=== PATIENT | female | born 1960 | race African-American/Black ===

== ENCOUNTER 2023-02-19 13:25 | Emergency (ER) | payer MEDICAID, SELFPAY ==
[2023-02-19 13:26] VITALS: BP 180/97; PULSE 94; RESP 16; TEMP 36.3; O2SAT 98; BMI 25.6
--- NOTE | 2023-02-19 14:08 | EDS_ITS ---
HPI History of Present Illness Chief Complaint: Cellulitis Informant: patient Onset/Context/Timing Onset: Days (5 days) Context: Gradual Onset Narrative Narrative: Patient presents with facial swelling and redness. She changed out her nasal piercing last Thursday. That evening she started noticing redness and swelling to her face. Last evening it spread down onto her neck and shoulders. She states they also gave her a spray to use which she has used before and I had problems with. She denies that the metal in the nasal piercing is anything different than what she had used previously. [facility] Medical History (Updated 02/19/23 @ 14:[address] Sakina Tilley MD) Alcohol abuse Anxiety Depression Depression Home Medications cephalexin 500 mg capsule 500 mg PO Q6 #40 CAPSULES 02/19/23 [Rx Last Taken Unknown] naproxen 500 mg tablet (Naprosyn) 500 mg PO BID PRN pain #20 tabs 02/19/23 [Rx Last Taken Unknown] sulfamethoxazole 800 mg-trimethoprim 160 mg tablet (Bactrim DS) 1 tab PO BID #20 tabs 02/19/23 [Rx Last Taken Unknown] Allergy/AdvReac Type Severity Reaction Status Date / Time No Known Allergies Allergy Verified 02/19/23 13:28 Family History no significant family his Surgical History no surgical history Social History Smoking Status: Current every day smoker ROS ROS ED Constitutional Constitutional ED: Denies chills or fever(s) Eyes Eyes: Denies change in vision or discharge from eye(s) ENT ENT ED: Denies discharge from eye(s), rhinorrhea or sore throat Cardiovascular Cardiovascular: Denies chest pain or palpitations Respiratory/Chest Respiratory/Chest: Denies cough or dyspnea Gastrointestinal Gastrointestinal: Denies abdominal pain, nausea or vomiting Musculoskeletal Musculoskeletal: Denies back pain or extremity pain Integumentary Reports other Details: Facial pain and edema. ; Denies Abrasions or rash Neurologic Neurologic: Denies headache(s) or weakness Psychiatric Psychiatric: Denies anxiety or depression Endocrine Endocrinology: Denies polydipsia or polyuria Allergic/Immunologic Allergic/Immunologic ED: Denies lip swelling, tongue swelling or urticaria EXAM Physical Exam Const Vital Signs: 02/19/23 13:26 Temperature 97.4 F L Temperature Source Temporal Pulse Rate 94 Respiratory Rate 16 Blood Pressure 180/97 H Blood Pressure Mean 124 Pulse Ox 98 Oxygen Delivery Method Room Air Positive well nourished and well developed General Appearance ED: well developed HEENT Reports normocephalic and head/scalp atraumatic HEENT Narrative: Mild facial edema noted diffusely. Area slightly tender to palpation. No open wounds or lesions. She does have some slight skin sloughing noted over the left shoulder and posterior neck. Intraoral examination reveals no lesions. Eyes PERRL and EOMs intact bilaterally Neck supple Chest Wall inspection of chest normal and palpation of chest normal Resp normal respiratory effort and clear to auscultation bilaterally Cardio regular rate and regular rhythm GI normal to inspection, nondistended, normoactive bowel sounds Palpation: soft Extremity normal to inspection Neuro oriented x3 and no sensory deficits noted Sensorium / Orientation: alert Motor Exam: strength 5/5 throughout Psych mental status grossly normal Skin Skin Narrative: As noted above. MDM MDM MDM Narrative Medical decision making narrative: Patient be treated with a course of antibiotics, Bactrim and Keflex. I will also give her Naprosyn for pain. She will be referred to dermatology for follow-up if not improving. I suggest basic, nonperfumed soap and water for cleansing. If possible, remove your nasal piercing as your symptoms started after this was placed. Discharge Plan Triage Chief Complaint: Cellulitis ED Provider: Sakina Tilley Dx/Rx/DC Orders Clinical Impression: Cellulitis Instructions: ED Cellulitis Prescriptions: New naproxen [Naprosyn] 500 mg tablet 500 mg PO BID PRN (Reason: pain) Qty: 20 0RF sulfamethoxazole-trimethoprim [Bactrim DS] 800-160 mg tablet 1 tab PO BID Qty: 20 0RF cephalexin 500 mg capsule 500 mg PO Q6 Qty: 40 0RF Primary Care Provider: Care Physician,No Primary Referrals: Romana José MD [Non-Staff] - 3-5 Days if not improving Care Physician,No Primary [Primary Care Provider] - Disposition Disposition: Home, Self Care
[2023-02-19] MEDS: Naproxen 500 MG Tablet PO (14:48)
[2023-02-19] MEDS: Cephalexin 250 MG Capsule 500 MG PO (14:48)
[2023-02-19] MEDS: Smz/Tmp Ds Tablet 1 TABLET PO (14:48)
== END 2023-02-19 14:51 | disposition home or self-care (01) ==
PROVIDERS: Emergency Provider Emergency Medicine; Referring Provider Emergency Medicine; Visit Provider Emergency Medicine
DX: L03.90 Cellulitis, unspecified (principal); F17.200 Nicotine dependence, unspecified, uncomplicated; Z79.899 Other long term (current) drug therapy
CPT/HCPCS: 99283

== ENCOUNTER 2023-02-25 14:51 | Emergency (ER) | payer MEDICAID, SELFPAY ==
[2023-02-25 14:52] VITALS: BP 141/97; PULSE 92; RESP 18; TEMP 36.5; O2SAT 98
--- NOTE | 2023-02-25 15:16 | EX.ED.DYSGE1 ---
HPI History of Present Illness Chief Complaint: Allergic Reaction Informant: patient Narrative Narrative: Patient presents with still having a rash all over her face. She states this started about a week ago. She was seen here she was given sulfa and cephalexin. She states its not better and it might even be a little bit worse. It really has not spread to other areas though. She has never had this before. She does recall using a generic perfume that she sprayed on herself about a week or so ago shortly before this started. She has not used that since. Other than that she cannot recall any chemicals foods exposures that are different. She is on the med for depression that sounds like an SSRI. But she states she has been on the same meds for many years. It has not changed color dose or brand. Patient is not nauseated vomiting. She has never had fevers or chills. She is eating and drinking normally. Her only symptoms really are from the neck up and just a little bit in the upper chest. The area seems to be cracking more and peeling but it is not spreading. PFSH [facility] Medical History Alcohol abuse Anxiety Depression Depression Home Medications cephalexin 500 mg capsule 500 mg PO Q6 #40 CAPSULES 02/19/23 [Rx Last Taken Unknown] naproxen 500 mg tablet (Naprosyn) 500 mg PO BID PRN pain #20 tabs 02/19/23 [Rx Last Taken Unknown] sulfamethoxazole 800 mg-trimethoprim 160 mg tablet (Bactrim DS) 1 tab PO BID #20 tabs 02/19/23 [Rx Last Taken Unknown] Allergy/AdvReac Type Severity Reaction Status Date / Time No Known Allergies Allergy Verified 02/25/23 14:54 Social History Smoking Status: Current every day smoker tobacco type: cigarettes ROS ROS ED Constitutional Constitutional ED: Denies chills, fever(s), subjective or sweats Eyes Eyes: Denies change in vision or diplopia ENT ENT ED: Reports other Details: Patient with rash as in HPI ; Denies ear pain, rhinorrhea or sore throat Cardiovascular Cardiovascular: Denies palpitations Respiratory/Chest Respiratory/Chest: Denies cough or dyspnea Gastrointestinal Gastrointestinal: Denies nausea or vomiting Musculoskeletal Musculoskeletal: Denies arthralgias or myalgias Integumentary Reports rash; Denies abscess Neurologic Neurologic: Denies headache(s), paresthesias or weakness Hematologic/Lymphatic Hematologic/Lymphatic: Denies lymphadenopathy Allergic/Immunologic Allergic/Immunologic ED: Reports other Details: Denies any intraoral symptoms. ; Denies mouth swelling or tongue swelling EXAM Physical Exam Narrative Exam Narrative: Patient awake alert sitting in bed no acute distress. HEENT shows diffuse dry cracked skin throughout her face ears eyelids and neck. It really stops within an inch or so of the collar of her T-shirt. It does not extend further down the back or chest. Its not on her arms legs or abdomen. It is not weeping. It is not warm. There are no vesicles. It does not extend intraorally. Eyes show no conjunctival injection. No involvement of the eyes. No tearing. The eyelids do have some dryness on them but this does not extend into the conjunctival area. Neck shows no swelling or lymphadenopathy. It does have involvement of the rash though. Lungs are clear bilaterally. Heart is regular without murmur gallop or rub Abdomen soft nontender Extremities show no swelling. She does have a little bit of eczematous type involvement of both antecubital fossa's but evidently this is not new. This is very mild. She does not carry a diagnosis of eczema though. Const Vital Signs: 02/25/23 14:52 Temperature 97.7 F L Temperature Source Temporal Pulse Rate 92 Respiratory Rate 18 Blood Pressure 141/97 H Blood Pressure Mean 111 Pulse Ox 98 Oxygen Delivery Method Room Air MDM MDM MDM Narrative Medical decision making narrative: At this point, she is not having fevers chills or spreading from the area. She is eating and drinking. I do not think at this point this is likely infectious. Certainly with the cracked skin is that it is at risk though. But I think this is likely allergic. We talked about starting meds for allergies and starting steroids. She would prefer a shot. I explained that it will take a day or so for this to take effect. She still needs to follow-up with dermatology or a primary physician. Her has called dermatology but cannot get in until June at 1 office and not until October of this year at the other. I will refer to a primary physician. We discussed returning if she has trouble swallowing fevers chills or any other concerning symptoms or spread. There is no indication for imaging as I see no indication of infection or abscess. I do not think there is indication for blood work. She has a localized rash without systemic symptoms. Discharge Plan Triage Chief Complaint: Allergic Reaction ED Provider: Jesse Huerta Dx/Rx/DC Orders Clinical Impression: Contact dermatitis and eczema Prescriptions: No Action naproxen [Naprosyn] 500 mg tablet 500 mg PO BID PRN (Reason: pain) Qty: 20 0RF sulfamethoxazole-trimethoprim [Bactrim DS] 800-160 mg tablet 1 tab PO BID Qty: 20 0RF cephalexin 500 mg capsule 500 mg PO Q6 Qty: 40 0RF Primary Care Provider: Care Physician,No Primary Referrals: Aditya Abarca MD [Med Staff - Dental Assisting Instructor] - 3-5 Days Care Physician,No Primary [Primary Care Provider] - Disposition Disposition: Home, Self Care
[2023-02-25 15:17] VITALS: BMI 26.5
[2023-02-25] MEDS: Triamcinolone Acetonide 40 MG/ML Vial IM (15:29)
== END 2023-02-25 15:51 | disposition home or self-care (01) ==
PROVIDERS: Emergency Provider Emergency Medicine; Visit Provider Emergency Medicine
DX: L25.9 Unspecified contact dermatitis, unspecified cause (principal); F17.210 Nicotine dependence, cigarettes, uncomplicated; F32.A Depression, unspecified; Z79.899 Other long term (current) drug therapy
CPT/HCPCS: 96372; 99282

== ENCOUNTER 2025-08-14 15:20 | Inpatient (IN) | payer MEDICAID, SELFPAY ==
[2025-08-14] VITALS (9 sets, daily range): BP systolic 145–167; BP diastolic 101–128; PULSE 70–100; RESP 14–22; TEMP 36.4–37.2; O2SAT 98–100; BMI 22.1
[2025-08-14] MEDS: 0.9% Normal Saline (1000mL) 1,000 ML 999 ML IV (16:00)
[2025-08-14 16:03] LABS: Hematocrit 43.0 % (37-47); Hemoglobin 13.9 g/dL (12.0-15.0); Immature Granulocytes Count 0.010 X10^3/uL (0.0-0.0); Mean Corp Hgb Conc 32.3 g/dL (32-36); Mean Corpuscular Volume 86.7 fL (81-99); Mean Platelet Vol. 13.4 fl (6.2-12.0); NRBC Flagged by Analyzer 0 % (0-5); Platelet Count 100 K/mm3 (150-450); RBC Distribution Width CV 13.4 % (11.6-14.6); RBC Distribution Width SD 42.5 fl (35.1-43.9); Red Blood Count 4.96 M/mm3 (4.2-5.4); White Blood Count 5.3 K/mm3 (4.4-11.0)
[2025-08-14 16:38] LABS: AST(SGOT) 18 U/L (<=31); Alanine Aminotransfer ALT/SGPT 7 U/L (<=34); Albumin, Serum 4.1 g/dL (3.4-4.8); Alkaline Phosphatase 51 U/L (35-104); Anion Gap 15 (5-15); BUN 17 mg/dL (4-19); BUN/Creat Ratio 16.8 RATIO (10-20); Calcium,Total 10.2 mg/dL (7.6-11.0); Carbon Dioxide 23.3 mmol/L (21.0-32.0); Chloride 104 mmol/L (98-108); Estimated Creatinine Clearance 51.66 ml/min (50-250); Globulin 4.2 g/dL (2.2-4.2); Glucose 142 mg/dL (70-99); Lipase 29 U/L (13-75); Potassium 3.2 mmol/L (3.3-5.1)
--- NOTE | 2025-08-14 16:55 | CT_ITS ---
PROCEDURE: CTA CHEST W/WO CONTRAST; ABDOMEN/PELVIS W IV CONT ONLY 08/14/2025 REASON FOR EXAM: SOB; ABD PAIN, WEIGHT LOSS, NO APPETITE TECHNIQUE: Procedure Code: [id number]; [id number] Modality: CT Procedure: CTA CHEST W/WO CONTRAST; ABDOMEN/PELVIS W IV CONT ONLY Multiplanar Sagittal and Coronal images were obtained. 3D post processing was performed. CONTRAST: Isovue-300 VOLUME: 96 mL One or more dose reduction techniques were used (e.g., Automated exposure control, adjustment of the mA and/or kV according to patient size, use of iterative reconstruction technique). RADIATION DOSE SUMMARY: DLP: 973.87 mGycm COMPARISON: None available. FINDINGS: PULMONARY VESSELS: No filling defects suspicious for pulmonary arterial emboli identified. Pulmonary trunk is of normal caliber. No evidence of acute right heart strain. LUNGS/PLEURA: Bilateral scattered linear/discoid atelectasis versus scarring. No airspace consolidation or findings of pulmonary edema. No pneumothorax or pleural effusions. Central airways are patent. MEDIASTINUM: No suspicious lymph node enlargement or mass lesion. HEART: Four-chamber cardiomegaly. No pericardial effusion. Scant coronary artery calcifications. AORTA: Normal course and caliber. Mild atherosclerotic disease. HEPATOBILIARY: Unremarkable liver, spleen, and pancreas. No biliary ductal dilatation. Cholelithiasis, without evidence of acute cholecystitis. GENITOURINARY: Unremarkable kidneys. No hydronephrosis. Normal adrenal glands. Circumferential bladder wall thickening may reflect cystitis. Small amount of air within the bladder lumen is nonspecific, and may be related to recent catheterization. Prominent partially calcified uterine fibroid at the dorsal aspect of the uterine body. Unremarkable adnexae. GI TRACT: No evidence of obstruction or active inflammatory process. Normal appendix. Mild distal colonic diverticulosis without evidence for active diverticulitis/colitis. PERITONEUM/RETROPERITONEUM: No ascites or free air. No lymphadenopathy. BONES: No acute or aggressive osseous abnormality. Mild multilevel degenerative changes of the spine. Prominent degenerative Schmorl's nodes involving the superior endplates of T12 and L1 noted. CT/Abdomen/Pelvis W IV Cont ONLY IMPRESSION: 1. No pulmonary arterial emboli identified. 2. Cardiomegaly. No pulmonary edema or pleural effusions. Scattered bilateral linear/discoid atelectasis versus scarring in the lungs. 3. Cholelithiasis, without evidence for acute cholecystitis. 4. Circumferential bladder wall thickening, correlate clinically for cystitis. Small amount of nonspecific air within the bladder lumen may be related to recent catheterization. 5. Prominent partially calcified fibroid at the dorsal uterine body. Reading Location: [id number]
--- NOTE | 2025-08-14 17:23 | EDS_ITS ---
HPI History of Present Illness Chief Complaint: General Illness Narrative Narrative: Patient is a 65-year-old female with past medical history anxiety, depression, alcohol abuse does not follow with a doctor in a regular basis who presents to the emergency department with a chief complaint of generalized weakness, decreased appetite, weight loss and not feeling well overall. According to the son at bedside who provided majority of history of present illness he states that he thought things would get better however they have not over the last month therefore he brought her here for further evaluation management. Patient also complains of some shortness of breath denies any history of blood clots denies any recent travel history. She states that she does smoke. [facility] Medical History Alcohol abuse Anxiety Depression Depression Home Medications ?Medication ?Instructions ?Recorded ?Last Taken ?Type citalopram 40 mg tablet 40 mg PO DAILY MOOD 08/14/25 08/07/25 History trazodone 50 mg tablet 50 - 100 mg PO QHS PRN insom joseph 08/14/25 08/07/25 History Allergy/AdvReac Type Severity Reaction Status Date / Time No Known Allergies Allergy Verified 08/14/25 15:26 Social History Smoking Status: Current every day smoker tobacco type: cigarettes ROS ROS ED ROS Narrative Constitutional: Denies any fevers or chills denies headache Eyes: Denies double vision Cardiovascular: Denies chest pain Respiratory: Complains of shortness of breath as noted above Abdomen: Complains of decreased appetite and weight loss as noted above : Denies urinary symptoms Neurological: Denies numbness, wheeze, tingling Musculoskeletal: Denies back pain Skin: Denies any rashes or lesions EXAM Physical Exam Narrative Exam Narrative: General: Patient was lying in bed rest comfortably did not appear to be in acute distress Head: Atraumatic, normocephalic Eyes: PERRL bilaterally, EOMI bilaterally, no conjunctival injection noted mucous membranes dry Neck: Soft, supple, trachea midline Cardiovascular: Regular rate and rhythm Respiratory: Clear to auscultation bilaterally Abdomen: Soft, nondistended, diffuse tenderness to palpation no rebound guarding exam Extremities: +3/5 strength noted in the bilateral upper and lower extremities Neurological: Patient following commands she was at [facility] Skin: Warm, dry, intact no rashes or lesions noted dry skin noted Const Vital Signs: 08/14/25 15:22 08/14/25 15:28 08/14/25 17:36 Temperature 97.6 F L Temperature Source Oral Pulse Rate 94 Respiratory Rate 18 Respiratory Effort Normal Non-Labored Respiratory Pattern Normal Blood Pressure 145/101 H 150/121 H Blood Pressure Mean 115 130 Blood Pressure Source Blood Pressure Position Blood Pressure Location Pulse Ox 100 100 Oxygen Delivery Method Room Air Room Air 08/14/25 20:41 08/14/25 21:45 08/14/25 22:00 Temperature Temperature Source Pulse Rate 77 70 Respiratory Rate 14 14 Respiratory Effort Respiratory Pattern Blood Pressure 157/102 H 159/113 H 159/128 H Blood Pressure Mean 120 128 138 Blood Pressure Source Blood Pressure Position Blood Pressure Location Pulse Ox 98 98 Oxygen Delivery Method Room Air Room Air 08/14/25 23:04 08/14/25 23:04 Temperature Temperature Source Pulse Rate 74 78 Respiratory Rate 20 H 20 H Respiratory Effort Respiratory Pattern Blood Pressure 164/108 H 164/108 H Blood Pressure Mean 126 126 Blood Pressure Source Monitor Blood Pressure Position Semi-Fowlers Blood Pressure Location Left Arm Pulse Ox 100 100 Oxygen Delivery Method Room Air Room Air MDM MDM MDM Narrative Medical decision making narrative: Patient is a 65-year-old female who presents to the Emergency Department chief complaint of generalized weakness, weight loss, decreased appetite and abdominal pain as well as shortness of breath. On the differential diagnose includes but not limited to lung cancer, intra-abdominal mass, failure to thrive, hypothyroidism, dehydration. Once workup is obtained reviewed she will be reevaluated. Patient is a 65-year-old female patient CBC reviewed showed no evidence leukocytosis white blood count normal 5.3, he was 13.9, platelet count of 100. Patient sodium is 142, potassium 3.2 will give 40 mill equivalents of oral supplementation, creatinine is 1.03. Patient's AST and ALT normal at 18 and 7 respectively. Patient lipase normal at 29, thyroid TSH normal at 1.29. Patient's free T4 and T3 normal at 1.20 and 2.3 respectively. Patient urinalysis showed 500 leukocyte esterase 25-50 white cells with rare bacteria however she appears clinically to have a urinary tract infection therefore she was given Rocephin this was sent for culture. Patient's CTA chest was reviewed showed no PE. Cardiomegaly no pulmonary edema or effusions noted. Cholelithiasis without evidence of acute cholecystitis. Circumferential bladder wall thickening concern for cystitis correlate clinically. After discussion with the son at bedside he states that she is very weak and cannot get around is also having some changes in mental status is more confused and that he states that he thinks that she may have dementia but does not feel that she is safe at home by herself therefore we will discuss case with hospitalist for admission. Son also notified me that he was concern for increased work of breathing and went back in and with similar patient's lungs we will give a DuoNeb to see if this improves her feeling her shortness of breath. Discussed case with hospitalist Dr. Quiros who accept patient for admission. Patient notified as well as family at bedside they are agreeable this plan all question concerns answered. Lab Data Labs: Laboratory Results - last 24 hr 08/14/25 08/14/25 08/14/25 15:30 17:36 21:30 WBC 5.3 RBC 4.96 Hgb 13.9 Hct 43.0 MCV 86.7 MCH 28.0 MCHC 32.3 RDW Std Deviation 42.5 RDW Coeff of Adán 13.4 Plt Count 100 L MPV 13.4 H Immature Gran % (Auto) 0.200 Neut % (Auto) 56.3 Lymph % (Auto) 33.0 [place] % (Auto) 7.0 Eos % (Auto) 2.7 Baso % (Auto) 0.8 Absolute Neuts (auto) 3.0 Absolute Lymphs (auto) 1.74 Nucleated RBC % 0 Sodium 142 Potassium 3.2 L Chloride 104 Carbon Dioxide 23.3 Anion Gap 15 BUN 17 Creatinine 1.03 Estim Creat Clear Calc 51.66 Est GFR (MDRD) Non-Af 61 BUN/Creatinine Ratio 16.8 Glucose 142 H Calcium 10.2 Total Bilirubin 1.43 H AST 18 ALT 7 Alkaline Phosphatase 51 Total Protein 8.2 Albumin 4.1 Globulin 4.2 Albumin/Globulin Ratio 1.0 Lipase 29 TSH 1.290 Free T4 1.20 Free T3 pg/dL 2.3 Urine Color Yellow Urine Clarity Turbid Urine pH 5.0 Ur Specific [place] 1.010 Urine Protein 30 H Urine Glucose (UA) Normal Urine Ketones Negative Urine Occult Blood 150 H Urine Nitrite Positive H Urine Bilirubin Negative Urine Urobilinogen 8 H Ur Leukocyte Esterase 500 H Urine RBC 0-5 SEEN Urine WBC 25-50 SEEN Ur Squamous Epith Cells 0-5 SEEN Ur Renal Epithelial Cell 0-5 SEEN Urine Bacteria RARE Urine Mucus 0 SEEN Radiography Diagnostic Testing: Clinical Impression(s) from Imaging Studies Abdomen/Pelvis CT 08/14/25 16:55 IMPRESSION: 1. No pulmonary arterial emboli identified. 2. Cardiomegaly. No pulmonary edema or pleural effusions. Scattered bilateral linear/discoid atelectasis versus scarring in the lungs. 3. Cholelithiasis, without evidence for acute cholecystitis. 4. Circumferential bladder wall thickening, correlate clinically for cystitis. Small amount of nonspecific air within the bladder lumen may be related to recent catheterization. 5. Prominent partially calcified fibroid at the dorsal uterine body. Reading Location: [facility] Chest CTA 08/14/25 16:55 IMPRESSION: 1. No pulmonary arterial emboli identified. 2. Cardiomegaly. No pulmonary edema or pleural effusions. Scattered bilateral linear/discoid atelectasis versus scarring in the lungs. 3. Cholelithiasis, without evidence for acute cholecystitis. 4. Circumferential bladder wall thickening, correlate clinically for cystitis. Small amount of nonspecific air within the bladder lumen may be related to recent catheterization. 5. Prominent partially calcified fibroid at the dorsal uterine body. Reading Location: [facility] Discharge Plan Dx/Rx/DC Orders Clinical Impression: Generalized weakness, Adult failure to thrive, Alcohol use, UTI (urinary tract infection) Disposition Disposition: Acute Care Hospital [facility]
[2025-08-14 18:49] LABS: Free T3 2.3 pg/mL (2.18-3.98)
--- NOTE | 2025-08-14 19:43 | CM.ED ---
Social work Reason for referral: no PCP Referral source: case find SW identified patient's lack of PCP and need for resources. SW entered patient's room, introducing self and role at [facility]. Patient welcomed SW visit and asked if patient's son had called in. SW stated ability to ask patient's nurse and expressed reason for SW visit. Patient confirmed not having a PCP and accepted resources of [facility] Provider Directory and Charissa Baptiste information. Shanel Sims, SPECIAL AGENT [employer], MICRO PALEONTOLOGIST
[2025-08-14 21:41] LABS: Mucous, Urine 0 SEEN /hpf (<or=2+)
[2025-08-14 21:58] LABS: Color, Urine Yellow (Yellow); Glucose, Dipstick Normal (Normal); Ketone-Dipstick Negative (Negative); Leukocyte Esterase-Dipstick 500 /ul (Negative); Nitrite-Dipstick Positive (Negative); Occult Blood-Urine 150 /ul (Negative); Protein-Dipstick 30 mg/dl (Negative); Specific Gravity, Urine 1.010 (1.002-1.030); Urine Bilirubin Dipstick Negative (Negative)
[2025-08-14 22:19] LABS: Red Blood Cells-Urine 0-5 SEEN /hpf (0-5); Squamous Epithelial Cells - UA 0-5 SEEN /hpf (5-10)
--- NOTE | 2025-08-14 23:06 | ED.RN ---
pt. found to have removed saline lock. bandage in place w/ angio cath at bedside. post site and angiocath intact.
[2025-08-15] VITALS (10 sets, daily range): BP systolic 138–168; BP diastolic 86–127; PULSE 92–111; RESP 16–20; TEMP 36.2–36.9; O2SAT 99–100; BMI 22.2
--- NOTE | 2025-08-15 00:18 | HP.PCM_ITS ---
[facility] General Date of Admission: 08/15/25 Date of Service: 08/15/25 Chief Complaint: Generalized weakness, failure to thrive HPI Elbert SOUTH, is a 65 F who presents to the emergency room with chief complaint of generalized weakness with failure to thrive at home. According to the her son the patient has slept approximately 60 hours of the last 72 hours at home. She is too weak to transfer without assistance by her son who does work 40 to 50 hours a week at another job and is not at home all the time. Patient does have a significant past medical history of anxiety, depression, alcohol abuse and she does not have routine medical care. Recently her son's noticed her having more trouble with memory and her fatigue and weakness has progressed markedly. Patient is also a smoker and does have some shortness of breath. Laboratory studies are unrevealing however she does have a urinary tract infection through her urinalysis. Patient will be admitted for observation to general medical floor case management referral obtained for help with discharge planning and possible placement. Patient will be given antibiotics for her urinary tract infection and physical therapy evaluation to help with her generalized strengthening and further planning for rehabilitation. Patient is full code at this time. [facility] Medical History Alcohol abuse Anxiety Depression Depression Home Medications ?Medication ?Instructions ?Recorded ?Last Taken ?Type citalopram 40 mg tablet 40 mg PO DAILY MOOD 08/14/25 08/07/25 History trazodone 50 mg tablet 50 - 100 mg PO QHS PRN insom joseph 08/14/25 08/07/25 History Allergy/AdvReac Type Severity Reaction Status Date / Time No Known Allergies Allergy Verified 08/14/25 15:26 Social History Smoking Status: Current every day smoker tobacco type: cigarettes ROS Constitutional Constitutional: Reports anorexia, malaise and weakness; Denies chills or fever(s) Eyes Eyes: Denies blurry vision ENT HEENT: Denies abnormal hearing Cardiovascular Cardiovascular: Denies chest pain Respiratory/Chest Respiratory/Chest: Reports cough and shortness of breath with exertion Gastrointestinal Gastrointestinal: Denies abdominal pain Genitourinary Genitourinary: Reports dysuria and urinary frequency Musculoskeletal Musculoskeletal: Denies back pain Integumentary Integumentary: Denies dry skin Neurologic Neurologic: Denies abnormal gait Psychiatric Psychiatric: Denies anxiety Vital Signs Vital Signs Vital Signs: 08/14/25 15:22 08/14/25 15:28 08/14/25 17:36 Temperature 97.6 F L Temperature Source Oral Pulse Rate 94 Respiratory Rate 18 Respiratory Effort Normal Non-Labored Respiratory Pattern Normal Blood Pressure 145/101 H 150/121 H Blood Pressure Mean 115 130 Blood Pressure Source Blood Pressure Position Blood Pressure Location Pulse Ox 100 100 Oxygen Delivery Method Room Air Room Air 08/14/25 20:41 08/14/25 21:45 08/14/25 22:00 Temperature Temperature Source Pulse Rate 77 70 Respiratory Rate 14 14 Respiratory Effort Respiratory Pattern Blood Pressure 157/102 H 159/113 H 159/128 H Blood Pressure Mean 120 128 138 Blood Pressure Source Blood Pressure Position Blood Pressure Location Pulse Ox 98 98 Oxygen Delivery Method Room Air Room Air 08/14/25 23:04 08/14/25 23:04 08/14/25 23:15 Temperature 99 F Temperature Source Pulse Rate 74 78 78 Respiratory Rate 20 H 20 H 18 Respiratory Effort Respiratory Pattern Blood Pressure 164/108 H 164/108 H 167/107 H Blood Pressure Mean 126 126 127 Blood Pressure Source Monitor Blood Pressure Position Semi-Fowlers Blood Pressure Location Left Arm Pulse Ox 100 100 100 Oxygen Delivery Method Room Air Room Air 08/14/25 23:22 08/14/25 23:36 Temperature 99 F Temperature Source Oral Pulse Rate 90 100 Respiratory Rate 22 H 16 Respiratory Effort Respiratory Pattern Normal Blood Pressure 167/107 H Blood Pressure Mean 127 Blood Pressure Source Blood Pressure Position Blood Pressure Location Pulse Ox 100 Oxygen Delivery Method Room Air Weight Weight: 137 lb 5.568 oz Body Mass Index (BMI) 22.1 Physical Exam Narrative Appears very fatigued Const alert and no apparent distress General Appearance: cooperative and well developed Orientation / Consciousness: confused HEENT normocephalic and head/scalp atraumatic Eyes PERRL and EOMs intact bilaterally Neck no lymphadenopathy Lymph Lymphatic: no lymphadenopathy noted Resp normal respiratory effort, normal air movement and clear to auscultation bilaterally Cardio regular rate, regular rhythm, S1 normal heart sound and S2 normal heart sound GI normal to inspection, nondistended, normoactive bowel sounds, soft to palpation, non-tender and non-distended Extremity normal capillary refill General Extremity: Negative for edema Skin General Skin Exam: no breakdown Neuro no focal motor deficits and no sensory deficits noted Psych cooperative Mood & Affect: flat affect Thought Content: No suicidality, No delusion(s) and No hallucination(s) Results Lab / Micro Data 08/14/25 15:30 08/14/25 15:30 Labs: Laboratory Results - last 24 hr 08/14/25 15:30: WBC 5.3, RBC 4.96, Hgb 13.9, Hct 43.0, MCV 86.7, MCH 28.0, MCHC 32.3, RDW Std Deviation 42.5, RDW Coeff of Adán 13.4, Plt Count 100 L, MPV 13.4 H , Immature Gran % (Auto) 0.200, Neut % (Auto) 56.3, Lymph % (Auto) 33.0, [place] % (Auto) 7.0, Eos % (Auto) 2.7, Baso % (Auto) 0.8, Absolute Neuts (auto) 3.0, Absolute Lymphs (auto) 1.74, Nucleated RBC % 0, Sodium 142, Potassium 3.2 L, Chloride 104, Carbon Dioxide 23.3, Anion Gap 15, BUN 17, Creatinine 1.03, Estim Creat Clear Calc 51.66, Est GFR (MDRD) Non-Af 61, BUN/Creatinine Ratio 16.8, G lucose 142 H, Calcium 10.2, Total Bilirubin 1.43 H, AST 18, ALT 7, Alkaline Phosphatase 51, Total Protein 8.2, Albumin 4.1, Globulin 4.2, Albumin/Globulin Ratio 1.0, Lipase 29 08/14/25 17:36: TSH 1.290, Free T4 1.20, Free T3 pg/dL 2.3 08/14/25 21:30: Urine Color Yellow, Urine Clarity Turbid, Urine pH 5.0, Ur Specific [place] 1.010, Urine Protein 30 H, Urine Glucose (UA) Normal, Urine Ketones Negative, Urine Occult Blood 150 H, Urine Nitrite Positive H, Urine Bilirubin Negative, Urine Urobilinogen 8 H, Ur Leukocyte Esterase 500 H, Urine RBC 0-5 SEEN, Urine WBC 25-50 SEEN, Ur Squamous Epith Cells 0-5 SEEN, Ur Renal Epithelial Cell 0-5 SEEN, Urine Bacteria RARE, Urine Mucus 0 SEEN Imaging Radiology Impression Abdomen/Pelvis CT 08/14/25 16:55 IMPRESSION: 1. No pulmonary arterial emboli identified. 2. Cardiomegaly. No pulmonary edema or pleural effusions. Scattered bilateral linear/discoid atelectasis versus scarring in the lungs. 3. Cholelithiasis, without evidence for acute cholecystitis. 4. Circumferential bladder wall thickening, correlate clinically for cystitis. Small amount of nonspecific air within the bladder lumen may be related to recent catheterization. 5. Prominent partially calcified fibroid at the dorsal uterine body. Reading Location: [facility] Chest CTA 08/14/25 16:55 IMPRESSION: 1. No pulmonary arterial emboli identified. 2. Cardiomegaly. No pulmonary edema or pleural effusions. Scattered bilateral linear/discoid atelectasis versus scarring in the lungs. 3. Cholelithiasis, without evidence for acute cholecystitis. 4. Circumferential bladder wall thickening, correlate clinically for cystitis. Small amount of nonspecific air within the bladder lumen may be related to recent catheterization. 5. Prominent partially calcified fibroid at the dorsal uterine body. Reading Location: [facility] Assessment & Plan Assessment/Plan (1) UTI (urinary tract infection): (2) Alcohol use: (3) Adult failure to thrive: (4) Generalized weakness: PLAN: Plan 1 generalized weakness with failure to thrive?admit patient to general medical floor for observation, consult case management team to assist with possible plan for rehab. 2. Urinary tract infection?Rocephin 1 g IV every 24 hours, repeat CBC BMP in the a.m. will add IV hydration with normal saline at 125 cc/h as well 3. History of alcohol use will add thiamine and folate patient is not presently showing signs of withdrawal and it is unclear based on history with her son that she has been drinking recently 4. DVT prophylaxis?low molecular weight heparin 5. CODE STATUS full verified Charges/Coding Visit Charges OBSV E&M: 68473 Observ/hosp same date L2
[2025-08-15] MEDS: 0.9% Normal Saline (1000mL) 1,000 ML 125 ML IV ×3 (01:38→19:26)
[2025-08-15 07:37] LABS: Hematocrit 41.2 % (37-47); Hemoglobin 13.6 g/dL (12.0-15.0); Immature Granulocytes Count 0.010 X10^3/uL (0.0-0.0); Mean Corp Hgb Conc 33.0 g/dL (32-36); Mean Corpuscular Volume 84.9 fL (81-99); Mean Platelet Vol. 13.2 fl (6.2-12.0); NRBC Flagged by Analyzer 0 % (0-5); POSITIVE COUNT YES; Platelet Count 91 K/mm3 (150-450); RBC Distribution Width CV 13.3 % (11.6-14.6); RBC Distribution Width SD 41.1 fl (35.1-43.9); Red Blood Count 4.85 M/mm3 (4.2-5.4); White Blood Count 4.8 K/mm3 (4.4-11.0)
[2025-08-15 07:38] LABS: Differential Indicated SCAN CRITERIA MET
[2025-08-15 08:14] LABS: Anion Gap 17 (5-15); BUN 13 mg/dL (4-19); BUN/Creat Ratio 17.0 RATIO (10-20); Calcium,Total 9.6 mg/dL (7.6-11.0); Carbon Dioxide 19.2 mmol/L (21.0-32.0); Chloride 105 mmol/L (98-108); Estimated Creatinine Clearance 68.21 ml/min (50-250); Glucose 107 mg/dL (70-99); Potassium 3.1 mmol/L (3.3-5.1)
[2025-08-15] MEDS: 0.9% Saline Lock 10 ML Syringe IV (08:59)
[2025-08-15] MEDS: Thiamine Hydrochloride 200 MG/2 ML Vial 100 MG IM (09:02)
--- NOTE | 2025-08-15 11:53 | CASEMGMT ---
Addendum entered by Katrina Parson 08/15/25 13:17: Social Work Pt's home is two stories, pt stays on the first floor. MOODY Rich Addendum entered by Katrina Parson 08/15/25 13:13: Social Work Pt is up in the chair now, a bit more awake. Pt able to answer SW questions at this time. Pt still exhibiting some confusion however, does not seem to be fully alert and oriented. SW let pt know spoke w/her son and he is going to come in to see her later. SW inquired about where she receives psychiatric services. Pt states, [place]. SW inquired if she goes to [facility], pt states yes. She also does state sees a counselor there. She declined any additional mental health resources. SW completed SDOH w/SW. SW offered resources. SW offered [facility], pt states is already signed up for it. SW offered transportation resources, pt states is using the [employer] transportation. SW inquired if she means [employer], pt states yes. She states she does not always have food but then does not want food resources. SW spoke w/pt about going somewhere for rehab. Pt states she has been to a facility in [place] in the past. Pt however states she wants to go home. SW explained we will continue to see how things go w/therapy. SW did call pt's son back, let him know that pt is awake now. Son states he will be here by 3pm to see pt. SW let son know pt at this time is stating she wants to go home. Son states is aware she will want to go home but states pt cannot manage at home. Son states he works a lot and cannot be there to help pt. SW explained will leave a list of fdc facilities in the room for him to review, and will have SW follow up w/him tomorrow. SW also let him know the physician list is in the room for him. Son states understanding. SW placed SNF list in the room with the physician list. SW will continue to follow. MOODY Rich Original Note: Social Work SW attempted to speak w/pt, however she is asleep and not easily waking. SW spoke w/RN, pt has been exhibiting some confusion today. SW called pt's son Joss to inquire how pt has been managing at home and start reviewing the anticipated discharge plan. PCP: None, SW in ED gave pt a PCP list Specialists: Pt does see someone for medication for psychiatric meds, but son is not certain where he sees psychiatry Preferred Pharmacy: [facility] in [place] Insurance/Prescription Benefit: [facility] Living Will/HPOA: Pt has not completed, if pt becomes alert and oriented, son would like pt to complete the documents LNOK: Pt has two sons, lives w/Joss. Other son is out of town. Pt also has a brother Chano who lives local. Living Arrangements/Prior level of function: As of three weeks ago, as per son, pt was independent. He states she has had a significant decline in the last three weeks, and he has been helping her as much as he can. He also states she has also been exhibiting forgetfulness recently. MH: It is documented pt has anxiety and depression. Pt's son does think she is on medication for this but is not certain of the provider. Substance Use: Pt has history of alcohol use, pt's states she has not been drinking much in the last few weeks. He states she has had 3-4 tallboys in the last few weeks. Tox screen was not completed on this hospitalization. Transportation: Pt does not drive, son takes her to [employer]. SW also did let son know her insurance provides transportation to [employer], son was aware. DME: Pt has a cane as per son that she is trying to figure out how to use HHC/SNF: Pt has no history of either PLAN: TBD. PT/OT pending. SW let son know will try to speak w/pt again later. He also is interested in getting pt assessed for dementia. SW explained will leave a list of physicians in the room for him. He does plan to visit today and would appreciate a call from the SW when pt is awake. SW will let son know when pt is awake. MOODY Rich
--- NOTE | 2025-08-15 12:55 | CASEMGMT ---
Discharge Planning A list of?SNF providers including quality and resource use data and consistent with the patient's preferred geographic region, medical needs, and insurance network was created in CarePort Guide.? This list was provided to the SW. Julianne Davalos Discharge Planning Asst.
--- NOTE | 2025-08-15 14:25 | PN.HOSP_ITS ---
Hospitalist Note Patient was seen and examined today, she is alert but somewhat confused. I told her that PT and OT were going to be seeing her for evaluation and she may have to go to a residential facility for short-term inpatient physical therapy. Patient then asked me whether she had to stay in the hospital and I told her yes. Patient's potassium was slightly low this morning, I have ordered potassium replacement orally. Her BMP will be repeated tomorrow
[2025-08-15] MEDS: Potassium Chloride Oral Tablet 20 MEQ 40 MEQ PO (14:58)
[2025-08-16] MEDS: 0.9% Normal Saline (1000mL) 1,000 ML 125 ML IV ×3 (03:58→20:42)
[2025-08-16 04:01] VITALS: BP 162/118; PULSE 113; RESP 20; TEMP 36.6; O2SAT 99
[2025-08-16 04:35] VITALS: BP 152/105
[2025-08-16] MEDS: Thiamine Hydrochloride 200 MG/2 ML Vial 100 MG IM (08:13)
[2025-08-16 08:27] VITALS: BP 158/111; PULSE 105; RESP 18; TEMP 36.5; O2SAT 97
--- NOTE | 2025-08-16 13:36 | CASEMGMT ---
Addendum entered by Shahnaz Villarreal 08/16/25 16:08: Pt son, Joss, visiting pt. SW met with pt and pt son to discuss discharge planning. SW reviewed SNF list previously provided and encouraged 3 selections. Pt son would like to research and potentially visit SNFs prior to selections. SW offered to follow up with pt son tomorrow for choices. Pt son reports that he is available by phone at 9 and noon. JESSICA Storey Addendum entered by Shahnaz Villarreal 08/16/25 15:02: Social Work- Pt brother and [id number] visited pt; asking for SW. BRANDON met with Chano and his , who expressed concerns regarding pt confusion and return home. Pt brother reports that pt son is not able to properly care for and they feel pt needs SNF. Pt brother reports that he will call pt sisters to update. SW remains available to follow. JESSICA Storey Original Note: Social Work- SW met with pt in her room. Pt trying to open pop can the wrong direction. Pt lunch sitting uneaten on her tray. Pt declined needing help opening food packages, did allow SW to open Coke can. Pt reports that she did not review SNF list. Pt reports that son will be in today at 4-5pm. Pt gave permission for SW to call sonJoss. Pt son did not answer phone and voicemail not set up. SW remains available to follow. JESSICA Storey
[2025-08-16 15:00] VITALS: BP 143/95; PULSE 104; RESP 18; TEMP 36.6; O2SAT 100
--- NOTE | 2025-08-16 18:57 | PN.HOSP_ITS ---
Reason for Visit Chief Complaint: Generalized weakness, failure to thrive Subjective Subjective Patient was seen and examined today, she does not appear to be in any distress. Family has not decided as of this morning which long term they want the patient to be discharged to. Patient's blood pressure has been trending a little high today, it appears she does not have a primary care physician. She may have undiagnosed hypertension. I have elected to add losartan to her medications. Objective Data Objective Data Vital Signs: Vital Signs Temp Pulse Resp BP Pulse Ox O2 Del Method O2 Flow Rate 97.9 F 104 H 18 143/95 H 100 Room Air 2 08/16/25 15:00 08/16/25 15:00 08/16/25 15:00 08/16/25 15:00 08/16/25 15:00 08/16/25 15:00 08/15/25 01:10 Oxygen Flow Rate (L/min) 2 Oxygen Delivery Method Room Air Weight: 62.5 kg Body Mass Index (BMI) 22.2 Intake & Output: Intake and Output for Last 24 Hours 08/14/25 08/15/25 08/16/25 23:59 23:59 23:59 Intake Total 1100 / 1100 2350 / 2400 2100 / 2100 Balance 1100 / 1100 2350 / 2400 2100 / 2100 Lab / Micro Data 08/15/25 07:27 08/15/25 07:27 Micro: Microbiology 08/14/25 21:30 Urine, Catheterized Urine Culture - Preliminary Gram negative elise Physical Exam Const alert, no apparent distress and average body habitus General Appearance: cooperative, well kempt and well developed Orientation / Consciousness: awake, oriented to person and oriented to place HEENT normocephalic, head/scalp atraumatic and moist oral mucous membranes Eyes PERRL, EOMs intact bilaterally and conjunctivae normal Neck supple, no JVD, thyroid normal and no carotid bruits General: trachea midline Resp normal respiratory effort, no retractions, no use of accessory muscles and clear to auscultation bilaterally Auscultation: Negative for rales, rhonchi or wheezes Cardio regular rate, regular rhythm, S1 normal heart sound, S2 normal heart sound, no murmurs, no rub and no gallops GI normal to inspection, nondistended, normoactive bowel sounds, soft to palpation, non-tender and non-distended Extremity no clubbing, cyanosis or edema Skin no rashes or lesions noted General Skin Exam: no breakdown Neuro CN's II-XII intact bilaterally, no focal motor deficits and no sensory deficits noted Sensorium / Orientation: awake, alert, oriented to person and oriented to place Speech: speech normal Psych Psych Narrative: Patient has flat affect, she does respond appropriately to simple questions Assessment & Plan Assessment/Plan (1) Adult failure to thrive: PLAN: Plan 1. Adult failure to thrive-etiology unclear at this point, she may have undiagnosed dementia, PT and OT will continue to see the patient and she will need at least temporary placement in a assisted facility. #2 bacteriuria-there are low numbers of gram-negative bacteria in the urine, I have elected to stop her Rocephin and place her on Macrobid #3 hypertension-I suspect this is undiagnosed essential hypertension, I will place patient on losartan #4 probable dementia-again it does not appear that the patient has a primary care physician and this may be contributing to her lack of ability to care for self. Total clinical time spent by myself addressing the patient's medical issues, reviewing all of her data, and collaborating with patient's care team: 35 minutes Charges/Coding Visit Charges Inpatient E&M: 77151 Subs Hosp L2
[2025-08-16 20:46] VITALS: BP 142/89; PULSE 98; RESP 18; TEMP 36.5; O2SAT 96
[2025-08-17 04:48] VITALS: BP 139/85; PULSE 94; RESP 20; TEMP 36.6; O2SAT 94
[2025-08-17] MEDS: 0.9% Normal Saline (1000mL) 1,000 ML 125 ML IV ×3 (04:50→22:49)
[2025-08-17 09:30] VITALS: BP 140/109; PULSE 98; RESP 18; TEMP 36.5; O2SAT 98
--- NOTE | 2025-08-17 12:37 | CASEMGMT ---
Social Work- SW called and spoke with pt son to follow up on discussion for SNF. Pt son reports that he left the list at home. Pt son reports that he will be in after work. SW will follow up at that time. JESSICA Storey
[2025-08-17 14:30] VITALS: BP 129/97; PULSE 94; RESP 18; TEMP 36.1; O2SAT 95
--- NOTE | 2025-08-17 16:06 | CASEMGMT ---
Social Work- SW met with pt and pt son. Pt son and pt discussed options from SNF list. [facility]. [facility] notified of referral request. BRANDON remains available to follow. JESSICA Storey
--- NOTE | 2025-08-17 16:28 | CASEMGMT ---
Addendum entered by Julianne Davalos 08/18/25 10:11: [facility] has declined and [facility] accepted. SW updated. [facility] asked to submit for skilled auth. Julianne Davalos DC Planning Asst. Original Note: Discharge Planning Referral sent via [facility]Port to [facility]. Julianne Davalos DC Planning Asst.
--- NOTE | 2025-08-17 16:48 | MRI_ITS ---
PROCEDURE: BRAIN WITHOUT CONTRAST 08/17/2025 REASON FOR EXAM: ENCEPHALOPATHY TECHNIQUE: Procedure Code: MRIBR Modality: MR Procedure: BRAIN WITHOUT CONTRAST Multiplanar and multisequence images were obtained. FINDINGS: Punctate foci of restricted diffusion within the bilateral but ejkcm-srhljgx-eizg-left centrum semiovale moderate global parenchymal atrophy. Severe periventricular white matter T2/FLAIR hyperintensity which is nonspecific. No extra-axial blood or fluid collections. The paranasal sinuses and mastoid air cells are clear. MRI/Brain without Contrast IMPRESSION: Punctate acute or subacute ischemic foci within the bilateral, naurl-umzknhl-gi an-left centrum semiovale. Moderate global cerebral atrophy, compatible with age-related volume loss. Severe chronic microvascular ischemic white matter changes, likely reflecting l ongstanding small vessel disease. No evidence of acute intracranial hemorrhage, mass effect, or hydrocephalus. Critical results were communicated to Marlene Smith RN at 7 p.m.. Reading Location: [id number]
--- NOTE | 2025-08-17 18:18 | PN.HOSP_ITS ---
Reason for Visit Chief Complaint: Generalized weakness, failure to thrive Subjective Subjective Patient was seen and examined today, she does not appear in any distress. She does not readily carry on a conversation with this examiner. Her son was in the room visiting her today and I got some additional medical information, it appears that the patient is disabled-probably secondary to a psychiatric illness (chronic depression), she is on antidepressants and is being seen at the counseling center. I have elected to get imaging studies of the brain-an MRI of the brain without contrast-to rule out any possibility of multiple strokes causing a dementia. Patient's son verified that the patient drinks approximately sixpack of beer daily but there are some days that she does not drink at all. Objective Data Objective Data Vital Signs: Vital Signs Temp Pulse Resp BP Pulse Ox O2 Del Method O2 Flow Rate 97 F L 94 18 129/97 H 95 Room Air 2 08/17/25 14:30 08/17/25 14:30 08/17/25 14:30 08/17/25 14:30 08/17/25 14:30 08/17/25 14:30 08/15/25 01:10 Oxygen Flow Rate (L/min) 2 Oxygen Delivery Method Room Air Weight: 62.5 kg Body Mass Index (BMI) 22.2 Intake & Output: Intake and Output for Last 24 Hours 08/15/25 08/16/25 08/17/25 23:59 23:59 23:59 Intake Total 2350 / 2400 3100 / 3100 2639.59 / 2639.59 Balance 2350 / 2400 3100 / 3100 2639.59 / 2639.59 Lab / Micro Data 08/15/25 07:27 08/15/25 07:27 Micro: Microbiology 08/14/25 21:30 Urine, Catheterized Urine Culture - Preliminary Klebsiella pneumoniae sp pneum Gram negative elise Physical Exam Narrative alert, no apparent distress and average body habitus General Appearance: cooperative, well kempt and well developed Orientation / Consciousness: awake, oriented to person and oriented to place HEENT normocephalic, head/scalp atraumatic and moist oral mucous membranes Eyes PERRL, EOMs intact bilaterally and conjunctivae normal Neck supple, no JVD, thyroid normal and no carotid bruits General: trachea midline Resp normal respiratory effort, no retractions, no use of accessory muscles and clear to auscultation bilaterally Auscultation: Negative for rales, rhonchi or wheezes Cardio regular rate, regular rhythm, S1 normal heart sound, S2 normal heart sound, no murmurs, no rub and no gallops GI normal to inspection, nondistended, normoactive bowel sounds, soft to palpation, non-tender and non-distended Extremity no clubbing, cyanosis or edema Skin no rashes or lesions noted General Skin Exam: no breakdown Neuro CN's II-XII intact bilaterally, no focal motor deficits and no sensory deficits noted Sensorium / Orientation: awake, alert, oriented to person and oriented to place Speech: speech normal Psych Psych Narrative: Patient has flat affect, she does respond appropriately to simple questions Assessment & Plan Assessment/Plan (1) Adult failure to thrive: PLAN: Plan 1. Adult failure to thrive-etiology unclear at this point, she may have undiagnosed dementia, PT and OT will continue to see the patient and she will need at least temporary placement in a halfway facility. #2 bacteriuria-there are low numbers of gram-negative bacteria in the urine, I have elected to stop her Rocephin and place her on Macrobid #3 hypertension-I suspect this is undiagnosed essential hypertension, I will place patient on losartan #4 probable dementia-again it does not appear that the patient has a primary care physician and this may be contributing to her lack of ability to care for self. I have elected to get an MRI of the brain to rule out any multiple stroke diagnosis. Total clinical time spent by myself addressing the patient's medical issues, reviewing all of her data, and collaborating with patient's care team: 35 minutes Charges/Coding Visit Charges Inpatient E&M: 54612 Subs Hosp L2
--- NOTE | 2025-08-17 19:14 | ECHOD_ITS ---
Reason For Study Reason For Study: TIA/CVA Procedure This was a 2D Doppler, Color Flow transthoracic echocardiogram. Exam performed portable in patient room. Left Ventricle Normal LV size. The left ventricular ejection fraction is 10 %. Stage 2 diastolic dysfunction. There is severe global hypokinesis of the left ventricle. Right Ventricle Normal RV size. Normal systolic function. Atria The left atrium is moderately enlarged. The right atrium is mildly enlarged. Bubble contrast study is negative for PFO/ASD. Mitral Valve Normal mitral valve. Mild-Moderate (1-2+) eccentric mitral valve insufficiency. Tricuspid Valve Normal tricuspid valve. Mild-Moderate (1-2+) tricuspid valve insufficiency. Aortic Valve Trisinus/trileaflet aortic valve. Mild focal aortic valve calcification. Mild (1+) eccentric aortic valve insufficiency. Pulmonic Valve Normal pulmonic valve. Mild (1+) pulmonic valve insufficiency. Great Vessels Normal aortic root. The pulmonary artery is normal size. The inferior vena cava is dilated. Pericardium/Pleural No pericardial effusion. Medication Performed a rapid injection of agitated mix of 9 cc saline and 1cc air to assess for atrial septal defect. MMode/2D Measurements & Calculations LVIDd: 5.5 cm IVSd: 0.91 cm LVOT diam: 2.0 cm LVIDs: 5.0 cm LVPWd: 1.0 cm RVDd: 4.0 cm FS: 9.0 % LVOT area: 3.1 cm2 Ao root diam: 3.3 cm LAV(MOD-bp): 77.1 ml LVAd ap4: 35.5 cm2 LAV(MOD-bp) Indexed: 45.1 ml/m2 LVLd ap4: 8.6 cm LAV(MOD-sp2): 66.3 ml EDV(MOD-sp4): 124.5 ml LAV(MOD-sp4): 88.1 ml EDV(sp4-el): 124.3 ml LVAs ap4: 34.0 cm2 LVLs ap4: 8.3 cm ESV(MOD-sp4): 116.8 ml ESV(sp4-el): 118.4 ml EF(MOD-sp4): 6.2 % EF(sp4-el): 4.7 % LVAd ap2: 37.6 cm2 SV(MOD-sp4): 7.7 ml SV(MOD-sp2): 17.7 ml LVLd ap2: 9.0 cm SI(MOD-sp4): 4.5 ml/m2 SI(MOD-sp2): 10.4 ml/m2 EDV(MOD-sp2): 133.8 ml EDV(sp2-el): 133.7 ml LVAs ap2: 34.8 cm2 LVLs ap2: 8.9 cm ESV(MOD-sp2): 116.1 ml ESV(sp2-el): 115.6 ml EF(MOD-sp2): 13.2 % SV(sp4-el): 5.9 ml LA dimension(2D): 3.7 cm LA A4 area: 26.0 cm2 RA A4 area: 22.3 cm2 TAPSE: 1.0 cm Time Measurements MV dec time: 0.11 sec Doppler Measurements & Calculations MV E max king: 81.8 cm/sec Lat Peak E' King: 6.6 cm/sec Med Peak E' King: 6.0 cm/sec MV A max king: 45.9 cm/sec E/E' lat: 12.5 E/E' med: 13.7 MV E/A: 1.8 Ao V2 max: 93.2 cm/sec AI max king: 388.2 cm/sec MV dec slope: 720.3 cm/sec2 Ao max P.5 mmHg AI max P.3 mmHg Ao V2 mean: 63.2 cm/sec Ao mean P.9 mmHg AI dec slope: 172.0 cm/sec2 Ao V2 VTI: 14.4 cm AI P1/2t: 661.2 msec AV (velocity ratio): 0.74 NIKOLAI(I,D): 2.3 cm2 NIKOLAI(V,D): 2.9 cm2 LV V1 max: 86.9 cm/sec SV(LVOT): 33.0 ml PA V2 max: 59.9 cm/sec LV V1 max P.0 mmHg LV V1 mean P.5 mmHg LV V1 mean: 57.0 cm/sec LV V1 VTI: 10.6 cm PI end-d king: 187.5 cm/sec TR max king: 297.8 cm/sec TR max P.8 mmHg ECHO/Echo Complete Interpretation Summary The left ventricular ejection fraction is 10 %. Normal LV size. There is severe global hypokinesis of the left ventricle. The left atrium is moderately enlarged. The right atrium is mildly enlarged. Mild-Moderate (1-2+) eccentric mitral valve insufficiency. Mild-Moderate (1-2+) tricuspid valve insufficiency. Bubble contrast study is negative for PFO/ASD. Stage 2 diastolic dysfunction. Ordering Physician: Corey Guillen Performed By: Juan Miguel Holland RDCS
[2025-08-17 20:07] VITALS: BP 125/96; PULSE 87; RESP 18; TEMP 36.4; O2SAT 100
[2025-08-17 23:10] LABS: Cholesterol 96 mg/dL (<=200); Low Density Lipoprotein Calc. 52 mg/dL; Triglycerides 76 mg/dL; Very Low Density Lipoprotein 15 mg/dL (5-40); cholesterol:hdl ratio screen 3.38
[2025-08-18 04:22] VITALS: BP 144/95; PULSE 98; RESP 18; TEMP 35.9; O2SAT 100
[2025-08-18 08:08] VITALS: BP 136/97; PULSE 95; RESP 18; TEMP 36.8; O2SAT 98
[2025-08-18] MEDS: 0.9% Normal Saline (1000mL) 1,000 ML 125 ML IV (08:34)
--- NOTE | 2025-08-18 11:08 | CON.PCM.NE_ITS ---
Assessment and Plan: Stroke Assessment/Plan BANDAR SOUTH, is a 65 F with etoh use disorder, smoker, ARMAND and MDD who presents with generalized weakness and failure to thrive on 08/15/25. She as not taking care of herself and slept for the majority of 3 days so was brought to the ED. She was found to have a UTI and was treated, her cognition and ability to care for herself that they noted in the hospital led to them getting an MRI brain. Patient cannot provide much history. No family in the room to get collateral hx. MRI brain showed punctate ischemic strokes in BL hemispheres. They are small and should not cause any major symptoms. Stroke team was consulted on 08/18/25 for MRI brain findings. On my exam NIH for 8 for drift in all limbs. She can name, follow commands and has fluent speech, just not a good historian, more encephalopathic. Stroke cryptogenic at this time. 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 HPI Consult Data Date of Consult: 08/18/25 HPI Narrative HPI Narrative: BANDAR SOUTH, is a 65 F with etoh use disorder, smoker, ARMAND and MDD who presents with generalized weakness and failure to thrive on 08/15/25. She was found to have a UTI and was treated, her cognition and ability to care for herself that they noted in the hospital led to them getting an MRI brain. Patient cannot provide much history. No family in the room to get collateral hx. Per note over the past 3 days prior to admission was not walking, talking or taking care of herself so was brought to the ED. MRI brain showed punctate ischemic strokes in BL hemispheres. They are small and should not cause any major symptoms. Stroke team was consulted on 08/18/25 for MRI brain findings. On my exam NIH for 8 for drift in all limbs. She can name, follow commands and has fluent speech, just not a good historian, more encephalopathic. [facility] Medical History (Updated 08/15/25 @ 01:07 by Jolynn Keen) Smoker Migraines Alcohol abuse Anxiety Depression Home Medications ?Medication ?Instructions ?Recorded ?Last Taken ?Type citalopram 40 mg tablet 40 mg PO DAILY MOOD 08/14/25 08/07/25 History trazodone 50 mg tablet 50 - 100 mg PO QHS PRN insom joseph 08/14/25 08/07/25 History Allergy/AdvReac Type Severity Reaction Status Date / Time No Known Allergies Allergy Verified 08/14/25 15:26 Social History Smoking Status: Current every day smoker tobacco type: cigarettes Vital Signs Vital Signs Vital Signs: 08/17/25 14:30 08/17/25 15:21 08/17/25 20:00 Temperature 97 F L Temperature Source Oral Pulse Rate 94 Pulse Strength Normal (2+) Respiratory Rate 18 Respiratory Effort Short of Breath Respiratory Depth Normal Respiratory Pattern Normal Blood Pressure 129/97 H Blood Pressure Mean 107 Blood Pressure Source Monitor Blood Pressure Position Sitting Blood Pressure Location Right Arm Pulse Ox 95 Oxygen Delivery Method Room Air 08/17/25 20:00 08/17/25 20:07 08/18/25 04:20 Temperature 97.5 F L Temperature Source Axillary Pulse Rate 87 Pulse Strength Respiratory Rate 18 Respiratory Effort Normal Non-Labored Normal Non-Labored Respiratory Depth Normal Normal Respiratory Pattern Normal Normal Blood Pressure 125/96 H Blood Pressure Mean 105 Blood Pressure Source Monitor Blood Pressure Position Semi-Fowlers Blood Pressure Location Right Arm Pulse Ox 100 Oxygen Delivery Method Room Air Room Air Room Air 08/18/25 04:22 08/18/25 08:08 08/18/25 08:08 Temperature 96.6 F L Temperature Source Temporal Pulse Rate 98 Pulse Strength Normal (2+) Respiratory Rate 18 Respiratory Effort Normal Respiratory Depth Normal Respiratory Pattern Normal Blood Pressure 144/95 H Blood Pressure Mean 111 Blood Pressure Source Monitor Blood Pressure Position Semi-Fowlers Blood Pressure Location Right Arm Pulse Ox 100 Oxygen Delivery Method Room Air Room Air 08/18/25 08:08 08/18/25 08:08 Temperature 98.2 F 98.2 F Temperature Source Temporal Oral Pulse Rate 95 95 Pulse Strength Respiratory Rate 18 18 Respiratory Effort Respiratory Depth Respiratory Pattern Blood Pressure 136/97 H 136/97 H Blood Pressure Mean 110 110 Blood Pressure Source Monitor Monitor Blood Pressure Position Semi-Fowlers Semi-Fowlers Blood Pressure Location Right Arm Right Arm Pulse Ox 98 98 Oxygen Delivery Method Room Air Room Air Weight Weight: 62.5 kg Body Mass Index (BMI) 22.2 Physical Exam Narrative Physical Exam: - General: NAD, pleasant, cooperative, well nourished, well developed - Head/Eyes: Atraumatic, normocephalic, clear cornea, normal sclera/conjunctive - Neuro: ? Mental Status: AAOX3, not to situation & following simple commands. ? Speech: Clear and fluent with good repetition, comprehension, & naming. No aphasia or dysarthria ? CN II: Visual low are full to confrontation. ? CN III, IV, : EOMI, no gaze preference, no nystagmus, no ptosis ? CN V: Facial sensation is intact to light touch throughout. ? CN VII: Face is symmetric with normal eye closure and smile. ? Motor: Anti gravity in all limbs but drops them all to bed ? Sensation: Normal to light touch bilaterally. ? Coordination: Normal FTN, hts could not be tested. No abn movements seen. Lab / Micro Data 08/15/25 07:27 08/15/25 07:27 Labs: Laboratory Results - last 24 hr 08/17/25 22:05: Triglycerides 76, Cholesterol 96, LDL Cholesterol, Calc 52, VLDL Cholesterol 15, HDL Cholesterol 28 L, Cholesterol/HDL Ratio 3.38 Micro: Microbiology 08/14/25 21:30 Urine, Catheterized Urine Culture - Final Klebsiella pneumoniae sp pneum Imaging Radiology Impression Brain MRI 08/17/25 16:48 IMPRESSION: Punctate acute or subacute ischemic foci within the bilateral, [id number]-left centrum semiovale. Moderate global cerebral atrophy, compatible with age-related volume loss. Severe chronic microvascular ischemic white matter changes, likely reflecting longstanding small vessel disease. No evidence of acute intracranial hemorrhage, mass effect, or hydrocephalus. Critical results were communicated to Marlene Smith RN at 7 p.m.. Reading Location: [address] Active Medications Active Medications Active Medications: Current Medications Generic Name Dose Route Start Last Admin Trade Name Freq PRN Reason Stop Dose Admin Aspirin 81 mg 08/17/25 19:20 08/18/25 10:16 Aspirin 81 Mg Tab.Chew PO 81 mg BREAKFAST ROCIO Administration Atorvastatin Calcium 80 mg 08/17/25 22:00 08/17/25 22:37 Atorvastatin Calcium 80 Mg Tablet PO Not Given QHS ROCIO Calamine/Phenol 1 applic 08/15/25 10:00 08/18/25 08:34 Menthol/Lanolin/Calamine/Znox 113 Gm Tube TOPICAL 1 applic BID ROCIO Administration Protocol Citalopram Hydrobromide 40 mg 08/15/25 10:00 08/18/25 10:15 Citalopram 40 Mg Tablet PO 40 mg DAILY ROCIO Administration Enoxaparin Sodium 40 mg 08/15/25 10:00 08/18/25 08:35 Enoxaparin 40 Mg/0.4 Ml Syringe SC 40 mg DAILY ROCIO Administration Folic Acid 1 mg 08/15/25 08:00 08/18/25 10:18 Folic Acid 1 Mg Tablet PO 1 mg BREAKFAST ROCIO Administration Sodium Chloride 1,000 mls @ 125 mls/hr 08/15/25 00:44 08/18/25 08:34 IV 125 mls/hr .Q8H ROCIO Administration Sodium Chloride 250 mls @ 15 mls/hr 08/15/25 00:45 IV .[id number] PRN Additional IVPB Infusion Nitrofurantoin Macrocrystals 100 mg 08/16/25 22:00 08/18/25 10:14 Nitrofurantoin Macrocrystals 100 Mg Capsule PO 100 mg BID ROCIO Administration Ondansetron HCl 4 mg 08/15/25 00:44 08/16/25 03:59 Ondansetron 4 Mg/2 Ml Vial IV 4 mg Q8H PRN PRN Administration NAUSEA/VOMITING Sodium Chloride 10 - 40 ml 08/15/25 00:45 08/15/25 08:59 0.9% Saline Lock 10 Ml Syringe IV 10 ml UD PRN Administration SALINE FLUSH
--- NOTE | 2025-08-18 11:11 | CASEMGMT ---
Social Work- SW received notice that [facility] declined referral. Michelle ADAMSU accepted referral and started precert. SW called pt son to provide updates. Pt son appreciative. Plan: Michelle IRBY; pend precert JESSICA Storey
--- NOTE | 2025-08-18 11:20 | CASEMGMT ---
Discharge Planning Michelle Douglass has submitted for precert. Auth ref#[id number] Julianne Davalos DC Planning Asst.
[2025-08-18 11:40] VITALS: BP 150/102; PULSE 94; RESP 18; TEMP 36.3; O2SAT 99
--- NOTE | 2025-08-18 11:47 | CASEMGMT ---
Discharge Planning Michelle Douglass asked to call unit should precert be received over the weekend. Unit number given. Green sheet completed and given to BRANDON. Julianne Davalos DC Planning Asst.
--- NOTE | 2025-08-18 15:20 | CASEMGMT ---
Social Work- Pt unable to appropriately answer questions for PHQ9. SW spoke with pt son regarding recent medical updates. Pt son expresses that he does not have any questions at this time. Plan: Michelle ADAMSU; skilled level of care JESSICA Storey
[2025-08-18 15:57] VITALS: BP 127/90; PULSE 97; RESP 18; TEMP 37; O2SAT 98
--- NOTE | 2025-08-18 18:42 | CT_ITS ---
PROCEDURE: CTA HEAD AND NECK W/ CONTRAST 08/18/2025 REASON FOR EXAM: BILATERAL ISCHEMIC STROKES TECHNIQUE: Procedure Code: [id number].HDNCK Modality: CT Procedure: CTA HEAD AND NECK W/ CONTRAST Multiplanar Sagittal and Coronal images were obtained. 3D post processing was performed. CONTRAST: Isovue 370 VOLUME: 90 mL One or more dose reduction techniques were used (e.g., Automated exposure control, adjustment of the mA and/or kV according to patient size, use of iterative reconstruction technique). RADIATION DOSE SUMMARY: DLP: 1481.71 mGycm COMPARISON: Brain MRI 08/17/2025. No prior CTA available. FINDINGS: CTA HEAD: Patent intracranial arterial vasculature. No large vessel occlusion, high-grade stenosis, saccular aneurysm, or vascular malformation identified. Mild focal stenosis at the left REAL ESTATE AGENT P1-P2 segment junction. CTA NECK: Conventional aortic arch branching. Bilateral cervical carotid and vertebral arteries are patent. No aneurysm or dissection. Mild atherosclerotic plaque along the carotid siphons and at the carotid artery bifurcations, slightly greater on the left without significant stenosis. Dominant right vertebral artery, with diffusely hypoplastic left vertebral artery which primarily terminates distally at PICA branches. NONCONTRAST CT HEAD: No acute intracranial hemorrhage, extra-axial collection, mass effect or evidence of acute territorial infarct. Moderate generalized brain parenchymal volume loss and chronic small-vessel ischemic-gliotic changes in the supratentorial white matter. Scattered punctate foci of acute likely embolic infarcts in the bilateral cerebral white matter on MRI, not well appreciated on CT. Chronic lacunar infarct in the left basal ganglia. Intact skull base and calvarium. Well-aerated paranasal sinuses and mastoid air cells. CT/CTA Head AND Neck W/ Contrast IMPRESSION: 1. No large vessel arterial occlusion or hemodynamically significant stenosis. 2. Mild focal stenosis left REAL ESTATE AGENT P1-P2 segment junction. 3. Mild atherosclerotic plaque at the carotid bifurcations. 4. No acute intracranial hemorrhage, mass-effect or territorial infarct. Moder ate volume loss and chronic small-vessel ischemic changes. The scattered punctate foci of acute likely embolic infarcts in the ce rebral white matter on MRI are not well appreciated on CT. Reading Location: [id number]
--- NOTE | 2025-08-18 19:10 | PCM.PN.HOSP ---
Reason for Visit Chief Complaint: Generalized weakness, failure to thrive Subjective Subjective Patient was seen and examined today, MRI yesterday showed bilateral ischemic strokes which were small. She was seen by teleneurology today and recommendations were relayed to me through her medical record. An echocardiogram was performed which showed no evidence of thrombus, however, the patient has a severe cardiomyopathy with an ejection fraction of 10%-this is global in nature and cardiology does not feel this is due to coronary artery disease, they felt it was possibly due to alcohol or untreated hypertension. Had a long discussion with the patient's son today about her medical condition, he reiterated that she is a full code. I explained to him that she is at risk for sudden due to her severe cardiomyopathy. Objective Data Objective Data Vital Signs: Vital Signs Temp Pulse Resp BP Pulse Ox O2 Del Method O2 Flow Rate 98.6 F 97 18 127/90 H 98 Room Air 2 08/18/25 15:57 08/18/25 15:57 08/18/25 15:57 08/18/25 15:57 08/18/25 15:57 08/18/25 15:57 08/15/25 01:10 Oxygen Flow Rate (L/min) 2 Oxygen Delivery Method Room Air Weight: 62.5 kg Body Mass Index (BMI) 22.2 Intake & Output: Intake and Output for Last 24 Hours 08/16/25 08/17/25 08/18/25 23:59 23:59 23:59 Intake Total 3100 / 3100 2954.17 / 2954.17 2137.5 / 2137.5 Output Total 700 / 700 Balance 3100 / 3100 2954.17 / 2954.17 1437.5 / 1437.5 Medical Nutrition Assessment Dietitian: Malnutrition Criteria Met Start: 08/15/25 13:56 Freq: Status: Active Protocol: Document 08/18/25 13:13 SLA (Rec: 08/18/25 13:13 SLA [id number]) Nutrition Malnutrition Evidence of No Malnutrition Exists Malnutrition (severe Acute Illness/Injury ): Malnutrition ( Severe pro/heather unspecified) Intake Problem Increased Nutrient Needs (specify) Etiology protein related to skin status Signs/Symptoms as evidenced by PI to R buttock Status Active Problem Clinical Problem Acute Disease or Injury Related Malnutrition Etiology related to recent FTT Signs/Symptoms energy intake <50% and 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 Status Active Problem 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 Dietitian Continue Regular diet order 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s/ Continue 240 ml bottle Ensure PHP (chocolate) daily at Changes lunch Will order CIB w/ breakfast and magic cup w/ dinner for increased nutrition if consumed Consider appetite stimulant to help encourage increased po intake at meals Lab / Micro Data 08/15/25 07:27 08/15/25 07:27 Labs: Laboratory Results - last 24 hr 08/17/25 22:05: Triglycerides 76, Cholesterol 96, LDL Cholesterol, Calc 52, VLDL Cholesterol 15, HDL Cholesterol 28 L, Cholesterol/HDL Ratio 3.38 Micro: Microbiology 08/14/25 21:30 Urine, Catheterized Urine Culture - Final Klebsiella pneumoniae sp pneum Radiography Diagnostic Testing: Radiology Impression Echocardiogram 08/17/25 19:14 Interpretation Summary The left ventricular ejection fraction is 10 %. Normal LV size. There is severe global hypokinesis of the left ventricle. The left atrium is moderately enlarged. The right atrium is mildly enlarged. Mild-Moderate (1-2+) eccentric mitral valve insufficiency. Mild-Moderate (1-2+) tricuspid valve insufficiency. Bubble contrast study is negative for PFO/ASD. Stage 2 diastolic dysfunction. Ordering Physician: Corey Guillen Performed By: Juan Miguel Holland RDCS Physical Exam Narrative alert, no apparent distress and average body habitus General Appearance: cooperative, well kempt and well developed Orientation / Consciousness: awake, oriented to person and oriented to place HEENT normocephalic, head/scalp atraumatic and moist oral mucous membranes Eyes PERRL, EOMs intact bilaterally and conjunctivae normal Neck supple, no JVD, thyroid normal and no carotid bruits General: trachea midline Resp normal respiratory effort, no retractions, no use of accessory muscles and clear to auscultation bilaterally Auscultation: Negative for rales, rhonchi or wheezes Cardio regular rate, regular rhythm, S1 normal heart sound, S2 normal heart sound, no murmurs, no rub and no gallops GI normal to inspection, nondistended, normoactive bowel sounds, soft to palpation, non-tender and non-distended Extremity no clubbing, cyanosis or edema Skin no rashes or lesions noted General Skin Exam: no breakdown Neuro CN's II-XII intact bilaterally, no focal motor deficits and no sensory deficits noted Sensorium / Orientation: awake, alert, oriented to person and oriented to place Speech: speech normal Psych Psych Narrative: Patient has flat affect, she does respond appropriately to simple questions Assessment & Plan Assessment/Plan (1) Adult failure to thrive: PLAN: Plan 1. Adult failure to thrive-etiology unclear at this point, she may have undiagnosed dementia, PT and OT will continue to see the patient and she will need at least temporary placement in a custodial facility. #2 bacteriuria-there are low numbers of gram-negative bacteria in the urine, I have elected to stop her Rocephin and place her on Macrobid #3 hypertension-I suspect this is undiagnosed essential hypertension, patient is on losartan #4 probable dementia-again it does not appear that the patient has a primary care physician and this may be contributing to her lack of ability to care for self. I have elected to get an MRI of the brain to rule out any multiple stroke diagnosis. #5 acute stroke in the bilateral cerebral hemispheres-patient will remain on an aspirin and a statin, CTA of the head and neck will be ordered today #6 severe cardiomyopathy with reduced ejection fraction of 10%-etiology is not clear, patient will be placed on a beta-ben, and ARB, a dose of Lasix, and Jardiance Total clinical time spent by myself addressing the patient's medical issues, reviewing all of her data, and collaborating with patient's care team: 35 minutes Charges/Coding Visit Charges Inpatient E&M: 87384 Subs Hosp L2
[2025-08-18 20:00] VITALS: BP 126/99; PULSE 78; RESP 20; TEMP 36.8; O2SAT 94
[2025-08-18 22:00] VITALS: BP 126/99; PULSE 78; RESP 20; TEMP 36.8; O2SAT 94
[2025-08-19 04:45] VITALS: BP 121/86; PULSE 78; RESP 16; TEMP 36.2; O2SAT 99
--- NOTE | 2025-08-19 07:26 | CASEMGMT ---
Social Work SW did check [employer] this morning, no updates on authorization for Michelle Rafat. They have been instructed to call the nursing unit should authorization be attained this weekend. MOODY Rich
[2025-08-19 10:14] VITALS: BP 119/85; PULSE 78; RESP 15; TEMP 36.6; O2SAT 100
--- NOTE | 2025-08-19 19:42 | PCM.PN.HOSP ---
Reason for Visit Chief Complaint: Generalized weakness, failure to thrive Subjective Subjective Patient was seen and examined today, CTA of the head and neck does not show any occlusive vascular disease. Objective Data Objective Data Vital Signs: Vital Signs Temp Pulse Resp BP Pulse Ox O2 Del Method O2 Flow Rate 97.8 F 78 15 119/85 H 100 Nasal Cannula 2 08/19/25 10:14 08/19/25 10:14 08/19/25 10:14 08/19/25 10:14 08/19/25 10:14 08/19/25 16:00 08/19/25 16:00 Oxygen Flow Rate (L/min) 2 Oxygen Delivery Method Nasal Cannula Weight: 62.5 kg Body Mass Index (BMI) 22.2 Intake & Output: Intake and Output for Last 24 Hours 08/17/25 08/18/25 08/19/25 23:59 23:59 23:59 Intake Total 2954.17 / 2954.17 2137.5 / 2137.5 0 / 0 Output Total 700 / 900 400 / 400 Balance 2954.17 / 2954.17 1437.5 / 1237.5 -400 / -400 Medical Nutrition Assessment Dietitian: Malnutrition Criteria Met Start: 08/15/25 13:56 Freq: Status: Active Protocol: Document 08/18/25 13:13 SLA (Rec: 08/18/25 13:13 SLA [id number]) Nutrition Malnutrition Evidence of No Malnutrition Exists Malnutrition (severe Acute Illness/Injury ): Malnutrition ( Severe pro/heather unspecified) Intake Problem Increased Nutrient Needs (specify) Etiology protein related to skin status Signs/Symptoms as evidenced by PI to R buttock Status Active Problem Clinical Problem Acute Disease or Injury Related Malnutrition Etiology related to recent FTT Signs/Symptoms 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 No large vessel arterial occlusion or hemodynamically significant stenosis. 2. 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 3. Mild atherosclerotic plaque at the carotid bifurcations. 4. No acute intracranial hemorrhage, mass-effect or territorial infarct. Moderate volume loss and chronic small-vessel ischemic changes. The scattered punctate foci of acute likely embolic infarcts in the cerebral white matter on MRI are not well appreciated on CT. Reading Location: [facility] Physical Exam Narrative alert, no apparent distress and average body habitus General Appearance: cooperative, well kempt and well developed Orientation / Consciousness: awake, oriented to person and oriented to place HEENT normocephalic, head/scalp atraumatic and moist oral mucous membranes Eyes PERRL, EOMs intact bilaterally and conjunctivae normal Neck supple, no JVD, thyroid normal and no carotid bruits General: trachea midline Resp normal respiratory effort, no retractions, no use of accessory muscles and clear to auscultation bilaterally Auscultation: Negative for rales, rhonchi or wheezes Cardio regular rate, regular rhythm, S1 normal heart sound, S2 normal heart sound, no murmurs, no rub and no gallops GI normal to inspection, nondistended, normoactive bowel sounds, soft to palpation, non-tender and non-distended Extremity no clubbing, cyanosis or edema Skin no rashes or lesions noted General Skin Exam: no breakdown Neuro CN's II-XII intact bilaterally, no focal motor deficits and no sensory deficits noted Sensorium / Orientation: awake, alert, oriented to person and oriented to place Speech: speech normal Psych Psych Narrative: Patient has flat affect, she does respond appropriately to simple questions Assessment & Plan Assessment/Plan (1) Adult failure to thrive: PLAN: Plan 1. Adult failure to thrive-etiology unclear at this point, she may have undiagnosed dementia, PT and OT will continue to see the patient and she will need at least temporary placement in a half-way facility. #2 bacteriuria-there are low numbers of gram-negative bacteria in the urine, I have elected to stop her Rocephin and place her on Macrobid #3 hypertension-I suspect this is undiagnosed essential hypertension, patient is on losartan #4 probable dementia-again it does not appear that the patient has a primary care physician and this may be contributing to her lack of ability to care for self. #5 acute stroke in the bilateral cerebral hemispheres-patient will remain on an aspirin and a statin, CTA of the head and neck will be ordered today #6 severe cardiomyopathy with reduced ejection fraction of 10%-etiology is not clear, patient will be placed on a beta-ben, and ARB, a dose of Lasix, and Jardiance #7 major depressive [id number] will remain on her current psychiatric medication, I talked with her counseling center yesterday and they told me her major diagnosis is major depressive disorder as well as alcohol dependence #8 suspected alcohol use disorder-patient shows no evidence of DTs at this time Total clinical time spent by myself addressing the patient's medical issues, reviewing all of her data, and collaborating with patient's care team: 35 minutes Charges/Coding Visit Charges Inpatient E&M: 33851 Subs Hosp L2
[2025-08-19 20:00] VITALS: BP 118/81; PULSE 68; RESP 15; TEMP 36.7; O2SAT 100
[2025-08-19 20:52] VITALS: BP 118/81; PULSE 67; RESP 15; TEMP 36.7; O2SAT 100
[2025-08-20] VITALS (7 sets, daily range): BP systolic 123–133; BP diastolic 74–87; PULSE 67–78; RESP 15–18; TEMP 36.3–36.6; O2SAT 97–100
--- NOTE | 2025-08-20 09:00 | RAD_ITS ---
PROCEDURE: CHEST 1 VIEW (PORTABLE) 08/20/2025 REASON FOR EXAM: HYPOXIA TECHNIQUE: Frontal view of the chest. COMPARISON: None FINDINGS: Mild cardiomegaly. No significant pleural effusion. No consolidation in either lung. The bony thorax is within normal limits. RAD/Chest 1 View (Portable) IMPRESSION: Cardiomegaly. Otherwise, no acute process in the chest. Reading Location: [id number]
[2025-08-20 10:18] LABS: Anion Gap 13 (5-15); BUN 27 mg/dL (4-19); BUN/Creat Ratio 22.8 RATIO (10-20); Calcium,Total 9.5 mg/dL (7.6-11.0); Carbon Dioxide 17.6 mmol/L (21.0-32.0); Chloride 110 mmol/L (98-108); Estimated Creatinine Clearance 44.71 ml/min (50-250); Glucose 86 mg/dL (70-99); Potassium 4.1 mmol/L (3.3-5.1)
--- NOTE | 2025-08-20 11:09 | NURSING ---
This RN and Speech Therapy in room with pt this morning around 830am. Pt stayed Alert and Awake while this RN attempted to give Crushed meds with S.T at bedside. PT kept pocketing the crushed pills in applesauce to the side of her tongue despite cueing to swallow and giving tsp of water Therefore we did not finish giving her her meds.
--- NOTE | 2025-08-20 17:11 | PCM.PN.HOSP ---
Reason for Visit Chief Complaint: Generalized weakness, failure to thrive Subjective Subjective Patient was seen and examined today, her blood pressure has improved, she is now on room air, I talked to the son who was in the room at the time of my examination. I will review her medications and adjust them upward if possible for her cardiomyopathy. Objective Data Objective Data Vital Signs: Vital Signs Temp Pulse Resp BP Pulse Ox O2 Del Method O2 Flow Rate 97.3 F L 69 16 133/87 H 97 Room Air 2 08/20/25 09:20 08/20/25 09:20 08/20/25 09:20 08/20/25 09:20 08/20/25 09:20 08/20/25 09:20 08/20/25 07:35 Oxygen Flow Rate (L/min) 2 Oxygen Delivery Method Room Air Weight: 62.5 kg Body Mass Index (BMI) 22.2 Intake & Output: Intake and Output for Last 24 Hours 08/18/25 08/19/25 08/20/25 23:59 23:59 23:59 Intake Total 2137.5 / 2137.5 0 / 0 Output Total 700 / 900 400 / 500 100 / 100 Balance 1437.5 / 1237.5 -400 / -500 -100 / -100 Medical Nutrition Assessment Dietitian: Malnutrition Criteria Met Start: 08/15/25 13:56 Freq: Status: Active Protocol: Document 08/18/25 13:13 SLA (Rec: 08/18/25 13:13 SLA 08.11..7) Nutrition Malnutrition Evidence of No Malnutrition Exists Malnutrition (severe Acute Illness/Injury ): Malnutrition ( Severe pro/heather unspecified) Intake Problem Increased Nutrient Needs (specify) Etiology protein related to skin status Signs/Symptoms as evidenced by PI to R buttock Status Active Problem Clinical Problem Acute Disease or Injury Related Malnutrition Etiology related to recent FTT Signs/Symptoms energy intake <50% 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 Dietitian Continue Regular diet order 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s/ Continue 240 ml bottle Ensure PHP (chocolate) daily at Changes lunch Will order CIB w/ breakfast and magic cup w/ dinner for increased nutrition if consumed Consider appetite stimulant to help encourage increased po intake at meals Lab / Micro Data 08/15/25 07:27 08/20/25 09:21 Labs: Laboratory Results - last 24 hr 08/20/25 09:21: Sodium 140, Potassium 4.1, Chloride 110 H, Carbon Dioxide 17.6 L, Anion Gap 13, BUN 27 H, Creatinine 1.19, Estim Creat Clear Calc 44.71 L, Est GFR (MDRD) Non-Af 51 L, BUN/Creatinine Ratio 22.8 H, Glucose 86, Calcium 9.5 Micro: Microbiology 08/14/25 21:30 Urine, Catheterized Urine Culture - Final Klebsiella pneumoniae sp pneum Radiography Diagnostic Testing: Radiology Impression Chest X-Ray 08/20/25 09:00 IMPRESSION: Cardiomegaly. Otherwise, no acute process in the chest. Reading Location: [facility] Physical Exam Narrative alert, no apparent distress and average body habitus General Appearance: cooperative, well kempt and well developed Orientation / Consciousness: awake, oriented to person and oriented to place HEENT normocephalic, head/scalp atraumatic and moist oral mucous membranes Eyes PERRL, EOMs intact bilaterally and conjunctivae normal Neck supple, no JVD, thyroid normal and no carotid bruits General: trachea midline Resp normal respiratory effort, no retractions, no use of accessory muscles and clear to auscultation bilaterally Auscultation: Negative for rales, rhonchi or wheezes Cardio regular rate, regular rhythm, S1 normal heart sound, S2 normal heart sound, no murmurs, no rub and no gallops GI normal to inspection, nondistended, normoactive bowel sounds, soft to palpation, non-tender and non-distended Extremity no clubbing, cyanosis or edema Skin no rashes or lesions noted General Skin Exam: no breakdown Neuro CN's II-XII intact bilaterally, no focal motor deficits and no sensory deficits noted Sensorium / Orientation: awake, alert, oriented to person and oriented to place Speech: speech normal Psych Psych Narrative: Patient has flat affect, she does respond appropriately to simple questions Assessment & Plan Assessment/Plan (1) Generalized weakness: (2) Adult failure to thrive: PLAN: Plan 1. Adult failure to thrive-etiology unclear at this point, she may have undiagnosed dementia, PT and OT will continue to see the patient and she will need at least temporary placement in a [place] [facility] facility. #2 bacteriuria-there are low numbers of gram-negative bacteria in the urine, patient's urine culture grew out 25,000-50,000 colonies of Klebsiella pneumoniae which is intermediate to Macrobid. I will stop the patient's Macrobid and observe the patient #3 hypertension-I suspect this is undiagnosed essential hypertension, patient is on losartan #4 probable dementia/cognitive impairment-again it does not appear that the patient has a primary care physician and this may be contributing to her lack of ability to care for self. #5 acute stroke in the bilateral cerebral hemispheres-patient will remain on an aspirin and a statin, CTA of the head and neck did not show any significant arterial occlusions. #6 severe cardiomyopathy with reduced ejection fraction of 10%-etiology is not clear, I will increase the patient's carvedilol, she remains on Jardiance, losartan, and Lasix. #7 major depressive [id number] will remain on her current psychiatric medication, I talked with her counseling center yesterday and they told me her major diagnosis is major depressive disorder as well as alcohol dependence #8 suspected alcohol use disorder-patient shows no evidence of DTs at this time Total clinical time spent by myself addressing the patient's medical issues, reviewing all of her data, and collaborating with patient's care team: 35 minutes Charges/Coding Visit Charges Inpatient E&M: 44889 Subs Hosp L2
[2025-08-20] MEDS: 0.9% Saline Lock 10 ML Syringe IV (18:00)
[2025-08-21 05:00] VITALS: O2SAT 95
[2025-08-21 08:00] VITALS: BP 146/87; PULSE 81; RESP 16; TEMP 36.7; O2SAT 99
--- NOTE | 2025-08-21 08:58 | CASEMGMT ---
Discharge Planning Requested clinical updates sent to Michelle Douglass. Precert remains pending. Julianne Davalos DC Planning Asst.
--- NOTE | 2025-08-21 12:31 | PCM.PN.HOSP ---
Reason for Visit Chief Complaint: Generalized weakness, failure to thrive Objective Data Objective Data Vital Signs: Vital Signs Temp Pulse Resp BP Pulse Ox O2 Del Method O2 Flow Rate 98.0 F 81 16 146/87 H 99 Room Air 2 08/21/25 08:00 08/21/25 08:00 08/21/25 08:00 08/21/25 08:00 08/21/25 08:00 08/21/25 08:15 08/20/25 07:35 Oxygen Flow Rate (L/min) 2 Oxygen Delivery Method Room Air Weight: 62.5 kg Body Mass Index (BMI) 22.2 Intake & Output: Intake and Output for Last 24 Hours 08/19/25 08/20/25 08/21/25 23:59 23:59 23:59 Intake Total 0 / 0 290 / 290 50 / 50 Output Total 400 / 500 1100 / 1400 400 / 400 Balance -400 / -500 -810 / -1110 -350 / -350 Medical Nutrition Assessment Dietitian: Malnutrition Criteria Met Start: 08/15/25 13:56 Freq: Status: Active Protocol: Document 08/18/25 13:13 SLA (Rec: 08/18/25 13:13 SLA ..25.7) Nutrition Malnutrition Evidence of No Malnutrition Exists Malnutrition (severe Acute Illness/Injury ): Malnutrition ( Severe pro/heather unspecified) Intake Problem Increased Nutrient Needs (specify) Etiology protein related to skin status Signs/Symptoms as evidenced by PI to R buttock Status Active Problem Clinical Problem Acute Disease or Injury Related Malnutrition Etiology related to recent FTT Signs/Symptoms energy intake <50% 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
[2025-08-21 14:23] VITALS: BP 138/88; PULSE 76; RESP 18; TEMP 36.6; O2SAT 98
--- NOTE | 2025-08-21 15:09 | CASEMGMT ---
Social Work- BRANDON received notice that [facility] has authorization. BRANDON notified hospitalist. BRANDON notified DCA of intent to discharge. JESSICA Storey
--- NOTE | 2025-08-21 15:12 | CASEMGMT ---
[facility] has obtained auth to admit. SW updated. Julianne Davalos DC Planning Asst.
--- NOTE | 2025-08-21 15:32 | PCM.TXEXTCAR ---
Diet Diet Order/Speech Therapy: INPATIENT Hospital Diet / Speech Therapy Order(s) 08/15/25 00:44 Diet: Regular - General Food consistency:: Pureed Liquid Consistency:: Regular/Thin Type of Dietary Supplement:: Ensure Plus High Protein Diet Comments: 240 ml CIB w/ B, 240ml chocolate Ensure PHP w/ L, Magic cup w/ D Speech Therapy Comments: Direct sup and feeding assistance Routine Orders/Code Status Code Status: Full Code DC O2, CPAP, BIPAP needs Home O2 Discharge instructions: No Wound(s) Right Buttock: Wound Type: Pressure Injury Therapies Weight Bearing: Full weight bearing Physical Therapy: Eval and Treat Occupational Therapy: Eval and Treat Problem/Diagnosis (1) Generalized weakness: Status: Acute Code(s): R53.1 - Weakness (2) Adult failure to thrive: Status: Acute Code(s): R62.7 - Adult failure to thrive Plan Patient is a 65-year-old female who presented to [facility] ED on 08/15/2025 with worsening weakness. Hospital course as noted below. Patient discharged to SNF in stable condition on 08/21. 1. Adult failure to thrive ? PT/OT/case management followed. Patient with poor therapy scores during hospitalization. Suspected multifactorial with acute CVA and cognitive impairment versus dementia being large contributors to this. Stable for discharge to SNF on 08/21. 2. 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 MRI brain on 08/17 showed punctate acute or subacute ischemic foci within the bilateral, right greater than left centrum semiovale. Severe chronic microvascular ischemic changes and moderate global cerebral atrophy also noted. No lateralizing deficits noted. Primary issues at this time are problems with balance and walking, and apparent difficulty speaking and understanding speech. PT/OT following as above and patient had poor therapy scores during her hospitalization. Patient also had difficulty with providing any history and it is unclear if this is due to the acute CVA versus some degree of underlying cognitive impairment. Discharged to SNF as above. Started on aspirin and high intensity statin on discharge. 3. New onset severe acute HFrEF ? Echo on 08/17 showed EF 10%, stage II diastolic dysfunction, severe global hypokinesis of the left interval, moderate enlarged LA, mildly enlarged RA, no significant valvular disease. Consistent with nonischemic cardiomyopathy. Unclear etiology but alcohol use disorder is a likely contributor. Initiated on guideline directed medical therapy and patient tolerated this well. Will discharge on Coreg, losartan, Lasix and Jardiance. 4. Suspect alcohol use disorder ? Reported history of heavier alcohol use in the past but per family her alcohol use recently was not significant. CIWA protocol placed during hospitalization and patient with no evidence of withdrawal. 5. Bacteriuria ? UA with 500% esterase, positive nitrates, rare bacteria. Urine culture grew 25-50,000 Klebsiella. Treated initially with IV ceftriaxone then switched to Macrobid. Klebsiella showed intermediate resistance to Macrobid so this was discontinued and patient was observed. No need for further treatment at this time. 6. Major depressive disorder ? Continue home citalopram. Total clinical time spent by myself addressing the patient's medical issues, reviewing all the data, and collaborating with patient's care team: 46 minutes. Allergies/Procedures Done in Hospital Allergies No Known Allergies Allergy (Verified 08/14/25 15:26) Procedures: EKG, Transthoracic Echo and - (CT abdomen pelvis, CTA chest, MRI brain, CTA head/neck, chest x-ray) Type of Care/Length of Stay Estimated LOS: Convalescent Care Less Than 30 days Type of Care Needed: Skilled Rehab Potential: Fair Prognosis: Fair Additional Orders/Day of Discharge H&P will serve as current which was dated: 08/15/25 Day of Discharge: 08/21/25 Dietary and Speech 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s Dietitian 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s/Changes: Continue Regular diet order Continue 240 ml bottle Ensure PHP (chocolate) daily at lunch Continue CIB w/ breakfast and magic cup w/ dinner for increased nutrition if consumed Consider appetite stimulant to help encourage increased po intake at meals If poor po intake/wt loss continue, may need to consider more aggressive nutrition support (ie supplemental TF) to help prevent further decline in pt nutritional status if in accordance w/ pt/family wishes. Discharge Plan Admission Admit Date/Time: 08/16/25 14:41 Primary Reason for Your Visit: Weakness Attending Provider: Simone Webster Primary Care Provider: Care Physician,No Primary Consulting Providers: Bharath Quiros; Gavin Garcia; Doreen Cobb; Olga Holman; Janis Mai; Bethanie Jain; Thomas Carballo; Barbra Klein; Dmitry Wood; Wang Lucas; Mukul Soliman; Marleni Barger; Eboni Acuña; Nigel Dunaway; Mariya Cormier; Chon Goodrich; Eliezer Hernandez; Jesse Tiwari; Deandre Anders; Mark Nelson; Camille Yun; Sandra Moy; Corey Guillen Discharge Orders/Prescriptions Prescriptions: New furosemide 40 mg Tablet 40 mg PO DAILY 30 Days Qty: 0 0RF carvedilol 12.5 mg Tablet 12.5 mg PO BIDCM 30 Days Qty: 0 0RF aspirin 81 mg Tablet,Chewable 81 mg PO BREAKFAST 30 Days Qty: 0 0RF folic acid 1 mg Tablet 1 mg PO BREAKFAST 30 Days Qty: 0 0RF losartan 100 mg Tablet 100 mg PO DAILY 30 Days Qty: 0 0RF Jardiance 10 mg Tablet 10 mg PO DAILY 30 Days Qty: 0 0RF Continued citalopram 40 mg tablet 40 mg PO DAILY trazodone 50 mg tablet 50 - 100 mg PO QHS PRN (Reason: insomnia) Referrals / Follow Up: Care Physician,No Primary [Primary Care Provider, Medical] Disposition Disposition (needs filled in before D/C Order can be placed): Long-Term Facility
--- NOTE | 2025-08-21 15:32 | PCM.DC.SUM ---
Providers Date of Admission: 08/16/25 Date of Discharge: 08/21/25 Primary Care Physician: No Primary Care Phys Consultations 08/17/25 19:14 Teleneurology [Consult: Tele-Neurology] Routine Consulting Provider: [facility] Reason for Consult: abnormal MRI EMERGENT Consult: No MD Notified: Yes Date Notified: 08/17/25 Time Notified: 23:26 Method of Notification: Answering Service Comments:: to do 08/18/25 am. Nursing Unit Staff Notify [facility] of Tele-Neurology Consult: Yes Reason For Visit: GENERAL WEAKNESS FAILURE TO THRIVE UTI Diagnosis Discharge Diagnosis (1) Generalized weakness: Status: Acute Code(s): R53.1 - Weakness (2) Adult failure to thrive: Status: Acute Code(s): R62.7 - Adult failure to thrive Medications at Discharge Home Medications citalopram 40 mg tablet 40 mg PO DAILY MOOD 08/14/25 trazodone 50 mg tablet 50 - 100 mg PO QHS PRN insomnia 08/14/25 aspirin 81 mg chewable tablet 81 mg PO BREAKFAST 30 days #0 tabs 08/21/25 carvedilol 12.5 mg tablet 12.5 mg PO BIDCM 30 days #0 tabs 08/21/25 empagliflozin 10 mg tablet (Jardiance) 10 mg PO DAILY 30 days #0 tabs 08/21/25 folic acid 1 mg tablet 1 mg PO BREAKFAST 30 days #0 tabs 08/21/25 furosemide 40 mg tablet 40 mg PO DAILY 30 days #0 tabs 08/21/25 losartan 100 mg tablet 100 mg PO DAILY 30 days #0 tabs 08/21/25 Hospital Course Operations None Procedures EKG, Transthoracic echo and - (CT abdomen pelvis, CTA chest, MRI brain, CTA head/neck, chest x-ray) Summary of Care Provided Minutes Spent on Discharge: 46 Hospital Course: Patient is a 65-year-old female who presented to [facility] ED on 08/15/2025 with worsening weakness. Hospital course as noted below. Patient discharged to SNF in stable condition on 08/21. 1. Adult failure to thrive ? PT/OT/case management followed. Patient with poor therapy scores during hospitalization. Suspected multifactorial with acute CVA and cognitive impairment versus dementia being large contributors to this. Stable for discharge to SNF on 08/21. 2. 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 MRI brain on 08/17 showed punctate acute or subacute ischemic foci within the bilateral, right greater than left centrum semiovale. Severe chronic microvascular ischemic changes and moderate global cerebral atrophy also noted. No lateralizing deficits noted. Primary issues at this time are problems with balance and walking, and apparent difficulty speaking and understanding speech. PT/OT following as above and patient had poor therapy scores during her hospitalization. Patient also had difficulty with providing any history and it is unclear if this is due to the acute CVA versus some degree of underlying cognitive impairment. Discharged to SNF as above. Started on aspirin and high intensity statin on discharge. 3. New onset severe acute HFrEF ? Echo on 08/17 showed EF 10%, stage II diastolic dysfunction, severe global hypokinesis of the left interval, moderate enlarged LA, mildly enlarged RA, no significant valvular disease. Consistent with nonischemic cardiomyopathy. Unclear etiology but alcohol use disorder is a likely contributor. Initiated on guideline directed medical therapy and patient tolerated this well. Will discharge on Coreg, losartan, Lasix and Jardiance. 4. Suspect alcohol use disorder ? Reported history of heavier alcohol use in the past but per family her alcohol use recently was not significant. CIWA protocol placed during hospitalization and patient with no evidence of withdrawal. 5. Bacteriuria ? UA with 500% esterase, positive nitrates, rare bacteria. Urine culture grew 25-50,000 Klebsiella. Treated initially with IV ceftriaxone then switched to Macrobid. Klebsiella showed intermediate resistance to Macrobid so this was discontinued and patient was observed. No need for further treatment at this time. 6. Major depressive disorder ? Continue home citalopram. Total clinical time spent by myself addressing the patient's medical issues, reviewing all the data, and collaborating with patient's care team: 46 minutes. Physical Exam Narrative alert, no apparent distress and average body habitus General Appearance: cooperative, well kempt and well developed Orientation / Consciousness: awake, oriented to person and oriented to place HEENT normocephalic, head/scalp atraumatic and moist oral mucous membranes Eyes PERRL, EOMs intact bilaterally and conjunctivae normal Neck supple, no JVD, thyroid normal and no carotid bruits General: trachea midline Resp normal respiratory effort, no retractions, no use of accessory muscles and clear to auscultation bilaterally Auscultation: Negative for rales, rhonchi or wheezes Cardio regular rate, regular rhythm, S1 normal heart sound, S2 normal heart sound, no murmurs, no rub and no gallops GI normal to inspection, nondistended, normoactive bowel sounds, soft to palpation, non-tender and non-distended Extremity no clubbing, cyanosis or edema Skin no rashes or lesions noted General Skin Exam: no breakdown Neuro CN's II-XII intact bilaterally, no focal motor deficits and no sensory deficits noted Sensorium / Orientation: awake, alert, oriented to person and oriented to place Speech: speech normal Psych Psych Narrative: Patient has flat affect, she does respond appropriately to simple questions Medical Records Data Medical Nutrition Assessment Dietitian: Malnutrition Criteria Met Start: 08/15/25 13:56 Freq: Status: Active Protocol: Document 08/18/25 13:13 SLA (Rec: 08/18/25 13:13 SLA [id number]) Nutrition Malnutrition Evidence of No Malnutrition Exists Malnutrition (severe Acute Illness/Injury ): Malnutrition ( Severe pro/heather unspecified) Intake Problem Increased Nutrient Needs (specify) Etiology protein related to skin status Signs/Symptoms as evidenced by PI to R buttock Status Active Problem Clinical Problem Acute Disease or Injury Related Malnutrition Etiology related to recent FTT Signs/Symptoms energy intake <50% and 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 Dietitian Continue Regular diet order 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s/ Continue 240 ml bottle Ensure PHP (chocolate) daily at Changes lunch Will order CIB w/ breakfast and magic cup w/ dinner for increased nutrition if consumed Consider appetite stimulant to help encourage increased po intake at meals Weight / BMI Weight Weight: 62.5 kg Body Mass Index (BMI) 22.2 ABG / Lab / Microbiology Data 08/15/25 07:27 08/20/25 09:21 Microbiology: Microbiology 08/14/25 21:30 Urine, Catheterized Urine Culture - Final Klebsiella pneumoniae sp pneum D/C Instructions DC O2, CPAP, BIPAP Needs Home O2 Discharge instructions: No Meaningful Use Info Meaningful Use Meaningful Use Diagnoses (Choose all that apply): Ischemic CVA CVA Therapy Assessed for PT,OT and/or ST?: Yes Ischemic Stroke Antithrombotic order at d/c?: Yes Dx of Atrial fib/flutter?: No Statins at discharge?: Yes If patient is 75 or younger, pt will be discharged on HIGH intensity statin.: Yes Primary Dx Acute Ischemic CVA?: Yes Discharge Plan Admission Admit Date/Time: 08/16/25 14:41 Primary Reason for Your Visit: Weakness Attending Provider: Simone Webster Primary Care Provider: Migel Crow,No Primary Consulting Providers: Bharath Quiros; Gavin Garcia; Doreen Cobb; Olga Holman; Janis Mai; Bethanie Jain; Thomas Carballo; Barbra Klein; Dmitry Wood; Wang Lucas; Mukul Soliman; Marleni Barger; Eboni Acuña; Nigel Dunaway; Mariya Cormier; Chon Goodrich; Eliezer Hernandez; Jesse Tiwari; Deandre Anders; Mark Nelson; Camille Yun; Sandra Moy; Corey Guillen Discharge Orders/Prescriptions Prescriptions: New furosemide 40 mg Tablet 40 mg PO DAILY 30 Days Qty: 0 0RF carvedilol 12.5 mg Tablet 12.5 mg PO BIDCM 30 Days Qty: 0 0RF aspirin 81 mg Tablet,Chewable 81 mg PO BREAKFAST 30 Days Qty: 0 0RF folic acid 1 mg Tablet 1 mg PO BREAKFAST 30 Days Qty: 0 0RF losartan 100 mg Tablet 100 mg PO DAILY 30 Days Qty: 0 0RF Jardiance 10 mg Tablet 10 mg PO DAILY 30 Days Qty: 0 0RF Continued citalopram 40 mg tablet 40 mg PO DAILY trazodone 50 mg tablet 50 - 100 mg PO QHS PRN (Reason: insomnia) Referrals / Follow Up: Care Physician,No Primary [Primary Care Provider, Medical] Disposition Disposition (needs filled in before D/C Order can be placed): [facility] Facility Charges/Coding Visit Charges Inpatient E&M: 75749 Disch Hosp >30min
--- NOTE | 2025-08-21 15:58 | CASEMGMT ---
Social Work Precert has been obtained.? Physician updated and pt is ready for discharge today. SW met with pt, pt son, and pt sister and they are agreeable to discharge plan as stated above.? SW answered SNF questions,insurance questions, and provided OSHIP information. SW asked hospitalist to meet regarding medical questions. DCA and bedside nurse notified of discharge. DCA to complete all final arrangements and notifications. Disposition:[facility], skilled level of care JESSICA Storey
--- NOTE | 2025-08-21 16:12 | CASEMGMT ---
Discharge Planning Discharge orders, signed med list, and transport time sent via [facility] to [facility]. Physicians will transport patient by cot between 7-8p. Nursing and SW updated. SW to updated family. Julianne Davalos DC Planning Asst.
--- NOTE | 2025-08-21 16:43 | NURSING ---
report called and given to Salima at [facility]
== END 2025-08-21 17:53 | disposition skilled nursing facility (03) | DRG 45 ==
LOC: ED 23:20 → MS3 08-15 05:36
PROVIDERS: Internal Medicine; Admitting Provider Family Medicine; Emergency Provider Emergency Medicine; Visit Provider Hospitalist
DX: I63.9 Cerebral infarction, unspecified (principal); E43 Unspecified severe protein-calorie malnutrition; I50.21 Acute systolic (congestive) heart failure; I11.0 Hypertensive heart disease with heart failure; F03.90 Unspecified dementia, unspecified severity, without behavioral disturbance, psychotic disturbance, mood disturbance, and anxiety; F10.20 Alcohol dependence, uncomplicated; F32.9 Major depressive disorder, single episode, unspecified; I42.8 Other cardiomyopathies; F17.210 Nicotine dependence, cigarettes, uncomplicated; E87.6 Hypokalemia; R62.7 Adult failure to thrive; F41.1 Generalized anxiety disorder; R29.708 NIHSS score 8; Y90.9 Presence of alcohol in blood, level not specified; R53.1 Weakness; R82.71 Bacteriuria; Z68.22 Body mass index [BMI] 22.0-22.9, adult; Z79.899 Other long term (current) drug therapy
CPT/HCPCS: 36415; 70496; 70498; 70551; 71045; 71275; 74177; 80048; 80053; 80061; 81001; 83690; 84439; 84443; 84481; 85025; 87077; 87086; 87088; 87186; 92526; 92610; 93306; 94640; 97116; 97162; 97166; 97530; 97535; 97802; 99285; 99406; P9612; Q9967; A4216; J2405

== ENCOUNTER → 2025-10-27 | Outpatient (CLI) | payer MEDICAID, SELFPAY ==
--- OUTSIDE RECORDS SUMMARY | 2025-10-27 10:07 | XMS RPT_ITS | CCD ---
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 Sander Wakefield DO Emergency Department Physic linus Chula YING, Dr. Sinha Admitting Physician Chula YING, Dr. Sinha Attending Physician Chula YING, Dr. Sinha Nurse Practitioner Radha YING, Gavin Nurse Practitioner Unavailable Reza YING, Dr. Logan Nurse Practitioner River YING, Olga Nurse Practitioner Unavailab Dr. Janis Veloz DO Nurse Practitioner Cristobal YING, Dr. Kovacs Nurse Practitioner Kait YING, Dr. Guzman Nurse Practitioner [phone] Ernie YING, Dr. Belle Nurse Practitioner Dr. Dmitry Wood MD Nurse Practitioner Dr. Wang Lucas MD Nurse Practitioner Jourdan YING, Dr. Gilman Nurse Practitioner Dr. Marleni Barger DO Nurse Practitioner Eboni Acuña MD Nurse Practitioner Emelyn YING, Dr. Manning Nurse Practitioner Casa YING, Dr. Meraz Nurse Practitioner Joleen YING, Dr. Givens Nurse Practitioner Mary YING, Dr. Eliezer Peacock Nurse Practitioner Te YING, Dr. Molina Nurse Practitioner Martita YING, Dr. Carrera Nurse Practitioner Omar YING, Dr. Flores Nurse Practitioner Jama YING, Dr. Obrien Nurse Practitioner Unavailmagdalena Moy MD, Sandra Nurse Practitioner Nirmal Guillen DO, Dr. Nicole Nurse Practitioner Dr. Simone Webster DO Attending Physician Wilmer LISA, Dr. Nicole Attending Physician Negrita YING, Dr. Minor Attending Physician Darin LISA, Dr. Nichols Nurse Practitioner NICHOLAS YING, YVES Carrasquillo Primary Care Physician JUSTINE YING, OKBANNER Consulting Unavailable NICHOLAS YING, YVES Carrasquillo Primary Care Unavailable LI LISA, DR OVERTON Attending Unavailable GIOVANA YING FACP, JAMES Jones Admitting Unavail able Care Physician, No Primary Primary Care Physicia n Unavailable Dr. Sander Wakefield DO Emergency Department Physic linus Dr. Bharath Quiros MD Admitting Physician Dr. Bharath Quiros MD Attending Physician Dr. Bharath Quiros MD Nurse Practitioner Gavin Garcia MD Nurse Practitioner Unavailable Reza YING, Dr. Logan Nurse Practitioner Olga Holman MD Nurse Practitioner Unavailab lisbeth Mai DO, Dr. Bruce Nurse Practitioner Cristobal YING, Dr. Kovacs Nurse Practitioner Kait YING, Dr. Guzman Nurse Practitioner Ernie YING, Dr. Belle Nurse Practitioner Dr. Dmitry Wood MD Nurse Practitioner Lance YING, Dr. Piña Nurse Practitioner Jourdan YING, Dr. Gilman Nurse Practitioner Denita LISA, Dr. Yepez Nurse Practitioner Domenico YING, Eboni Nurse Practitioner Emelyn YING, Dr. Manning Nurse Practitioner Casa YING, Dr. Meraz Nurse Practitioner Joleen YING, Dr. Givens Nurse Practitioner Mary YING, Dr. Eliezer Peacock Nurse Practitioner Te YING, Dr. Molina Nurse Practitioner Martita YING, Dr. Carrera Nurse Practitioner Omar YING, Dr. Flores Nurse Practitioner Jama YING, Dr. Obrien Nurse Practitioner Unavailmagdalena Moy MD, [facility] Nurse Practitioner Unavailmagdalena Guillen DO, Dr. Nicole Nurse Practitioner Dr. Simone Webster DO Attending Physician Dr. Corey Guillen DO Attending Physician Negrita YING, Dr. Minor Attending Physician Darin LISA, Dr. Nichols Nurse Practitioner Care Physician, No Primary Primary Care Unava ilable Bharath Quiros Admitting Unavailable Bharath Quiros Consulting Unavailable Simone Webster Attending Unavailable Gavin Garcia Consulting Unavailable Adeli, Amir Consulting Unavailable Hinduja, Olga Consulting Unavailable Sergei, Janis Consulting Unavailable Zha, Bethanie Consulting Unavailable Kait, Thomas Consulting Unavailable Ernie, Barbra Consulting Unavailable Bittania, Dmitry Consulting Unavailable Wang Lucas Consulting Unavailable Mukul Soliman Consulting Unavailable Marleni Barger Consulting Unavailable Eboni Acuña Consulting Unavailable Nigel Dunaway Consulting Unavailable Mariya Cormier Consulting Unavailable Chon Goodrich Consulting Unavailable Eliezer Hernandez Consulting UnavailJesse Tatum Consulting Unavailable Deandre Anders Consulting Unavailable Mark Nelson Consulting Unavailable Camille Yun Consulting Unavailable Sandra Moy Consulting Unavailable Corey Guillen Consulting Unavailable Bharath Quiros Admitting Unavailable Care Physician, No Primary Primary Care Unava ilable Corey Guillen Attending Unavailable Bharath Quiros Consulting Unavailable Gavin Garcia Consulting Unavailable AdeDoreen pepe Consulting Unavailable HindOlga alvarez Consulting Unavailable Janis Mai Consulting Unavailable Cristobal, Bethanie Consulting Unavailable KaitThomas jaimes Consulting Unavailable ErnieBarbra brooke Consulting Unavailable BitDmitry barriga Consulting Unavailable Wang Lucas Consulting Unavailable Mukul Soliman Consulting Unavailable Marleni Barger Consulting Unavailable Eboni Acuña Consulting Unavailable Nigel Dunaway Consulting Unavailable Mariya Cormier Consulting Unavailable Chon Goodrich Consulting Unavailable Eliezer Hernandez Consulting UnavailJesse Tatum Consulting Unavailable Martita, Deandre Consulting Unavailable Mark Nelson Consulting Unavailable Camille Yun Consulting Unavailable Sandra Moy Consulting Unavailable Corey Guillen Consulting Unavailable Care Physician, No Primary Primary Care Unava ilable Iván Rees Attending Unavailable Simone Webster Attending Unavailable Simone Webster Consulting Unavailable Care Physician, No Primary Primary Care Unava ilable Bharath Quiros Attending Unavailable Bharath Quiros Admitting Unavailable Bharath Quiros Consulting Unavailable Medications Current Medications Medication Drug Class(es) Dates Sig (Normalized) Sig (Original) aspirin 81 mg delayed release oral tablet (3 sources) Platelet Aggregation Inhibitor, Nonsteroidal Anti-inflammatory Drug Start: 08-21-2025 aspirin 81 mg oral delayed release tablet Dose : 81 mg = 1 tab(s), Oral, qDay, # 30 tab(s), 0 Refill(s) Start Date: 08/21/25 Status: Ordered Medication Dispense Status: Completed Quantity: 30.0 Unit: tab(s) Total Allowed Fills: 1 Fills Dispensed: 0 Start: 08-21-2025 take 1 tablet by mouth at [facility]fast Start: 08-21-2025 take 1 tablet by mouth at [facility] atorvastatin 40 mg oral tablet (3 sources) HMG-CoA Reductase Inhibitor Start: 08-21-2025 atorvastatin 40 mg oral tablet Dose : 40 mg = 1 tab(s), Oral, Daily, # 100 tab(s), 0 Refill(s) Start Date: 08/22/25 Status: Ordered Medication Dispense Status: Completed Quantity: 100.0 Unit: tab(s) Total Allowed Fills: 1 Fills Dispensed: 0 Start: 08-21-2025 take 1 tablet by mouth once da [place] carvedilol 12.5 mg oral tablet (3 sources) alpha-Adrenergic Ben, beta-Adrenergic Ben Start: 08-21-2025 carvedilol 12.5 mg oral tablet Dose : 12.5 mg = 1 tab(s), Oral, BIDM, # 180 tab(s), 0 Refill(s) Start Date: 08/21/25 Status: Ordered Medication Dispense Status: Completed Quantity: 180.0 Unit: tab(s) Total Allowed Fills: 1 Fills Dispensed: 0 Start: 08-21-2025 take 1 tablet by mouth twice d aily at mealtime citalopram 40 mg oral tablet (4 sources) Serotonin Reuptake Inhibitor Start: 08-14-2025 citalopram 40 mg ora l tablet Dose : 40 mg = 1 tab(s), Oral, Daily, # 90 tab(s), 0 Refill(s) Start Date: 08/21/25 Status: Ordered Medication Dispense Status: Completed Quantity: 90.0 Unit: tab(s) Total Allowed Fills: 1 Fills Dispensed: 0 Start: 01-22-2023 take 1 tablet by isabel th once daily citalopram (CELEXA) 40 mg tablet Take 40 mg by mouth once daily. 0 01/22/2023 Active Comment on above: Take 40 mg by mouth once daily. empagliflozin 10 mg oral tablet (3 sources) Sodium-Glucose Cotransporter 2 Inhibitor Start: 08-21-2025 Jardiance 10 mg oral tablet Dose : 10 mg = 1 tab(s), Oral, qAM, 0 Refill(s) Start Date: 08/21/25 Status: Ordered Medication Dispense Status: Completed Total Allowed Fills: 1 Fills Dispensed: 0 Start: 08-21-2025 take 1 tablet by mouth once da poncho folic acid 1 mg oral tablet (3 sources) Start: 08-21-2025 folic acid 1 m g oral tablet Dose : 1 mg = 1 tab(s), Oral, qDay, # 30 tab(s), 0 Refill(s) Start Date: 08/21/25 Status: Ordered Medication Dispense Status: Completed Quantity: 30.0 Unit: tab(s) Total Allowed Fills: 1 Fills Dispensed: 0 Start: 08-21-2025 take 1 tablet by mouth at [facility] kfast furosemide 40 mg oral tablet (3 sources) Loop Diuretic Start: 08-21-2025 furosemide 40 mg oral tablet Dose : 40 mg = 1 tab(s), Oral, Daily, 0 Refill(s) Start Date: 08/21/25 Status: Ordered Medication Dispense Status: Completed Total Allowed Fills: 1 Fills Dispensed: 0 Start: 08-21-2025 take 1 tablet by mouth once da poncho losartan potassium 100 mg oral tablet (3 sources) Angiotensin 2 Receptor Ben Start: 08-21-2025 losartan 100 mg oral tablet Dose : 100 mg = 1 tab(s), Oral, Daily, # 100 tab(s), 0 Refill(s) Start Date: 08/21/25 Status: Ordered Medication Dispense Status: Completed Quantity: 100.0 Unit: tab(s) Total Allowed Fills: 1 Fills Dispensed: 0 Start: 08-21-2025 take 1 tablet by mouth once da poncho traZODone hydrochloride 100 mg oral tablet (4 sources) Serotonin Reuptake Inhibitor Start: 08-21-2025 traZODone 100 mg ora l tablet Dose : 100 mg = 1 tab(s), Oral, qHS, PRN, 0 Refill(s) Start Date: 08/21/25 Status: Ordered Medication Dispense Status: Completed Total Allowed Fills: 1 Fills Dispensed: 0 Start: 08-14-2025 take 50-100 mg by mo uth at bedtime as needed Start: 01-22-2023 traZODone (SHAYAN YREL) 50 mg tablet Take 1 or 2 tablet by mouth at bedtime as needed for sleep 0 01/22/2023 Active Comment on above: Take 1 or 2 tablet b y mouth at bedtime as needed for sleep Completed/Discontinued Medications Medication Drug Class(es) Dates Sig (Normalized) Sig (Original) cephalexin 500 mg oral capsule (5 sources) Cephalosporin Antibacterial Start: 02-19-2023 End: 08-14-2025 take 1 capsule by mouth every six hours Cephalexin 500 mg capsule Discontinued 500 mg PO EVERY 6 HOURS 40 0 February 18, 2023 11:00pm August 14, 2025 3:39pm Comment on above: TAKE 1 CAPSULE BY MO UT EVERY 6 HOURS naproxen 500 mg oral tablet (5 sources) Nonsteroidal Anti-inflammatory Drug Start: 02-19-2023 End: 08-14-2025 take 1 tablet by mouth twice daily as needed for pain Naproxen (Naprosyn) 500 mg tablet Discontinued 500 mg PO TWICE A DAY as needed for pain February 18, 2023 11:00pm August 14, 2025 3:39pm Comment on above: Take by mouth. sulfamethoxazole 800 mg / trimethoprim 160 mg oral tablet (5 sources) Dihydrofolate Reductase Inhibitor Antibacterial, Sulfonamide Antimicrobial Start: 02-19-2023 End: 08-14-2025 Sulfamethoxazole- Trimethoprim (Bactrim Ds) 800-160 mg tablet Discontinued 1 {tbl} PO TWICE A DAY February 18, 2023 11:00pm August 14, 2025 3:39pm Comment on above: Take 1 tablet by isabel twice daily. Problems Problem Classification Problem Date Documented Da te Episodic/Chronic Acute cerebrovascular disease (2 sources) Cerebral infarction; Translations: [Cerebral infarction, unspecified] Onset: 08-21-2025 Chronic Alcohol-related disorders (4 sources) Current drinker; Translations: [Alcohol use] 08-29-2025 Chronic Allergic reactions (3 sources) Contact dermatitis; Translations: [Unspecified contact dermatitis, unspecified cause] 02-25-2023 Episodic Anxiety disorders (2 sources) Anxiety disorder; Translations: [Anxiety disorder, unspecified] Onset: 08-21-2025 Chronic Congestive heart failure; nonhypertensive (2 sources) Systolic heart failure; Translations: [Unspecified systolic (congestive) heart failure] Onset: 08-21-2025 Chronic Essential hypertension (2 sources) Essential hypertension; Translations: [Essential (primary) hypertension] Onset: 08-21-2025 Chronic Gangrene (1 source) Skin necrosis; Translations: [Gangrene, not elsewhere classified] Episodic Malaise and fatigue (7 sources) Asthenia; Translations: [Weakness] Onset: 08-21-2025 08-29-2025 Episodic Other nutritional; endocrine; and metabolic disorders (4 sources) Adult failure to thrive syndrome; Translations: [Adult failure to thrive] 08-29-2025 Episodic Other nutritional; endocrine; and metabolic disorders (2 sources) Adult failure to thrive; Translations: [Adult failure to thrive] Onset: 08-21-2025 Episodic Residual codes; unclassified (1 source) Tobacco user; Translations: [Tobacco use] Onset: 08-22-2025 Episodic Residual codes; unclassified (1 source) Disorientated; Translations: [Disorientation, unspecified] Onset: 08-24-2025 Episodic Residual codes; unclassified (1 source) Tobacco use; Translations: [Tobacco use] Onset: 08-21-2025 Episodic Residual codes; unclassified (1 source) Disorientation, unspecified; Translations: [Disorientation, unspecified] Onset: 08-21-2025 Episodic Skin and subcutaneous tissue infections (4 sources) Cellulitis; Translations: [Cellulitis, unspecified] 02-19-2023 Episodic Unclassified (1 source) Alcohol use, unspecified, uncomplicated; Translations: [Alcohol use, unspecified, uncomplicated] Onset: 08-21-2025 Urinary tract infections (5 sources) Urinary tract infectious disease; Translations: [Urinary tract infection, site not specified] Onset: 08-21-2025 08-29-2025 Episodic Results Test Name Value Interpretation Reference Range Facility Basic Metabolic Profile (BMP )on 08-22-2025 BUN Normal 02-18 [facility] Comment on above: Result Comment: Canc elled via OM: Order cancelled - Patient discharged Performed By: #### L 100.0500, L500.2500 ####[facility] [address] [place], [address] BUN/CRE Normal 08-21 [facility] Comment on above: Result Comment: Canc elled via OM: Order cancelled - Patient discharged Performed By: #### L 100.0500, L500.2500 ####[facility] [address] [place], [address] Calcium Normal 7.6-11.0 [facility] Comment on above: Result Comment: Canc elled via OM: Order cancelled - Patient discharged Performed By: #### L 100.0500, L500.2500 ####[facility] [address] [place], [address] CL Normal 98-108 [facility] Comment on above: Result Comment: Canc elled via OM: Order cancelled - Patient discharged Performed By: #### L 100.0500, L500.2500 ####[facility] [address] [place], [address] CO2 Normal 21.0-32.0 [facility] Comment on above: Result Comment: Canc elled via OM: Order cancelled - Patient discharged Performed By: #### L 100.0500, L500.2500 ####[facility] [address] [place], [address] CREAT,SERUM Normal 0.70-1.20 [facility] Comment on above: Result Comment: Canc elled via OM: Order cancelled - Patient discharged Performed By: #### L 100.0500, L500.2500 ####[facility] [address] [place], [address] eGFR Normal >60 [facility] Comment on above: Result Comment: Canc elled via OM: Order cancelled - Patient discharged Performed By: #### L 100.0500, L500.2500 ####[facility] [address] [place], [address] GAP Normal 5-15 [facility] Comment on above: Result Comment: Canc elled via OM: Order cancelled - Patient discharged Performed By: #### L 100.0500, L500.2500 ####[facility] [address] [place], [address] GLU Normal 70-99 [facility] Comment on above: Result Comment: Canc elled via OM: Order cancelled - Patient discharged Performed By: #### L 100.0500, L500.2500 ####[facility] [address] [place], [address] Potassium Normal 3.3-5.1 [facility] Comment on above: Result Comment: Canc elled via OM: Order cancelled - Patient discharged Performed By: #### L 100.0500, L500.2500 ####[facility] [address] [place], [address] Basic Metabolic Profile (BMP) Normal 133-145 [facility] Comment on above: Result Comment: Canc elled via OM: Order cancelled - Patient discharged Performed By: #### L 100.0500, L500.2500 ####[facility] [address] [place], [address] CBC-Complete Blood Cnt No Di ffon 08-22-2025 HCT Normal 37-47 [facility] Comment on above: Result Comment: Canc elled via OM: Order cancelled - Patient discharged Performed By: #### L 100.0500, L500.2500 ####[facility] [address] [place], [address] HGB Normal 12.0-15.0 [facility] Comment on above: Result Comment: Canc elled via OM: Order cancelled - Patient discharged Performed By: #### L 100.0500, L500.2500 ####[facility] [address] [place], [address] MCH Normal 27.0-32.0 [facility] Comment on above: Result Comment: Canc elled via OM: Order cancelled - Patient discharged Performed By: #### L 100.0500, L500.2500 ####[facility] [address], [address] MCHC Normal 32-36 [facility] Comment on above: Result Comment: Canc elled via OM: Order cancelled - Patient discharged Performed By: #### L 100.0500, L500.2500 ####[facility] [address] [place], [address] MCV Normal 81-99 [facility] Comment on above: Result Comment: Canc elled via OM: Order cancelled - Patient discharged Performed By: #### L 100.0500, L500.2500 ####[facility] [address] [place], [address] PLT Normal 150-450 [facility] Comment on above: Result Comment: Canc elled via OM: Order cancelled - Patient discharged Performed By: #### L 100.0500, L500.2500 ####[facility] [address] [place], [address] RBC Normal 4.2-5.4 [facility] Comment on above: Result Comment: Canc elled via OM: Order cancelled - Patient discharged Performed By: #### L 100.0500, L500.2500 ####[facility] [address] [place], [address] RDW CV Normal 11.6-14.6 [facility] Comment on above: Result Comment: Canc elled via OM: Order cancelled - Patient discharged Performed By: #### L 100.0500, L500.2500 ####[facility] [address] [place], [address] RDW SD Normal 35.1-43.9 [facility] Comment on above: Result Comment: Canc elled via OM: Order cancelled - Patient discharged Performed By: #### L 100.0500, L500.2500 ####[facility] [address] [place], [address] WBC Normal 4.4-11.0 [facility] Comment on above: Result Comment: Canc elled via OM: Order cancelled - Patient discharged Performed By: #### L 100.0500, L500.2500 ####[facility] [address] [place], [address] Anion gap in Serum or Plasma Ordered By: Corey Guillen on 08-20-2025 Anion gap [Moles/Vol] 13 mmol/L 5-15 [facility] BUN/creatinine ratioOrdered By: Corey Guillen on 08-20-2025 Urea nitrogen/Creatinine [Mass ratio] 22.8 mg/mg High - [facility] Basic Metabolic Profile (BMP )on 08-20-2025 BUN/CRE 22.8 RATIO High - [facility] Comment on above: Performed By: #### L 500.2500 ####[facility] [address] [place], [address] Calcium [Mass/Vol] 9.5 mg/dL Normal 7.6-11.0 [facility] Comment on above: Performed By: #### L 500.2500 ####[facility] [address] [place], [address] Chloride [Moles/Vol] 110 mmol/L High 98-108 [facility] Comment on above: Performed By: #### L 500.2500 ####[facility] [address] [place], [address] CO2 [Moles/Vol] 17.6 mmol/L Low 21.0-32.0 [facility] Comment on above: Performed By: #### L 500.2500 ####[facility] [address] [place], [address] Creatinine [Mass/Vol] 1.19 mg/dL Normal 0.70-1.20 [facility] Comment on above: Performed By: #### L 500.2500 ####[facility] [address] [place], [address] ECRCL 44.71 ml/min Low 50-250 [facility] Comment on above: Performed By: #### L 500.2500 ####[facility] [address] [place], [address] GAP 13 Normal - [facility] Comment on above: Performed By: #### L 500.2500 ####[facility] [address] [place], [address] GFR/1.73 sq M.predicted among non-blacks MDRD (S/P/Bld) [Vol rate/Area] 51 mL/min/{1.73_m2} Low >60 [facility] Comment on above: Result Comment: mL/m in/1.73m2 CKD-EPI Creatinine Equation (2020) Performed By: #### L 500.2500 ####[facility] [address] [place], [address] Glucose [Mass/Vol] 86 mg/dL Normal 70-99 [facility] Comment on above: Performed By: #### L 500.2500 ####[facility] [address] [place], [address] Potassium [Moles/Vol] 4.1 mmol/L Normal 3.3-5.1 [facility] Comment on above: Performed By: #### L 500.2500 ####[facility] [address] [place], [address] Sodium [Moles/Vol] 140 mmol/L Normal 133-145 [facility] Comment on above: Performed By: #### L 500.2500 ####[facility] [address] [place], [address] Urea nitrogen [Mass/Vol] 27 mg/dL High - [facility] Comment on above: Performed By: #### L 500.2500 ####[facility] [address] [place], [address] Carbon dioxide, total [Moles /volume] in Central venous bloodOrdered By: Corey Guillen on 08-20-2025 CO2 [Moles/Vol] 17.6 mmol/L Low 21.0-32.0 [facility] Chest 1 View (Portable)on Chest 1 View (Portable) [facility] Imaging Services [address] [place] [address] Chest 1 View (Portable) MR#: [id number] Acct: [id number] Name: BANDAR TIWARI Rep #: [id number] : 1960 F 65 From: Carmen thorpe MD PCP: Care Physician,No Primary Status: ADM IN Study: Chest 1 View (Portable) Date of Exam: 08/20/25 Exam# [id number] Ordering Dr: Corey Guillen DO PROCEDURE: CHEST 1 VIEW (PORTABLE) 08/20/2025 REASON FOR EXAM: HYPOXIA TECHNIQUE: Frontal view of the chest. COMPARISON: None FINDINGS: Mild cardiomegaly. No significant pleural effusion. No consolidation in either lung. The bony thorax is within normal limits. RAD/Chest 1 View (Portable) IMPRESSION: Cardiomegaly. Otherwise, no acute process in the chest. Reading Location: [facility] CC: Dr. Corey Guillen DO; No Primary Care Physician Chiropractic Practice Manager: Signed Normal [facility] Chloride assayOrdered By: Jesus Guillen on 08-20-2025 Chloride [Moles/Vol] 110 mmol/L High 98-108 [facility] Glomerular filtration rate ( GFR) estimation/1.73 sq m using serum, plasma, or whole bOrdered By: Corey Guillen on 08-20-2025 GFR/1.73 sq M.predicted among non-blacks MDRD (S/P/Bld) [Vol rate/Area] 51 mL/min/{1.73_m2} Low >60 [facility] Comment on above: mL/min/1.73m2 CKD-EP I Creatinine Equation (2020) Potassium measurement (mass/ volume)Ordered By: Corey Guillen on 08-20-2025 Potassium (Unsp spec) [Mass/Vol] 4.1 mmol/L 3.3-5.1 [facility] Serum creatinine measurement (mass/volume)Ordered By: Corey Guillen on 08-20-2025 Creatinine [Mass/Vol] 1.19 mg/dL 0.70-1.20 [facility] Serum glucose measurement (m ass/volume)Ordered By: Corey Guillen on 08-20-2025 Glucose [Mass/Vol] 86 mg/dL 70-99 [facility] Serum or plasma calcium james urement (mass/volume)Ordered By: Corey Guillen on 08-20-2025 Calcium [Mass/Vol] 9.5 mg/dL 7.6-11.0 [facility] Serum or plasma urea nitroge n measurement (mass/volume)Ordered By: Corey Guillen on 08-20-2025 Urea nitrogen [Mass/Vol] 27 mg/dL High - [facility] Sodium levelOrdered By: Corey Guillen on 08-20-2025 Sodium [Moles/Vol] 140 mmol/L 133-145 [facility] CTA Head AND Neck W/ Contras ton 08-18-2025 CTA Head AND Neck W/ Contrast [facility] - [employer] [facility] [address] [place] [address] CTA Head AND Neck W/ Contrast MR#: [id number] Acct: [id number] Name: BANDAR TIWARI Rep #: [id number] : 1960 F 65 From: Roger Padilla MD PCP: Care Physician,No Primary Status: ADM IN Study: CTA Head AND Neck W/ Contrast Date of Exam: Exam# [id number] Ordering Dr: Corey Guillen DO PROCEDURE: CTA HEAD AND NECK W/ CONTRAST 08/18/2025 REASON FOR EXAM: BILATERAL ISCHEMIC STROKES TECHNIQUE: Procedure Code: CTCTA.HDNCK Modality: CT Procedure: CTA HEAD AND NECK W/ CONTRAST Multiplanar Sagittal and Coronal images were obtained. 3D post processing was performed. CONTRAST: Isovue 370 VOLUME: 90 mL One or more dose reduction techniques were used (e.g., Automated exposure control, adjustment of the mA and/or kV according to patient size, use of iterative reconstruction technique). RADIATION DOSE SUMMARY: DLP: 1481.71 mGycm COMPARISON: Brain MRI 08/17/2025. No prior CTA available. FINDINGS: CTA HEAD: Patent intracranial arterial vasculature. No large vessel occlusion, high-grade stenosis, saccular aneurysm, or vascular malformation identified. Mild focal stenosis at the left STOCK RECEIVER P1-P2 segment junction. CTA NECK: Conventional aortic arch branching. Bilateral cervical carotid and vertebral arteries are patent. No aneurysm or dissection. Mild atherosclerotic plaque along the carotid siphons and at the carotid artery bifurcations, slightly greater on the left without significant stenosis. Dominant right vertebral artery, with diffusely hypoplastic left vertebral artery which primarily terminates distally at PICA branches. NONCONTRAST CT HEAD: No acute intracranial hemorrhage, extra-axial collection, mass effect or evidence of acute territorial infarct. Moderate generalized brain parenchymal volume loss and chronic small-vessel ischemic-gliotic changes in the supratentorial white matter. Scattered punctate foci of acute likely embolic infarcts in the bilateral cerebral white matter on MRI, not well appreciated on CT. Chronic lacunar infarct in the left basal ganglia. Intact skull base and calvarium. Well-aerated paranasal sinuses and mastoid air cells. CT/CTA Head AND Neck W/ Contrast IMPRESSION: 1. No large vessel arterial occlusion or hemodynamically significant stenosis. 2. Mild focal stenosis left STOCK RECEIVER P1-P2 segment junction. 3. Mild atherosclerotic plaque at the carotid bifurcations. 4. No acute intracranial hemorrhage, mass-effect or territorial infarct. Moderate volume loss and chronic small-vessel ischemic changes. The scattered punctate foci of acute likely embolic infarcts in the cerebral white matter on MRI are not well appreciated on CT. Reading Location: [facility] CC: Dr. Corey Guillen DO; No Primary Care Physician Chiropractic Practice Manager: Signed Normal [facility] Echocardiogram study reportO rdered By: Iván Rees on 08-18-2025 Study report [facility] [address] [place] [address] Echo Complete 08/18/25 0910 MR#: [id number] Acct: [id number] Name: BANDAR TIWARI Rep #:[id number] : 1960 65 From: Iván Winston Attending Dr: Dr. Corey Guillen DO Status: ADM IN Ordering Dr: Corey Guillen DO Date: 08/17/25 Location: [facility]3 Sex: F AA Admitted: 08/16/25 Reason For Study Reason For Study: TIA/CVA Procedure This was a 2D Doppler, Color Flow transthoracic echocardiogram. Exam performed portable in patient room. Left Ventricle Normal LV size. The left ventricular ejection fraction is 10 %. Stage 2 diastolic dysfunction. There is severe global hypokinesis of the left ventricle. Right Ventricle Normal RV size. Normal systolic function. Atria The left atrium is moderately enlarged. The right atrium is mildly enlarged. Bubble contrast study is negative for PFO/ASD. Mitral Valve Normal mitral valve. Mild-Moderate (1-2+) eccentric mitral valve insufficiency. Tricuspid Valve Normal tricuspid valve. Mild-Moderate (1-2+) tricuspid valve insufficiency. Aortic Valve Trisinus/trileaflet aortic valve. Mild focal aortic valve calcification. Mild (1+) eccentric aortic valve insufficiency. Pulmonic Valve Normal pulmonic valve. Mild (1+) pulmonic valve insufficiency. Great Vessels Normal aortic root. The pulmonary artery is normal size. The inferior vena cava is dilated. Pericardium/Pleural No pericardial effusion. Medication Performed a rapid injection of agitated mix of 9 cc saline and 1cc air to assessfor atrial septal defect. MMode/2D Measurements & Calculations LVIDd: 5.5 cm IVSd: 0.91 cm LVOT diam: 2.0 cm LVIDs: 5.0 cm LVPWd: 1.0 cm RVDd: 4.0 cm FS: 9.0 % LVOT area: 3.1 cm2 Ao root diam: 3.3 cm LAV(MOD-bp): 77.1 ml LVAd ap4: 35.5 cm2 LAV(MOD-bp) Indexed: 45.1 ml/m2 LVLd ap4: 8.6 cm LAV(MOD-sp2): 66.3 ml EDV(MOD-sp4): 124.5 ml LAV(MOD-sp4): 88.1 ml EDV(sp4-el): 124.3 ml LVAs ap4: 34.0 cm2 LVLs ap4: 8.3 cm ESV(MOD-sp4): 116.8 ml ESV(sp4-el): 118.4 ml EF(MOD-sp4): 6.2 % EF(sp4-el): 4.7 % LVAd ap2: 37.6 cm2 SV(MOD-sp4): 7.7 ml SV(MOD-sp2): 17.7 ml LVLd ap2: 9.0 cm SI(MOD-sp4): 4.5 ml/m2 SI(MOD-sp2): 10.4 ml/m2 EDV(MOD-sp2): 133.8 ml EDV(sp2-el): 133.7 ml LVAs ap2: 34.8 cm2 LVLs ap2: 8.9 cm ESV(MOD-sp2): 116.1 ml ESV(sp2-el): 115.6 ml EF(MOD-sp2): 13.2 % SV(sp4-el): 5.9 ml LA dimension(2D): 3.7 cm LA A4 area: 26.0 cm2 RA A4 area: 22.3 cm2 TAPSE: 1.0 cm Time Measurements MV dec time: 0.11 sec Doppler Measurements & Calculations MV E max jolanta: 81.8 cm/sec Lat Peak E' Jolanta: 6.6 cm/sec Med Peak E' Jolanta: 6.0 cm/sec MV A max jolanta: 45.9 cm/sec E/E' lat: 12.5 E/E' med: 13.7 MV E/A: 1.8 Ao V2 max: 93.2 cm/sec AI max jolanta: 388.2 cm/sec MV dec slope: 720.3 cm/sec2 Ao max P.5 mmHg AI max P.3 mmHg Ao V2 mean: 63.2 cm/sec Ao mean P.9 mmHg AI dec slope: 172.0 cm/sec2 Ao V2 VTI: 14.4 cm AI P1/2t: 661.2 msec AV (velocity ratio): 0.74 NIKOLAI(I,D): 2.3 cm2 NIKOLAI(V,D): 2.9 cm2 LV V1 max: 86.9 cm/sec SV(LVOT): 33.0 ml PA V2 max: 59.9 cm/sec LV V1 max P.0 mmHg LV V1 mean P.5 mmHg LV V1 mean: 57.0 cm/sec LV V1 VTI: 10.6 cm PI end-d jolanta: 187.5 cm/sec TR max jolanta: 297.8 cm/sec TR max P.8 mmHg ECHO/Echo Complete Interpretation Summary The left ventricular ejection fraction is 10 %. Normal LV size. There is severe global hypokinesis of the left ventricle. The left atrium is moderately enlarged. The right atrium is mildly enlarged. Mild-Moderate (1-2+) eccentric mitral valve insufficiency. Mild-Moderate (1-2+) tricuspid valve insufficiency. Bubble contrast study is negative for PFO/ASD. Stage 2 diastolic dysfunction. Ordering Physician: Corey Guillen Performed By: Juan Miguel Holland RDCS 08/18/251315 Date _ Iván Rees MD CC: Dr. Corey Guillen DO; No Primary Care Physician ~ Date Dictated: 08/18/25909 Date Transcribed: 08/18/251315 Chiropractic Practice Manager: Signed [facility] Work Phone: Study report [facility] [address] [place] [address]. [place] [address] Echo Complete 08/18/25909 MR#: [id number] Acct: [id number] Name: BANDAR TIWARI Rep #:[id number] : 1960 65 From: Iván Winston Attending Dr: Dr. Corey Guillen DO Status: ADM IN Ordering Dr: Corey Guillen DO Date: 08/17/25 Location: MS3 Sex: F AA Admitted: 08/16/25 Reason For Study Reason For Study: TIA/CVA Procedure This was a 2D Doppler, Color Flow transthoracic echocardiogram. Exam performed portable in patient room. Left Ventricle Normal LV size. The left ventricular ejection fraction is 10 %. Stage 2 diastolic dysfunction. There is severe global hypokinesis of the left ventricle. Right Ventricle Normal RV size. Normal systolic function. Atria The left atrium is moderately enlarged. The right atrium is mildly enlarged. Bubble contrast study is negative for PFO/ASD. Mitral Valve Normal mitral valve. Mild-Moderate (1-2+) eccentric mitral valve insufficiency. Tricuspid Valve Normal tricuspid valve. Mild-Moderate (1-2+) tricuspid valve insufficiency. Aortic Valve Trisinus/trileaflet aortic valve. Mild focal aortic valve calcification. Mild (1+) eccentric aortic valve insufficiency. Pulmonic Valve Normal pulmonic valve. Mild (1+) pulmonic valve insufficiency. Great Vessels Normal aortic root. The pulmonary artery is normal size. The inferior vena cava is dilated. Pericardium/Pleural No pericardial effusion. Medication Performed a rapid injection of agitated mix of 9 cc saline and 1cc air to assessfor atrial septal defect. MMode/2D Measurements & Calculations LVIDd: 5.5 cm IVSd: 0.91 cm LVOT diam: 2.0 cm LVIDs: 5.0 cm LVPWd: 1.0 cm RVDd: 4.0 cm FS: 9.0 % LVOT area: 3.1 cm2 Ao root diam: 3.3 cm LAV(MOD-bp): 77.1 ml LVAd ap4: 35.5 cm2 LAV(MOD-bp) Indexed: 45.1 ml/m2 LVLd ap4: 8.6 cm LAV(MOD-sp2): 66.3 ml EDV(MOD-sp4): 124.5 ml LAV(MOD-sp4): 88.1 ml EDV(sp4-el): 124.3 ml LVAs ap4: 34.0 cm2 LVLs ap4: 8.3 cm ESV(MOD-sp4): 116.8 ml ESV(sp4-el): 118.4 ml EF(MOD-sp4): 6.2 % EF(sp4-el): 4.7 % LVAd ap2: 37.6 cm2 SV(MOD-sp4): 7.7 ml SV(MOD-sp2): 17.7 ml LVLd ap2: 9.0 cm SI(MOD-sp4): 4.5 ml/m2 SI(MOD-sp2): 10.4 ml/m2 EDV(MOD-sp2): 133.8 ml EDV(sp2-el): 133.7 ml LVAs ap2: 34.8 cm2 LVLs ap2: 8.9 cm ESV(MOD-sp2): 116.1 ml ESV(sp2-el): 115.6 ml EF(MOD-sp2): 13.2 % SV(sp4-el): 5.9 ml LA dimension(2D): 3.7 cm LA A4 area: 26.0 cm2 RA A4 area: 22.3 cm2 TAPSE: 1.0 cm Time Measurements MV dec time: 0.11 sec Doppler Measurements & Calculations MV E max jolanta: 81.8 cm/sec Lat Peak E' Jolanta: 6.6 cm/sec Med Peak E' Jolanta: 6.0 cm/sec MV A max jolanta: 45.9 cm/sec E/E' lat: 12.5 E/E' med: 13.7 MV E/A: 1.8 Ao V2 max: 93.2 cm/sec AI max jolanta: 388.2 cm/sec MV dec slope: 720.3 cm/sec2 Ao max P.5 mmHg AI max P.3 mmHg Ao V2 mean: 63.2 cm/sec Ao mean P.9 mmHg AI dec slope: 172.0 cm/sec2 Ao V2 VTI: 14.4 cm AI P1/2t: 661.2 msec AV (velocity ratio): 0.74 NIKOLAI(I,D): 2.3 cm2 NIKOLAI(V,D): 2.9 cm2 LV V1 max: 86.9 cm/sec SV(LVOT): 33.0 ml PA V2 max: 59.9 cm/sec LV V1 max P.0 mmHg LV V1 mean P.5 mmHg LV V1 mean: 57.0 cm/sec LV V1 VTI: 10.6 cm PI end-d jolanta: 187.5 cm/sec TR max jolanta: 297.8 cm/sec TR max P.8 mmHg ECHO/Echo Complete Interpretation Summary The left ventricular ejection fraction is 10 %. Normal LV size. There is severe global hypokinesis of the left ventricle. The left atrium is moderately enlarged. The right atrium is mildly enlarged. Mild-Moderate (1-2+) eccentric mitral valve insufficiency. Mild-Moderate (1-2+) tricuspid valve insufficiency. Bubble contrast study is negative for PFO/ASD. Stage 2 diastolic dysfunction. Ordering Physician: Corey Guillen Performed By: Juan Miguel Holland RDCS 08/18/25 1316 Date _ Iván Rees MD CC: Dr. Corey Guillen, DO; No Primary Care Physician ~ Date Dictated: 08/18/25909 Date Transcribed: 08/18/25 1316 Chiropractic Practice Manager: Signed [facility] Work Phone: MR/[email or web address] 08-18-2025 MR/CON.[email or web address] [facility] Medical Records Department [address] [place] [address] Consultation - Neurology 08/18/25 1108 MR#: [id number] Acct: [id number] Name: BANDAR TIWARI Rep #: [id number] : 1960 65 From: Mukul Soliman MD PCP: Care Physician,No Primary Status:ADM IN Location: [place] [address] Assessment and Plan: Stroke Assessment/Plan BANDAR TIWARI, is a 65 F with etoh use disorder, smoker, ARMAND and MDD who presents with generalized weakness and failure to thrive on 08/15/25. She as not taking care of herself and slept for the majority of 3 days so was brought to the ED. She was found to have a UTI and was treated, her cognition and ability to care for herself that they noted in the hospital led to them getting an MRI brain. Patient cannot provide much history. No family in the room to get collateral hx. MRI brain showed punctate ischemic strokes in BL hemispheres. They are small and should not cause any major symptoms. Stroke team was consulted on 08/18/25 for MRI brain findings. On my exam NIH for 8 for drift in all limbs. She can name, follow commands and has fluent speech, just not a good historian, more encephalopathic. Stroke cryptogenic at this time. 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 HPI Consult Data Date of Consult: 08/18/25 HPI Narrative HPI Narrative: BANDAR TIWARI, is a 65 F with etoh use disorder, smoker, ARMAND and MDD who presents with generalized weakness and failure to thrive on 08/15/25. She was found to have a UTI and was treated, her cognition and ability to care for herself that they noted in the hospital led to them getting an MRI brain. Patient cannot provide much history. No family in the room to get collateral hx. Per note over the past 3 days prior to admission was not walking, talking or taking care of herself so was brought to the ED. MRI brain showed punctate ischemic strokes in BL hemispheres. They are small and should not cause any major symptoms. Stroke team was consulted on 08/18/25 for MRI brain findings. On my exam NIH for 8 for drift in all limbs. She can name, follow commands and has fluent speech, just not a good historian, more encephalopathic. [facility] Medical History (Updated 08/15/25 @ 01:07 by Jolynn Keen) Smoker Migraines Alcohol abuse Anxiety Depression Home Medications ???Medication ???Instructions ???Recorded ???Last Taken ???Type citalopram 40 mg tablet 40 mg PO DAILY MOOD 08/14/2508/07 History trazodone 50 mg tablet 50 - 100 mg PO QHS PRN insomnia 08/07/25 History Allergy/AdvReac Type Severity Reaction Status Date / Time No Known Allergies Allergy Verified 08/14/25 15:26 Social History Smoking Status: Current every day smoker tobacco type: cigarettes Vital Signs Vital Signs Vital Signs: 08/17/25 14:30 08/17/25 15:21 08/17/25 20:00 Temperature 97 F L Temperature Source Oral Pulse Rate 94 Pulse Strength Normal (2+) Respiratory Rate 18 Respiratory Effort Short of Breath Respiratory Depth Normal Respiratory Pattern Normal Blood Pressure 129/97 H Blood Pressure Mean 107 Blood Pressure Source Monitor Blood Pressure Position Sitting Blood Pressure Location Right Arm Pulse Ox 95 Oxygen Delivery Method Room Air 08/17/25 20:00 08/17/25 20:07 08/18/25 04:20 Temperature 97.5 F L Temperature Source Axillary Pulse Rate 87 Pulse Strength Respiratory Rate 18 Respiratory Effort Normal Non-Labored Normal Non-Labored Respiratory Depth Normal Normal Respiratory Pattern Normal Normal Blood Pressure 125/96 H Blood Pressure Mean 105 Blood Pressure Source Monitor Blood Pressure Position Semi-Fowlers Blood Pressure Location Right Arm Pulse Ox 100 Oxygen Delivery Method Room Air Room Air Room Air 08/18/25 04:22 08/18/25 08:08 08/18/25 08:08 Temperature 96.6 F L Temperature Source Temporal Pulse Rate 98 Pulse Strength Normal (2+) Respiratory Rate 18 Respiratory Effort Normal Respiratory Depth Normal Respiratory Pattern Normal Blood Pressure 144/95 H Blood Pressure Mean 111 Blood Pressure Source Monitor Blood Pressure Position Semi-Fowlers Blood Pressure Location Right Arm Pulse Ox 100 Oxygen Delivery Method Room Air Room Air (more content not included)... Normal [facility] Urine Cultureon 08-18-2025 [facility] Pending Klebsiella pneumoniae sp pneum [place] Count 25,000-50,000 Klebsiella pneumoniae sp pneum: REACTION Ampicillin Islt SABIHA >=32 Ampicillin+Sulbac Islt SABIHA <=2 S Cefepime Islt SABIHA <=0.12 S cefTRIAXone Islt SABIHA <=0.25 S Ciprofloxacin Islt SABIHA <=0.06 S B-Lactamase Extended Susc Islt NEG Gentamicin Islt SABIHA <=1 S levoFLOXacin Islt SABIHA <=0.12 S Meropenem Islt SABIHA <=0.25 S Nitrofurantoin Islt SABIHA 65 I Pip+Tazo Islt SABIHA <=4 S TMP SMX Islt SABIHA <=20 S Normal [facility] Comment on above: Performed By: #### L 506.0400, L501.9520, L501.92577 #### [facility] [address] [facility] [place], [address] Brain without Contraston Brain without Contrast [facility] Imaging Services [address] [place] [place], [place] [address] Brain without Contrast MR#: [id number] Acct: [id number] Name: BANDAR TIWARI Rep #: [id number] : 1960 F 65 From: Nigel Lowry MD PCP: Care Physician,No Primary Status: ADM IN Study: Brain without Contrast Date of Exam: 08/17/25 Exam# [id number] Ordering Dr: Corey Giullen DO PROCEDURE: BRAIN WITHOUT CONTRAST 08/17/2025 REASON FOR EXAM: ENCEPHALOPATHY TECHNIQUE: Procedure Code: MRIBR Modality: MR Procedure: BRAIN WITHOUT CONTRAST Multiplanar and multisequence images were obtained. FINDINGS: Punctate foci of restricted diffusion within the bilateral but srltq-hcnuicj-zoje-l eft centrum semiovale moderate global parenchymal atrophy. Severe periventricular white matter T2/FLAIR hyperintensity which is nonspecific. No extra-axial blood or fluid collections. The paranasal sinuses and mastoid air cells are clear. MRI/Brain without Contrast IMPRESSION: Punctate acute or subacute ischemic foci within the bilateral, lxhcq-hxshexg-vcpl-l eft centrum semiovale. Moderate global cerebral atrophy, compatible with age-related volume loss. Severe chronic microvascular ischemic white matter changes, likely reflecting longstanding small vessel disease. No evidence of acute intracranial hemorrhage, mass effect, or hydrocephalus. Critical results were communicated to Marlene Smith RN at 7 p.m.. Reading Location: [address] CC: Dr. Corey Guillen DO; No Primary Care Physician Chiropractic Practice Manager: Signed Normal [facility] Calculated very low density lipoprotein (VLDL) cholesterol measurementOrdered By: Corey Guillen on 08-17-2025 Calculated very low density lipoprotein (VLDL) cholesterol measurement 15 mg/dL 5-40 [facility] Echo Completeon 08-17-2025 Echo Complete [facility] [address] [place] [address] Echo Complete 08/18/25 0910 MR#: [id number] Acct: [id number] Name: BANDAR TIWARI Rep #: [id number] : 1960 65 From: Iván Rees MD Attending Dr: Dr. Corey Guillen DO Status: A DM IN Ordering Dr: Corey Guillen DO Date: 08/17/25 Location: MS3 Sex: F AA Admitted: 08/16/25 Reason For Study Reason For Study: TIA/CVA Procedure This was a 2D Doppler, Color Flow transthoracic echocardiogram. Exam performed portable in patient room. Left Ventricle Normal LV size. The left ventricular ejection fraction is 10 %. Stage 2 diastolic dysfunction. There is severe global hypokinesis of the left ventricle. Right Ventricle Normal RV size. Normal systolic function. Atria The left atrium is moderately enlarged. The right atrium is mildly enlarged. Bubble contrast study is negative for PFO/ASD. Mitral Valve Normal mitral valve. Mild-Moderate (1-2+) eccentric mitral valve insufficiency. Tricuspid Valve Normal tricuspid valve. Mild-Moderate (1-2+) tricuspid valve insufficiency. Aortic Valve Trisinus/trileaflet aortic valve. Mild focal aortic valve calcification. Mild (1+) eccentric aortic valve insufficiency. Pulmonic Valve Normal pulmonic valve. Mild (1+) pulmonic valve insufficiency. Great Vessels Normal aortic root. The pulmonary artery is normal size. The inferior vena cava is dilated. Pericardium/Pleural No pericardial effusion. Medication Performed a rapid injection of agitated mix of 9 cc saline and 1cc air to assess for atrial septal defect. MMode/2D Measurements Calculations LVIDd: 5.5 cm IVSd: 0.91 cm LVOT diam: 2.0 cm LVIDs: 5.0 cm LVPWd: 1.0 cm RVDd: 4.0 cm FS: 9.0 % LVOT area: 3.1 cm2 Ao root diam: 3.3 cm LAV(MOD-bp): 77.1 ml LVAd ap4: 35.5 cm2 LAV(MOD-bp) Indexed: 45.1 ml/m2 LVLd ap4: 8.6 cm LAV(MOD-sp2): 66.3 ml EDV(MOD-sp4): 124.5 ml LAV(MOD-sp4): 88.1 ml EDV(sp4-el): 124.3 ml LVAs ap4: 34.0 cm2 LVLs ap4: 8.3 cm ESV(MOD-sp4): 116.8 ml ESV(sp4-el): 118.4 ml EF(MOD-sp4): 6.2 % EF(sp4-el): 4.7 % LVAd ap2: 37.6 cm2 SV(MOD-sp4): 7.7 ml SV(MOD-sp2): 17.7 ml LVLd ap2: 9.0 cm SI(MOD-sp4): 4.5 ml/m2 SI(MOD-sp2): 10.4 ml/m2 EDV(MOD-sp2): 133.8 ml EDV(sp2-el): 133.7 ml LVAs ap2: 34.8 cm2 LVLs ap2: 8.9 cm ESV(MOD-sp2): 116.1 ml ESV(sp2-el): 115.6 ml EF(MOD-sp2): 13.2 % SV(sp4-el): 5.9 ml LA dimension(2D): 3.7 cm LA A4 area: 26.0 cm2 RA A4 area: 22.3 cm2 TAPSE: 1.0 cm Time Measurements MV dec time: 0.11 sec Doppler Measurements Calculations MV E max jolanta: 81.8 cm/sec Lat Peak E' Jolanta: 6.6 cm/sec Med Peak E' Jolanta: 6.0 cm/sec MV A max jolanta: 45.9 cm/sec E/E' lat: 12.5 E/E' med: 13.7 MV E/A: 1.8 Ao V2 max: 93.2 cm/sec AI max jolanta: 388.2 cm/sec MV dec slope: 720.3 cm/sec2 Ao max P.5 mmHg AI max P.3 mmHg Ao V2 mean: 63.2 cm/sec Ao mean P.9 mmHg AI dec slope: 172.0 cm/sec2 Ao V2 VTI: 14.4 cm AI P1/2t: 661.2 msec AV (velocity ratio): 0.74 NIKOLAI(I,D): 2.3 cm2 NIKOLAI(V,D): 2.9 cm2 LV V1 max: 86.9 cm/sec SV(LVOT): 33.0 ml PA V2 max: 59.9 cm/sec LV V1 max P.0 mmHg LV V1 mean P.5 mmHg LV V1 mean: 57.0 cm/sec LV V1 VTI: 10.6 cm PI end-d jolanta: 187.5 cm/sec TR max jolanta: 297.8 cm/sec TR max P.8 mmHg ECHO/Echo Complete Interpretation Summary The left ventricular ejection fraction is 10 %. Normal LV size. There is severe global hypokinesis of the left ventricle. The left atrium is moderately enlarged. The right atrium is mildly enlarged. Mild-Moderate (1-2+) eccentric mitral valve insufficiency. Mild-Moderate (1-2+) tricuspid valve insufficiency. Bubble contrast study is negative for PFO/ASD. Stage 2 diastolic dysfunction. Ordering Physician: Corey Guillen Performed By: Juan Miguel Holland RDCS 08/18/25 1316 Date Iván Rees MD CC: Dr. Corey Guillen, DO; No Primary Care Physician Date D (more content not included)... Normal [facility] LDL calc ser/plasOrdered By: Corey Guillen on 08-17-2025 Cholesterol in LDL [Mass/Vol] 52 mg/dL [facility] Comment on above: Ctrlkbsrop=108-563 m g/dL & Higher Eaxy=808 mg/dL or greaterFriedwald Equation for LDL-C Lipid Profileon 08-17-2025 CHOL:HDL 3.38 Normal [facility] Comment on above: Performed By: #### L 500.4100 #### [facility] [address], [address] Cholesterol [Mass/Vol] 96 mg/dL Normal <=200 [facility] Comment on above: Result Comment: Chol esterol level, Desirable <200 mg/dL Borderline high cholesterol 200-239 mg/dL High cholesterol >=240 mg/dL 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s of the NCEP Adult Treatment Panel for the following risk-cutoff thresholds for the [place] population. Performed By: #### L 500.4100 #### [facility] [address], [address] Cholesterol in HDL [Mass/Vol] 28 mg/dL Low [facility] Comment on above: Result Comment: Pavithra onal Cholesterol Education Program (NCEP) guidelines: <40 mg/dL: Low HDL-cholesterol (major risk factor for CHD) >= 60 mg/dL: High HDL-cholesterol (negative risk factor for CHD) HDL-cholesterol is affected by a number of factors, e.g. smoking, exercise, hormones, sex and age. Performed By: #### L 500.4100 #### [facility] [address], [address] Cholesterol in LDL [Mass/Vol] 52 mg/dL Normal [facility] Comment on above: Result Comment: Bord grpjth=113-988 mg/dL Higher Ufmn=389 mg/dL or greater Friedwald Equation for LDL-C Performed By: #### L 500.4100 #### [facility] [address] [place], [address] Cholesterol in VLDL [Mass/Vol] 15 mg/dL Normal 5-40 [facility] Comment on above: Performed By: #### L 500.4100 #### [facility] [address] [place], [address] Triglyceride [Mass/Vol] 76 mg/dL Normal [facility] Comment on above: Result Comment: The drugs N-Acetylcysteine and Metamizole may falsely depress this assay. Normal range: <150 mg/dL Borderline High: 150-199 mg/dL High: 200-499 mg/dL Very High: >500 mg/dL Performed By: #### L 500.4100 #### [facility] [address] [address] [place], [place], [address] Magnetic resonance imaging r eportOrdered By: Nigel Lowry on 08-17-2025 Study report [facility] Imaging Services [address] [place] [address] Brain without Contrast MR#: [id number] Acct: [id number] Name: BANDAR TIWARI Rep #: [id number] : 1960 F 65 From: Bg Lowry MD PCP: Care Physician,No Primary Status: ADM IN Study:Brain without Contrast Date of Exam: 08/17/25 Exam# [id number] Ordering Dr: Corey Alberto DO PROCEDURE: BRAIN WITHOUT CONTRAST 08/17/2025 REASON FOR EXAM: ENCEPHALOPATHY TECHNIQUE: Procedure Code: MRIBR Modality: MR Procedure: BRAIN WITHOUT CONTRAST Multiplanar and multisequence images were obtained. FINDINGS: Punctate foci of restricted diffusion within the bilateral but uoeqc-ndngizb-cqzm-l eft centrum semiovale moderate global parenchymal atrophy. Severe periventricular white matter T2/FLAIR hyperintensity which is nonspecific. No extra-axial blood or fluid collections. The paranasal sinuses and mastoid air cells are clear. MRI/Brain without Contrast IMPRESSION: Punctate acute or subacute ischemic foci within the bilateral, jnsik-npgyeyl-ysop-l eft centrum semiovale. Moderate global cerebral atrophy, compatible with age-related volume loss. Severe chronic microvascular ischemic white matter changes, likely reflecting longstanding small vessel disease. No evidence of acute intracranial hemorrhage, mass effect, or hydrocephalus. Critical results were communicated to Marlene Smith RN at 7 p.m.. Reading Location: [address] CC: Dr. Corey Guillen DO; No Primary Care Physician ~ Chiropractic Practice Manager: Signed [facility] Study report [facility] Imaging Services [address] [place] [address] Brain without Contrast MR#: [id number] Acct: [id number] Name: BANDAR TIWARI Rep #: [id number] : 1960 F 65 From: Bg Lowry MD PCP: Care Physician,No Primary Status: ADM IN Study:Brain without Contrast Date of Exam: 08/17/25 Exam# [id number] Ordering Dr: Corey Alberto DO PROCEDURE: BRAIN WITHOUT CONTRAST 08/17/2025 REASON FOR EXAM: ENCEPHALOPATHY TECHNIQUE: Procedure Code: MRIBR Modality: MR Procedure: BRAIN WITHOUT CONTRAST Multiplanar and multisequence images were obtained. FINDINGS: Punctate foci of restricted diffusion within the bilateral but inerg-mwqtuyu-msqm-l eft centrum semiovale moderate global parenchymal atrophy. Severe periventricular white matter T2/FLAIR hyperintensity which is nonspecific. No extra-axial blood or fluid collections. The paranasal sinuses and mastoid air cells are clear. MRI/Brain without Contrast IMPRESSION: Punctate acute or subacute ischemic foci within the bilateral, hiati-fdmbtsz-tuib-l eft centrum semiovale. Moderate global cerebral atrophy, compatible with age-related volume loss. Severe chronic microvascular ischemic white matter changes, likely reflecting longstanding small vessel disease. No evidence of acute intracranial hemorrhage, mass effect, or hydrocephalus. Critical results were communicated to Marlene Smith RN at 7 p.m.. Reading Location: [address] CC: Dr. Corey Guillen DO; No Primary Care Physician ~ Chiropractic Practice Manager: Signed [facility] Screening total cholesterol/ high density lipoprotein (HDL) cholesterol ratioOrdered By: Corey Guillen on 08-17-2025 Cholesterol.total/Choles terol in HDL [Mass ratio] 3.38 {ratio} [facility] Serum or plasma cholesterol in HDL measurement (mass/volume)Ordered By: Corey Guillen on 08-17-2025 Cholesterol in HDL [Mass/Vol] 28 mg/dL Low >40 [facility] Comment on above: National Cholesterol Education Program (NCEP) guidelines:<40 mg/dL: Low HDL-cholesterol (major risk factor for CHD)>= 60 mg/dL: High HDL-cholesterol (negative risk factor for CHD)HDL-cholesterol is affected by a number of factors, e.g. smoking, exercise, hormones, sex and age. Serum or plasma cholesterol measurement (mass/volume)Ordered By: Corey Guillen on 08-17-2025 Cholesterol [Mass/Vol] 96 mg/dL <201 [facility] Comment on above: Cholesterol level, D esirable <200 mg/dLBorderline high cholesterol 200-239 mg/dLHigh cholesterol >=240 mg/dL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s of the NCEP Adult Treatment Panel for the following risk-cutoff thresholds for the [place] population. Triglycerides measurementOrd ered By: Corey Guillen on 08-17-2025 Triglyceride [Mass/Vol] 76 mg/dL <199 [facility] Comment on above: The drugs N-Acetylcy steine and Metamizole may falsely depress this assay. Normal range: <150 mg/dLBorderline High: 150-199 mg/dLHigh: 200-499 mg/dLVery High: >500 mg/dL Absolute lymphocyte countOrd ered By: Bharath Quiros on 08-15-2025 Lymphocytes Auto (Unsp spec) [#/Vol] 1.24 10*3/uL 0.83-4.51 [facility] Absolute neutrophil countOrd ered By: Bharath Quiros on 08-15-2025 Neutrophils (Bld) [#/Vol] 3.0 10*3/uL 2.0-7.7 [facility] Automated lymphocyte count a s percentage of total leukocytesOrdered By: Bharath Quiros on 08-15-2025 Lymphocytes/100 WBC Auto (Unsp spec) 25.9 % 19-41 [facility] Basic Metabolic Profile (BMP )on 08-15-2025 BUN/CRE 17.0 RATIO Normal 10-20 [facility] Comment on above: Performed By: #### L 100.0100, L500.2500 ####[facility] [address] [place], [place], [address] Calcium [Mass/Vol] 9.6 mg/dL Normal 7.6-11.0 [facility] Comment on above: Performed By: #### L 100.0100, L500.2500 ####[facility] [address] [place], [address] Chloride [Moles/Vol] 105 mmol/L Normal 98-108 [facility] Comment on above: Performed By: #### L 100.0100, L500.2500 ####[facility] [address] [place], [address] CO2 [Moles/Vol] 19.2 mmol/L Low 21.0-32.0 [facility] Comment on above: Performed By: #### L 100.0100, L500.2500 ####[facility] [address] [place], [address] Creatinine [Mass/Vol] 0.78 mg/dL Normal 0.70-1.20 [facility] Comment on above: Performed By: #### L 100.0100, L500.2500 ####[facility] [address] [place], [address] ECRCL 68.21 ml/min Normal 50-250 [facility] Comment on above: Performed By: #### L 100.0100, L500.2500 ####[facility] [address] [place], [address] GAP 17 High 5-15 [facility] Comment on above: Performed By: #### L 100.0100, L500.2500 ####[facility] [address] [place], [address] GFR/1.73 sq M.predicted among non-blacks MDRD (S/P/Bld) [Vol rate/Area] 85 mL/min/{1.73_m2} Normal >60 [facility] Comment on above: Result Comment: mL/m in/1.73m2 CKD-EPI Creatinine Equation (2020) Performed By: #### L 100.0100, L500.2500 ####[facility] [address] [place], [address] Glucose [Mass/Vol] 107 mg/dL High 70-99 [facility] Comment on above: Performed By: #### L 100.0100, L500.2500 ####[facility] [address] [place], [address] Potassium [Moles/Vol] 3.1 mmol/L Low 3.3-5.1 [facility] Comment on above: Performed By: #### L 100.0100, L500.2500 ####[facility] [address] [place], [address] Sodium [Moles/Vol] 140 mmol/L Normal 133-145 [facility] Comment on above: Performed By: #### L 100.0100, L500.2500 ####[facility] [address] [place], [address] Urea nitrogen [Mass/Vol] 13 mg/dL Normal 4-19 [facility] Comment on above: Performed By: #### L 100.0100, L500.2500 ####[facility] [address] [place], [address] Basophil percentageOrdered B y: Bharath Quiros on 08-15-2025 Basophils/100 WBC (Bld) 0.6 % 0-1 [facility] CBC W/Diff, Automatedon - PLT EST SLT DEC Normal ADEQ [facility] Comment on above: Performed By: #### L 100.0100, L500.2500 ####[facility] [address] [place], [address] Eosinophil percentageOrdered By: Bharath Quiros on 08-15-2025 Eosinophils/100 WBC (Bld) 1.3 % 0-5 [facility] Erythrocyte distribution wid th ratioOrdered By: Bharath Quiros on 08-15-2025 Erythrocyte distribution width (RBC) [Ratio] 13.3 % 11.6-14.6 [facility] Erythrocyte distribution wid th standard deviationOrdered By: Bharath Quiros on 08-15-2025 Erythrocyte distribution width (RBC) [Ratio] 41.1 fl 35.1-43.9 [facility] Hematocrit Auto (Bld) [Volum e fraction]Ordered By: Bharath Quiros on 08-15-2025 Hematocrit (Bld) [Volume fraction] 41.2 % 37-47 [facility] Hemoglobin measurementOrdere d By: Bharath Quiros on 08-15-2025 Hemoglobin (Bld) [Mass/Vol] 13.6 g/dL 12.0-15.0 [facility] Immature granulocytes/100 WB C Auto (Bld)Ordered By: Bharath Quirso on 08-15-2025 Immature granulocytes/100 WBC (Bld) 0.200 % 0.0-0.9 [facility] Comment on above: IG% - Immature Granu locytes (promyelocytes, myelocytes and metamyelocytes) > 1% indicates that a LEFT SHIFT is Present. MCV (mean corpuscular volume ) determinationOrdered By: Bharath Quiros on 08-15-2025 MCV (RBC) [Entitic vol] 84.9 fL 81-99 [facility] Mean corpuscular hemoglobin (MCH) determinationOrdered By: Bharath Quiros on 08-15-2025 MCH (RBC) [Entitic mass] 28.0 pg 27.0-32.0 [facility] Mean corpuscular hemoglobin concentration (MCHC) determinationOrdered By: Bharath Quiros on 08-15-2025 MCHC (RBC) [Mass/Vol] 33.0 g/dL 32-36 [facility] Mean platelet volume determi nationOrdered By: Bharath Quiros on 08-15-2025 Platelet mean volume (Bld) [Entitic vol] 13.2 fL High 6.2-12.0 [facility] Monocyte percentageOrdered B y: Bharath Quiros on 08-15-2025 Monocytes/100 WBC (Bld) 8.4 % 0-10 [facility] Neutrophil percentageOrdered By: Bharath Quiros on 08-15-2025 Neutrophils/100 WBC (Bld) 63.6 % 47-70 [facility] Nucleated red blood cell per centageOrdered By: Bharath Quiros on 08-15-2025 Nucleated RBC/100 WBC (Bld) [Ratio] 0 % 0-5 [facility] Platelet countOrdered By: Carlitos Quiros on 08-15-2025 Platelets (Bld) [#/Vol] 91 10*3/uL Low 150-450 [facility] Platelet estimateOrdered By: Bharath Quiros on 08-15-2025 Platelets LM Ql (Bld) SLT DEC ADEQ [facility] RBC Auto (Bld) [#/Vol]Ordere d By: Bharath Quiros on 08-15-2025 RBC (Bld) [#/Vol] 4.85 10*6/uL 4.2-5.4 [facility] White blood cell (WBC) count Ordered By: Bharath Quiros on 08-15-2025 WBC (Bld) [#/Vol] 4.8 10*3/uL 4.4-11.0 [facility] Abdomen/Pelvis W IV Cont ONL Yon 08-14-2025 Abdomen/Pelvis W IV Cont ONLY [facility] Imaging Services [address] [place], [place] [address] Abdomen/Pelvis W IV Cont ONLY MR#: [id number] Acct: [id number] Name: BANDAR TIWARI Rep #: [id number] : 1960 F 65 From: Roger Padilla MD PCP: Care Physician,No Primary Status: [facility] Study: Abdomen/Pelvis W IV Cont ONLY Date of Exam: Exam# [id number] Ordering Dr: Sander Wakefield DO PROCEDURE: CTA CHEST W/WO CONTRAST; ABDOMEN/PELVIS W IV CONT ONLY 08/14/2025 REASON FOR EXAM: SOB; ABD PAIN, WEIGHT LOSS, NO APPETITE TECHNIQUE: Procedure Code: CTCTACHWW; CTABDPELIV Modality: CT Procedure: CTA CHEST W/WO CONTRAST; ABDOMEN/PELVIS W IV CONT ONLY Multiplanar Sagittal and Coronal images were obtained. 3D post processing was performed. CONTRAST: Isovue-300 VOLUME: 96 mL One or more dose reduction techniques were used (e.g., Automated exposure control, adjustment of the mA and/or kV according to patient size, use of iterative reconstruction technique). RADIATION DOSE SUMMARY: DLP: 973.87 mGycm COMPARISON: None available. FINDINGS: PULMONARY VESSELS: No filling defects suspicious for pulmonary arterial emboli identified. Pulmonary trunk is of normal caliber. No evidence of acute right heart strain. LUNGS/PLEURA: Bilateral scattered linear/discoid atelectasis versus scarring. No airspace consolidation or findings of pulmonary edema. No pneumothorax or pleural effusions. Central airways are patent. MEDIASTINUM: No suspicious lymph node enlargement or mass lesion. HEART: Four-chamber cardiomegaly. No pericardial effusion. Scant coronary artery calcifications. AORTA: Normal course and caliber. Mild atherosclerotic disease. HEPATOBILIARY: Unremarkable liver, spleen, and pancreas. No biliary ductal dilatation. Cholelithiasis, without evidence of acute cholecystitis. GENITOURINARY: Unremarkable kidneys. No hydronephrosis. Normal adrenal glands. Circumferential bladder wall thickening may reflect cystitis. Small amount of air within the bladder lumen is nonspecific, and may be related to recent catheterization. Prominent partially calcified uterine fibroid at the dorsal aspect of the uterine body. Unremarkable adnexae. GI TRACT: No evidence of obstruction or active inflammatory process. Normal appendix. Mild distal colonic diverticulosis without evidence for active diverticulitis/colit is. PERITONEUM/RETROPERI TONEUM: No ascites or free air. No lymphadenopathy. BONES: No acute or aggressive osseous abnormality. Mild multilevel degenerative changes of the spine. Prominent degenerative Schmorl's nodes involving the superior endplates of T12 and L1 noted. CT/Abdomen/Pelvis W IV Cont ONLY IMPRESSION: 1. No pulmonary arterial emboli identified. 2. Cardiomegaly. No pulmonary edema or pleural effusions. Scattered bilateral linear/discoid atelectasis versus scarring in the lungs. 3. Cholelithiasis, without evidence for acute cholecystitis. 4. Circumferential bladder wall thickening, correlate clinically for cystitis. Small amount of nonspecific air within the bladder lumen may be related to recent catheterization. 5. Prominent partially calcified fibroid at the dorsal uterine body. Reading Location: [id number] CC: Dr. Sander Wakefield DO; No Primary Care Physician Chiropractic Practice Manager: Signed Normal [facility] Bilirubin Test strip Ql (U)O rdered By: Sander Wakefield on 08-14-2025 Bilirubin Ql (U) Negative Negative [facility] Bilirubin, totalOrdered By: Sander Wakefield on 08-14-2025 Bilirubin [Mass/Vol] 1.43 mg/dL High 0.00-1.30 [facility] CBC W/Diff, Automatedon 08-02 Absolute Lymph 1.74 X10 3/uL Normal 0.83-4.51 [facility] Comment on above: Performed By: #### L 501.2450, L100.0100, L500.4050 #### [facility] [address] [place], [address] Absolute Neut 3.0 X10 3/uL Normal 2.0-7.7 [facility] Comment on above: Performed By: #### L 501.2450, L100.0100, L500.4050 #### [facility] [address] [place], [address] Basophils/100 WBC (Bld) 0.8 % Normal 0-1 [facility] Comment on above: Performed By: #### L 501.2450, L100.0100, L500.4050 #### [facility] [address] [place], [address] Eosinophils/100 WBC (Bld) 2.7 % Normal 0-5 [facility] Comment on above: Performed By: #### L 501.2450, L100.0100, L500.4050 #### [facility] [address] [place], [address] Erythrocyte distribution width (RBC) [Ratio] 13.4 % Normal 11.6-14.6 [facility] Comment on above: Performed By: #### L 501.2450, L100.0100, L500.4050 #### [facility] [address] [place], [address] Hematocrit (Bld) [Volume fraction] 43.0 % Normal 37-47 [facility] Comment on above: Performed By: #### L 501.2450, L100.0100, L500.4050 #### [facility] [address], [address] Hemoglobin (Bld) [Mass/Vol] 13.9 g/dL Normal 12.0-15.0 [facility] Comment on above: Performed By: #### L 501.2450, L100.0100, L500.4050 #### [facility] [address] [place], [address] IG% 0.200 Normal 0.0-0.9 [facility] Comment on above: Result Comment: IG% - Immature Granulocytes (promyelocytes, myelocytes and metamyelocytes) > 1% indicates that a LEFT SHIFT is Present. Performed By: #### L 501.2450, L100.0100, L500.4050 #### [facility] [address], [address] Lymphocytes/100 WBC (Bld) 33.0 % Normal 19-41 [facility] Comment on above: Performed By: #### L 501.2450, L100.0100, L500.4050 #### [facility] [address] [place], [address] MCH (RBC) [Entitic mass] 28.0 pg Normal 27.0-32.0 [facility] Comment on above: Performed By: #### L 501.2450, L100.0100, L500.4050 #### [facility] [address], [address] MCHC (RBC) [Mass/Vol] 32.3 g/dL Normal 32-36 [facility] Comment on above: Performed By: #### L 501.2450, L100.0100, L500.4050 #### [facility] [address], [address] MCV (RBC) [Entitic vol] 86.7 fL Normal 81-99 [facility] Comment on above: Performed By: #### L 501.2450, L100.0100, L500.4050 #### [facility] [address] [place], [address] Monocytes/100 WBC (Bld) 7.0 % Normal 0-10 [facility] Comment on above: Performed By: #### L 501.2450, L100.0100, L500.4050 #### [facility] [address] [place], [address] Neutrophils/100 WBC (Bld) 56.3 % Normal 47-70 [facility] Comment on above: Performed By: #### L 501.2450, L100.0100, L500.4050 #### [facility] [address] [place], [address] Nucleated RBC (Bld) [#/Vol] 0 10*3/uL Normal 0-5 [facility] Comment on above: Performed By: #### L 501.2450, L100.0100, L500.4050 #### [facility] [address] [place], [address] Platelet mean volume (Bld) [Entitic vol] 13.4 fL High 6.2-12.0 [facility] Comment on above: Performed By: #### L 501.2450, L100.0100, L500.4050 #### [facility] [address] [place], [address] Platelets (Bld) [#/Vol] 100 10*3/uL Low 150-450 [facility] Comment on above: Performed By: #### L 501.2450, L100.0100, L500.4050 #### [facility] [address] [place], [address] RBC (Bld) [#/Vol] 4.96 10*6/uL Normal 4.2-5.4 [facility] Comment on above: Performed By: #### L 501.2450, L100.0100, L500.4050 #### [facility] [address] [place], [address] RDW SD 42.5 fl Normal 35.1-43.9 [facility] Comment on above: Performed By: #### L 501.2450, L100.0100, L500.4050 #### [facility] [address] [place], [address] WBC (Bld) [#/Vol] 5.3 10*3/uL Normal 4.4-11.0 [facility] Comment on above: Performed By: #### L 501.2450, L100.0100, L500.4050 #### [facility] [address] [place], [address] CTA Chest W/WO Contraston CTA Chest W/WO Contrast [facility] Imaging Services [address] [place] [address] CTA Chest W/WO Contrast MR#: [id number] Acct: [id number] Name: BANDAR TIWARI Rep #: [id number] : 1960 F 65 From: Roger Padilla MD PCP: Care Physician,No Primary Status: [facility] Study: CTA Chest W/WO Contrast Date of Exam: 08/14/25 Exam# [id number] Ordering Dr: Sander Wakefield DO PROCEDURE: CTA CHEST W/WO CONTRAST; ABDOMEN/PELVIS W IV CONT ONLY 08/14/2025 REASON FOR EXAM: SOB; ABD PAIN, WEIGHT LOSS, NO APPETITE TECHNIQUE: Procedure Code: CTCTACHWW; CTABDPELIV Modality: CT Procedure: CTA CHEST W/WO CONTRAST; ABDOMEN/PELVIS W IV CONT ONLY Multiplanar Sagittal and Coronal images were obtained. 3D post processing was performed. CONTRAST: Isovue-300 VOLUME: 96 mL One or more dose reduction techniques were used (e.g., Automated exposure control, adjustment of the mA and/or kV according to patient size, use of iterative reconstruction technique). RADIATION DOSE SUMMARY: DLP: 973.87 mGycm COMPARISON: None available. FINDINGS: PULMONARY VESSELS: No filling defects suspicious for pulmonary arterial emboli identified. Pulmonary trunk is of normal caliber. No evidence of acute right heart strain. LUNGS/PLEURA: Bilateral scattered linear/discoid atelectasis versus scarring. No airspace consolidation or findings of pulmonary edema. No pneumothorax or pleural effusions. Central airways are patent. MEDIASTINUM: No suspicious lymph node enlargement or mass lesion. HEART: Four-chamber cardiomegaly. No pericardial effusion. Scant coronary artery calcifications. AORTA: Normal course and caliber. Mild atherosclerotic disease. HEPATOBILIARY: Unremarkable liver, spleen, and pancreas. No biliary ductal dilatation. Cholelithiasis, without evidence of acute cholecystitis. GENITOURINARY: Unremarkable kidneys. No hydronephrosis. Normal adrenal glands. Circumferential bladder wall thickening may reflect cystitis. Small amount of air within the bladder lumen is nonspecific, and may be related to recent catheterization. Prominent partially calcified uterine fibroid at the dorsal aspect of the uterine body. Unremarkable adnexae. GI TRACT: No evidence of obstruction or active inflammatory process. Normal appendix. Mild distal colonic diverticulosis without evidence for active diverticulitis/colit is. PERITONEUM/RETROPERI TONEUM: No ascites or free air. No lymphadenopathy. BONES: No acute or aggressive osseous abnormality. Mild multilevel degenerative changes of the spine. Prominent degenerative Schmorl's nodes involving the superior endplates of T12 and L1 noted. CT/CTA Chest W/WO Contrast IMPRESSION: 1. No pulmonary arterial emboli identified. 2. Cardiomegaly. No pulmonary edema or pleural effusions. Scattered bilateral linear/discoid atelectasis versus scarring in the lungs. 3. Cholelithiasis, without evidence for acute cholecystitis. 4. Circumferential bladder wall thickening, correlate clinically for cystitis. Small amount of nonspecific air within the bladder lumen may be related to recent catheterization. 5. Prominent partially calcified fibroid at the dorsal uterine body. Reading Location: [id number] CC: Dr. Sander Wakefield, DO; No Primary Care Physician Chiropractic Practice Manager: Signed Normal [facility] Comprehensive Metabolic Prof ilon 08-14-2025 Albumin [Mass/Vol] 4.1 g/dL Normal 3.4-4.8 [facility] Comment on above: Performed By: #### L 501.2450, L100.0100, L500.4050 #### [facility] [address] [place], [address] Albumin/Globulin [Mass ratio] 1.0 {ratio} Normal 0.9-2.4 [facility] Comment on above: Performed By: #### L 501.2450, L100.0100, L500.4050 #### [facility] [address] [place], [address] ALK PHOS 51 U/L Normal 35-104 [facility] Comment on above: Performed By: #### L 501.2450, L100.0100, L500.4050 #### [facility] [address] [place], [address] ALT [Catalytic activity/Vol] 7 U/L Normal <=34 [facility] Comment on above: Performed By: #### L 501.2450, L100.0100, L500.4050 #### [facility] [address] [place], [address] AST [Catalytic activity/Vol] 18 U/L Normal <=31 [facility] Comment on above: Performed By: #### L 501.2450, L100.0100, L500.4050 #### [facility] [address] [place], [address] Bilirubin [Mass/Vol] 1.43 mg/dL High 0.00-1.30 [facility] Comment on above: Performed By: #### L 501.2450, L100.0100, L500.4050 #### [facility] [address] [place], [address] BUN/CRE 16.8 RATIO Normal 10-20 [facility] Comment on above: Performed By: #### L 501.2450, L100.0100, L500.4050 #### [facility] [address] [place], [address] Calcium [Mass/Vol] 10.2 mg/dL Normal 7.6-11.0 [facility] Comment on above: Performed By: #### L 501.2450, L100.0100, L500.4050 #### [facility] [address] [place], [address] Chloride [Moles/Vol] 104 mmol/L Normal 98-108 [facility] Comment on above: Performed By: #### L 501.2450, L100.0100, L500.4050 #### [facility] [address] [place], [address] CO2 [Moles/Vol] 23.3 mmol/L Normal 21.0-32.0 [facility] Comment on above: Performed By: #### L 501.2450, L100.0100, L500.4050 #### [facility] [address] [place], [address] Creatinine [Mass/Vol] 1.03 mg/dL Normal 0.70-1.20 [facility] Comment on above: Performed By: #### L 501.2450, L100.0100, L500.4050 #### [facility] [address] [place], [address] ECRCL 51.66 ml/min Normal 50-250 [facility] Comment on above: Performed By: #### L 501.2450, L100.0100, L500.4050 #### [facility] [address] [place], [address] GAP 15 Normal 5-15 [facility] Comment on above: Performed By: #### L 501.2450, L100.0100, L500.4050 #### [facility] [address] [place], [address] GFR/1.73 sq M.predicted among non-blacks MDRD (S/P/Bld) [Vol rate/Area] 61 mL/min/{1.73_m2} Normal >60 [facility] Comment on above: Result Comment: mL/m in/1.73m2 CKD-EPI Creatinine Equation (2020) Performed By: #### L 501.2450, L100.0100, L500.4050 #### [facility] [address] [place], [address] Globulin (S) [Mass/Vol] 4.2 g/dL Normal 2.2-4.2 [facility] Comment on above: Performed By: #### L 501.2450, L100.0100, L500.4050 #### [facility] [address] [place], [address] Glucose [Mass/Vol] 142 mg/dL High 70-99 [facility] Comment on above: Performed By: #### L 501.2450, L100.0100, L500.4050 #### [facility] [address] [place], [address] Potassium [Moles/Vol] 3.2 mmol/L Low 3.3-5.1 [facility] Comment on above: Performed By: #### L 501.2450, L100.0100, L500.4050 #### [facility] [address] [place], [address] Sodium [Moles/Vol] 142 mmol/L Normal 133-145 [facility] Comment on above: Performed By: #### L 501.2450, L100.0100, L500.4050 #### [facility] [address] [place], [address] T PROT 8.2 g/dL Normal 5.9-8.4 [facility] Comment on above: Performed By: #### L 501.2450, L100.0100, L500.4050 #### [facility] [address], [address] Urea nitrogen [Mass/Vol] 17 mg/dL Normal 4-19 [facility] Comment on above: Performed By: #### L 501.2450, L100.0100, L500.4050 #### [facility] [address], [address] Emergency Department Summary on 08-14-2025 Emergency Department Summary [facility] Medical Records Department [address] [place] [address] Emergency Department Summary 08/14/25 MR#: [id number] Acct: [id number] Name: ABNDAR TIWARI Rep #: [id number] : 1960 65 From: Sander Wakefield DO PCP: Care Physician,No Primary Status:REG ER Location: ED HPI History of Present Illness Chief Complaint: General Illness Narrative Narrative: Patient is a 65-year-old female with past medical history anxiety, depression, alcohol abuse does not follow with a doctor in a regular basis who presents to the emergency department with a chief complaint of generalized weakness, decreased appetite, weight loss and not feeling well overall. According to the son at bedside who provided majority of history of present illness he states that he thought things would get better however they have not over the last month therefore he brought her here for further evaluation management. Patient also complains of some shortness of breath denies any history of blood clots denies any recent travel history. She states that she does smoke. [facility] Medical History Alcohol abuse Anxiety Depression Depression Home Medications ???Medication ???Instructions ???Recorded ???Last Taken ???Type citalopram 40 mg tablet 40 mg PO DAILY MOOD 08/14/2508/07 History trazodone 50 mg tablet 50 - 100 mg PO QHS PRN insomnia 08/07/25 History Allergy/AdvReac Type Severity Reaction Status Date / Time No Known Allergies Allergy Verified 08/14/25 15:26 Social History Smoking Status: Current every day smoker tobacco type: cigarettes ROS ROS ED ROS Narrative Constitutional: Denies any fevers or chills denies headache Eyes: Denies double vision Cardiovascular: Denies chest pain Respiratory: Complains of shortness of breath as noted above Abdomen: Complains of decreased appetite and weight loss as noted above : Denies urinary symptoms Neurological: Denies numbness, wheeze, tingling Musculoskeletal: Denies back pain Skin: Denies any rashes or lesions EXAM Physical Exam Narrative Exam Narrative: General: Patient was lying in bed rest comfortably did not appear to be in acute distress Head: Atraumatic, normocephalic Eyes: PERRL bilaterally, EOMI bilaterally, no conjunctival injection noted mucous membranes dry Neck: Soft, supple, trachea midline Cardiovascular: Regular rate and rhythm Respiratory: Clear to auscultation bilaterally Abdomen: Soft, nondistended, diffuse tenderness to palpation no rebound guarding exam Extremities: +3/5 strength noted in the bilateral upper and lower extremities Neurological: Patient following commands she was at [facility] Skin: Warm, dry, intact no rashes or lesions noted dry skin noted Const Vital Signs: 08/14/25 15:22 08/14/25 15:28 08/14/25 17:36 Temperature 97.6 F L Temperature Source Oral Pulse Rate 94 Respiratory Rate 18 Respiratory Effort Normal Non-Labored Respiratory Pattern Normal Blood Pressure 145/101 H 150/121 H Blood Pressure Mean 115 130 Blood Pressure Source Blood Pressure Position Blood Pressure Location Pulse Ox 100 100 Oxygen Delivery Method Room Air Room Air 08/14/25 20:41 08/14/25 21:45 08/14/25 22:00 Temperature Temperature Source Pulse Rate 77 70 Respiratory Rate 14 14 Respiratory Effort Respiratory Pattern Blood Pressure 157/102 H 159/113 H 159/128 H Blood Pressure Mean 120 128 138 Blood Pressure Source Blood Pressure Position Blood Pressure Location Pulse Ox 98 98 Oxygen Delivery Method Room Air Room Air 08/14/25 23:04 08/14/25 23:04 Temperature Temperature Source Pulse Rate 74 78 Respiratory Rate 20 H 20 H Respiratory Effort Respiratory Pattern Blood Pressure 164/108 H 164/108 H Blood Pressure Mean 126 126 Blood Pressure Source Monitor Blood Pressure Position Semi-Fowlers Blood Pressure Location Left Arm Pulse Ox 100 100 Oxygen Delivery Method Room Air Room Air MDM MDM MDM Narrative Medical decision making narrative: Patient is a 65-year-old female who presents to the Emergency Department chief complaint of generalized weakness, weight loss, decreased appetite and abdominal pain as well as shortness of breath. On the differential diagnose includes but not limited to lung cancer, intra-abdominal mass, failure to thrive, hypothyroidism, dehydration. Once workup is obtained reviewed she will be reevaluated. Patient is a 65-year-old female patient CBC reviewed showed no evidence leukocytosis white blood count normal 5.3, he was 13.9, platelet count of 100. Patient sodium is 142, potassium 3.2 emmett (more content not included)... Normal [facility] Free T3on 08-14-2025 Free T3 [Mass/Vol] 2.3 pg/mL Normal 2.18-3.98 [facility] Comment on above: Performed By: #### L 506.0400, L501.9520, L501.86931 #### [facility] [address] [place], [address] Free [id number] By: Sander torres on 08-14-2025 Free T3 [Mass/Vol] 2.3 pg/mL 2.18-3.98 [facility] Ketones Test strip Ql (U)Ord ered By: Sander Wakefield on 08-14-2025 Ketones Ql (U) Negative Negative [facility] - Chemistry and C hemistry - challengeOrdered By: Sander Wakefield on 08-14-2025 AST [Catalytic activity/Vol] 18 U/L <32 [facility] Lipaseon 08-14-2025 Lipase [Catalytic activity/Vol] 29 U/L Normal 13-75 [facility] Comment on above: Result Comment: Rachael montgomery note: LIPASE revised reference range effective 23. New Lipase methodology. Expected to produce lower values than the previous assay method. NEW Reference Range: 13 - 75 U/L Performed By: #### L 501.2450, L100.0100, L500.4050 #### [facility] [address] [place], [address] Lipase measurementOrdered By : Sander Wakefield on 08-14-2025 Lipase [Catalytic activity/Vol] 29 U/L 13-75 [facility] Comment on above: Please note:LIPASE r evised reference range effective 23. New Lipase methodology. Expected to produce lower values than the previous assay method. NEW Reference Range: 13 - 75 U/L Microscopic analysis of urin e for red blood cells (RBC)Ordered By: Sander Wakefield on 08-14-2025 Microscopic analysis of urine for red blood cells (RBC) 0-5 SEEN /hpf 0-5 [facility] Mucus LM Ql (Urine sed)Order ed By: Sander Wakefield on 08-14-2025 Mucus Ql (Urine sed) 0 SEEN /hpf [facility] Nitrite Test strip Ql (U)Ord ered By: Sander Wakefield on 08-14-2025 Nitrite Ql (U) Positive High Negative [facility] Protein Test strip Ql (U)Ord ered By: Sander Wakefield on 08-14-2025 Protein Ql (U) 30 mg/dl High Negative [facility] Serum globulin measurementOr dered By: Sander Wakefield on 08-14-2025 Globulin (S) [Mass/Vol] 4.2 g/dL 2.2-4.2 [facility] Serum or plasma alanine lackey otransferase (ALT) measurementOrdered By: Sander Wakefield on 08-14-2025 ALT [Catalytic activity/Vol] 7 U/L <35 [facility] Serum or plasma albumin james urement (mass/volume)Ordered By: aSnder Wakefield on 08-14-2025 Albumin [Mass/Vol] 4.1 g/dL 3.4-4.8 [facility] r [facility] Serum or plasma albumin/glob ulin mass ratioOrdered By: Sander Wakefield on 08-14-2025 Albumin/Globulin [Mass ratio] 1.0 {ratio} 0.9-2.4 [facility] Serum or plasma alkaline redd sphatase measurementOrdered By: Sander Wakefield on 08-14-2025 ALP [Catalytic activity/Vol] 51 U/L 35-104 [facility] Squamous epithelial cells de tection in urine sediment by light microscopyOrdered By: Sander Wakefield on 08-14-2025 Epithelial cells.squamous LM Ql (Urine sed) 0-5 SEEN /hpf 5-10 [facility] T4 Free Directon 08-14-2025 T4 FREE DIRECT 1.20 ng/dL Normal 0.76-1.46 [facility] Comment on above: Performed By: #### L 506.0400, L501.9520, L501.56625 #### [facility] [address] [place], [address] T4 freeOrdered By: Sander torres on 08-14-2025 Free T4 [Mass/Vol] 1.20 ng/dL 0.76-1.46 [facility] TSH DL <= 0.005 mIU/L QnOrde red By: Sander Wakefield on 08-14-2025 TSH Qn 1.290 uIU/mL 0.300-4.200 [facility] Thyroid Stim Hormone (TSH)on 08-14-2025 TSH 1.290 uIU/mL Normal 0.300-4.200 [facility] Comment on above: Performed By: #### L 506.0400, L501.9520, L501.54446 #### [facility] [address] [place], [place], [id number] Total proteinOrdered By: Raymundo Wakefield on 08-14-2025 Protein [Mass/Vol] 8.2 g/dL 5.9-8.4 [facility] Urinalysis, Completeon 08-14 BACTERIA RARE Normal None Seen [facility] Comment on above: Order Comment: CLEAN CATCH Performed By: #### L 400.0001 #### [facility] [address] [place], [address] EPI,RENAL 0-5 SEEN Normal 0-5 [facility] Comment on above: Order Comment: CLEAN CATCH Performed By: #### L 400.0001 #### [facility] [address] [place], [address] EPI,SQUAMOUS 0-5 SEEN Normal 5-10 [facility] Comment on above: Order Comment: CLEAN CATCH Performed By: #### L 400.0001 #### [facility] [address] [place], [address] RBC 0-5 SEEN Normal 0-5 [facility] Comment on above: Order Comment: CLEAN CATCH Performed By: #### L 400.0001 #### [facility] [address] [place], [address] WBC 25-50 SEEN Normal 0-5 [facility] Comment on above: Order Comment: CLEAN CATCH Performed By: #### L 400.0001 #### [facility] [address] [place], [address] Mucus Ql (Urine sed) 0 SEEN Normal [facility] Comment on above: Order Comment: CLEAN CATCH Performed By: #### L 400.0001 #### [facility] [address] [place], [address] Urine clarityOrdered By: Raymundo Wakefield on 08-14-2025 Clarity (U) Turbid Clear [facility] Urine color determinationOrd ered By: Sander Wakefield on 08-14-2025 Color (U) Yellow Yellow [facility] Urine cultureOrdered By: Raymundo Wakefield on 08-14-2025 Bacteria identified Cx Nom (U) Klebsiella pneumoniae sp pneum Abnormal [facility] Bacteria identified Cx Nom (U) Klebsiella pneumoniae sp pneum Abnormal [facility] Urine glucose detectionOrder ed By: Sander Wakefield on 08-14-2025 Glucose Ql (U) Normal mg/dl Normal [facility] Urine leukocyte esterase det ection by dipstickOrdered By: Sander Wakefield on 08-14-2025 Leukocyte esterase Test strip Ql (U) 500 /ul High Negative [facility] Urine pHOrdered By: Sander helton on 08-14-2025 pH (U) 5.0 [pH] 5.0 - 8.0 [facility] Urine sediment bacteria coun t by microscopy (number/high power field)Ordered By: Sander Wakefield on 08-14-2025 Bacteria LM.HPF (Urine sed) [#/Area] RARE /hpf None Seen [facility] Urine sediment renal epithel ial cell count by microscopy (number/high power field)Ordered By: Sander Wakefield on 08-14-2025 Epithelial cells.renal LM.HPF (Urine sed) [#/Area] 0 /[HPF] 0-5 [facility] Urine specific gravity measu rementOrdered By: Sander Wakefield on 08-14-2025 Specific gravity (U) [Rel density] 1.010 1.002-1.030 [facility] Urine urobilinogen measureme ntOrdered By: Sander Wakefield on 08-14-2025 Urobilinogen Ql (U) 8 mg/dl High Normal [facility] White blood cell countOrdere d By: Sander Wakefield on 08-14-2025 White blood cell count 25-50 SEEN /hpf 0-5 [facility] CNOVon 02-25-2023 CNOV Office Visit (UCWSTR) BANDAR TIWARI ([id number]) 1960 F Date Time Provider Department 02/25/23 2:30 PM ASPEN ERWIN [facility] During your visit today, we recorded the following information about you: Aspen Erwin PA-C 02/25/2023 3:29 PM Signed Patient presents with a rash on her face and upper body for a week. She was seen at [facility] on February 19 and placed on Bactrim, naproxen and Keflex. She has sloughing of the skin on her face with swelling and pain. On exam patient has significant swelling of the face with skin deterioration and breakdown. This extends to her neck and upper shoulder areas. Recommended she return to the emergency department for reevaluation. ER passport sent for report. Allergies As of Date: 02/25/2023 (No Known Allergies) Date Reviewed: 02/25/2023 Reviewed by: Diamond Mercer LPN - Fully Assessed Reason for Visit: Rash [1087] Cmt: Rash on face and upper body x 1 week Primary Visit Diagnosis:Skin sloughing (HCC) [I96] Prescriptions as of 02/25/2023 - citalopram (CELEXA) 40 mg tablet Take 40 mg by mouth once daily. - traZODone (DESYREL) 50 mg tablet Take 1 or 2 tablet by mouth at bedtime as needed for sleep - sulfamethoxazole-tri methoprim (BACTRIM DS) 800-160 mg per tablet Take 1 tablet by mouth twice daily. - naproxen (NAPROSYN) 500 mg tablet Take by mouth. - cephALEXin (KEFLEX) 500 mg capsule TAKE 1 CAPSULE BY MOUTH EVERY 6 HOURS Problem List As Of Date: 02/25/2023 (None) Encounter Status:Closed by ASPEN ERWIN on 02/25/23 Normal [facility] Vital Signs Date Time Vital Sign Value Performing Clinician Facility 08-30-2025 14:10-0400 Body temperature 97.52 [degF] JAMES AKHTAR MD FACP [facility] 08-30-2025 14:10-0400 Diastolic Blood Pressure Non-Invasive 85 mm[Hg] JAMES AKHTAR MD FACP [facility] 08-30-2025 14:10-0400 Heart rate 63 /min JAMES AKHTAR MD FACP [facility] 08-30-2025 14:10-0400 Reason For Taking VItal Signs JAMES AKHTAR MD FACP [facility] 08-30-2025 14:10-0400 Respiratory rate 18 /min JAMES AKHTAR MD FACP [facility] 08-30-2025 14:10-0400 Systolic Blood Pressure Non-Invasive 131 mm[Hg] JAMES AKHTAR MD FACP [facility] 08-30-2025 07:24-0400 Body temperature 97.88 [degF] JAMES AKHTAR MD FACP [facility] 08-30-2025 07:24-0400 Diastolic Blood Pressure Non-Invasive 83 mm[Hg] JAMES AKHTAR MD FACP [facility] 08-30-2025 07:24-0400 Heart rate 68 /min JAMES AKHTAR MD FACP [facility] 08-30-2025 07:24-0400 Respiratory rate 20 /min JAMES AKHTAR MD FACP [facility] 08-30-2025 07:24-0400 Systolic Blood Pressure Non-Invasive 131 mm[Hg] JAMES AKHTAR MD FACP [facility] 08-29-2025 19:55-0400 Body temperature 97.52 [degF] JAMES AKHTAR MD FACP [facility] 08-29-2025 19:55-0400 Diastolic Blood Pressure Non-Invasive 75 mm[Hg] JAMES AKHTAR MD FACP [facility] 08-29-2025 19:55-0400 Heart rate 66 /min JAMES AKHTAR MD FACP [facility] 08-29-2025 19:55-0400 Reason For Taking VItal Signs JAMES AKHTAR MD FACP [facility] 08-29-2025 19:55-0400 Respiratory rate 18 /min JAMES AKHTAR MD FACP [facility] 08-29-2025 19:55-0400 Systolic Blood Pressure Non-Invasive 113 mm[Hg] JAMES AKHTAR MD FACP [facility] 08-29-2025 16:47-0400 Heart rate 64 /min JAMES AKHTAR MD FACP [facility] 08-29-2025 07:53-0400 Heart rate 76 /min JAMES AKHTAR MD FACP [facility] 08-29-2025 07:53-0400 Reason For Taking VItal Signs JAMES AKHTAR MD FACP [facility] 08-26-2025 18:44-0400 Body temperature 97.16 [degF] JAMES AKHTAR MD FACP [facility] 08-25-2025 19:41-0400 Body height 165 cm JAMES AKHTAR MD FACP [facility] 08-25-2025 19:41-0400 Body weight 23.25 kg/m2 JAMES AKHTAR MD FACP [facility] 08-25-2025 19:41-0400 Body weight 63.3 kg JAMES AKHTAR MD FACP [facility] 08-25-2025 11:42-0400 Heart rate 57 /min JAMES AKHTAR MD FACP [facility] 08-25-2025 06:58-0400 Heart rate 69 /min JAMES AKHTAR MD FACP [facility] 08-24-2025 20:52-0400 Heart rate 72 /min JAMES AKHTAR MD FACP [facility] 08-24-2025 08:39-0400 Heart rate 67 /min JAMES AKHTAR MD FACP [facility] 08-23-2025 18:58-0400 Body temperature 97.16 [degF] JAMES AKHTAR MD FACP [facility] 08-22-2025 20:19-0400 Body temperature 95.72 [degF] JAMES AKHTAR MD FACP [facility] 08-21-2025 20:09-0400 Blood Pressure Location JAMES AKHTAR MD FACP [facility] 08-21-2025 20:09-0400 Blood Pressure Method JAMES AKHTAR MD FACP [facility] 08-21-2025 18:53-0400 Blood Pressure Location JAMES AKHTAR MD FACP [facility] 08-21-2025 18:53-0400 Blood Pressure Method JAMES AKHTAR MD FACP [facility] 08-21-2025 18:52-0400 Blood Pressure Location JAMES AKHTAR MD FACP [facility] 08-21-2025 18:52-0400 Blood Pressure Method JAMES AKHTAR MD FACP [facility] 08-21-2025 15:01-0400 Body height 167.64 cm No Primary Care Physician [facility] 08-21-2025 15:01-0400 Body weight 62.5 kg No Primary Care Physician [facility] 08-21-2025 14:23-0400 Body temperature 97.9 [degF] No Primary Care Physician [facility] 08-21-2025 14:23-0400 Diastolic blood pressure 88 mm[Hg] No Primary Care Physician [facility] 08-21-2025 14:23-0400 Heart rate 76 /min No Primary Care Physician [facility] 08-21-2025 14:23-0400 Respiratory rate 18 /min No Primary Care Physician [facility] 08-21-2025 14:23-0400 SaO2% (BldA) [Mass fraction] 98 % No Primary Care Physician [facility] 08-21-2025 14:23-0400 Systolic blood pressure 138 mm[Hg] No Primary Care Physician [facility] 08-20-2025 07:35-0400 Inhaled oxygen flow rate 2 L/min No Primary Care Physician [facility] 08-15-2025 02:24-0400 Body mass index (BMI) [Ratio] 22.2 kg/m2 No Primary Care Physician [facility] 02-25-2023 15:17-0400 Body mass index (BMI) [Ratio] 26.5 kg/m2 [facility] 02-25-2023 15:17-0400 Body weight 74.5 kg [facility] 02-25-2023 14:52-0400 Body height 167.64 cm [facility] 02-25-2023 14:52-0400 Body temperature 97.7 [degF] [facility] 02-25-2023 14:52-0400 Diastolic blood pressure 97 mm[Hg] [facility] 02-25-2023 14:52-0400 Heart rate 92 /min [facility] 02-25-2023 14:52-0400 Respiratory rate 18 /min [facility] 02-25-2023 14:52-0400 SaO2% (BldA) [Mass fraction] 98 % [facility] 02-25-2023 14:52-0400 Systolic blood pressure 141 mm[Hg] [facility] 02-19-2023 13:26-0400 Body height 170.18 cm [facility] 02-19-2023 13:26-0400 Body mass index (BMI) [Ratio] 25.6 kg/m2 [facility] 02-19-2023 13:26-0400 Body temperature 97.4 [degF] [facility] 02-19-2023 13:26-0400 Body weight 74.16 kg [facility] 02-19-2023 13:26-0400 Diastolic blood pressure 97 mm[Hg] [facility] 02-19-2023 13:26-0400 Heart rate 94 /min [facility] 02-19-2023 13:26-0400 Respiratory rate 16 /min [facility] 02-19-2023 13:260400 SaO2% (BldA) [Mass fraction] 98 % [facility] 02-19-2023 13:040 Systolic blood pressure 180 mm[Hg] [facility] Encounters Encounter Date Encounter Type Care Provider Facility Start: 08-21-2025 End: 08-30-2025 Evaluation and management of inpatient JAMES AKHTAR MD [facility] Start: 08-21-2025 Non-patient / Non-visit [facility]. Sandra [facility] Work Phone: Start: 08-20-2025 Non-patient / Non-visit Dr. Corey Briones [facility] Work Phone: Start: 08-19-2025 Non-patient / Non-visit Dr. Corey Briones [facility] Work Phone: Start: 08-18-2025 Non-patient / Non-visit Dr. Corey Briones [facility] Work Phone: Start: 08-18-2025 ambulatory No Primary Car e Physician Facility:[facility] Start: 08-18-2025 Non-patient / Non-visit [facility] Gill [facility] Start: 08-17-2025 Non-patient / Non-visit Dr. Corey Briones [facility] Work Phone: Start: 08-16-2025 Non-patient / Non-visit Dr. Corey Briones [facility] Work Phone: Start: 08-16-2025 ambulatory Bharath Quiros Facility:[facility] Start: 08-16-2025 End: 08-21-2025 Evaluation and management of inpatient Dr. Simone Webster DO [facility] 3 Work Phone: Start: 08-15-2025 Non-patient / Non-visit Dr. Bharath hoyos MD -[facility] Work Phone: Start: 08-15-2025 ambulatory No Primary Car e Physician Facility:[facility] Start: 02-25-2023 End: 02-25-2023 ambulatory Facility:[facility] Start: 02-25-2023 End: 02-25-2023 Emergency department patient visit [facility] Start: 02-25-2023 End: 02-25-2023 Patient encounter procedure Aspen Erwin PA-C Work Phone: [facility] Comment on above: Skin sloughing (HCC) (Primary Dx) Start: 02-19-2023 End: 02-19-2023 Emergency department patient visit [facility] Procedures Date Procedure Procedure Detail Performing Clinician Start: 08-20-2025 Estimated creatinine clearance No Primary Care Physician Start: 08-20-2025 Plain chest X-ray No Pr imary Care Physician Start: 08-18-2025 CT angiography of he ad and neck No Primary Care Physician Start: 08-17-2025 MRI of brain without contrast No Primary Care Physician Start: 08-14-2025 Urnls dip stick/tabl et reagent auto microscopy No Primary Care Physician Start: 08-14-2025 Ct abdomen & pelvis w/contrast material No Primary Care Physician Start: 08-14-2025 CT angiography of ch est with contrast No Primary Care Physician Start: 08-14-2025 Urine culture No Primar y Care Physician section JAMES CHAN AM, MD FACP Plan of Treatment Date Care Activity Detail Author Start: 08-21-2025 Patient discharge [facility] Start: 08-20-2025 Oxygen therapy [facility] Start: 08-17-2025 Telemedicine consultation with patient [facility] Start: 08-17-[address] [facility] Start: 08-16-2025 Admission procedure [facility] Start: 08-15-2025 Referral to occupational therapist [facility] Start: 08-15-2025 Following clinical pathway protocol [facility] Start: 08-15-2025 Assessment of risk of venous thromboembolism [facility] Start: 08-15-2025 Insertion of catheter into peripheral vein [facility] Start: 08-15-2025 Providing care according to standard [facility] Start: 08-15-2025 Provision of activity privileges [facility] Start: 08-15-2025 Referral for physical therapy [facility] Start: 08-15-2025 Referral to service [facility] Start: 08-15-2025 [facility] Start: 08-15-2025 Admission procedure [facility] Start: 08-15-2025 Consultation [facility] Start: 08-15-2025 Patient referral to dietitian [facility] Start: 07-03-2023 Influenza [facility] Start: 11-02-2022 DEPRESSION ASSESSMENT DEPRESSION ASSESSMENT [facility] Start: 07-23-2021 COVID-19 VACCINE (3 - Booster for Pfizer series) COVID-19 VACCINE (3 - Booster for Pfizer series) [facility] Start: 03-24-2012 LIPID SCREEN LIPID SCREEN [facility] Start: 2011 SHINGRIX VACCINE (1 of 2) SHINGRIX VACCINE (1 of 2) [facility] Start: 03-24-2010 DIABETES SCREEN DIABETES SCREEN [facility] Start: 2006 COLOGUARD (FIT-DNA) COLOGUARD (FIT-DNA) [facility] Start: 2006 Colonoscopy COLONOSCOPY [facility] Start: 2006 COLORECTAL CANCER SCREENING COLORECTAL CANCER SCREENING [facility] Start: [address] COLONOGRAPHY [facility] Start: 2006 FECAL OCCULT BLOOD FECAL OCCULT BLOOD [facility] Start: 2006 SIGMOIDOSCOPY SIGMOIDOSCOPY [facility] Start: 2001 Mammography MAMMOGRAM [facility] Start: 1991 HPV TESTING HPV TESTING [facility] Start: 1982 PAP TESTING PAP TESTING [facility] Start: 1980 Urine microalbumin profile DTAP,TDAP,TD (1 - Tdap) [facility] Start: 1979 HEPATITIS C SCREENING HEPATITIS C SCREENING [facility] Start: 1979 HIV SCREENING HIV SCREENING [facility] Patient Education [facility] Work Phone: Patient referral [facility] Work Phone: Immunizations Immunization Date Immunization Notes Care Provider Fa cility 10-28-2023 influenza virus vacc ine, unspecified formulation JAMES AKHTAR MD FACP [facility] 10-28-2023 influenza, injectabl e, quadrivalent, preservative free No Primary Care Physician [facility] 10-28-2023 SARS-CoV-2 (COVID-19 ) mRNA-[id number] JAMES AKHTAR MD FACP [facility] 05-28-2021 SARS-CoV-2 mRNA (tozinameran) vaccine JAMES AKHTAR MD FACP [facility] 05-07-2021 SARS-CoV-2 mRNA (tozinameran) vaccine JAMES AKHTAR MD FACP [facility] 12-02-2016 influenza virus vacc ine, unspecified formulation JAMES AKHTAR MD FACP [facility] 12-02-2016 pneumococcal polysaccharide vaccine, 23 valent JAMES AKHTAR MD FACP [facility] Payers Date Payer Category Payer Self-pay 2022 Medicaid [id number] 2022 Unknown [id number] 1960 Unknown [id number] [id number]. [id number] Unknown [facility] [id number] [facility] [id number] Unknown [id number] 2.16.8 [id number] Unknown [id number] 2.16.8 [id number] Unknown [id number] 2.16.8 [id number] Unknown [id number] 2.16.8 [id number] Unknown [id number] 2.16.8 [id number] Unknown [id number] 2.16.8 [id number] Unknown [id number] 2.16.8 [id number] Unknown [id number] 2.16.8 [id number] Unknown [id number] 2.16.8 [id number] Social History Date Type Detail Facility Start: 02-19-2023 End: 02-25-2023 Tobacco smoking status NHIS Unknown if ever smoked [facility] Start: 1960 Sex Assigned At Female [facility] Start: 1960 Sex Assigned At Not [facility] file [facility] Start: 08-16-2025 End: 08-16-2025 Tobacco smoking status NHIS Smokes tobacco daily (finding) [facility] Sex Female [facility] Social / personal hi story observable (observable entity) [facility] Start: 08-29-2025 [facility] Start: 08-21-2025 Tobacco smoking status Heavy t obacco smoker (finding) [facility] Sexual Orientation [facility] Start: 04-27-2019 Sex Female (finding) [facility] Start: 08-25-2025 No, per patient [facility] Goals Date Patient Goal Desired Activity /State Functional Status Date Assessment Result Facility 08-30-2025 Functional Status Room check performed [facility] 08-30-2025 Functional Status [facility] 08-30-2025 [facility] 08-30-2025 Functional Status [facility] 08-30-2025 Functional Status [facility] nidiatal [facility] [place] 08-30-2025 [facility] 08-29-2025 Functional Status [facility] nidiatal [facility] [place] 08-29-2025 Functional Status [facility] Functional Status OT Toilet Transfers [facility] A [facility] 08-29-2025 Functional Status Mod I [facility] Functional Status [facility] 08-29-[facility] 08-29-2025 Functional Status [facility] 08-28-2025 Functional Status Dinner Percent 50 [facility] 08-28-2025 Functional Status Michelle Ho love [facility] 08-28-2025 Functional Status [facility] 08-28-2025 Functional Status [facility] 08-28-[facility]25 Functional Status [facility] 08-27-[facility]25 Functional Status Foam dressing Michelle H osche [facility] 08-27-2025 Functional Status Done Michelle Ho love [facility] 08-26-2025 Functional Status [facility] 08-25-2025 Functional Status Sensory Deficits None A [facility] 08-25-2025 Functional Status [facility]-25-[facility]25 Functional Status [facility]-25-[facility] Functional Status [facility] 08-25-2025 Functional Status [facility] 08-24-2025 Functional Status Min A [facility] 08-23-2025 Functional Status Michelle Ho love [facility] 08-23-2025 Functional Status Michelle Ho [facility] 08-22-2025 Functional Status Single level home [facility] 08-22-2025 Functional Status Michelle Ede aleman [facility] 08-21-2025 Functional status Ambulates [facility] Work Phone: Mental Status Date Assessment Result Facility 08-30-2025 Mental Status Not oriented to situation A [facility] 08-29-2025 Mental Status [facility] 08-29-2025 Mental Status [facility] 08-28-2025 Mental Status [facility] 08-27-2025 Mental Status [facility] 08-27-2025 [facility] 08-27-2025 Mental Status [facility] 08-27-2025 [facility] 08-21-2025 Cognitive function Voice/Name [facility] Work Phone: 02-19-2023 Cognitive function Level Of Cons ciousness Awake;Alert;Appropriate [facility] Work Phone: Clinical Notes 02-25-2023 to 08-30-2025 Note Date & Type Note Facility 08-30-2025 Hospital Discharge instructions Patient Education 08/30/2025 13:29:14 Urinary Tract Infection, Adult, Clhx-up-Mohr Urinary Tract Infection, Adult A urinary tract infection (UTI) is an infection of any part of the urinary tract. The urinary tract includes: The kidneys. The ureters. The bladder. The urethra. These organs make, store, and get rid of pee (urine) in the body. What are the causes? This is caused by germs (bacteria) in your genital area. These germs grow and cause swelling (inflammation) of your urinary tract. What increases the risk? You are more likely to develop this condition if: You have a small, thin tube (catheter) to drain pee. You cannot control when you pee or poop (incontinence). You are female, and: ?You use these methods to prevent : ?A medicine that kills sperm (spermicide). ?A device that blocks sperm (diaphragm). ?You have low levels of a female hormone (estrogen). ?You are . You have genes that add to your risk. You are sexually active. You take antibiotic medicines. You have trouble peeing because of: ?A prostate that is bigger than normal, if you are male. ?A blockage in the part of your body that drains pee from the bladder (urethra). ?A kidney stone. ?A nerve condition that affects your bladder (neurogenic bladder). ?Not getting enough to drink. ?Not peeing often enough. You have other conditions, such as: ?Diabetes. ?A weak disease-fighting system (immune system). ?Sickle cell disease. ?Gout. ?Injury of the spine. What are the signs or symptoms? Symptoms of this condition include: Needing to pee right away (urgently). Peeing often. Peeing small amounts often. Pain or burning when peeing. Blood in the pee. Pee that smells bad or not like normal. Trouble peeing. Pee that is cloudy. Fluid coming from the vagina, if you are female. Pain in the belly or lower back. Other symptoms include: Throwing up (vomiting). No urge to eat. Feeling mixed up (confused). Being tired and grouchy (irritable). A fever. Watery poop (diarrhea). How is this treated? This condition may be treated with: Antibiotic medicine. Other medicines. Drinking enough water. Follow these instructions at home: Medicines Take qkqi-dyh-bdfdrfc and prescription medicines only as told by your doctor. If you were prescribed an antibiotic medicine, take it as told by your doctor. Do not stop taking it even if you start to feel better. General instructions Make sure you: ?Pee until your bladder is empty. ?Do not hold pee for a long time. ?Empty your bladder after sex. ?Wipe from front to back after pooping if you are a female. Use each tissue one time when you wipe. Drink enough fluid to keep your pee pale yellow. Keep all follow-up visits as told by your doctor. This is important. Contact a doctor if: You do not get better after 1 2 days. Your symptoms go away and then come back. Get help right away if: You have very bad back pain. You have very bad pain in your lower belly. You have a fever. You are sick to your stomach (nauseous). You are throwing up. Summary A urinary tract infection (UTI) is an infection of any part of the urinary tract. This condition is caused by germs in your genital area. There are many risk factors for a UTI. These include having a small, thin tube to drain pee and not being able to control when you pee or poop. Treatment includes antibiotic medicines for germs. Drink enough fluid to keep your pee pale yellow. This information is not intended to replace advice given to you by your health care provider. Make sure you discuss any questions you have with your health care provider. Document Released: 04/06/2009 Document Revised: 10/06/2019 Document Reviewed: 04/28/2019 [employer] Patient Education 2020 [employer]. Follow Up Care 08/21/2025 16:16:59 With:[email or web address] Address: [address] [place] [address]- When:2-4 days Comments:Please call to schedule an appointment for dementia diagnosis. [facility] 08-30-2025 Note Discharge Instructions Thank you for allowing [facility] to assist you with your healthcare needs. The following is important discharge information regarding your hospital visit. Your Care Team [facility] Your Diagnosis Anxiety Asthenia CVA (cerebrovascular accident) Delirium HFrEF (heart failure with reduced ejection fraction) Hypertension Tobacco use What to do next Follow Up Appointments Follow Up with [email or web address] When:Within 2-4 days Where:[address] [place] [address]- Additional Information: Please call to schedule an appointment for dementia diagnosis. The Following Activity and Diet Have Been Ordered for You Transfer of Care Activity - Ordered -- As instructed by therapy, 08/30/25 12:49:00 EDT Transfer of Care Diet - Ordered -- Type of Diet: Regular Diet, 08/30/25 12:49:00 EDT The Following Treatments Have Been Ordered for You Discharge Labs No qualifying data available. Discharge Radiology No qualifying data available. Other Therapies Transfer of Care OT - Ordered -- Reason for therapy: weakness, 08/30/25 12:49:00 EDT Transfer of Care PT - Ordered -- Reason for therapy: Weakness, 08/30/25 12:49:00 EDT Post Acute Orders Transfer of Care Admission Level of Care - Ordered -- Level of Care SNF, 08/30/25 12:49:12 EDT Transfer of Care Code Status - Ordered -- Full Code, Constant Order Transfer of Care Orders Electronically Signed By - Ordered -- 08/30/25 12:49:00 EDT, ALVARO BARNETT APRN-BRIDGET Transfer of Care Oxygen Therapy - Ordered -- Oxygen (CONTINUOUS), Mobile in the Home, Nasal Cannula, 2 liters per minute, 999 month(s), 08/30/25 12:49:00 EDT Transfer of Care Prognosis - Ordered -- Fair, Patient Aware: Yes Transfer of Care Rehab Potential - Ordered -- Rehab potential fair, 08/30/25 12:49:12 EDT Someone Will Contact You Regarding These Home Health Referrals No home referrals have been ordered for you. No one will call you. Allergies NKA Medications Please ask your primary doctor or pharmacist before taking any other medication not listed, including over the counter drugs, herbal medications, vitamins and or supplements as they may interact with your home medications. What How Much When Instructions Last Dose Unchanged aspirin (aspirin 81 mg oral delayed release tablet) 1 tab(s) by mouth Once a day 08/30/25 0809AM Unchanged atorvastatin (atorvastatin 40 mg oral tablet) 1 tab(s) by mouth Every day 08/29/25 1018PM Unchanged carvedilol (carvedilol 12.5 mg oral tablet) 1 tab(s) by mouth Twice daily with meals 08/30/25 0809AM Unchanged citalopram (citalopram 40 mg oral tablet) 1 tab(s) by mouth Every day 08/30/25 0809AM Unchanged empagliflozin (Jardiance 10 mg oral tablet) 1 tab(s) by mouth Once a day (in the morning) 08/30/25 0809AM Unchanged folic acid (folic acid 1 mg oral tablet) 1 tab(s) by mouth Once a day 08/30/25 0809AM Unchanged furosemide (furosemide 40 mg oral tablet) 1 tab(s) by mouth Every day 08/30/25 0809AM Unchanged losartan (losartan 100 mg oral tablet) 1 tab(s) by mouth Every day 08/30/25 0809AM Unchanged traZODone (traZODone 100 mg oral tablet) 1 tab(s) by mouth Daily at bedtime PRN 08/24/25 0929PM What How Much When Comments Stop Taking hydrocortisone topical (Hytone 2.5% topical cream) 1 application Topical Two (2) times a day Please take this list to your next doctor s visit. Bring all medications you take, including over the counter medications, herbals and other supplements with you to your doctor s visit. Patients and families are reminded to discard old lists and to update any records with all medication providers or retail pharmacies. Education Materials Urinary Tract Infection, Adult A urinary tract infection (UTI) is an infection of any part of the urinary tract. The urinary tract includes: The kidneys. The ureters. The bladder. The urethra. These organs make, store, and get rid of pee (urine) in the body. What are the causes? This is caused by germs (bacteria) in your genital area. These germs grow and cause swelling (inflammation) of your urinary tract. What increases the risk? You are more likely to develop this condition if: You have a small, thin tube (catheter) to drain pee. You cannot control when you pee or poop (incontinence). You are female, and: ? You use these methods to prevent : ? A medicine that kills sperm (spermicide). ? A device that blocks sperm (diaphragm). ? You have low levels of a female hormone (estrogen). ? You are . You have genes that add to your risk. You are sexually active. You take antibiotic medicines. You have trouble peeing because of: ? A prostate that is bigger than normal, if you are male. ? A blockage in the part of your body that drains pee from the bladder (urethra). ? A kidney stone. ? A nerve condition that affects your bladder (neurogenic bladder). ? Not getting enough to drink. ? Not peeing often enough. You have other conditions, such as: ? Diabetes. ? A weak disease-fighting system (immune system). ? Sickle cell disease. ? Gout. ? Injury of the spine. What are the signs or symptoms? Symptoms of this condition include: Needing to pee right away (urgently). Peeing often. Peeing small amounts often. Pain or burning when peeing. Blood in the pee. Pee that smells bad or not like normal. Trouble peeing. Pee that is cloudy. Fluid coming from the vagina, if you are female. Pain in the belly or lower back. Other symptoms include: Throwing up (vomiting). No urge to eat. Feeling mixed up (confused). Being tired and grouchy (irritable). A fever. Watery poop (diarrhea). How is this treated? This condition may be treated with: Antibiotic medicine. Other medicines. Drinking enough water. Follow these instructions at home: Medicines Take swif-nms-tniubwt and prescription medicines only as told by your doctor. If you were prescribed an antibiotic medicine, take it as told by your doctor. Do not stop taking it even if you start to feel better. General instructions Make sure you: ? Pee until your bladder is empty. ? Do not hold pee for a long time. ? Empty your bladder after sex. ? Wipe from front to back after pooping if you are a female. Use each tissue one time when you wipe. Drink enough fluid to keep your pee pale yellow. Keep all follow-up visits as told by your doctor. This is important. Contact a doctor if: You do not get better after 1 2 days. Your symptoms go away and then come back. Get help right away if: You have very bad back pain. You have very bad pain in your lower belly. You have a fever. You are sick to your stomach (nauseous). You are throwing up. Summary A urinary tract infection (UTI) is an infection of any part of the urinary tract. This condition is caused by germs in your genital area. There are many risk factors for a UTI. These include having a small, thin tube to drain pee and not being able to control when you pee or poop. Treatment includes antibiotic medicines for germs. Drink enough fluid to keep your pee pale yellow. This information is not intended to replace advice given to you by your health care provider. Make sure you discuss any questions you have with your health care provider. Document Released: 04/06/2009 Document Revised: 10/06/2019 Document Reviewed: 04/28/2019 [employer] Patient Education 2020 [employer] Additional Information VACCINATE! IT SAVES LIVES! Members of the community who have not yet received the COVID-19 vaccine and would like to receive it can visit one of [facility] vaccine clinics. There are many vaccine clinic locations within the [facility]. For locations and available times, please visit [email or web address].coronavirus.rii o.gov/. It is important to note that some COVID mobile vaccine clinics are held outdoors and may be canceled in rainy or stormy conditions. To learn more about pediatric vaccinations (ages 5-11), we invite you to visit the [employer] [facility] webpage. https://www.akJumptaps.org/pag es/4577-Rhwzw-Pwqekeekiqi-Frequent ek-Ytjka-Rrfosoprm.html To learn more about the COVID-19 vaccine, we invite you to visit the CDC website for a list of frequently asked questions.https://www.cdc.gov/suzette navirus/2019-ncov/vaccines/faq.htm l [facility] Patient Portal Access Instructions: Stay connected with your healthcare team and access your personal medical information anytime with the [facility] Patient Portal. Please follow the directions below to create your [facility] account: 1.Access the email account you provided upon registration to the hospital/physician office.2.Look for an invitation email from [facility].3.Open the email and access the invitation link: Accept Invitation to [facility].4.Fill in the required low to create your account. To access your account, visit [email or web address] or scan the QR code above. Click the blue button labeled Access Patient Portal and then log in with the username and password that you created in the steps above. You will be able to view your test results, lab results, a summary of your visits, upcoming appointments and more. There is also a convenient messaging option where you can send secure messages to your provider. In addition, you will have the ability to download any documents or summaries to your computer and/or send the information securely to a physician. Remember that your healthcare information is confidential, so carefully consider who you will allow to register on the [facility] Patient Portal for access to your information. You can also access the [facility] Patient Portal on the [employer] colin. Simply click on Patient Portal and then log into your account. If you would like to receive a full copy of your medical records, please contact the [facility] Medical Records Department by calling [phone], Thursday through Thursday between 8 a.m. and 4:30 p.m. HOW TO SAFELY DISPOSE OF PRESCRIPTION MEDICATIONS Please use one of the following methods to safely dispose of your unused medications. 1.Use a drug disposal kit: the drug disposal pouch allows you to safely discard your old and unused drugs. Ask your nurse to give you one when you are discharged.2.Visit a local take-back location: Many local pharmacies and police departments have programs that collect old and unwanted prescription drugs. Call your local pharmacy or go to http://Allurent/2T7Jr8x to find one close to you.3.Make use of household items: Use cat litter or old coffee grounds to dispose medications if other options are not available. Mix your drugs with these household products, seal them in an airtight container and throw it into the garbage. Call [facility]: [phone] to be sure your drugs can be disposed of in this way. Some medicines may require a different approach.4.Never flush your medications down the toilet. IF YOU HAVE BEEN PRESCRIBED AN OPIOID FOR PAIN If you have been prescribed an opioid (such as hydrocodone, oxycodone or morphine), it is critical to understand the possible side effects and risks of opioid pain medications. Even when taken as directed, opioids can have several side effects including: Tolerance, meaning you might need to take more of a medication for the same pain relief. Nausea, vomiting and/or constipation. Sleepiness, dizziness, dry mouth, confusion, depression or itching. Physical dependence, meaning you have withdrawal symptoms when a medication is stopped, can develop within a few days. KNOW YOUR RESPONSIBILITIES It is important to know exactly how much and how often to take the opioid pain medications you are prescribed. Never take opioids in higher amounts or more often than prescribed. Do not combine opioids with alcohol or other drugs that cause drowsiness, such as benzodiazepines, also known as benzos, including diazepam and alprazolam, muscle relaxants or sleep aids. Never sell or share prescription opioids. This is illegal. Store opioids in a secure place and out of reach of others (including children, family, friends and visitors). The last page of this document has been signed and retained as a CHART COPY. Signatures Patient Education Materials Urinary Tract Infection, Adult, [id number] Medication Leaflets My discharge plan and instructions have been reviewed and explained to me and I,BANDAR TIWARI understand my current condition and have read and understand these discharge instructions. I have received a written copy of the plan/instructions. If I have questions, I am aware that I should contact my doctor. 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 Patient presented to [facility] 08/15/2025 for generalized weakness and inability to care for self. Son reports that patient had slept a large part of 3 days prior to admission. He works 40 to 50 hours/week and is not capable of providing 24/ care. Due to her memory issues, she was sent for CTA of the brain which revealed punctate acute or subacute ischemic foci within the bilateral, himcm-azrijob-focr-left centrum semiovale, moderate global cerebral atrophy, compatible with age-related volume loss, severe chronic microvascular ischemic white matter changes, likely reflecting longstanding small vessel disease. Patient was started on aspirin and statin due to new acute stroke. CTA of head/neck did not show any significant stenosis. Patient noted to be markedly hypertensive while admitted and was started on Losartan. An echo was done which revealed an EF 10%, unknown etiology. Patient was started on Jardiance, carvedilol, and furosemide. Patient does follow with psychiatry and was continued on her psych medications. Patient did not have any signs of alcohol withdrawal while hospitalized at [facility]. She was evaluated by therapy services with recommendation for SNF. She was subsequently admitted to [facility] 08/21/2025. Patient's vital signs have remained stable. She is able to ambulate 5 to 15 feet with contact-guard assist. This morning patient is alert and pleasant during my exam. She has no complaints today. Objective Vitals and Measurements T: 36.3 C (Oral) TMIN: 36.3 C (Oral) TMAX: 36.6 C (Oral) HR: 76 (Monitored) RR: 18 BP: 132/74 SpO2: 97% WT: 63.2 kg Intake and Output Last 24 hours Intake Oral Intake 300.00 Supplement Intake 237.00 Output Stool Count 7.00 Urine Count 4.00 Total Summary Total Intake 537.00 Total Output 0.00 Fluid Balance 537.00 Physical Exam GEN: Appears chronically ill CHEST: Normal S1 and S2. Rhythm is regular. Clear to auscultation, without rales, rhonchi, wheezing. ABD: Positive bowel sounds x 4 quads. Soft, nondistended, nontender. EXT: No significant deformity or joint abnormality. No edema. Peripheral pulses intact. NEURO: Sensation grossly intact SKIN: Skin color normal for ethnicity PSYCH: The mental examination revealed the patient was alert and oriented to name and place Weight Current Weight Dosing Weight: 63.3 kg (08/25/25) Current Weight: 63.2 kg (08/29/25) Current Weight: 66.1 kg (08/25/25) Medications Medications (18) Active Scheduled: (8) aspirin 81 mg EC 81 mg 1 tab(s), Oral, qDayM atorvastatin 40 mg tablet 40 mg 1 tab(s), Oral, Daily carvedilol 12.5 mg tablet 12.5 mg 1 tab(s), Oral, BIDM citalopram 20 mg Tablet 40 mg 2 tab(s), Oral, Daily empagliflozin 10 mg tablet 10 mg 1 tab(s), Oral, qAM folic acid 1 mg tablet 1 mg 1 tab(s), Oral, qDay furosemide 40 mg tablet 40 mg 1 tab(s), Oral, Daily losartan 50 mg tablet 100 mg 2 tab(s), Oral, Daily Continuous: (0) PRN: (10) acetaminophen 325 mg Tablet 650 mg 2 tab(s), Oral, q4h acetaminophen 325 mg Tablet 650 mg 2 tab(s), Oral, q4h Al hydrox/Mg hydrox/simethicone 200-200-20 mg/5 mL Susp UD 15 mL, Oral, q4h albuterol - ipratropium 2.5 mg-0.5 mg/3 mL Inhal Sarah UD 3 mL, Inhalation, q4hRT docusate sodium 100 mg Capsule 100 mg 1 cap(s), Oral, BID guaifenesin 100 mg/5 mL Liquid 120 mL 200 mg 10 mL, Oral, q4h melatonin 3 mg tablet 6 mg 2 tab(s), Oral, qHS menthol (Biofreeze) gel packet 1 colin, Topical, TID polyethylene glycol 3350 - UD packet 17 gram(s) 15 mL, Oral, BID traZODONE 50 mg Tablet 100 mg 2 tab(s), Oral, qHS EKG No qualifying data available. Assessment/Plan 1. Asthenia 2. HFrEF (heart failure with reduced ejection fraction) 3. Hypertension 4. Delirium 5. Anxiety 6. Tobacco use Asthenia-Continue PT and OT HFrEF-LVEF 10%. Continue GDMT. Not in acute exacerbation HTN- SBP goal 140 or less. Continue home antihypertensives. Delirium Utilize nonpharmacological interventions such as ambulation, redirection, and light therapy. Anxiety continue home medications CVA continue aspirin and statin Tobacco use continue nicotine patch Code Status: Full code Discussed goals of care with patient's son This dictation was performed using voice recognition software and may include grammatical and/or spelling errors. CPT 56269 Time Spent 25 minutes Digitally Signed by ALVARO BARNETT on 08/29/2025 02:45 PM [facility] 08-24-2025 Note Date of Service 08/24/2025 Chief Complaint Weakness, altered mental status, UTI Subjective Patient seen resting in bed this morning. Mentation continues to fluctuate. Patient is very agitated this morning stating that she is ready to go home. She is able to recall that she is at [facility], but is delirious and refusing care. Nursing reports that patient has refused vital signs, breakfast, and medications this morning. Patient denies any pain, difficulty breathing. Continues to work with PT OT although per physical therapy's notes, patient has been refusing afternoon sessions of therapy due to being tired. Care conference held yesterday with the patient's brother and it was explained that the patient is likely going to require 24-hour care. Awaiting family to select ECF to begin pre-cert for placement. Objective Vitals and Measurements T: 36.2 C (Axillary) HR: 67 (Apical) RR: 18 BP: 134/95 SpO2: 98% Intake and Output Last 24 hours Intake Oral Intake 600.00 Supplement Intake 200.00 Output Stool Count 1.00 Urine Count 2.00 Total Summary Total Intake 800.00 Total Output 0.00 Fluid Balance 800.00 Physical Exam General: Patient is agitated, but in no acute distress HEENT: Mucous membranes moist, no nasal drainage, EOMI Respiratory: Lungs clear, no rales, no rhonchi, no wheezes. Normal respiratory effort. Cardiovascular: Regular rate and rhythm; no murmurs, rubs, or gallops. Edema/varicosities of extremities: No edema to upper or lower extremities Gastrointestinal: Abdomen soft, NT, ND, without masses. Bowel sounds active x4 Genitourinary: No suprapubic/CVA tenderness or bladder distention. Musculoskeletal: No pinpoint tenderness or effusions. Skin: No rashes or lesions noted Neurological: No tremor or focal weakness, Weight Dosing Weight: 63.3 kg (08/21/25) Medications Medications (18) Active Scheduled: (8) aspirin 81 mg EC 81 mg 1 tab(s), Oral, qDayM atorvastatin 40 mg tablet 40 mg 1 tab(s), Oral, Daily carvedilol 12.5 mg tablet 12.5 mg 1 tab(s), Oral, BIDM citalopram 20 mg Tablet 40 mg 2 tab(s), Oral, Daily empagliflozin 10 mg tablet 10 mg 1 tab(s), Oral, qAM folic acid 1 mg tablet 1 mg 1 tab(s), Oral, qDay furosemide 40 mg tablet 40 mg 1 tab(s), Oral, Daily losartan 50 mg tablet 100 mg 2 tab(s), Oral, Daily Continuous: (0) PRN: (10) acetaminophen 325 mg Tablet 650 mg 2 tab(s), Oral, q4h acetaminophen 325 mg Tablet 650 mg 2 tab(s), Oral, q4h Al hydrox/Mg hydrox/simethicone 200-200-20 mg/5 mL Susp UD 15 mL, Oral, q4h albuterol - ipratropium 2.5 mg-0.5 mg/3 mL Inhal Sarah UD 3 mL, Inhalation, q4hRT docusate sodium 100 mg Capsule 100 mg 1 cap(s), Oral, BID guaifenesin 100 mg/5 mL Liquid 120 mL 200 mg 10 mL, Oral, q4h melatonin 3 mg tablet 6 mg 2 tab(s), Oral, qHS menthol (Biofreeze) gel packet 1 colin, Topical, TID polyethylene glycol 3350 - UD packet 17 gram(s) 15 mL, Oral, BID traZODONE 50 mg Tablet 100 mg 2 tab(s), Oral, qHS Lab Results No 36 Hour Lab Data EKG No qualifying data available. Assessment/Plan Anxiety Chronic. Continue patient's citalopram. Asthenia Acute, secondary to recent UTI and CVA. Patient continues to work with Physical and Occupational Therapy. CVA (cerebrovascular accident) Acute. Continue aspirin 81 mg daily, atorvastatin 40 mg daily. Delirium Acute. Likely a contributing factor to patient's fluctuating mentation. Utilize nonpharmacological interventions such as ambulation, redirection, and light therapy. HFrEF (heart failure with reduced ejection fraction) Continue GDMT with Jardiance, Lasix, and carvedilol. Hypertension Continue patient's home antihypertensives. Tobacco use Chronic. Continue nicotine patch daily. Plan of care discussed with patient. No questions or concerns at this time. CODE STATUS: Full code Time Spent 40 minutes This includes total time spent reviewing labs, diagnostics, evaluating the patient, and medical decision making. Digitally Signed by LM AWAD on 08/24/2025 10:22 AM [facility] 08-24-2025 Note Date of Service 08/24/2025 Chief Complaint Weakness, altered mental status, UTI Subjective Patient seen resting in bed this morning. Mentation continues to fluctuate. Patient is very agitated this morning stating that she is ready to go home. She is able to recall that she is at [facility], but is delirious and refusing care. Nursing reports that patient has refused vital signs, breakfast, and medications this morning. Patient denies any pain, difficulty breathing. Continues to work with PT OT although per physical therapy's notes, patient has been refusing afternoon sessions of therapy due to being tired. Care conference held yesterday with the patient's brother and it was explained that the patient is likely going to require 24-hour care. Awaiting family to select ECF to begin pre-cert for placement. Objective Vitals and Measurements T: 36.2 C (Axillary) HR: 67 (Apical) RR: 18 BP: 134/95 SpO2: 98% Intake and Output Last 24 hours Intake Oral Intake 600.00 Supplement Intake 200.00 Output Stool Count 1.00 Urine Count 2.00 Total Summary Total Intake 800.00 Total Output 0.00 Fluid Balance 800.00 Physical Exam General: Patient is agitated, but in no acute distress HEENT: Mucous membranes moist, no nasal drainage, EOMI Respiratory: Lungs clear, no rales, no rhonchi, no wheezes. Normal respiratory effort. Cardiovascular: Regular rate and rhythm; no murmurs, rubs, or gallops. Edema/varicosities of extremities: No edema to upper or lower extremities Gastrointestinal: Abdomen soft, NT, ND, without masses. Bowel sounds active x4 Genitourinary: No suprapubic/CVA tenderness or bladder distention. Musculoskeletal: No pinpoint tenderness or effusions. Skin: No rashes or lesions noted Neurological: No tremor or focal weakness, Weight Dosing Weight: 63.3 kg (08/21/25) Medications Medications (18) Active Scheduled: (8) aspirin 81 mg EC 81 mg 1 tab(s), Oral, qDayM atorvastatin 40 mg tablet 40 mg 1 tab(s), Oral, Daily carvedilol 12.5 mg tablet 12.5 mg 1 tab(s), Oral, BIDM citalopram 20 mg Tablet 40 mg 2 tab(s), Oral, Daily empagliflozin 10 mg tablet 10 mg 1 tab(s), Oral, qAM folic acid 1 mg tablet 1 mg 1 tab(s), Oral, qDay furosemide 40 mg tablet 40 mg 1 tab(s), Oral, Daily losartan 50 mg tablet 100 mg 2 tab(s), Oral, Daily Continuous: (0) PRN: (10) acetaminophen 325 mg Tablet 650 mg 2 tab(s), Oral, q4h acetaminophen 325 mg Tablet 650 mg 2 tab(s), Oral, q4h Al hydrox/Mg hydrox/simethicone 200-200-20 mg/5 mL Susp UD 15 mL, Oral, q4h albuterol - ipratropium 2.5 mg-0.5 mg/3 mL Inhal Sarah UD 3 mL, Inhalation, q4hRT docusate sodium 100 mg Capsule 100 mg 1 cap(s), Oral, BID guaifenesin 100 mg/5 mL Liquid 120 mL 200 mg 10 mL, Oral, q4h melatonin 3 mg tablet 6 mg 2 tab(s), Oral, qHS menthol (Biofreeze) gel packet 1 colin, Topical, TID polyethylene glycol 3350 - UD packet 17 gram(s) 15 mL, Oral, BID traZODONE 50 mg Tablet 100 mg 2 tab(s), Oral, qHS Lab Results No 36 Hour Lab Data EKG No qualifying data available. Assessment/Plan Anxiety Chronic. Continue patient's citalopram. Asthenia Acute, secondary to recent UTI and CVA. Patient continues to work with Physical and Occupational Therapy. CVA (cerebrovascular accident) Acute. Continue aspirin 81 mg daily, atorvastatin 40 mg daily. Delirium Acute. Likely a contributing factor to patient's fluctuating mentation. Utilize nonpharmacological interventions such as ambulation, redirection, and light therapy. HFrEF (heart failure with reduced ejection fraction) Continue GDMT with Jardiance, Lasix, and carvedilol. Hypertension Continue patient's home antihypertensives. Tobacco use Chronic. Continue nicotine patch daily. Plan of care discussed with patient. No questions or concerns at this time. CODE STATUS: Full code Time Spent 40 minutes This includes total time spent reviewing labs, diagnostics, evaluating the patient, and medical decision making. Digitally Signed by LM AWAD on 08/24/2025 10:22 AM [facility] 08-24-2025 Pastoral care Progress note Pastoral Care Note Entered On: 08/24/2025 9:16 EDT Performed On: 08/24/2025 9:13 EDT by Garrett Garcia Pastoral Care Spiritual Care Visit Initiated by : Activities Director Scouting Type of Pastoral Visit : Follow up visit Spiritual Care Reason for Visit : General Spiritual Assessment : Spiritual, not Nondenominational, Positive Image of God Spiritual Care Emotional Assessment : Sad, Frustrated, Feeling Helpless Spiritual Care Intervention : Compassion/Empathy, Supportive presence, Explore Emotional Needs, Prayer with Patient/Family Spiritual Outcomes : Spiritual Resources Stirred Spiritual Plan of Care : Visit as Requested Pastoral Care Comments : patient is awake and the TV is on; pt is offered presence and prayer; pt seems confused as not able to explain where she is and why she is here; pt asks for dye mixer to take her home; pt says she is fine although so weak that she cannot do much for herself; when offered a prayer she says give me one; Pastoral Care Visit Length : 15 minute(s) Garrett Garcia - 08/24/2025 9:13 EDT Digitally Signed by Garrett Garcia on 08/24/2025 09:13 AM [facility] 08-24-2025 Nurse Progress note RN entered patient's room this am and introduced self. Patient appeared agitated and told RN that people were coming in and stealing things from her house. RN reoriented patient to the fact that she is at [facility]. Patient continued to be agitated and uncomfortable, refusing to eat breakfast and to take her medications. RN was unable to get ahold of patient's son, Joss, but spoke to patient's brother regarding today's confusion. SAFETY AND HEALTH MANAGER notified of patient's refusal of medications. Digitally Signed by Donna Santana RN on 08/24/2025 08:41 AM [facility] 08-23-2025 Nurse Progress note Pt's son Joss present in room and visiting. Asked Joss if he has been in contact with SW yet, he denies. Confirmed that Joss's phone number is: [phone]. Joss states he is encouraged with pt's progress, no comments/concerns at this time. Digitally Signed by Bailee Cuevas RN on 08/23/2025 05:21 PM [facility] 08-22-2025 Evaluation + Plan note Extrac marlo from: Title:History and Physical Author:JOYCE FORMAN APRN-SAFETY AND HEALTH CONSULTANT Date:08/22/25 1. Asthenia Acute, secondary to hospitalization for CVA and UTI. Consult placed to PT and OT to evaluate and treat. 2. HFrEF (heart failure with reduced ejection fraction) Acute, new onset, unknown etiology. EF 10%. Continue losartan, carvedilol, Jardiance and furosemide. 3. CVA (cerebrovascular accident) Acute, new onset. Continue aspirin and statin. 4. Hypertension Chronic. Continue current antihypertensives. SBP goal of 140 or less. 5. Anxiety Continue current home medications. Patient follows with a psychiatrist in [place]. 6. Tobacco use Chronic. May have nicotine patch daily. DVT prophylaxis with SCDs. Code status: Full Code. Labs, diagnostic test and progress notes reviewed as noted in HPI. Plan of care discussed with patient. All questions answered. Patient verbalizes understanding and is agreeable with plan of care. This case was discussed with collaborating physician, Dr. Evi Hanson. 60 minutes spent reviewing past diagnostic tests, reviewing lab results, vital sign trends, medical history, reviewing medications and ordering home medications, examining patient, reviewed at least 100 pages of documentation from [facility] stay, discussed plan of care with care team, collaborating with physician, and documenting in chart. CPT#[id number] [facility] 10-21-2025 Note Date of Service 08/22/2025 Chief Complaint weakness History of Present Illness Patient is a 65-year-old female, who has no primary care provider and a past medical history significant for alcohol and tobacco abuse, anxiety and depression, presented initially to [facility] on 08/15 due to generalized weakness and failure to thrive. Patient resides with her son who reported that patient had slept for 60 of the previous 72 hours prior to admission. She was too weak to transfer at home without assistance. Her son adds that he works 40-50 hours per week and is not able to be home all the time. The son reported noticing that patient was having increased memoryissues as well as fatigue and weakness. Patient was diagnosed with a urinary tract infection and admitted for treatment of that as well as PT/OT consult. Her UTI was treated with Ceftriaxone IV initially but cultures grew Klebsiella pneumoniae which had low colony count and was indeterminate for macrobid. Patient was observed off of antibiotics. Due to her memory issues, she was sent for CTA of the brain which revealed punctate acute or subacute ischemic foci within the bilateral, ukjkj-krjqmnd-edyw-left centrum semiovale, moderate global cerebral atrophy, compatible with age-related volume loss, severe chronic microvascular ischemic white matter changes, likely reflecting longstanding small vessel disease. Patient was started on aspirin and statin due to new acute stroke. CTA of head/neck did not show any significant stenosis. Patient noted to be markedly hypertensive while admitted and was started on Losartan. An echo was done which revealed an EF 10%, unknown etiology. Patient was started on Jardiance, carvedilol, and furosemide. Patient does follow with psychiatry and was continu ed on her psych medications. Due to her previous heavy alcohol use, patient was started on CIWA protocol but never had any evidence of DTs. Patient was seen by PT and OT who recommended a skilled stay for therapy. Patient was felt to be medically optimized last night for discharge and transferred to [facility] for rehab. Patient seen and evaluated this morning while resting in bed. Per nursing, she was very anxious last night and they did not feel comfortable giving her any medications. Nursing did assist patient with her tray this morning and felt that she did fine with swallowing. She did need prompted to eat anddrink as well as to swallow her medications. Patient extremely slow to answer questions but unsure of her baseline. Will discuss with son in the care conference what her baseline level of function isand plan moving forward. Do not anticipate much if any improvement in her cognitive status based onthe results of her CT of the head. She will likely require long-term care after done in the TCU. Physical exam unremarkable. All questions answered. Review of Systems Review of Systems: Reviewed in detail, including general health, HEENT, cardiovascular, respiratory, gastrointestinal, genitourinary, endocrine, musculoskeletal, neurologic, vascular, skin, and psychiatric. All are negative except for those listed in the History of Present Illness. Physical Exam Vitals and Measurements T: 36.5 C (Oral) TMIN: 36.5 C (Oral) TMAX: 37.0 C (Oral) HR: 71 (Monitored) RR: 20 BP: 148/103 SpO2: 99% HT: 165 cm WT: 63.3 kg BMI: 23.25 Weight Dosing Weight: 63.3 kg (08/21/25) General: No acute distress. Patient is alert, chronically ill-appearing, unkempt. Skin: No rash. Skin is warm, dry and intact. HEENT: Head is normocephalic, atraumatic. Pupils are equal, round and reactive. Poor dentition. Neck: Supple. No lymphadenopathy, thyromegaly. Lungs: Bilaterally clear but diminished without crepitation or wheeze. Unlabored. Heart: Heart is regular rhythm, S1, S2. No murmurs, gallops or rubs. Abdomen: Abdomen is soft, nontender. Bowels sounds present in all quadrants. Extremities: No clubbing, cyanosis, or edema. Peripheral pulses palpable. No calf tenderness. Neurological: Patient is awake and alert to person, slow to answer questions. Following simple commands, moving all extremities. Lab Results No 36 Hour Lab Data Assessment/Plan 1. Asthenia Acute, secondary to hospitalization for CVA and UTI. Consult placed to PT and OT to evaluate and treat. 2. HFrEF (heart failure with reduced ejection fraction) Acute, new onset, unknown etiology. EF 10%. Continue losartan, carvedilol, Jardiance and furosemide. 3. CVA (cerebrovascular accident) Acute, new onset. Continue aspirin and statin. 4. Hypertension Chronic. Continue current antihypertensives. SBP goal of 140 or less. 5. Anxiety Continue current home medications. Patient follows with a psychiatrist in [place]. 6. Tobacco use Chronic. May have nicotine patch daily. DVT prophylaxis with SCDs. Code status: Full Code. Labs, diagnostic test and progress notes reviewed as noted in HPI. Plan of care discussed with patient. All questions answered. Patient verbalizes understanding and is agreeable with plan of care. This case was discussed with collaborating physician, Dr. Evi Hanson. 60 minutes spent reviewing past diagnostic tests, reviewing lab results, vital sign trends, medicalhistory, reviewing medications and ordering home medications, examining patient, reviewed at least 100 pages of documentation from [facility] stay, discussed plan of care with care team, collaborating with abi curiel, and documenting in chart. CPT#67561 Procedure/Surgical History section section section Medications Home Medications (9) Active aspirin 81 mg oral delayed release tablet 81 mg = 1 tab(s), Oral, qDay atorvastatin 40 mg oral tablet 40 mg = 1 tab(s), Oral, Daily carvedilol 12.5 mg oral tablet 12.5 mg = 1 tab(s), Oral, BIDM citalopram 40 mg oral tablet 40 mg = 1 tab(s), Oral, Daily folic acid 1 mg oral tablet 1 mg = 1 tab(s), Oral, qDay furosemide 40 mg oral tablet 40 mg = 1 tab(s), Oral, Daily Jardiance 10 mg oral tablet 10 mg = 1 tab(s), Oral, qAM losartan 100 mg oral tablet 100 mg = 1 tab(s), Oral, Daily traZODone 100 mg oral tablet 100 mg = 1 tab(s), Oral, qHS Allergies NKA Social History Alcohol Use: Current. Type: Beer. Frequency: Daily., 08/21/2025 Home/Environment Living situation: Home with assistance. Lives In: Multilevel home, 1st floor bathroom., 08/21/2025 Tobacco Nicotine Use: 10 or more cigarettes (1/2 pack or more)/day in last 30 days. Type: Cigarettes., 08/21/2025 Family History HTN - Hypertension: Mother and Father. Health Status Family Member(s) Immunizations pneumococcal 23-valent vaccine(Pneumovax: 0 unknown unit (12/02/16) SARS-CoV-2 mRNA (tozinameran) vaccine: 0.5 unknown unit (05/28/21) SARS-CoV-2 mRNA (tozinameran) vaccine: 0.5 unknown unit (05/07/21) Code Status Code Status - Ordered -- 08/21/25 18:39:00 EDT, Full Code, Constant Order Digitally Signed by JOYCE FORMAN on 08/22/2025 10:43 AM Digitally Signed by EVI HANSON MD [facility]10-21-2025 Pastoral care Progress note Pastoral Care Note Entered On: 08/22/2025 9:12 EDT Performed On: 08/22/2025 9:09 EDT by Garrett Garcia Pastoral Care Spiritual Care Visit Initiated by : Activities Director Scouting Type of Pastoral Visit : Initial visit Spiritual Care Reason for Visit : General Spiritual Assessment : Positive Image of God Spiritual Care Emotional Assessment : Sad, Apathetic Spiritual Care Intervention : Compassion/Empathy, Supportive presence, Explore Emotional Needs, Prayer with Patient/Family Spiritual Outcomes : Spiritual Resources Stirred, Embraces Present Moment Spiritual Plan of Care : Visit as Requested Pastoral Care Comments : patient appears weak and is slow to answer questions; however pt does respond and indicates some concern about her health (being like my Mom) and about her children (one who is already); pt is given time to express self and have supportive presence and prayer Pastoral Care Visit Length : 15 minute(s) Garrett Garcia - 08/22/2025 9:09 EDT Digitally Signed by Garrett Garcia on 08/22/2025 09:09 AM [facility]10-21-2025 Nurse Progress note Pt noted to be yelling out, this nurse checked in with her and she states they don't need to be coming up here' pt reoriented to being in the hospital and told the voices she heard were likely the patient across the cannon. Pt also noted to have removed gown, brief and external catheter. Asked pt ifshe would like help getting these things back in place and she states no, I don't want that on, pt did agree to cover with blanket but again refused gown and brief pt was also reoriented with call light and asked if she needed to use the bathroom at this time and she replied no, she agreed to use call light for assistance if she needs the bathroom. Digitally Signed by Salima Isbell LPN on 08/22/2025 05:45 AM [facility]10-20-2025 Discharge summary Author Simone Webster [facility] Note Date/Time August 21, 2025 4 :54pm [facility] Medical Records Department [address] [place] [address] Discharge Summary 08/21/25 1532 MR#: [id number] Acct: [id number] Name: TIWARIBANDAR TAYO Rep #:[id number] : 1960 65 From: Simone lau DO PCP: Care Physician,No Primary Status :ADM IN Location: [facility] [id number] Providers Date of Admission: 08/16/25 Date of Discharge: 08/21/25 Primary Care Physician: No Primary Care Phys Consultations 08/17/25 19:14 Teleneurology [Consult: Tele-Neurology] Routine Consulting Provider: [facility] Reason for Consult: abnormal MRI EMERGENT Consult: No MD Notified: Yes Date Notified: 08/17/25 Time Notified: 23:26 Method of Notification: Answering Service Comments:: to do 08/18/25 am. Nursing Unit Staff Notify [facility] of Tele-Neurology Consult: Yes Reason For Visit: GENERAL WEAKNESS FAILURE TO THRIVE UTI Diagnosis Discharge Diagnosis (1) Generalized weakness: Status: Acute Code(s): R53.1 - Weakness (2) Adult failure to thrive: Status: Acute Code(s): R62.7 - Adult failure to thrive Medications at Discharge Home Medications citalopram 40 mg tablet 40 mg PO DAILY MOOD 08/14/25 trazodone 50 mg tablet 50 - 100 mg PO QHS PRN insomnia 08/14/25 aspirin 81 mg chewable tablet 81 mg PO BREAKFAST 30 days #0 tabs 08/21/25 carvedilol 12.5 mg tablet 12.5 mg PO BIDCM 30 days #0 tabs 08/21/25 empagliflozin 10 mg tablet (Jardiance) 10 mg PO DAILY 30 days #0 tabs 08/21/25 folic acid 1 mg tablet 1 mg PO BREAKFAST 30 days #0 tabs 08/21/25 furosemide 40 mg tablet 40 mg PO DAILY 30 days #0 tabs 08/21/25 losartan 100 mg tablet 100 mg PO DAILY 30 days #0 tabs 08/21/25 Hospital Course Operations None Procedures EKG, Transthoracic echo and - (CT abdomen pelvis, CTA chest, MRI brain, CTA head/neck, chest x-ray) Summary of Care Provided Minutes Spent on Discharge: 46 Hospital Course: Patient is a 65-year-old female who presented to [facility] ED on 08/15/2025 with worsening weakness. Hospital course as noted below. Patientdischarged to SNF in stable condition on 08/21. 1. Adult failure to thrive ? PT/OT/case management followed. Patient with poor therapy scores during hospitalization. Suspected multifactorial with acute CVA and cognitive impairment versus dementia being large contributors to this. Stable for discharge to SNF on 08/21. 2. 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 MRI brain on 08/17 showed punctate acute or subacute ischemic foci within the bilateral, right greater than left centrum semiovale. Severe chronic microvascular ischemic changes and moderate global cerebral atrophy also noted. No lateralizing deficits noted. Primary issues at this time are problems with balance and walking, and apparent difficulty speaking and understanding speech. PT/OT following as above and patient had poor therapy scores during her hospitalization. Patient also had difficulty with providing any history and it is unclear if this is due to the acute CVA versus some degree of underlying cognitive impairment. Discharged to SNF as above. Started on aspirin and high intensity statin on discharge. 3. New onset severe acute HFrEF ? Echo on 08/17 showed EF 10%, stage II diastolic dysfunction, severe global hypokinesis of the left interval, moderate enlarged LA, mildly enlarged RA, no significant valvular disease. Consistent with nonischemic cardiomyopathy. Unclear etiology but alcohol use disorder is a likely contributor. Initiated onguideline directed medical therapy and patient tolerated this well. Will discharge on Coreg, losartan, Lasix and Jardiance. 4. Suspect alcohol use disorder ? Reported history of heavier alcohol use in the past but per family her alcoholuse recently was not significant. CIWA protocol placed during hospitalization and patient with no evidence of withdrawal. 5. Bacteriuria ? UA with 500% esterase, positive nitrates, rare bacteria. Urine culture grew 25-50,000 Klebsiella. Treated initially with IV ceftriaxone then switched to Macrobid. Klebsiella showed intermediate resistance to Macrobid so this was discontinued and patient was observed. No need for further treatment at this time. 6. Major depressive disorder ? Continue home citalopram. Total clinical time spent by myself addressing the patient's medical issues, reviewing all the data, and collaborating with patient's care team: 46 minutes. Physical Exam Narrative alert, no apparent distress and average body habitus General Appearance: cooperative, well kempt and well developed Orientation / Consciousness: awake, oriented to person and oriented to place HEENT normocephalic, head/scalp atraumatic and moist oral mucous membranes Eyes PERRL, EOMs intact bilaterally and conjunctivae normal Neck supple, no JVD, thyroid normal and no carotid bruits General: trachea midline Resp normal respiratory effort, no retractions, no use of accessory muscles and clearto auscultation bilaterally Auscultation: Negative for rales, rhonchi or wheezes Cardio regular rate, regular rhythm, S1 normal heart sound, S2 normal heart sound, no murmurs, no rub and no gallops GI normal to inspection, nondistended, normoactive bowel sounds, soft to palpation,non-tender and non-distended Extremity no clubbing, cyanosis or edema Skin no rashes or lesions noted General Skin Exam: no breakdown Neuro CN's II-XII intact bilaterally, no focal motor deficits and no sensory deficits noted Sensorium / Orientation: awake, alert, oriented to person and oriented to place Speech: speech normal Psych Psych Narrative: Patient has flat affect, she does respond appropriately to simple questions Medical Records Data Medical Nutrition Assessment Dietitian: Malnutrition Criteria Met Start: 08/15/25 13:56 Freq: Status: Active Protocol: Document 08/18/25 13:13 SLA (Rec: 08/18/25 13:13 SLA [id number]) Nutrition Malnutrition Evidence of No Malnutrition Exists Malnutrition (severe Acute Illness/Injury ): Malnutrition ( Severe pro/heather unspecified) Intake Problem Increased Nutrient Needs (specify) Etiology protein related to skin status Signs/Symptoms as evidenced by PI to R buttock Status Active Problem Clinical Problem Acute Disease or Injury Related Malnutrition Etiology related to recent FTT Signs/Symptoms 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 Dietitian Continue Regular diet order 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s/ Continue 240 ml bottle Ensure PHP (chocolate) dailyat Changes lunch Will order CIB w/ breakfast and magic cup w/ dinnerfor increased nutrition if consumed Consider appetite stimulant to help encourage increased po intake at meals Weight / BMI Weight Weight: 62.5 kg Body Mass Index (BMI) 22.2 ABG / Lab / Microbiology Data 08/15/25 07:27 08/20/25 09:21 Microbiology: Microbiology 08/14/25 21:30 Urine, Catheterized Urine Culture - Final Klebsiella pneumoniae sp pneum D/C Instructions DC O2, CPAP, BIPAP Needs Home O2 Discharge instructions: No Meaningful Use Info Meaningful Use Meaningful Use Diagnoses (Choose all that apply): Ischemic CVA CVA Therapy Assessed for PT,OT and/or ST?: Yes Ischemic Stroke Antithrombotic order at d/c?: Yes Dx of Atrial fib/flutter?: No Statins at discharge?: Yes If patient is 75 or younger, pt will be discharged on HIGH intensity statin.: Yes Primary Dx Acute Ischemic CVA?: Yes Discharge Plan Admission Admit Date/Time: 08/16/25 14:41 Primary Reason for Your Visit: Weakness Attending Provider: Simone Webster Primary Care Provider: Care Physician,No Primary Consulting Providers: Bharath Quiros; Gavin Garcia; Doreen Cobb; Olga Holman; Janis Mai; Bethanie Jain; Thomas Carballo; Barbra Klein; Dmitry Wood; Wang Lucas;Mukul Soliman; Marleni Barger; Eboni Acuña; Nigel Dunaway; Mariya Cormier; Chon Goodrich; Eliezer Hernandez; Jesse Tiwari; Deandre Anders; Mark Nelson; Camille Yun; Sandra Moy; Corey Guillen Discharge Orders/Prescriptions Prescriptions: New furosemide 40 mg Tablet 40 mg PO DAILY 30 Days Qty: 0 0RF carvedilol 12.5 mg Tablet 12.5 mg PO BIDCM 30 Days Qty: 0 0RF aspirin 81 mg Tablet,Chewable 81 mg PO BREAKFAST 30 Days Qty: 0 0RF folic acid 1 mg Tablet 1 mg PO BREAKFAST 30 Days Qty: 0 0RF losartan 100 mg Tablet 100 mg PO DAILY 30 Days Qty: 0 0RF Jardiance 10 mg Tablet 10 mg PO DAILY 30 Days Qty: 0 0RF Continued citalopram 40 mg tablet 40 mg PO DAILY trazodone 50 mg tablet 50 - 100 mg PO QHS PRN (Reason: insomnia) Referrals / Follow Up: Care Physician,No Primary [Primary Care Provider, Medical] Disposition Disposition (needs filled in before D/C Order can be placed): Intermediate Facility Charges/Coding Visit Charges Inpatient E&M: 89406 Disch Hosp >30min 08/21/25 1554 <Electronically signed by Simone Webster DO> Cosigner Signature (if applicable): CC: Dr. Simone Webster DO; No Primary Care Physician~ Signed [facility] Work Phone: 1(674) 219-824310-20-2025 Discharge summary Author Simone Webster [facility] Note Date/Time August 21, 2025 4 :51pm [facility] Medical Records Department [address] [place] [address] Transfer to [facility] MR#: [id number] Acct: [id number] Name: BANDAR TIWARI Rep #:[id number] : 1960 65 From: Simone lau DO PCP: Care Physician,No Primary Status :ADM IN Certification of patient admission REQUIRED AT TIME OF ADMISSION. I CERTIFY THAT POST-HOSPITAL ECF SERVICES ARE REQUIRED TO BE GIVEN ON AN IN-PATIENT BASIS BECAUSE OF THE ABOVE NAMED PATIENT'S NEED FOR SKILLED NURSING CARE ON A CONTINUING BASIS FOR THE CONDITION(S) FOR WHICH HE/SHE WAS RECEIVING IN-PATIENT HOSPITAL SERVICES PRIOR TO HIS/HER TRANSFER TO THE ECF. 08/21/25 1551<Electronically signed by Simone Webster DO> Diet Diet Order/Speech Therapy: INPATIENT Hospital Diet / Speech Therapy Order(s) 08/15/25 00:44 Diet: Regular - General Food consistency:: Pureed Liquid Consistency:: Regular/Thin Type of Dietary Supplement:: Ensure Plus High Protein Diet Comments: 240 ml CIB w/ B, 240ml chocolate Ensure PHP w/ L, Magic cup w/ D Speech Therapy Comments: Direct sup and feeding assistance Routine Orders/Code Status Code Status: Full Code DC O2, CPAP, BIPAP needs Home O2 Discharge instructions: No Wound(s) Right Buttock: Wound Type: Pressure Injury Therapies Weight Bearing: Full weight bearing Physical Therapy: Eval and Treat Occupational Therapy: Eval and Treat Problem/Diagnosis (1) Generalized weakness: Status: Acute Code(s): R53.1 - Weakness (2) Adult failure to thrive: Status: Acute Code(s): R62.7 - Adult failure to thrive Plan Patient is a 65-year-old female who presented to [facility] ED on 08/15/2025 with worsening weakness. Hospital course as noted below. Patientdischarged to SNF in stable condition on 08/21. 1. Adult failure to thrive ? PT/OT/case management followed. Patient with poor therapy scores during hospitalization. Suspected multifactorial with acute CVA and cognitive impairment versus dementia being large contributors to this. Stable for discharge to SNF on 08/21. 2. 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 MRI brain on 08/17 showed punctate acute or subacute ischemic foci within the bilateral, right greater than left centrum semiovale. Severe chronic microvascular ischemic changes and moderate global cerebral atrophy also noted. Nolateralizing deficits noted. Primary issues at this time are problems with balance and walking, and apparent difficulty speaking and understanding speech. PT/OT following as above and patient had poor therapy scores during her hospitalization. Patient also had difficulty with providing any history and it is unclear if this is due to the acute CVA versus some degree of underlying cognitive impairment. Discharged to SNF as above. Started on aspirin and high intensity statin on discharge. 3. New onset severe acute HFrEF ? Echo on 08/17 showed EF 10%, stage II diastolic dysfunction, severe global hypokinesis of the left interval, moderate enlarged LA, mildly enlarged RA, no significant valvular disease. Consistent with nonischemic cardiomyopathy. Unclear etiology but alcohol use disorder is a likely contributor. Initiated onguideline directed medical therapy and patient tolerated this well. Will discharge on Coreg, losartan, Lasix and Jardiance. 4. Suspect alcohol use disorder ? Reported history of heavier alcohol use in the past but per family her alcoholuse recently was not significant. CIWA protocol placed during hospitalization and patient with no evidence of withdrawal. 5. Bacteriuria ? UA with 500% esterase, positive nitrates, rare bacteria. Urine culture grew 25-50,000 Klebsiella. Treated initially with IV ceftriaxone then switched to Macrobid. Klebsiella showed intermediate resistance to Macrobid so this was discontinued and patient was observed. No need for further treatment at this time. 6. Major depressive disorder ? Continue home citalopram. Total clinical time spent by myself addressing the patient's medical issues, reviewing all the data, and collaborating with patient's care team: 46 minutes. Allergies/Procedures Done in Hospital Allergies No Known Allergies Allergy (Verified 08/14/25 15:26) Procedures: EKG, Transthoracic Echo and - (CT abdomen pelvis, CTA chest, MRI brain, CTA head/neck, chest x-ray) Type of Care/Length of Stay Estimated LOS: Convalescent Care Less Than 30 days Type of Care Needed: Skilled Rehab Potential: Fair Prognosis: Fair Additional Orders/Day of Discharge H&P will serve as current which was dated: 08/15/25 Day of Discharge: 08/21/25 Dietary and Speech 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s Dietitian 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s/Changes: Continue Regular diet order Continue 240 ml bottle Ensure PHP (chocolate) daily at lunch Continue CIB w/ breakfast and magic cup w/ dinner for increased nutrition if consumed Consider appetite stimulant to help encourage increased po intake at meals If poor po intake/wt loss continue, may need to consider more aggressive nutrition support (ie supplemental TF) to help prevent further decline in pt nutritional status if in accordance w/ pt/family wishes. Discharge Plan Admission Admit Date/Time: 08/16/25 14:41 Primary Reason for Your Visit: Weakness Attending Provider: Simone Webster Primary Care Provider: Care Physician,Estephania Primary Consulting Providers: Bharath Quiros; Gavin Garcia; Doreen Cobb; Olga Holman; Janis Mai; Bethanie Jain; Thomas Carballo; Barbra Klein; Dmitry Wood; Wang Lucas;Mukul Soliman; Marleni Barger; Eboni Acuña; Nigel Dunaway; Mariya Cormier; Chon Goodrich; Eliezer Hernandez; Jesse Tiwari; Deandre Anders; Mark Nelson; Camille Yun; Sandra Moy; Corey Guillen Discharge Orders/Prescriptions Prescriptions: New furosemide 40 mg Tablet 40 mg PO DAILY 30 Days Qty: 0 0RF carvedilol 12.5 mg Tablet 12.5 mg PO BIDCM 30 Days Qty: 0 0RF aspirin 81 mg Tablet,Chewable 81 mg PO BREAKFAST 30 Days Qty: 0 0RF folic acid 1 mg Tablet 1 mg PO BREAKFAST 30 Days Qty: 0 0RF losartan 100 mg Tablet 100 mg PO DAILY 30 Days Qty: 0 0RF Jardiance 10 mg Tablet 10 mg PO DAILY 30 Days Qty: 0 0RF Continued citalopram 40 mg tablet 40 mg PO DAILY trazodone 50 mg tablet 50 - 100 mg PO QHS PRN (Reason: insomnia) Referrals / Follow Up: Care Physician,No Primary [Primary Care Provider, Medical] Disposition Disposition (needs filled in before D/C Order can be placed): Intermediate Facility 08/21/25 7786 <Electronically signed by Simone Webster DO> Cosigner Signature (if applicable): CC: Janis Mai; Mariya Cormier; Jesse Tiwari; Bethanie Jain MD; Olga Holman MD; Gavin Garcia MD; Dr. Doreen Cobb MD; Dr. Thomas Carballo MD; Dr. Leon MD; Dr. Wang Lucas MD; Dr. Dmitry Wood MD; Dr. Mukul Soliman MD; Dr. Marleni Barger DO; Dr. Corey Guillen DO; Dr. Nigel Dunaway DO; Dr. Eliezer Hernandez MD; Dr. Chon Goodrich MD; Dr. Bharath Quiros MD; Dr. Deandre Anders MD; Dr. Mark Nelson MD; Dr. Camille Yun MD; Eboni Acuña DO; [facility] Physician; Sandra Moy MD ~ [facility] Work Phone: 1(568) 579-428310-20-2025 Discharge summary [facility] Medical Records Department [address] [address] Discharge Summary 08/21/25 1532 MR#: [id number] Acct: [id number] Name: BANDAR TIWARI Rep #:[id number] : 1960 65 From: Simone lau DO PCP: Care Physician,No Primary Status :ADM IN Location: [facility] [id number] Providers Date of Admission: 08/16/25 Date of Discharge: 08/21/25 Primary Care Physician: No Primary Care Phys Consultations 08/17/25 19:14 Teleneurology [Consult: Tele-Neurology] Routine Consulting Provider: [facility] Reason for Consult: abnormal MRI EMERGENT Consult: No MD Notified: Yes Date Notified: 08/17/25 Time Notified: 23:26 Method of Notification: Answering Service Comments:: to do 08/18/25 am. Nursing Unit Staff Notify [facility] of Tele-Neurology Consult: Yes Reason For Visit: GENERAL WEAKNESS FAILURE TO THRIVE UTI Diagnosis Discharge Diagnosis (1) Generalized weakness: Status: Acute Code(s): R53.1 - Weakness (2) Adult failure to thrive: Status: Acute Code(s): R62.7 - Adult failure to thrive Medications at Discharge Home Medications citalopram 40 mg tablet 40 mg PO DAILY MOOD 08/14/25 trazodone 50 mg tablet 50 - 100 mg PO QHS PRN insomnia 08/14/25 aspirin 81 mg chewable tablet 81 mg PO BREAKFAST 30 days #0 tabs 08/21/25 carvedilol 12.5 mg tablet 12.5 mg PO BIDCM 30 days #0 tabs 08/21/25 empagliflozin 10 mg tablet (Jardiance) 10 mg PO DAILY 30 days #0 tabs 08/21/25 folic acid 1 mg tablet 1 mg PO BREAKFAST 30 days #0 tabs 08/21/25 furosemide 40 mg tablet 40 mg PO DAILY 30 days #0 tabs 08/21/25 losartan 100 mg tablet 100 mg PO DAILY 30 days #0 tabs 08/21/25 Hospital Course Operations None Procedures EKG, Transthoracic echo and - (CT abdomen pelvis, CTA chest, MRI brain, CTA head/neck, chest x-ray) Summary of Care Provided Minutes Spent on Discharge: 46 Hospital Course: Patient is a 65-year-old female who presented to [facility] ED on 08/15/2025 with worsening weakness. Hospital course as noted below. Patientdischarged to SNF in stable condition on 08/21. 1. Adult failure to thrive ? PT/OT/case management followed. Patient with poor therapy scores during hospitalization. Suspected multifactorial with acute CVA and cognitive impairment versus dementia being large contributors tothis. Stable for discharge to SNF on 08/21. 2. 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 MRI brain on 08/17 showed punctate acute or subacute ischemic foci within the bilateral, right greater than left centrum semiovale. Severe chronic microvascular ischemic changes and moderate globalcerebral atrophy also noted. No lateralizing deficits noted. Primary issues at this time are problems with balance and walking, and apparent difficulty speaking and understanding speech. PT/OT following as above and patient had poor therapy scores during her hospitalization. Patient also had difficulty with providing any history and it is unclear if this is due to the acute CVA versus some degreeof underlying cognitive impairment. Discharged to SNF as above. Started on aspirin and high intensity statin on discharge. 3. New onset severe acute HFrEF ? Echo on 08/17 showed EF 10%, stage II diastolic dysfunction, severe global hypokinesis of the left interval, moderate enlarged LA, mildly enlarged RA, no significant valvular disease. Consistent with nonischemic cardiomyopathy. Unclear etiology but alcohol use disorder is a likely contributor. Initiated onguideline directed medical therapy and patient tolerated this well. Will discharge on Coreg, losartan, Lasix and Jardiance. 4. Suspect alcohol use disorder ? Reported history of heavier alcohol use in the past but per family her alcoholuse recently was not significant. CIWA protocol placed during hospitalization and patient with no evidence of withdrawal. 5. Bacteriuria ? UA with 500% esterase, positive nitrates, rare bacteria. Urine culture grew 25-50,000 Klebsiella.Treated initially with IV ceftriaxone then switched to Macrobid. Klebsiella showed intermediate resistance to Macrobid so this was discontinued and patient was observed. No need for further treatmentat this time. 6. Major depressive disorder ? Continue home citalopram. Total clinical time spent by myself addressing the patient's medical issues, reviewing all the data, and collaborating with patient's care team: 46 minutes. Physical Exam Narrative alert, no apparent distress and average body habitus General Appearance: cooperative, well kempt and well developed Orientation / Consciousness: awake, oriented to person and oriented to place HEENT normocephalic, head/scalp atraumatic and moist oral mucous membranes Eyes PERRL, EOMs intact bilaterally and conjunctivae normal Neck supple, no JVD, thyroid normal and no carotid bruits General: trachea midline Resp normal respiratory effort, no retractions, no use of accessory muscles and clearto auscultation bilaterally Auscultation: Negative for rales, rhonchi or wheezes Cardio regular rate, regular rhythm, S1 normal heart sound, S2 normal heart sound, no murmurs, no rub and no gallops GI normal to inspection, nondistended, normoactive bowel sounds, soft to palpation,non-tender and non-distended Extremity no clubbing, cyanosis or edema Skin no rashes or lesions noted General Skin Exam: no breakdown Neuro CN's II-XII intact bilaterally, no focal motor deficits and no sensory deficits noted Sensorium / Orientation: awake, alert, oriented to person and oriented to place Speech: speech normal Psych Psych Narrative: Patient has flat affect, she does respond appropriately to simple questions Medical Records Data Medical Nutrition Assessment Dietitian: Malnutrition Criteria Met Start: 08/15/25 13:56 Freq: Status: Active Protocol: Document 08/18/25 13:13 SLA (Rec: 08/18/25 13:13 SLA [id number]) Nutrition Malnutrition Evidence of No Malnutrition Exists Malnutrition (severe Acute Illness/Injury ): Malnutrition ( Severe pro/heather unspecified) Intake Problem Increased Nutrient Needs (specify) Etiology protein related to skin status Signs/Symptoms as evidenced by PI to R buttock Status Active Problem Clinical Problem Acute Disease or Injury Related Malnutrition Etiology related to recent FTT Signs/Symptoms 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 Dietitian Continue Regular diet order 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s/ Continue 240 ml bottle Ensure PHP (chocolate) dailyat Changes lunch Will order CIB w/ breakfast and magic cup w/ dinnerfor increased nutrition if consumed Consider appetite stimulant to help encourage increased po intake at meals Weight / BMI Weight Weight: 62.5 kg Body Mass Index (BMI) 22.2 ABG / Lab / Microbiology Data 08/15/25 07:27 08/20/25 09:21 Microbiology: Microbiology 08/14/25 21:30 Urine, Catheterized Urine Culture - Final Klebsiella pneumoniae sp pneum D/C Instructions DC O2, CPAP, BIPAP Needs Home O2 Discharge instructions: No Meaningful Use Info Meaningful Use Meaningful Use Diagnoses (Choose all that apply): Ischemic CVA CVA Therapy Assessed for PT,OT and/or ST?: Yes Ischemic Stroke Antithrombotic order at d/c?: Yes Dx of Atrial fib/flutter?: No Statins at discharge?: Yes If patient is 75 or younger, pt will be discharged on HIGH intensity statin.: Yes Primary Dx Acute Ischemic CVA?: Yes Discharge Plan Admission Admit Date/Time: 08/16/25 14:41 Primary Reason for Your Visit: Weakness Attending Provider: Simone Webster Primary Care Provider: Care Physician,No Primary Consulting Providers: Bharath Quiros; Gavin Garcia; Doreen Cobb; Olga Holman; Janis Mai; Bethanie Jain; Thomas Carballo; Barbra Klein; Dmitry Wood; Wang Lucas;Mukul Soliman; Marleni Barger; Eboni Acuña; Nigel Dunaway; Mariya Cormier; Chon Goodrich; Eliezer Hernandez; Jesse Tiwari; Deandre Anders; Mark Nelson; Camille Yun; Sandra Moy; Corey Guillen Discharge Orders/Prescriptions Prescriptions: New furosemide 40 mg Tablet 40 mg PO DAILY 30 Days Qty: 0 0RF carvedilol 12.5 mg Tablet 12.5 mg PO BIDCM 30 Days Qty: 0 0RF aspirin 81 mg Tablet,Chewable 81 mg PO BREAKFAST 30 Days Qty: 0 0RF folic acid 1 mg Tablet 1 mg PO BREAKFAST 30 Days Qty: 0 0RF losartan 100 mg Tablet 100 mg PO DAILY 30 Days Qty: 0 0RF Jardiance 10 mg Tablet 10 mg PO DAILY 30 Days Qty: 0 0RF Continued citalopram 40 mg tablet 40 mg PO DAILY trazodone 50 mg tablet 50 - 100 mg PO QHS PRN (Reason: insomnia) Referrals / Follow Up: Care Physician,No Primary [Primary Care Provider, Medical] Disposition Disposition (needs filled in before D/C Order can be placed): Intermediate Facility Charges/Coding Visit Charges Inpatient E&M: 52177 Disch Hosp >30min 08/21/25 1554 Cosigner Signature (if applicable): CC: Dr. Simone Webster DO; No Primary Care Physician~ Signed [facility]10-20-2025 Discharge summary [facility] Medical Records Department [address] [place] [address] Transfer to [facility] MR#: [id number] Acct: [id number] Name: BANDAR TIWARI Rep #:[id number] : 1960 65 From: Simone lau DO PCP: Care Physician,No Primary Status :ADM IN Certification of patient admission REQUIRED AT TIME OF ADMISSION. I CERTIFY THAT [facility] SERVICES ARE REQUIRED TO BE GIVEN ON AN IN-PATIENT BASIS BECAUSE OF THE ABOVE NAMED PATIENT'S NEED FOR SKILLED NURSING CARE ON A CONTINUING BASIS FOR THE CONDITION(S) FOR WHICH HE/SHE WAS RECEIVING IN-PATIENT HOSPITAL SERVICES PRIOR TO HIS/HER TRANSFER TO THE [facility]. 08/21/25 1551 Diet Diet Order/Speech Therapy: INPATIENT Hospital Diet / Speech Therapy Order(s) 08/15/25 00:44 Diet: Regular - General Food consistency:: Pureed Liquid Consistency:: Regular/Thin Type of Dietary Supplement:: Ensure Plus High Protein Diet Comments: 240 ml CIB w/ B, 240ml chocolate Ensure PHP w/ L, Magic cup w/ D Speech Therapy Comments: Direct sup and feeding assistance Routine Orders/Code Status Code Status: Full Code DC O2, CPAP, BIPAP needs Home O2 Discharge instructions: No Wound(s) Right Buttock: Wound Type: Pressure Injury Therapies Weight Bearing: Full weight bearing Physical Therapy: Eval and Treat Occupational Therapy: Eval and Treat Problem/Diagnosis (1) Generalized weakness: Status: Acute Code(s): R53.1 - Weakness (2) Adult failure to thrive: Status: Acute Code(s): R62.7 - Adult failure to thrive Plan Patient is a 65-year-old female who presented to [facility] ED on 08/15/2025 with worsening weakness. Hospital course as noted below. Patientdischarged to SNF in stable condition on 08/21. 1. Adult failure to thrive ? PT/OT/case management followed. Patient with poor therapy scores during hospitalization. Suspected multifactorial with acute CVA and cognitive impairment versus dementia being large contributors tothis. Stable for discharge to SNF on 08/21. 2. 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 MRI brain on 08/17 showed punctate acute or subacute ischemic foci within the bilateral, right greater than left centrum semiovale. Severe chronic microvascular ischemic changes and moderate globalcerebral atrophy also noted. Nolateralizing deficits noted. Primary issues at this time are problems with balance and walking, and apparent difficulty speaking and understanding speech. PT/OT following as above and patient had poor therapy scores during her hospitalization. Patient also had difficulty with providing any history and it is unclear if this is due to the acute CVA versus some degree of underlying cognitive impairment. Discharged to SNF as above. Started on aspirin and high intensity statin on discharge. 3. New onset severe acute HFrEF ? Echo on 08/17 showed EF 10%, stage II diastolic dysfunction, severe global hypokinesis of the left interval, moderate enlarged LA, mildly enlarged RA, no significant valvular disease. Consistent with nonischemic cardiomyopathy. Unclear etiology but alcohol use disorder is a likely contributor. Initiated onguideline directed medical therapy and patient tolerated this well. Will discharge on Coreg, losartan, Lasix and Jardiance. 4. Suspect alcohol use disorder ? Reported history of heavier alcohol use in the past but per family her alcoholuse recently was not significant. CIWA protocol placed during hospitalization and patient with no evidence of withdrawal. 5. Bacteriuria ? UA with 500% esterase, positive nitrates, rare bacteria. Urine culture grew 25-50,000 Klebsiella.Treated initially with IV ceftriaxone then switched to Macrobid. Klebsiella showed intermediate resistance to Macrobid so this was discontinued and patient was observed. No need for further treatmentat this time. 6. Major depressive disorder ? Continue home citalopram. Total clinical time spent by myself addressing the patient's medical issues, reviewing all the data, and collaborating with patient's care team: 46 minutes. Allergies/Procedures Done in Hospital Allergies No Known Allergies Allergy (Verified 08/14/25 15:26) Procedures: EKG, Transthoracic Echo and - (CT abdomen pelvis, CTA chest, MRI brain, CTA head/neck, chest x-ray) Type of Care/Length of Stay Estimated LOS: Convalescent Care Less Than 30 days Type of Care Needed: Skilled Rehab Potential: Fair Prognosis: Fair Additional Orders/Day of Discharge H&P will serve as current which was dated: 08/15/25 Day of Discharge: 08/21/25 Dietary and Speech 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s Dietitian 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s/Changes: Continue Regular diet order Continue 240 ml bottle Ensure PHP (chocolate) daily at lunch Continue CIB w/ breakfast and magic cup w/ dinner for increased nutrition if consumed Consider appetite stimulant to help encourage increased po intake at meals If poor po intake/wt loss continue, may need to consider more aggressive nutrition support (ie supplemental TF) to help prevent further decline in pt nutritional status if in accordance w/ pt/family wishes. Discharge Plan Admission Admit Date/Time: 08/16/25 14:41 Primary Reason for Your Visit: Weakness Attending Provider: Simone Webster Primary Care Provider: Care Physician,No Primary Consulting Providers: Bharath Quiros; Gavin Garcia; Doreen Cobb; Olga Holman; Janis Mai; Bethanie Jain; Thomas Carballo; Barbra Klein; Dmitry Wood; Wang Lucas;Mukul Soliman; Marleni Barger; Eboni Acuña; Nigel Dunaway; Mariya Cormier; Chon Goodrich; Eliezer Hernandez; Jesse Tiwari; Deandre Anders; Mark Nelson; Camille Yun; Sandra Moy; Corey Guillen Discharge Orders/Prescriptions Prescriptions: New furosemide 40 mg Tablet 40 mg PO DAILY 30 Days Qty: 0 0RF carvedilol 12.5 mg Tablet 12.5 mg PO BIDCM 30 Days Qty: 0 0RF aspirin 81 mg Tablet,Chewable 81 mg PO BREAKFAST 30 Days Qty: 0 0RF folic acid 1 mg Tablet 1 mg PO BREAKFAST 30 Days Qty: 0 0RF losartan 100 mg Tablet 100 mg PO DAILY 30 Days Qty: 0 0RF Jardiance 10 mg Tablet 10 mg PO DAILY 30 Days Qty: 0 0RF Continued citalopram 40 mg tablet 40 mg PO DAILY trazodone 50 mg tablet 50 - 100 mg PO QHS PRN (Reason: insomnia) Referrals / Follow Up: Care Physician,No Primary [Primary Care Provider, Medical] Disposition Disposition (needs filled in before D/C Order can be placed): Intermediate Facility 08/21/25 9141 Cosigner Signature (if applicable): CC: Janis Mai; Mariya Cormier; Jesse Tiwari; Bethanie Jain MD; Olga Holman MD; Gavin Garcia MD; Dr. Doreen Cobb MD; Dr. Thomas Carballo MD; Dr. Leon MD; Dr. Wang Lucas MD; Dr. Dmitry Wood MD; Dr. Mukul Soliman MD; Dr. Marleni Barger DO; Dr. Corey Guillen DO; Dr. Nigel Dunaway DO; Dr. Eliezer Hernandez MD; Dr. Chon Goodrich MD; Dr. Bharath Quiros MD; Dr. Deandre Anders MD; Dr. Mark Nelson MD; Dr. Camille Yun MD; Eboni Acuña DO; [facility] Physician; Sandra Moy MD ~ [facility]10-20-2025 [facility] Medical Records Department [address] [place] [address] Discharge Summary 08/21/25 1532 MR#: [id number] Acct: [id number] Name: BANDAR TIWARI Rep #: [id number] : 1960 65 From: Simone Webster DO PCP: Care Physician,No Primary Status:ADM IN Location: [facility] [id number] Providers Date of Admission: 08/16/25 Date of Discharge: 08/21/25 Primary Care Physician: No Primary Care Phys Consultations 08/17/25 19:14 Teleneurology [Consult: Tele-Neurology] Routine Consulting Provider: [facility] Reason for Consult: abnormal MRI EMERGENT Consult: No MD Notified: Yes Date Notified: 08/17/25 Time Notified: 23:26 Method of Notification: Answering Service Comments:: to do 08/18/25 am. Nursing Unit Staff Notify [facility] of Tele-Neurology Consult: Yes Reason For Visit: GENERAL WEAKNESS FAILURE TO THRIVE UTI Diagnosis Discharge Diagnosis (1) Generalized weakness: Status: Acute Code(s): R53.1 - Weakness (2) Adult failure to thrive: Status: Acute Code(s): R62.7 - Adult failure to thrive Medications at Discharge Home Medications citalopram 40 mg tablet 40 mg PO DAILY MOOD 08/14/25 trazodone 50 mg tablet 50 - 100 mg PO QHS PRN insomnia 08/14/25 aspirin 81 mg chewable tablet 81 mg PO BREAKFAST 30 days #0 tabs 08/21/25 carvedilol 12.5 mg tablet 12.5 mg PO BIDCM 30 days #0 tabs 08/21/25 empagliflozin 10 mg tablet (Jardiance) 10 mg PO DAILY 30 days #0 tabs 08/21/25 folic acid 1 mg tablet 1 mg PO BREAKFAST 30 days #0 tabs 08/21/25 furosemide 40 mg tablet 40 mg PO DAILY 30 days #0 tabs 08/21/25 losartan 100 mg tablet 100 mg PO DAILY 30 days #0 tabs 08/21/25 Hospital Course Operations None Procedures EKG, Transthoracic echo and - (CT abdomen pelvis, CTA chest, MRI brain, CTA head/neck, chest x-ray) Summary of Care Provided Minutes Spent on Discharge: 46 Hospital Course: Patient is a 65-year-old female who presented to [facility] ED on 08/15/2025 with worsening weakness. Hospital course as noted below. Patient discharged to SNF in stable condition on 08/21. 1. Adult failure to thrive ??? PT/OT/case management followed. Patient with poor therapy scores during hospitalization. Suspected multifactorial with acute CVA and cognitive impairment versus dementia being large contributors to this. Stable for discharge to SNF on 08/21. 2. Acute CVA in the bilateral cerebral hemispheres, concern for cognitive impairment versus dementia ??? MRI brain on 08/17 showed punctate acute or subacute ischemic foci within the bilateral, right greater than left centrum semiovale. Severe chronic microvascular ischemic changes and moderate global cerebral atrophy also noted. No lateralizing deficits noted. Primary issues at this time are problems with balance and walking, and apparent difficulty speaking and understanding speech. PT/OT following as above and patient had poor therapy scores during her hospitalization. Patient also had difficulty with providing any history and it is unclear if this is due to the acute CVA versus some degree of underlying cognitive impairment. Discharged to SNF as above. Started on aspirin and high intensity statin on discharge. 3. New onset severe acute HFrEF ??? Echo on 08/17 showed EF 10%, stage II diastolic dysfunction, severe global hypokinesis of the left interval, moderate enlarged LA, mildly enlarged RA, no significant valvular disease. Consistent with nonischemic cardiomyopathy. Unclear etiology but alcohol use disorder is a likely contributor. Initiated on guideline directed medical therapy and patient tolerated this well. Will discharge on Coreg, losartan, Lasix and Jardiance. 4. Suspect alcohol use disorder ??? Reported history of heavier alcohol use in the past but per family her alcohol use recently was not significant. CIWA protocol placed during hospitalization and patient with no evidence of withdrawal. 5. Bacteriuria ??? UA with 500% esterase, positive nitrates, rare bacteria. Urine culture grew 25-50,000 Klebsiella. Treated initially with IV ceftriaxone then switched to Macrobid. Klebsiella showed intermediate resistance to Macrobid so this was discontinued and patient was observed. No need for further treatment at this time. 6. Major depressive disorder ??? Continue home citalopram. Total clinical time spent by myself addressing the patient's medical issues, reviewing all the data, and collaborating with patient's care team: 46 minutes. Physical Exam Narrative alert, no apparent distress and average body habitus General Appearance: cooperative, well kempt and well developed Orientation / Consciousness: awake, oriented to person and oriented to place HEENT normocephalic, head/scalp atraumatic and moist oral mucous membranes Eyes PERRL, EOMs intact bilaterally and conjunctivae nor (more content not included)...[facility]10-20-2025 Hospital Discharge instructions Additional Inst[facility]: [facility]: 1(289) 534-597010-19-2025 Progress note Author Corey Guillen [facility] Note Date/Time August 20, 2025 6 :31pm [facility] Medical Records Department [address] [place] [address] Progress Note - Hospitalist 08/20/25 1711 MR#: [id number] Acct: [id number] Name: BANDAR TIWARI Rep #:[id number] : 1960 65 From: Corey Guillen DO PCP: Care Physician,No Primary Status :ADM IN Location: [place] [address] Reason for Visit Chief Complaint: Generalized weakness, failure to thrive Subjective Subjective Patient was seen and examined today, her blood pressure has improved, she is nowon room air, I talked to the son who was in the room at the time of my examination. I will review her medications and adjust them upward if possible for her cardiomyopathy. Objective Data Objective Data Vital Signs: Vital Signs Temp Pulse Resp BP Pulse Ox O2 Del Method O2 Flow Rate 97.3 F L 69 16 133/87 H 97 Room Air 2 08/20/25 09:20 08/20/25 09:20 08/20/25 09:20 08/20/25 09:20 08/20/25 09:20 08/20/25 09:20 08/20/25 07:35 Oxygen Flow Rate (L/min) 2 Oxygen Delivery Method Room Air Weight: 62.5 kg Body Mass Index (BMI) 22.2 Intake & Output: Intake and Output for Last 24 Hours 08/18/25 08/19/25 08/20/25 23:59 23:59 23:59 Intake Total 2137.5 / 2137.5 0 / 0 Output Total 700 / 900 400 / 500 100 / 100 Balance 1437.5 / 1237.5 -400 / -500 -100 / -100 Medical Nutrition Assessment Dietitian: Malnutrition Criteria Met Start: 08/15/25 13:56 Freq: Status: Active Protocol: Document 08/18/25 13:13 SLA (Rec: 08/18/25 13:13 SLA 08.11.25.7) Nutrition Malnutrition Evidence of No Malnutrition Exists Malnutrition (severe Acute Illness/Injury ): Malnutrition ( Severe pro/heather unspecified) Intake Problem Increased Nutrient Needs (specify) Etiology protein related to skin status Signs/Symptoms as evidenced by PI to R buttock Status Active Problem Clinical Problem Acute Disease or Injury Related Malnutrition Etiology related to recent FTT Signs/Symptoms 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 Dietitian Continue Regular diet order 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s/ Continue 240 ml bottle Ensure PHP (chocolate) dailyat Changes lunch Will order CIB w/ breakfast and magic cup w/ dinnerfor increased nutrition if consumed Consider appetite stimulant to help encourage increased po intake at meals Lab / Micro Data 08/15/25 07:27 08/20/25 09:21 Labs: Laboratory Results - last 24 hr 08/20/25 09:21: Sodium 140, Potassium 4.1, Chloride 110 H, Carbon Dioxide 17.6 L, Anion Gap 13, BUN 27 H, Creatinine 1.19, Estim Creat Clear Calc 44.71 L, Est GFR (MDRD) Non-Af 51 L, BUN/Creatinine Ratio 22.8 H, Glucose 86, Calcium 9.5 Micro: Microbiology 08/14/25 21:30 Urine, Catheterized Urine Culture - Final Klebsiella pneumoniae sp pneum Radiography Diagnostic Testing: Radiology Impression Chest X-Ray 08/20/25 09:00 IMPRESSION: Cardiomegaly. Otherwise, no acute process in the chest. Reading Location: [facility] Physical Exam Narrative alert, no apparent distress and average body habitus General Appearance: cooperative, well kempt and well developed Orientation / Consciousness: awake, oriented to person and oriented to place HEENT normocephalic, head/scalp atraumatic and moist oral mucous membranes Eyes PERRL, EOMs intact bilaterally and conjunctivae normal Neck supple, no JVD, thyroid normal and no carotid bruits General: trachea midline Resp normal respiratory effort, no retractions, no use of accessory muscles and clearto auscultation bilaterally Auscultation: Negative for rales, rhonchi or wheezes Cardio regular rate, regular rhythm, S1 normal heart sound, S2 normal heart sound, no murmurs, no rub and no gallops GI normal to inspection, nondistended, normoactive bowel sounds, soft to palpation,non-tender and non-distended Extremity no clubbing, cyanosis or edema Skin no rashes or lesions noted General Skin Exam: no breakdown Neuro CN's II-XII intact bilaterally, no focal motor deficits and no sensory deficits noted Sensorium / Orientation: awake, alert, oriented to person and oriented to place Speech: speech normal Psych Psych Narrative: Patient has flat affect, she does respond appropriately to simple questions Assessment & Plan Assessment/Plan (1) Generalized weakness: (2) Adult failure to thrive: PLAN: Plan 1. Adult failure to thrive-etiology unclear at this point, she may have undiagnosed dementia, PT and OT will continue to see the patient and she will need at least temporary placement in a fdc facility. #2 bacteriuria-there are low numbers of gram-negative bacteria in the urine, patient's urine culture grew out 25,000-50,000 colonies of Klebsiella pneumoniaewhich is intermediate to Macrobid. I will stop the patient's Macrobid and observe the patient #3 hypertension-I suspect this is undiagnosed essential hypertension, patient terrell losartan #4 probable dementia/cognitive impairment-again it does not appear that the patient has a primary care physician and this may be contributing to her lack ofability to care for self. #5 acute stroke in the bilateral cerebral hemispheres-patient will remain on an aspirin and a statin, CTA of the head and neck did not show any significant arterial occlusions. #6 severe cardiomyopathy with reduced ejection fraction of 10%-etiology is not clear, I will increase the patient's carvedilol, she remains on Jardiance, losartan, and Lasix. #7 major depressive [id number] will remain on her current psychiatric medication, I talked with her counseling center yesterday and they told me her major diagnosis is major depressive disorder as well as alcohol dependence #8 suspected alcohol use disorder-patient shows no evidence of DTs at this time Total clinical time spent by myself addressing the patient's medical issues, reviewing all of her data, and collaborating with patient's care team: 35 minutes Charges/Coding Visit Charges Inpatient E&M: 88694 Subs Hosp L2 08/20/25 1564 <Electronically signed by Corey Guillen DO> Cosigner Signature (if applicable): CC: ~ Signed ADDENDUM by Dr. Corey Guillen DO on 08/20/25 at 1731 Addendum 9. Acute severe protein and caloric malnutrition related to recent failure to thrive, energy intake less than 50% of weight loss of 6% x 1 week-continue regular diet, CIB with breakfast and Magic cup with dinner for increased nutrition. Nutritional services will continue to follow the patient 08/20/25 1731<Electronically signed by Corey Guillen DO> Cosigner Signature (if applicable): cc: ~* Signed [facility] Work Phone: 1(633) 875-827710-19-2025 Progress note [facility] Medical Records Department [address] [place] [address] Progress Note - Hospitalist 08/20/25 1711 MR#: [id number] Acct: [id number] Name: BANDAR TIWARI Rep #:[id number] : 1960 65 From: Corey Guillen DO PCP: Care Physician,No Primary Status :ADM IN Location: [place] [address] Reason for Visit Chief Complaint: Generalized weakness, failure to thrive Subjective Subjective Patient was seen and examined today, her blood pressure has improved, she is nowon room air, I talked to the son who was in the room at the time of my examination. I will review her medications and adjust them upward if possible for her cardiomyopathy. Objective Data Objective Data Vital Signs: Vital Signs Temp Pulse Resp BP Pulse Ox O2 Del Method O2 Flow Rate 97.3 F L 69 16 133/87 H 97 Room Air 2 08/20/25 09:20 08/20/25 09:20 08/20/25 09:20 08/20/25 09:20 08/20/25 09:20 08/20/25 09:20 08/20/25 07:35 Oxygen Flow Rate (L/min) 2 Oxygen Delivery Method Room Air Weight: 62.5 kg Body Mass Index (BMI) 22.2 Intake & Output: Intake and Output for Last 24 Hours 08/18/25 08/19/25 08/20/25 23:59 23:59 23:59 Intake Total 2137.5 / 2137.5 0 / 0 Output Total 700 / 900 400 / 500 100 / 100 Balance 1437.5 / 1237.5 -400 / -500 -100 / -100 Medical Nutrition Assessment Dietitian: Malnutrition Criteria Met Start: 08/15/25 13:56 Freq: Status: Active Protocol: Document 08/18/25 13:13 SLA (Rec: 08/18/25 13:13 SLA [email or web address]) Nutrition Malnutrition Evidence of No Malnutrition Exists Malnutrition (severe Acute Illness/Injury ): Malnutrition ( Severe pro/heather unspecified) Intake Problem Increased Nutrient Needs (specify) Etiology protein related to skin status Signs/Symptoms as evidenced by PI to R buttock Status Active Problem Clinical Problem Acute Disease or Injury Related Malnutrition Etiology related to recent FTT Signs/Symptoms 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 Dietitian Continue Regular diet order 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s/ Continue 240 ml bottle Ensure PHP (chocolate) dailyat Changes lunch Will order CIB w/ breakfast and magic cup w/ dinnerfor increased nutrition if consumed Consider appetite stimulant to help encourage increased po intake at meals Lab / Micro Data 08/15/25 07:27 08/20/25 09:21 Labs: Laboratory Results - last 24 hr 08/20/25 09:21: Sodium 140, Potassium 4.1, Chloride 110 H, Carbon Dioxide 17.6 L, Anion Gap 13, BUN27 H, Creatinine 1.19, Estim Creat Clear Calc 44.71 L, Est GFR (MDRD) Non-Af 51 L, BUN/Creatinine Ratio 22.8 H, Glucose 86, Calcium 9.5 Micro: Microbiology 08/14/25 21:30 Urine, Catheterized Urine Culture - Final Klebsiella pneumoniae sp pneum Radiography Diagnostic Testing: Radiology Impression Chest X-Ray 08/20/25 09:00 IMPRESSION: Cardiomegaly. Otherwise, no acute process in the chest. Reading Location: [facility] Physical Exam Narrative alert, no apparent distress and average body habitus General Appearance: cooperative, well kempt and well developed Orientation / Consciousness: awake, oriented to person and oriented to place HEENT normocephalic, head/scalp atraumatic and moist oral mucous membranes Eyes PERRL, EOMs intact bilaterally and conjunctivae normal Neck supple, no JVD, thyroid normal and no carotid bruits General: trachea midline Resp normal respiratory effort, no retractions, no use of accessory muscles and clearto auscultation bilaterally Auscultation: Negative for rales, rhonchi or wheezes Cardio regular rate, regular rhythm, S1 normal heart sound, S2 normal heart sound, no murmurs, no rub and no gallops GI normal to inspection, nondistended, normoactive bowel sounds, soft to palpation,non-tender and non-distended Extremity no clubbing, cyanosis or edema Skin no rashes or lesions noted General Skin Exam: no breakdown Neuro CN's II-XII intact bilaterally, no focal motor deficits and no sensory deficits noted Sensorium / Orientation: awake, alert, oriented to person and oriented to place Speech: speech normal Psych Psych Narrative: Patient has flat affect, she does respond appropriately to simple questions Assessment & Plan Assessment/Plan (1) Generalized weakness: (2) Adult failure to thrive: PLAN: Plan 1. Adult failure to thrive-etiology unclear at this point, she may have undiagnosed dementia, PT and OT will continue to see the patient and she will need at least temporary placement in a fdc facility. #2 bacteriuria-there are low numbers of gram-negative bacteria in the urine, patient's urine culture grew out 25,000-50,000 colonies of Klebsiella pneumoniaewhich is intermediate to Macrobid. I will stop the patient's Macrobid and observe the patient #3 hypertension-I suspect this is undiagnosed essential hypertension, patient terrell losartan #4 probable dementia/cognitive impairment-again it does not appear that the patient has a primary care physician and this may be contributing to her lack ofability to care for self. #5 acute stroke in the bilateral cerebral hemispheres-patient will remain on an aspirin and a statin, CTA of the head and neck did not show any significant arterial occlusions. #6 severe cardiomyopathy with reduced ejection fraction of 10%-etiology is not clear, I will increase the patient's carvedilol, she remains on Jardiance, losartan, and Lasix. #7 major depressive [id number] will remain on her current psychiatric medication, I talked with her counseling center yesterday and they told me her major diagnosis is major depressive disorder as well as alcohol dependence #8 suspected alcohol use disorder-patient shows no evidence of DTs at this time Total clinical time spent by myself addressing the patient's medical issues, reviewing all of her data, and collaborating with patient's care team: 35 minutes Charges/Coding Visit Charges Inpatient E&M: 73435 Subs Hosp L2 08/20/25 1715 Cosigner Signature (if applicable): CC: ~ Signed ADDENDUM by Dr. Corey Guillen DO on 08/20/25 at 1731 Addendum 9. Acute severe protein and caloric malnutrition related to recent failure to thrive, energy intakeless than 50% of weight loss of 6% x 1 week-continue regular diet, CIB with breakfast and Magic cupwith dinner for increased nutrition. Nutritional services will continue to follow the patient 08/20/251730 Cosigner Signature (if applicable): cc: ~* Signed [facility]10-19-2025 Radiology Diagnostic study note [facility] Imaging Services [address] [place] [address] Chest 1 View (Portable) MR#: [id number] Acct: [id number] Name: BANDAR TIWARI Rep #: : 1960 F 65 From: Cassius Llamas MD PCP: Care Physician,No Primary Status: ADM IN Study:Chest 1 View (Portable) Date of Exam: 08/20/25 Exam# [id number] Ordering Dr: Corey Alberto DO PROCEDURE: CHEST 1 VIEW (PORTABLE) 08/20/2025 REASON FOR EXAM: HYPOXIA TECHNIQUE: Frontal view of the chest. COMPARISON: None FINDINGS: Mild cardiomegaly. No significant pleural effusion. No consolidation in eitherlung. The bony thoraxis within normal limits. RAD/Chest 1 View (Portable) IMPRESSION: Cardiomegaly. Otherwise, no acute process in the chest. Reading Location: [facility] CC: Dr. Corey Guillen DO; No Primary Care Physician ~ Chiropractic Practice Manager: Signed [facility]10-19-2025 Radiology Diagnostic study note [facility] Imaging Services [address] [place] [id number] Chest 1 View (Portable) MR#: [id number] Acct: [id number] Name: BANDAR TIWARI Rep #: [id number] : 1960 F 65 From: Cassius Llamas MD PCP: Care Physician,No Primary Status: ADM IN Study:Chest 1 View (Portable) Date of Exam: 08/20/25 Exam# [id number] Ordering Dr: Corey Alberto DO PROCEDURE: CHEST 1 VIEW (PORTABLE) 08/20/2025 REASON FOR EXAM: HYPOXIA TECHNIQUE: Frontal view of the chest. COMPARISON: None FINDINGS: Mild cardiomegaly. No significant pleural effusion. No consolidation in eitherlung. The bony thoraxis within normal limits. RAD/Chest 1 View (Portable) IMPRESSION: Cardiomegaly. Otherwise, no acute process in the chest. Reading Location: [facility] CC: Dr. Corey Guillen DO; No Primary Care Physician ~ Chiropractic Practice Manager: Signed [facility]10-18-2025 Progress note Author Corey Guillen [facility] Note Date/Time August 19, 2025 8 :44pm [facility] Medical Records Department [address] [place] [id number] Progress Note - Hospitalist 08/19/251941 MR#: [id number] Acct: [id number] Name: BANDAR TIWARI Rep #:[id number] : 1960 65 From: Corey Guillen DO PCP: Care Physician,No Primary Status :ADM IN Location: [place] [address] Reason for Visit Chief Complaint: Generalized weakness, failure to thrive Subjective Subjective Patient was seen and examined today, CTA of the head and neck does not show any occlusive vascular disease. Objective Data Objective Data Vital Signs: Vital Signs Temp Pulse Resp BP Pulse Ox O2 Del Method O2 Flow Rate 97.8 F 78 15 119/85 H 100 Nasal Cannula 2 08/19/25 10:14 08/19/25 10:14 08/19/25 10:14 08/19/25 10:14 08/19/25 10:14 08/19/25 16:00 08/19/25 16:00 Oxygen Flow Rate (L/min) 2 Oxygen Delivery Method Nasal Cannula Weight: 62.5 kg Body Mass Index (BMI) 22.2 Intake & Output: Intake and Output for Last 24 Hours 08/17/25 08/18/25 08/19/25 23:59 23:59 23:59 Intake Total 2954.17 / 2954.17 2137.5 / 2137.5 0 / 0 Output Total 700 / 900 400 / 400 Balance 2954.17 / 2954.17 1437.5 / 1237.5 -400 / -400 Medical Nutrition Assessment Dietitian: Malnutrition Criteria Met Start: 08/15/25 13:56 Freq: Status: Active Protocol: Document 08/18/25 13:13 SLA (Rec: 08/18/25 13:13 SLA 08.11.25.7) Nutrition Malnutrition Evidence of No Malnutrition Exists Malnutrition (severe Acute Illness/Injury ): Malnutrition ( Severe pro/heather unspecified) Intake Problem Increased Nutrient Needs (specify) Etiology protein related to skin status Signs/Symptoms as evidenced by PI to R buttock Status Active Problem Clinical Problem Acute Disease or Injury Related Malnutrition Etiology related to recent FTT Signs/Symptoms 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 No large vessel arterial occlusion or hemodynamically significant stenosis. 2. Mild focal stenosis left STOCK RECEIVER P1-P2 segment junction. 3. Mild atherosclerotic plaque at the carotid bifurcations. 4. No acute intracranial hemorrhage, mass-effect or territorial infarct. Moderate volume loss and chronic small-vessel ischemic changes. The scattered punctate foci of acute likely embolic infarcts in the cerebral white matter on MRI are not well appreciated on CT. Reading Location: [id number] Physical Exam Narrative alert, no apparent distress and average body habitus General Appearance: cooperative, well kempt and well developed Orientation / Consciousness: awake, oriented to person and oriented to place HEENT normocephalic, head/scalp atraumatic and moist oral mucous membranes Eyes PERRL, EOMs intact bilaterally and conjunctivae normal Neck supple, no JVD, thyroid normal and no carotid bruits General: trachea midline Resp normal respiratory effort, no retractions, no use of accessory muscles and clearto auscultation bilaterally Auscultation: Negative for rales, rhonchi or wheezes Cardio regular rate, regular rhythm, S1 normal heart sound, S2 normal heart sound, no murmurs, no rub and no gallops GI normal to inspection, nondistended, normoactive bowel sounds, soft to palpation,non-tender and non-distended Extremity no clubbing, cyanosis or edema Skin no rashes or lesions noted General Skin Exam: no breakdown Neuro CN's II-XII intact bilaterally, no focal motor deficits and no sensory deficits noted Sensorium / Orientation: awake, alert, oriented to person and oriented to place Speech: speech normal Psych Psych Narrative: Patient has flat affect, she does respond appropriately to simple questions Assessment & Plan Assessment/Plan (1) Adult failure to thrive: PLAN: Plan 1. Adult failure to thrive-etiology unclear at this point, she may have undiagnosed dementia, PT and OT will continue to see the patient and she will need at least temporary placement in a fdc facility. #2 bacteriuria-there are low numbers of gram-negative bacteria in the urine, I have elected to stop her Rocephin and place her on Macrobid #3 hypertension-I suspect this is undiagnosed essential hypertension, patient terrell losartan #4 probable dementia-again it does not appear that the patient has a primary care physician and this may be contributing to her lack of ability to care for self. #5 acute stroke in the bilateral cerebral hemispheres-patient will remain on an aspirin and a statin, CTA of the head and neck will be ordered today #6 severe cardiomyopathy with reduced ejection fraction of 10%-etiology is not clear, patient will be placed on a beta-ben, and ARB, a dose of Lasix, and Jardiance #7 major depressive [id number] will remain on her current psychiatric medication, I talked with her counseling center yesterday and they told me her major diagnosis is major depressive disorder as well as alcohol dependence #8 suspected alcohol use disorder-patient shows no evidence of DTs at this time Total clinical time spent by myself addressing the patient's medical issues, reviewing all of her data, and collaborating with patient's care team: 35 minutes Charges/Coding Visit Charges Inpatient E&M: 00585 Subs Hosp L2 08/19/251943 <Electronically signed by Corey Guillen DO> Cosigner Signature (if applicable): CC: ~ Signed [facility] Work Phone: 1(682) 628-797410-18-2025 Progress note Author Corey Eugenemadison hospitaleliana [facility] Note Date/Time August 19, 2025 8 :41pm [facility] Medical Records Department [address] [place] [address] Progress Note - Hospitalist 08/18/251909 MR#: [id number] Acct: [id number] Name: BANDAR TIWARI Rep #:[id number] : 1960 65 From: Corey Guillen DO PCP: Care Physician,No Primary Status :ADM IN Location: [place] [address]1 Reason for Visit Chief Complaint: Generalized weakness, failure to thrive Subjective Subjective Patient was seen and examined today, MRI yesterday showed bilateral ischemic strokes which were small. She was seen by teleneurology today and recommendations were relayed to me through her medical record. An echocardiogram was performed which showed no evidence of thrombus, however, the patient has a severe cardiomyopathy with an ejection fraction of 10%-this is global in nature and cardiology does not feel this is due to coronary artery disease, they felt it was possibly due to alcohol or untreated hypertension. Had a long discussion with the patient's son today about her medical condition, he reiterated that she is a full code. I explained to him that she is at risk for sudden due to her severe cardiomyopathy. Objective Data Objective Data Vital Signs: Vital Signs Temp Pulse Resp BP Pulse Ox O2 Del Method O2 Flow Rate 98.6 F 97 18 127/90 H 98 Room Air 2 08/18/25 15:57 08/18/25 15:57 08/18/25 15:57 08/18/25 15:57 08/18/25 15:57 08/18/25 15:57 08/15/25 01:10 Oxygen Flow Rate (L/min) 2 Oxygen Delivery Method Room Air Weight: 62.5 kg Body Mass Index (BMI) 22.2 Intake & Output: Intake and Output for Last 24 Hours 08/16/25 08/17/25 08/18/25 23:59 23:59 23:59 Intake Total 3100 / 3100 2954.17 / 2954.17 2137.5 / 2137.5 Output Total 700 / 700 Balance 3100 / 3100 2954.17 / 2954.17 1437.5 / 1437.5 Medical Nutrition Assessment Dietitian: Malnutrition Criteria Met Start: 08/15/25 13:56 Freq: Status: Active Protocol: Document 08/18/25 13:13 SLA (Rec: 08/18/25 13:13 SLA 08.11.25.7) Nutrition Malnutrition Evidence of No Malnutrition Exists Malnutrition (severe Acute Illness/Injury ): Malnutrition ( Severe pro/heather unspecified) Intake Problem Increased Nutrient Needs (specify) Etiology protein related to skin status Signs/Symptoms as evidenced by PI to R buttock Status Active Problem Clinical Problem Acute Disease or Injury Related Malnutrition Etiology related to recent FTT Signs/Symptoms 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 Dietitian Continue Regular diet order 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s/ Continue 240 ml bottle Ensure PHP (chocolate) dailyat Changes lunch Will order CIB w/ breakfast and magic cup w/ dinnerfor increased nutrition if consumed Consider appetite stimulant to help encourage increased po intake at meals Lab / Micro Data 08/15/25 07:27 08/15/25 07:27 Labs: Laboratory Results - last 24 hr 08/17/25 22:05: Triglycerides 76, Cholesterol 96, LDL Cholesterol, Calc 52, VLDLCholesterol 15, HDL Cholesterol 28 L, Cholesterol/HDL Ratio 3.38 Micro: Microbiology 08/14/25 21:30 Urine, Catheterized Urine Culture - Final Klebsiella pneumoniae sp pneum Radiography Diagnostic Testing: Radiology Impression Echocardiogram 08/17/25 19:14 Interpretation Summary The left ventricular ejection fraction is 10 %. Normal LV size. There is severe global hypokinesis of the left ventricle. The left atrium is moderately enlarged. The right atrium is mildly enlarged. Mild-Moderate (1-2+) eccentric mitral valve insufficiency. Mild-Moderate (1-2+) tricuspid valve insufficiency. Bubble contrast study is negative for PFO/ASD. Stage 2 diastolic dysfunction. Ordering Physician: Corey Guillen Performed By: Juan Miguel Holland RDCS Physical Exam Narrative alert, no apparent distress and average body habitus General Appearance: cooperative, well kempt and well developed Orientation / Consciousness: awake, oriented to person and oriented to place HEENT normocephalic, head/scalp atraumatic and moist oral mucous membranes Eyes PERRL, EOMs intact bilaterally and conjunctivae normal Neck supple, no JVD, thyroid normal and no carotid bruits General: trachea midline Resp normal respiratory effort, no retractions, no use of accessory muscles and clearto auscultation bilaterally Auscultation: Negative for rales, rhonchi or wheezes Cardio regular rate, regular rhythm, S1 normal heart sound, S2 normal heart sound, no murmurs, no rub and no gallops GI normal to inspection, nondistended, normoactive bowel sounds, soft to palpation,non-tender and non-distended Extremity no clubbing, cyanosis or edema Skin no rashes or lesions noted General Skin Exam: no breakdown Neuro CN's II-XII intact bilaterally, no focal motor deficits and no sensory deficits noted Sensorium / Orientation: awake, alert, oriented to person and oriented to place Speech: speech normal Psych Psych Narrative: Patient has flat affect, she does respond appropriately to simple questions Assessment & Plan Assessment/Plan (1) Adult failure to thrive: PLAN: Plan 1. Adult failure to thrive-etiology unclear at this point, she may have undiagnosed dementia, PT and OT will continue to see the patient and she will need at least temporary placement in a fdc facility. #2 bacteriuria-there are low numbers of gram-negative bacteria in the urine, I have elected to stop her Rocephin and place her on Macrobid #3 hypertension-I suspect this is undiagnosed essential hypertension, patient terrell losartan #4 probable dementia-again it does not appear that the patient has a primary care physician and this may be contributing to her lack of ability to care for self. I have elected to get an MRI of the brain to rule out any multiple strokediagnosis. #5 acute stroke in the bilateral cerebral hemispheres-patient will remain on an aspirin and a statin, CTA of the head and neck will be ordered today #6 severe cardiomyopathy with reduced ejection fraction of 10%-etiology is not clear, patient will be placed on a beta-ben, and ARB, a dose of Lasix, and Jardiance Total clinical time spent by myself addressing the patient's medical issues, reviewing all of her data, and collaborating with patient's care team: 35 minutes Charges/Coding Visit Charges Inpatient E&M: 77034 Subs Hosp L2 08/19/251940 <Electronically signed by Corey Guillen DO> Cosigner Signature (if applicable): CC: ~ Signed [facility] Work Phone: 1(479) 956-258510-18-2025 Progress note Author Corey Eugenemadison hospitaleliana [facility] Note Date/Time August 19, 2025 8 :39pm [facility] Medical Records Department [address] [place] [address] Progress Note - Hospitalist 08/17/251817 MR#: [id number] Acct: [id number] Name: BANDAR TIWARI Rep #:[id number] : 1960 65 From: Corey Guillen DO PCP: Care Physician,No Primary Status :ADM IN Location: [place] [id number] Reason for Visit Chief Complaint: Generalized weakness, failure to thrive Subjective Subjective Patient was seen and examined today, she does not appear in any distress. She does not readily carry on a conversation with this examiner. Her son was in theroom visiting her today and I got some additional medical information, it appears that the patient is disabled-probably secondary to a psychiatric illness(chronic depression), she is on antidepressants and is being seen at the counseling center. I have elected to get imaging studies of the brain-an MRI ofthe brain without contrast-to rule out any possibility of multiple strokes causing a dementia. Patient's son verified that the patient drinks approximately sixpack of beer daily but there are some days that she does not drink at all. Objective Data Objective Data Vital Signs: Vital Signs Temp Pulse Resp BP Pulse Ox O2 Del Method O2 Flow Rate 97 F L 94 18 129/97 H 95 Room Air 2 08/17/25 14:30 08/17/25 14:30 08/17/25 14:30 08/17/25 14:30 08/17/25 14:30 08/17/25 14:30 08/15/25 01:10 Oxygen Flow Rate (L/min) 2 Oxygen Delivery Method Room Air Weight: 62.5 kg Body Mass Index (BMI) 22.2 Intake & Output: Intake and Output for Last 24 Hours 08/15/25 08/16/25 08/17/25 23:59 23:59 23:59 Intake Total 2350 / 2400 3100 / 3100 2639.59 / 2639.59 Balance 2350 / 2400 3100 / 3100 2639.59 / 2639.59 Lab / Micro Data 08/15/25 07:27 08/15/25 07:27 Micro: Microbiology 08/14/25 21:30 Urine, Catheterized Urine Culture - Preliminary Klebsiella pneumoniae sp pneum Gram negative elise Physical Exam Narrative alert, no apparent distress and average body habitus General Appearance: cooperative, well kempt and well developed Orientation / Consciousness: awake, oriented to person and oriented to place HEENT normocephalic, head/scalp atraumatic and moist oral mucous membranes Eyes PERRL, EOMs intact bilaterally and conjunctivae normal Neck supple, no JVD, thyroid normal and no carotid bruits General: trachea midline Resp normal respiratory effort, no retractions, no use of accessory muscles and clearto auscultation bilaterally Auscultation: Negative for rales, rhonchi or wheezes Cardio regular rate, regular rhythm, S1 normal heart sound, S2 normal heart sound, no murmurs, no rub and no gallops GI normal to inspection, nondistended, normoactive bowel sounds, soft to palpation,non-tender and non-distended Extremity no clubbing, cyanosis or edema Skin no rashes or lesions noted General Skin Exam: no breakdown Neuro CN's II-XII intact bilaterally, no focal motor deficits and no sensory deficits noted Sensorium / Orientation: awake, alert, oriented to person and oriented to place Speech: speech normal Psych Psych Narrative: Patient has flat affect, she does respond appropriately to simple questions Assessment & Plan Assessment/Plan (1) Adult failure to thrive: PLAN: Plan 1. Adult failure to thrive-etiology unclear at this point, she may have undiagnosed dementia, PT and OT will continue to see the patient and she will need at least temporary placement in a fdc facility. #2 bacteriuria-there are low numbers of gram-negative bacteria in the urine, I have elected to stop her Rocephin and place her on Macrobid #3 hypertension-I suspect this is undiagnosed essential hypertension, I will place patient on losartan #4 probable dementia-again it does not appear that the patient has a primary care physician and this may be contributing to her lack of ability to care for self. I have elected to get an MRI of the brain to rule out any multiple strokediagnosis. Total clinical time spent by myself addressing the patient's medical issues, reviewing all of her data, and collaborating with patient's care team: 35 minutes Charges/Coding Visit Charges Inpatient E&M: 24292 Subs Hosp L2 08/19/251938 <Electronically signed by Corey Guillen DO> Cosigner Signature (if applicable): CC: ~ Signed [facility] Work Phone: 1([phone]) 251-856710-18-2025 Progress note [facility] Medical Records Department [address] [place] [address] Progress Note - Hospitalist 08/19/251941 MR#: [id number] Acct: [id number] Name: BANDAR TIWARI Rep #:[id number] : 1960 65 From: Corey Guillen DO PCP: Care Physician,No Primary Status :ADM IN Location: [place] [address] Reason for Visit Chief Complaint: Generalized weakness, failure to thrive Subjective Subjective Patient was seen and examined today, CTA of the head and neck does not show any occlusive vascular disease. Objective Data Objective Data Vital Signs: Vital Signs Temp Pulse Resp BP Pulse Ox O2 Del Method O2 Flow Rate 97.8 F 78 15 119/85 H 100 Nasal Cannula 2 08/19/25 10:14 08/19/25 10:14 08/19/25 10:14 08/19/25 10:14 08/19/25 10:14 08/19/25 16:00 08/19/25 16:00 Oxygen Flow Rate (L/min) 2 Oxygen Delivery Method Nasal Cannula Weight: 62.5 kg Body Mass Index (BMI) 22.2 Intake & Output: Intake and Output for Last 24 Hours 08/17/25 08/18/25 08/19/25 23:59 23:59 23:59 Intake Total 2954.17 / 2954.17 2137.5 / 2137.5 0 / 0 Output Total 700 / 900 400 / 400 Balance 2954.17 / 2954.17 1437.5 / 1237.5 -400 / -400 Medical Nutrition Assessment Dietitian: Malnutrition Criteria Met Start: 08/15/25 13:56 Freq: Status: Active Protocol: Document 08/18/25 13:13 SLA (Rec: 08/18/25 13:13 SLA 08.11.25.7) Nutrition Malnutrition Evidence of No Malnutrition Exists Malnutrition (severe Acute Illness/Injury ): Malnutrition ( Severe pro/heather unspecified) Intake Problem Increased Nutrient Needs (specify) Etiology protein related to skin status Signs/Symptoms as evidenced by PI to R buttock Status Active Problem Clinical Problem Acute Disease or Injury Related Malnutrition Etiology related to recent FTT Signs/Symptoms 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 No large vessel arterial occlusion or hemodynamically significant stenosis. 2. Mild focal stenosis left STOCK RECEIVER P1-P2 segment junction. 3. Mild atherosclerotic plaque at the carotid bifurcations. 4. No acute intracranial hemorrhage, mass-effect or territorial infarct. Moderate volume loss and chronic small-vessel ischemic changes. The scattered punctate foci of acute likely embolic infarcts in the cerebral white matter on MRI are not well appreciated on CT. Reading Location: [facility] Physical Exam Narrative alert, no apparent distress and average body habitus General Appearance: cooperative, well kempt and well developed Orientation / Consciousness: awake, oriented to person and oriented to place HEENT normocephalic, head/scalp atraumatic and moist oral mucous membranes Eyes PERRL, EOMs intact bilaterally and conjunctivae normal Neck supple, no JVD, thyroid normal and no carotid bruits General: trachea midline Resp normal respiratory effort, no retractions, no use of accessory muscles and clearto auscultation bilaterally Auscultation: Negative for rales, rhonchi or wheezes Cardio regular rate, regular rhythm, S1 normal heart sound, S2 normal heart sound, no murmurs, no rub and no gallops GI normal to inspection, nondistended, normoactive bowel sounds, soft to palpation,non-tender and non-distended Extremity no clubbing, cyanosis or edema Skin no rashes or lesions noted General Skin Exam: no breakdown Neuro CN's II-XII intact bilaterally, no focal motor deficits and no sensory deficits noted Sensorium / Orientation: awake, alert, oriented to person and oriented to place Speech: speech normal Psych Psych Narrative: Patient has flat affect, she does respond appropriately to simple questions Assessment & Plan Assessment/Plan (1) Adult failure to thrive: PLAN: Plan 1. Adult failure to thrive-etiology unclear at this point, she may have undiagnosed dementia, PT and OT will continue to see the patient and she will need at least temporary placement in a fdc facility. #2 bacteriuria-there are low numbers of gram-negative bacteria in the urine, I have elected to stopher Rocephin and place her on Macrobid #3 hypertension-I suspect this is undiagnosed essential hypertension, patient terrell losartan #4 probable dementia-again it does not appear that the patient has a primary care physician and this may be contributing to her lack of ability to care for self. #5 acute stroke in the bilateral cerebral hemispheres-patient will remain on an aspirin and a statin, CTA of the head and neck will be ordered today #6 severe cardiomyopathy with reduced ejection fraction of 10%-etiology is not clear, patient will be placed on a beta-ben, and ARB, a dose of Lasix, and Jardiance #7 major depressive [id number] will remain on her current psychiatric medication, I talked with her counseling center yesterday and they told me her major diagnosis is major depressive disorder as well as alcohol dependence #8 suspected alcohol use disorder-patient shows no evidence of DTs at this time Total clinical time spent by myself addressing the patient's medical issues, reviewing all of her data, and collaborating with patient's care team: 35 minutes Charges/Coding Visit Charges Inpatient E&M: 78207 Subs Hosp L2 08/19/251943 Cosigner Signature (if applicable): CC: ~ Signed [facility]10-18-2025 Progress note [facility] Medical Records Department [address] [place] [address] Progress Note - Hospitalist 08/18/251909 MR#: [id number] Acct: [id number] Name: BANDAR TIWARI Rep #:[id number] : 1960 65 From: Corey Guillen DO PCP: Care Physician,No Primary Status :ADM IN Location: [place] [address]1 Reason for Visit Chief Complaint: Generalized weakness, failure to thrive Subjective Subjective Patient was seen and examined today, MRI yesterday showed bilateral ischemic strokes which were small. She was seen by teleneurology today and recommendations were relayed to me through her medical record. An echocardiogram was performed which showed no evidence of thrombus, however, the patient has a severe cardiomyopathy with an ejection fraction of 10%-this is global in nature and cardiology does not feel this is due to coronary artery disease, they felt it was possibly due to alcohol or untreated hypertension. Had a long discussion with the patient's son today about her medical condition,he reiterated that she is a full code. I explained to him that she is at risk for sudden due to her severe cardiomyopathy. Objective Data Objective Data Vital Signs: Vital Signs Temp Pulse Resp BP Pulse Ox O2 Del Method O2 Flow Rate 98.6 F 97 18 127/90 H 98 Room Air 2 08/18/25 15:57 08/18/25 15:57 08/18/25 15:57 08/18/25 15:57 08/18/25 15:57 08/18/25 15:57 08/15/25 01:10 Oxygen Flow Rate (L/min) 2 Oxygen Delivery Method Room Air Weight: 62.5 kg Body Mass Index (BMI) 22.2 Intake & Output: Intake and Output for Last 24 Hours 08/16/25 08/17/25 08/18/25 23:59 23:59 23:59 Intake Total 3100 / 3100 2954.17 / 2954.17 2137.5 / 2137.5 Output Total 700 / 700 Balance 3100 / 3100 2954.17 / 2954.17 1437.5 / 1437.5 Medical Nutrition Assessment Dietitian: Malnutrition Criteria Met Start: 08/15/25 13:56 Freq: Status: Active Protocol: Document 08/18/25 13:13 SLA (Rec: 08/18/25 13:13 SLA 08.11.25.7) Nutrition Malnutrition Evidence of No Malnutrition Exists Malnutrition (severe Acute Illness/Injury ): Malnutrition ( Severe pro/heather unspecified) Intake Problem Increased Nutrient Needs (specify) Etiology protein related to skin status Signs/Symptoms as evidenced by PI to R buttock Status Active Problem Clinical Problem Acute Disease or Injury Related Malnutrition Etiology related to recent FTT Signs/Symptoms 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 Dietitian Continue Regular diet order 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s/ Continue 240 ml bottle Ensure PHP (chocolate) dailyat Changes lunch Will order CIB w/ breakfast and magic cup w/ dinnerfor increased nutrition if consumed Consider appetite stimulant to help encourage increased po intake at meals Lab / Micro Data 08/15/25 07:27 08/15/25 07:27 Labs: Laboratory Results - last 24 hr 08/17/25 22:05: Triglycerides 76, Cholesterol 96, LDL Cholesterol, Calc 52, VLDLCholesterol 15, HDLCholesterol 28 L, Cholesterol/HDL Ratio 3.38 Micro: Microbiology 08/14/25 21:30 Urine, Catheterized Urine Culture - Final Klebsiella pneumoniae sp pneum Radiography Diagnostic Testing: Radiology Impression Echocardiogram 08/17/25 19:14 Interpretation Summary The left ventricular ejection fraction is 10 %. Normal LV size. There is severe global hypokinesis of the left ventricle. The left atrium is moderately enlarged. The right atrium is mildly enlarged. Mild-Moderate (1-2+) eccentric mitral valve insufficiency. Mild-Moderate (1-2+) tricuspid valve insufficiency. Bubble contrast study is negative for PFO/ASD. Stage 2 diastolic dysfunction. Ordering Physician: Corey Guillen Performed By: Juan Miguel Holland RDCS Physical Exam Narrative alert, no apparent distress and average body habitus General Appearance: cooperative, well kempt and well developed Orientation / Consciousness: awake, oriented to person and oriented to place HEENT normocephalic, head/scalp atraumatic and moist oral mucous membranes Eyes PERRL, EOMs intact bilaterally and conjunctivae normal Neck supple, no JVD, thyroid normal and no carotid bruits General: trachea midline Resp normal respiratory effort, no retractions, no use of accessory muscles and clearto auscultation bilaterally Auscultation: Negative for rales, rhonchi or wheezes Cardio regular rate, regular rhythm, S1 normal heart sound, S2 normal heart sound, no murmurs, no rub and no gallops GI normal to inspection, nondistended, normoactive bowel sounds, soft to palpation,non-tender and non-distended Extremity no clubbing, cyanosis or edema Skin no rashes or lesions noted General Skin Exam: no breakdown Neuro CN's II-XII intact bilaterally, no focal motor deficits and no sensory deficits noted Sensorium / Orientation: awake, alert, oriented to person and oriented to place Speech: speech normal Psych Psych Narrative: Patient has flat affect, she does respond appropriately to simple questions Assessment & Plan Assessment/Plan (1) Adult failure to thrive: PLAN: Plan 1. Adult failure to thrive-etiology unclear at this point, she may have undiagnosed dementia, PT and OT will continue to see the patient and she will need at least temporary placement in a fdc facility. #2 bacteriuria-there are low numbers of gram-negative bacteria in the urine, I have elected to stopher Rocephin and place her on Macrobid #3 hypertension-I suspect this is undiagnosed essential hypertension, patient terrell losartan #4 probable dementia-again it does not appear that the patient has a primary care physician and this may be contributing to her lack of ability to care for self. I have elected to get an MRI of the brain to rule out any multiple strokediagnosis. #5 acute stroke in the bilateral cerebral hemispheres-patient will remain on an aspirin and a statin, CTA of the head and neck will be ordered today #6 severe cardiomyopathy with reduced ejection fraction of 10%-etiology is not clear, patient will be placed on a beta-ben, and ARB, a dose of Lasix, and Jardiance Total clinical time spent by myself addressing the patient's medical issues, reviewing all of her data, and collaborating with patient's care team: 35 minutes Charges/Coding Visit Charges Inpatient E&M: 38593 Subs Hosp L2 08/19/251940 Cosigner Signature (if applicable): CC: ~ Signed [facility]10-18-2025 Progress note [facility] Medical Records Department [address] [address] Progress Note - Hospitalist 08/17/251817 MR#: [id number] Acct: [id number] Name: BANDAR TIWARI Rep #:[id number] : 1960 65 From: Corey Guillen DO PCP: Care Physician,No Primary Status :ADM [id number] Reason for Visit Chief Complaint: Generalized weakness, failure to thrive Subjective Subjective Patient was seen and examined today, she does not appear in any distress. She does not readily carry on a conversation with this examiner. Her son was in theroom visiting her today and I got some additional medical information, it appears that the patient is disabled-probably secondary to a psychiatric illness(chronic depression), she is on antidepressants and is being seen at the counseling center. I have elected to get imaging studies of the brain-an MRI ofthe brain without contrast-to rule out any possibility of multiple strokes causing a dementia. Patient's son verified that the patient drinks approximately sixpack of beer daily but there are some days that she does not drink at all. Objective Data Objective Data Vital Signs: Vital Signs Temp Pulse Resp BP Pulse Ox O2 Del Method O2 Flow Rate 97 F L 94 18 129/97 H 95 Room Air 2 08/17/25 14:30 08/17/25 14:30 08/17/25 14:30 08/17/25 14:30 08/17/25 14:30 08/17/25 14:30 08/15/25 01:10 Oxygen Flow Rate (L/min) 2 Oxygen Delivery Method Room Air Weight: 62.5 kg Body Mass Index (BMI) 22.2 Intake & Output: Intake and Output for Last 24 Hours 08/15/25 08/16/25 08/17/25 23:59 23:59 23:59 Intake Total 2350 / 2400 3100 / 3100 2639.59 / 2639.59 Balance 2350 / 2400 3100 / 3100 2639.59 / 2639.59 Lab / Micro Data 08/15/25 07:27 08/15/25 07:27 Micro: Microbiology 08/14/25 21:30 Urine, Catheterized Urine Culture - Preliminary Klebsiella pneumoniae sp pneum Gram negative elise Physical Exam Narrative alert, no apparent distress and average body habitus General Appearance: cooperative, well kempt and well developed Orientation / Consciousness: awake, oriented to person and oriented to place HEENT normocephalic, head/scalp atraumatic and moist oral mucous membranes Eyes PERRL, EOMs intact bilaterally and conjunctivae normal Neck supple, no JVD, thyroid normal and no carotid bruits General: trachea midline Resp normal respiratory effort, no retractions, no use of accessory muscles and clearto auscultation bilaterally Auscultation: Negative for rales, rhonchi or wheezes Cardio regular rate, regular rhythm, S1 normal heart sound, S2 normal heart sound, no murmurs, no rub and no gallops GI normal to inspection, nondistended, normoactive bowel sounds, soft to palpation,non-tender and non-distended Extremity no clubbing, cyanosis or edema Skin no rashes or lesions noted General Skin Exam: no breakdown Neuro CN's II-XII intact bilaterally, no focal motor deficits and no sensory deficits noted Sensorium / Orientation: awake, alert, oriented to person and oriented to place Speech: speech normal Psych Psych Narrative: Patient has flat affect, she does respond appropriately to simple questions Assessment & Plan Assessment/Plan (1) Adult failure to thrive: PLAN: Plan 1. Adult failure to thrive-etiology unclear at this point, she may have undiagnosed dementia, PT and OT will continue to see the patient and she will need at least temporary placement in a fdc facility. #2 bacteriuria-there are low numbers of gram-negative bacteria in the urine, I have elected to stopher Rocephin and place her on Macrobid #3 hypertension-I suspect this is undiagnosed essential hypertension, I will place patient on losartan #4 probable dementia-again it does not appear that the patient has a primary care physician and this may be contributing to her lack of ability to care for self. I have elected to get an MRI of the brain to rule out any multiple strokediagnosis. Total clinical time spent by myself addressing the patient's medical issues, reviewing all of her data, and collaborating with patient's care team: 35 minutes Charges/Coding Visit Charges Inpatient E&M: 91793 Subs Hosp L2 08/19/251938 Cosigner Signature (if applicable): CC: ~ Signed [facility]10-17-2025 Radiology Diagnostic study note [facility] Imaging Services [address] [place], [place] [address] CTA Head AND Neck W/ Contrast MR#: [id number] Acct: [id number] Name: BANDAR TIWARI Rep #: [id number] : 1960 F 65 From: Varinder Padilla MD PCP: Care Physician,No Primary Status: ADM IN Study:CTA Head AND Neck W/ Contrast Date of E xam: 08/18/25 Exam# [id number] Ordering Dr: Corey Alberto DO PROCEDURE: CTA HEAD AND NECK W/ CONTRAST 08/18/2025 REASON FOR EXAM: BILATERAL ISCHEMIC STROKES TECHNIQUE: Procedure Code: CTCTA.HDNCK Modality: CT Procedure: CTA HEAD AND NECK W/ CONTRAST Multiplanar Sagittal and Coronal images were obtained. 3D post processing was performed. CONTRAST: Isovue 370 VOLUME: 90 mL One or more dose reduction techniques were used (e.g., Automated exposure control, adjustment of the mA and/or kV according to patient size, use of iterative reconstruction technique). RADIATION DOSE SUMMARY: DLP: 1481.71 mGycm COMPARISON: Brain MRI 08/17/2025. No prior CTA available. FINDINGS: CTA HEAD: Patent intracranial arterial vasculature. No large vessel occlusion, high-grade stenosis, saccular aneurysm, or vascular malformation identified. Mild focal stenosis at the left STOCK RECEIVER P1-P2 segment junction. CTA NECK: Conventional aortic arch branching. Bilateral cervical carotid and vertebral arteries are patent. No aneurysm or dissection. Mild atherosclerotic plaque along the carotid siphons and at the carotid artery bifurcations, slightly greater on the left without significant stenosis. Dominant right vertebral artery, with diffusely hypoplastic left vertebral artery which primarily terminates distally at PICA branches. NONCONTRAST CT HEAD: No acute intracranial hemorrhage, extra-axial collection, mass effect or evidence of acute territorial infarct. Moderate generalized brain parenchymal volume loss and chronic small-vessel ischemic-gliotic changes in the supratentorial white matter. Scattered punctate foci of acute likely embolic infarcts in the bilateral cerebral white matter on MRI, not well appreciated on CT. Chronic lacunar infarct in the left basal ganglia. Intact skull base and calvarium. Well-aerated paranasal sinuses and mastoid air cells. CT/CTA Head AND Neck W/ Contrast IMPRESSION: 1. No large vessel arterial occlusion or hemodynamically significant stenosis. 2. Mild focal stenosis left STOCK RECEIVER P1-P2 segment junction. 3. Mild atherosclerotic plaque at the carotid bifurcations. 4. No acute intracranial hemorrhage, mass-effect or territorial infarct. Moderate volume loss and chronic small-vessel ischemic changes. The scattered punctate foci of acute likely embolic infarcts in the cerebral white matter on MRI are not well appreciated on CT. Reading Location: [facility] CC: Dr. Corey Guillen DO; No Primary Care Physician ~ Chiropractic Practice Manager: Signed [facility]10-17-2025 Radiology Diagnostic study note [facility] Imaging Services [address] [place], [place] [id number] CTA Head AND Neck W/ Contrast MR#: [id number] Acct: [id number] Name: BANDAR TIWARI Rep #: [id number] : 1960 F 65 From: Varinder Padilla MD PCP: Care Physician,No Primary Status: ADM IN Study:CTA Head AND Neck W/ Contrast Date of E xam: 08/18/25 Exam# [id number] Ordering Dr: Corey Alberto DO PROCEDURE: CTA HEAD AND NECK W/ CONTRAST 08/18/2025 REASON FOR EXAM: BILATERAL ISCHEMIC STROKES TECHNIQUE: Procedure Code: CTCTA.HDNCK Modality: CT Procedure: CTA HEAD AND NECK W/ CONTRAST Multiplanar Sagittal and Coronal images were obtained. 3D post processing was performed. CONTRAST: Isovue 370 VOLUME: 90 mL One or more dose reduction techniques were used (e.g., Automated exposure control, adjustment of the mA and/or kV according to patient size, use of iterative reconstruction technique). RADIATION DOSE SUMMARY: DLP: 1481.71 mGycm COMPARISON: Brain MRI 08/17/2025. No prior CTA available. FINDINGS: CTA HEAD: Patent intracranial arterial vasculature. No large vessel occlusion, high-grade stenosis, saccular aneurysm, or vascular malformation identified. Mild focal stenosis at the left STOCK RECEIVER P1-P2 segment junction. CTA NECK: Conventional aortic arch branching. Bilateral cervical carotid and vertebral arteries are patent. No aneurysm or dissection. Mild atherosclerotic plaque along the carotid siphons and at the carotid artery bifurcations, slightly greater on the left without significant stenosis. Dominant right vertebral artery, with diffusely hypoplastic left vertebral artery which primarily terminates distally at PICA branches. NONCONTRAST CT HEAD: No acute intracranial hemorrhage, extra-axial collection, mass effect or evidence of acute territorial infarct. Moderate generalized brain parenchymal volume loss and chronic small-vessel ischemic-gliotic changes in the supratentorial white matter. Scattered punctate foci of acute likely embolic infarcts in the bilateral cerebral white matter on MRI, not well appreciated on CT. Chronic lacunar infarct in the left basal ganglia. Intact skull base and calvarium. Well-aerated paranasal sinuses and mastoid air cells. CT/CTA Head AND Neck W/ Contrast IMPRESSION: 1. No large vessel arterial occlusion or hemodynamically significant stenosis. 2. Mild focal stenosis left STOCK RECEIVER P1-P2 segment junction. 3. Mild atherosclerotic plaque at the carotid bifurcations. 4. No acute intracranial hemorrhage, mass-effect or territorial infarct. Moderate volume loss and chronic small-vessel ischemic changes. The scattered punctate foci of acute likely embolic infarcts in the cerebral white matter on MRI are not well appreciated on CT. Reading Location: [id number] CC: Dr. Corey Guillen, DO; No Primary Care Physician ~ Chiropractic Practice Manager: Signed [facility]10-17-2025 Consult note Author Mukul Soliman [facility] Note Date/Time August 18, 2025 1 2:35pm [facility] Medical Records Department [address] [place] [address] Consultation - Neurology 08/18/25 1108 MR#: [id number] Acct: [id number] Name: BANDAR TIWARI Rep #:[id number] : 1960 65 From: Mukul Winston PCP: Care Physician,No Primary Status :ADM IN Location: [place] [id number] Assessment and Plan: Stroke Assessment/Plan BANDAR TIWARI, is a 65 F with etoh use disorder, smoker, ARMAND and MDD who presents with generalized weakness and failure to thrive on 08/15/25. She as nottaking care of herself and slept for the majority of 3 days so was brought to the ED. She was found to have a UTI and was treated, her cognition and ability to care for herself that they noted in the hospital led to them getting an MRI brain. Patient cannot provide much history. No family in the room to get collateral hx. MRI brain showed punctate ischemic strokes in BL hemispheres. They are small and should not cause any major symptoms. Stroke team was consulted on 08/18/25 for MRI brain findings. On my exam NIH for 8 for drift in all limbs. She can name, follow commands and has fluent speech, just not a good historian, more encephalopathic. Stroke cryptogenic at this time. 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 HPI Consult Data Date of Consult: 08/18/25 HPI Narrative HPI Narrative: BANDAR TIWARI, is a 65 F with etoh use disorder, smoker, ARMAND and MDD who presents with generalized weakness and failure to thrive on 08/15/25. She was found to have a UTI and was treated, her cognition and ability to care for herself that they noted in the hospital led to them getting an MRI brain. Patient cannot provide much history. No family in the room to get collateral hx.Per note over the past 3 days prior to admission was not walking, talking or taking care of herself so was brought to the ED. MRI brain showed punctate ischemic strokes in BL hemispheres. They are small and should not cause any major symptoms. Stroke team was consulted on 08/18/25 for MRI brain findings. Onmy exam NIH for 8 for drift in all limbs. She can name, follow commands and has fluent speech, just not a good historian, more encephalopathic. [facility] Medical History (Updated 08/15/25 @ 01:07 by Jolynn Keen) Smoker Migraines Alcohol abuse Anxiety Depression Home Medications ?Medication ?Instructions ?Recorded ?Last Taken ?Type citalopram 40 mg tablet 40 mg PO DAILY MOOD 08/14/25 08/07/25 History trazodone 50 mg tablet 50 - 100 mg PO QHS PRN insom joseph 08/14/25 08/07/25 History Allergy/AdvReac Type Severity Reaction Status Date / Time No Known Allergies Allergy Verified 08/14/25 15:26 Social History Smoking Status: Current every day smoker tobacco type: cigarettes Vital Signs Vital Signs Vital Signs: 08/17/25 14:30 08/17/25 15:21 08/17/25 20:00 Temperature 97 F L Temperature Source Oral Pulse Rate 94 Pulse Strength Normal (2+) Respiratory Rate 18 Respiratory Effort Short of Breath Respiratory Depth Normal Respiratory Pattern Normal Blood Pressure 129/97 H Blood Pressure Mean 107 Blood Pressure Source Monitor Blood Pressure Position Sitting Blood Pressure Location Right Arm Pulse Ox 95 Oxygen Delivery Method Room Air 08/17/25 20:00 08/17/25 20:07 08/18/25 04:20 Temperature 97.5 F L Temperature Source Axillary Pulse Rate 87 Pulse Strength Respiratory Rate 18 Respiratory Effort Normal Non-Labored Normal Non-Labored Respiratory Depth Normal Normal Respiratory Pattern Normal Normal Blood Pressure 125/96 H Blood Pressure Mean 105 Blood Pressure Source Monitor Blood Pressure Position Semi-Fowlers Blood Pressure Location Right Arm Pulse Ox 100 Oxygen Delivery Method Room Air Room Air Room Air 08/18/25 04:22 08/18/25 08:08 08/18/25 08:08 Temperature 96.6 F L Temperature Source Temporal Pulse Rate 98 Pulse Strength Normal (2+) Respiratory Rate 18 Respiratory Effort Normal Respiratory Depth Normal Respiratory Pattern Normal Blood Pressure 144/95 H Blood Pressure Mean 111 Blood Pressure Source Monitor Blood Pressure Position Semi-Fowlers Blood Pressure Location Right Arm Pulse Ox 100 Oxygen Delivery Method Room Air Room Air 08/18/25 08:08 08/18/25 08:08 Temperature 98.2 F 98.2 F Temperature Source Temporal Oral Pulse Rate 95 95 Pulse Strength Respiratory Rate 18 18 Respiratory Effort Respiratory Depth Respiratory Pattern Blood Pressure 136/97 H 136/97 H Blood Pressure Mean 110 110 Blood Pressure Source Monitor Monitor Blood Pressure Position Semi-Fowlers Semi-Fowlers Blood Pressure Location Right Arm Right Arm Pulse Ox 98 98 Oxygen Delivery Method Room Air Room Air Weight Weight: 62.5 kg Body Mass Index (BMI) 22.2 Physical Exam Narrative Physical Exam: - General: NAD, pleasant, cooperative, well nourished, well developed - Head/Eyes: Atraumatic, normocephalic, clear cornea, normal sclera/conjunctive - Neuro: ? Mental Status: AAOX3, not to situation & following simple commands. ? Speech: Clear and fluent with good repetition, comprehension, & naming. No aphasia or dysarthria ? CN II: Visual low are full to confrontation. ? CN III, IV, : EOMI, no gaze preference, no nystagmus, no ptosis ? CN V: Facial sensation is intact to light touch throughout. ? CN VII: Face is symmetric with normal eye closure and smile. ? Motor: Anti gravity in all limbs but drops them all to bed ? Sensation: Normal to light touch bilaterally. ? Coordination: Normal FTN, hts could not be tested. No abn movements seen. Lab / Micro Data 08/15/25 07:27 08/15/25 07:27 Labs: Laboratory Results - last 24 hr 08/17/25 22:05: Triglycerides 76, Cholesterol 96, LDL Cholesterol, Calc 52, VLDLCholesterol 15, HDL Cholesterol 28 L, Cholesterol/HDL Ratio 3.38 Micro: Microbiology 08/14/25 21:30 Urine, Catheterized Urine Culture - Final Klebsiella pneumoniae sp pneum Imaging Radiology Impression Brain MRI 08/17/25 16:48 IMPRESSION: Punctate acute or subacute ischemic foci within the bilateral, irrqa-[id number]-ifbn-left centrum semiovale. Moderate global cerebral atrophy, compatible with age-related volume loss. Severe chronic microvascular ischemic white matter changes, likely reflecting longstanding small vessel disease. No evidence of acute intracranial hemorrhage, mass effect, or hydrocephalus. Critical results were communicated to Marlene Smith RN at 7 p.m.. Reading Location: [address] Active Medications Active Medications Active Medications: Current Medications Generic Name Dose Route Start Last Admin Trade Name Freq PRN Reason Stop Dose Admin Aspirin 81 mg 08/17/25 19:20 08/18/25 10:16 Aspirin 81 Mg Tab.Chew PO 81 mg BREAKFAST ROCIO Administration Atorvastatin Calcium 80 mg 08/17/25 22:00 08/17/25 22:37 Atorvastatin Calcium 80 Mg Tablet PO Not Given QHS ROCIO Calamine/Phenol 1 applic 08/15/25 10:00 08/18/25 08:34 Menthol/Lanolin/Calamine/Znox 113 Gm Tube TOPICAL 1 applic BID ROCIO Administration Protocol Citalopram Hydrobromide 40 mg 08/15/25 10:00 08/18/25 10:15 Citalopram 40 Mg Tablet PO 40 mg DAILY ROCIO Administration Enoxaparin Sodium 40 mg 08/15/25 10:00 08/18/25 08:35 Enoxaparin 40 Mg/0.4 Ml Syringe SC 40 mg DAILY ROCIO Administration Folic Acid 1 mg 08/15/25 08:00 08/18/25 10:18 Folic Acid 1 Mg Tablet PO 1 mg BREAKFAST ROCIO Administration Sodium Chloride 1,000 mls @ 125 mls/hr 08/15/25 00:44 08/18/25 08:34 IV 125 mls/hr .Q8H ROCIO Administration Sodium Chloride 250 mls @ 15 mls/hr 08/15/25 00:45 IV .[id number] PRN Additional IVPB Infusion Nitrofurantoin Macrocrystals 100 mg 08/16/25 22:00 08/18/25 10:14 Nitrofurantoin Macrocrystals 100 Mg Capsule PO 100 mg BID ROCIO Administration Ondansetron HCl 4 mg 08/15/25 00:44 08/16/25 03:59 Ondansetron 4 Mg/2 Ml Vial IV 4 mg Q8H PRN PRN Administration NAUSEA/VOMITING Sodium Chloride 10 - 40 ml 08/15/25 00:45 08/15/25 08:59 0.9% Saline Lock 10 Ml Syringe IV 10 ml UD PRN Administration SALINE FLUSH 08/18/25 1135 <Electronically signed by Mukul Soliman MD> Cosigner Signature (if applicable): CC: No Primary Care Physician~ Signed [facility] Work Phone: 1(466) 552-337310-17-2025 Consult note [facility] Medical Records Department [address] [place] [address] Consultation - Neurology 08/18/25 1108 MR#: [id number] Acct: [id number] Name: BANDAR TIWARI Rep #:[id number] : 1960 65 From: Mukul Winston PCP: Care Physician,No Primary Status :ADM IN Location: [address] Assessment and Plan: Stroke Assessment/Plan BANDAR TIWARI, is a 65 F with etoh use disorder, smoker, ARMAND and MDD who presents with generalized weakness and failure to thrive on 08/15/25. She as nottaking care of herself and slept for the majority of 3 days so was brought to the ED. She was found to have a UTI and was treated, her cognition and ability to care for herself that they noted in the hospital led to them getting an MRI brain. Patient cannot provide much history. No family in the room to get collateral hx. MRI brain showed punctate ischemic strokes in BL hemispheres. They are small and should not cause any major symptoms. Stroke team was consulted on 08/18/25 for MRI brain findings. On my exam NIH for 8 for drift in all limbs. She can name, follow commands and has fluent speech, just not a good historian, more encephalopathic. Stroke cryptogenic at this time. 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 HPI Consult Data Date of Consult: 08/18/25 HPI Narrative HPI Narrative: BANDAR TIWARI, is a 65 F with etoh use disorder, smoker, ARMAND and MDD who presents with generalized weakness and failure to thrive on 08/15/25. She was found to have a UTI and was treated, her cognition and ability to care for herself that they noted in the hospital led to them getting an MRI brain. Patient cannot provide much history. No family in the room to get collateral hx.Per note over the past 3 days prior to admission was not walking, talking or taking care of herself so was brought to the ED. MRI brain showed punctate ischemic strokes in BL hemispheres. They are small and should not cause any major symptoms. Stroke team was consulted on 08/18/25 for MRI brain findings. Onmy exam NIH for 8 for drift in all limbs. She can name, follow commands and has fluent speech, just not a good historian, more encephalopathic. [facility] Medical History (Updated 08/15/25 @ 01:07 by Jolynn Keen) Smoker Migraines Alcohol abuse Anxiety Depression Home Medications ?Medication ?Instructions ?Recorded ?Last Taken ?Type citalopram 40 mg tablet 40 mg PO DAILY MOOD 08/14/25 08/07/25 History trazodone 50 mg tablet 50 - 100 mg PO QHS PRN insom joseph 08/14/25 08/07/25 History Allergy/AdvReac Type Severity Reaction Status Date / Time No Known Allergies Allergy Verified 08/14/25 15:26 Social History Smoking Status: Current every day smoker tobacco type: cigarettes Vital Signs Vital Signs Vital Signs: 08/17/25 14:30 08/17/25 15:21 08/17/25 20:00 Temperature 97 F L Temperature Source Oral Pulse Rate 94 Pulse Strength Normal (2+) Respiratory Rate 18 Respiratory Effort Short of Breath Respiratory Depth Normal Respiratory Pattern Normal Blood Pressure 129/97 H Blood Pressure Mean 107 Blood Pressure Source Monitor Blood Pressure Position Sitting Blood Pressure Location Right Arm Pulse Ox 95 Oxygen Delivery Method Room Air 08/17/25 20:00 08/17/25 20:07 08/18/25 04:20 Temperature 97.5 F L Temperature Source Axillary Pulse Rate 87 Pulse Strength Respiratory Rate 18 Respiratory Effort Normal Non-Labored Normal Non-Labored Respiratory Depth Normal Normal Respiratory Pattern Normal Normal Blood Pressure 125/96 H Blood Pressure Mean 105 Blood Pressure Source Monitor Blood Pressure Position Semi-Fowlers Blood Pressure Location Right Arm Pulse Ox 100 Oxygen Delivery Method Room Air Room Air Room Air 08/18/25 04:22 08/18/25 08:08 08/18/25 08:08 Temperature 96.6 F L Temperature Source Temporal Pulse Rate 98 Pulse Strength Normal (2+) Respiratory Rate 18 Respiratory Effort Normal Respiratory Depth Normal Respiratory Pattern Normal Blood Pressure 144/95 H Blood Pressure Mean 111 Blood Pressure Source Monitor Blood Pressure Position Semi-Fowlers Blood Pressure Location Right Arm Pulse Ox 100 Oxygen Delivery Method Room Air Room Air 08/18/25 08:08 08/18/25 08:08 Temperature 98.2 F 98.2 F Temperature Source Temporal Oral Pulse Rate 95 95 Pulse Strength Respiratory Rate 18 18 Respiratory Effort Respiratory Depth Respiratory Pattern Blood Pressure 136/97 H 136/97 H Blood Pressure Mean 110 110 Blood Pressure Source Monitor Monitor Blood Pressure Position Semi-Fowlers Semi-Fowlers Blood Pressure Location Right Arm Right Arm Pulse Ox 98 98 Oxygen Delivery Method Room Air Room Air Weight Weight: 62.5 kg Body Mass Index (BMI) 22.2 Physical Exam Narrative Physical Exam: - General: NAD, pleasant, cooperative, well nourished, well developed - Head/Eyes: Atraumatic, normocephalic, clear cornea, normal sclera/conjunctive - Neuro: ? Mental Status: AAOX3, not to situation & following simple commands. ? Speech: Clear and fluent with good repetition, comprehension, & naming. No aphasia or dysarthria ? CN II: Visual low are full to confrontation. ? CN III, IV, : EOMI, no gaze preference, no nystagmus, no ptosis ? CN V: Facial sensation is intact to light touch throughout. ? CN VII: Face is symmetric with normal eye closure and smile. ? Motor: Anti gravity in all limbs but drops them all to bed ? Sensation: Normal to light touch bilaterally. ? Coordination: Normal FTN, hts could not be tested. No abn movements seen. Lab / Micro Data 08/15/25 07:27 08/15/25 07:27 Labs: Laboratory Results - last 24 hr 08/17/25 22:05: Triglycerides 76, Cholesterol 96, LDL Cholesterol, Calc 52, VLDLCholesterol 15, HDLCholesterol 28 L, Cholesterol/HDL Ratio 3.38 Micro: Microbiology 08/14/25 21:30 Urine, Catheterized Urine Culture - Final Klebsiella pneumoniae sp pneum Imaging Radiology Impression Brain MRI 08/17/25 16:48 IMPRESSION: Punctate acute or subacute ischemic foci within the bilateral, [id number]-rwqv-left centrum semiovale. Moderate global cerebral atrophy, compatible with age-related volume loss. Severe chronic microvascular ischemic white matter changes, likely reflecting longstanding small vessel disease. No evidence of acute intracranial hemorrhage, mass effect, or hydrocephalus. Critical results were communicated to Marlene Smith RN at 7 p.m.. Reading Location: [address] Active Medications Active Medications Active Medications: Current Medications Generic Name Dose Route Start Last Admin Trade Name Freq PRN Reason Stop Dose Admin Aspirin 81 mg 08/17/25 19:20 08/18/25 10:16 Aspirin 81 Mg Tab.Chew PO 81 mg BREAKFAST ROCIO Administration Atorvastatin Calcium 80 mg 08/17/25 22:00 08/17/25 22:37 Atorvastatin Calcium 80 Mg Tablet PO Not Given QHS ROCIO Calamine/Phenol 1 applic 08/15/25 10:00 08/18/25 08:34 Menthol/Lanolin/Calamine/Znox 113 Gm Tube TOPICAL 1 applic BID ROCIO Administration Protocol Citalopram Hydrobromide 40 mg 08/15/25 10:00 08/18/25 10:15 Citalopram 40 Mg Tablet PO 40 mg DAILY ROCIO Administration Enoxaparin Sodium 40 mg 08/15/25 10:00 08/18/25 08:35 Enoxaparin 40 Mg/0.4 Ml Syringe SC 40 mg DAILY ROCIO Administration Folic Acid 1 mg 08/15/25 08:00 08/18/25 10:18 Folic Acid 1 Mg Tablet PO 1 mg BREAKFAST ROCIO Administration Sodium Chloride 1,000 mls @ 125 mls/hr 08/15/25 00:44 08/18/25 08:34 IV 125 mls/hr .Q8H ROCIO Administration Sodium Chloride 250 mls @ 15 mls/hr 08/15/25 00:45 IV .[id number] PRN Additional IVPB Infusion Nitrofurantoin Macrocrystals 100 mg 08/16/25 22:00 08/18/25 10:14 Nitrofurantoin Macrocrystals 100 Mg Capsule PO 100 mg BID ROCIO Administration Ondansetron HCl 4 mg 08/15/25 00:44 08/16/25 03:59 Ondansetron 4 Mg/2 Ml Vial IV 4 mg Q8H PRN PRN Administration NAUSEA/VOMITING Sodium Chloride 10 - 40 ml 08/15/25 00:45 08/15/25 08:59 0.9% Saline Lock 10 Ml Syringe IV 10 ml UD PRN Administration SALINE FLUSH 08/18/25 1135 Cosigner Signature (if applicable): CC: No Primary Care Physician~ Signed [facility]10-15-2025 Progress note Author Corey Guillen [facility] Note Date/Time August 16, 2025 8 :02pm [facility] Medical Records Department [address] [place] [address] Progress Note - Hospitalist 08/16/25 185 MR#: [id number] Acct: [id number] Name: BANDAR TIWARI Rep #:[id number] : 1960 65 From: Corey Guillen DO PCP: Care Physician,No Primary Status :ADM IN Location: [place] [address] Reason for Visit Chief Complaint: Generalized weakness, failure to thrive Subjective Subjective Patient was seen and examined today, she does not appear to be in any distress. Family has not decided as of this morning which fpc they want the patient to be discharged to. Patient's blood pressure has been trending a little high today, it appears she does not have a primary care physician. She may have undiagnosed hypertension. I have elected to add losartan to her medications. Objective Data Objective Data Vital Signs: Vital Signs Temp Pulse Resp BP Pulse Ox O2 Del Method O2 Flow Rate 97.9 F 104 H 18 143/95 H 100 Room Air 2 08/16/25 15:00 08/16/25 15:00 08/16/25 15:00 08/16/25 15:00 08/16/25 15:00 08/16/25 15:00 08/15/25 01:10 Oxygen Flow Rate (L/min) 2 Oxygen Delivery Method Room Air Weight: 62.5 kg Body Mass Index (BMI) 22.2 Intake & Output: Intake and Output for Last 24 Hours 08/14/25 08/15/25 08/16/25 23:59 23:59 23:59 Intake Total 1100 / 1100 2350 / 2400 2099 Balance 1100 / 1100 2350 / 2400 2099 Lab / Micro Data 08/15/25 07:27 08/15/25 07:27 Micro: Microbiology 08/14/25 21:30 Urine, Catheterized Urine Culture - Preliminary Gram negative elise Physical Exam Const alert, no apparent distress and average body habitus General Appearance: cooperative, well kempt and well developed Orientation / Consciousness: awake, oriented to person and oriented to place HEENT normocephalic, head/scalp atraumatic and moist oral mucous membranes Eyes PERRL, EOMs intact bilaterally and conjunctivae normal Neck supple, no JVD, thyroid normal and no carotid bruits General: trachea midline Resp normal respiratory effort, no retractions, no use of accessory muscles and clearto auscultation bilaterally Auscultation: Negative for rales, rhonchi or wheezes Cardio regular rate, regular rhythm, S1 normal heart sound, S2 normal heart sound, no murmurs, no rub and no gallops GI normal to inspection, nondistended, normoactive bowel sounds, soft to palpation,non-tender and non-distended Extremity no clubbing, cyanosis or edema Skin no rashes or lesions noted General Skin Exam: no breakdown Neuro CN's II-XII intact bilaterally, no focal motor deficits and no sensory deficits noted Sensorium / Orientation: awake, alert, oriented to person and oriented to place Speech: speech normal Psych Psych Narrative: Patient has flat affect, she does respond appropriately to simple questions Assessment & Plan Assessment/Plan (1) Adult failure to thrive: PLAN: Plan 1. Adult failure to thrive-etiology unclear at this point, she may have undiagnosed dementia, PT and OT will continue to see the patient and she will need at least temporary placement in a fdc facility. #2 bacteriuria-there are low numbers of gram-negative bacteria in the urine, I have elected to stop her Rocephin and place her on Macrobid #3 hypertension-I suspect this is undiagnosed essential hypertension, I will place patient on losartan #4 probable dementia-again it does not appear that the patient has a primary care physician and this may be contributing to her lack of ability to care for self. Total clinical time spent by myself addressing the patient's medical issues, reviewing all of her data, and collaborating with patient's care team: 35 minutes Charges/Coding Visit Charges Inpatient E&M: 75594 Subs Hosp L2 08/16/251901 <Electronically signed by Corey Guillen DO> Cosigner Signature (if applicable): CC: ~ Signed [facility] Work Phone: 1(542) 630-200010-15-2025 Progress note [facility] Medical Records Department [address] [place] [address] Progress Note - Hospitalist 08/16/25 1857 MR#: [id number] Acct: [id number] Name: BANDAR TIWARI Rep #:[id number] : 1960 65 From: Corey Guillen DO PCP: Care Physician,No Primary Status :ADM IN Location: [place] [address] Reason for Visit Chief Complaint: Generalized weakness, failure to thrive Subjective Subjective Patient was seen and examined today, she does not appear to be in any distress. Family has not decided as of this morning which fpc they want the patient to be discharged to. Patient's bloodpressure has been trending a little high today, it appears she does not have a primary care physician. She may have undiagnosed hypertension. I have elected to add losartan to her medications. Objective Data Objective Data Vital Signs: Vital Signs Temp Pulse Resp BP Pulse Ox O2 Del Method O2 Flow Rate 97.9 F 104 H 18 143/95 H 100 Room Air 2 08/16/25 15:00 08/16/25 15:00 08/16/25 15:00 08/16/25 15:00 08/16/25 15:00 08/16/25 15:00 08/15/25 01:10 Oxygen Flow Rate (L/min) 2 Oxygen Delivery Method Room Air Weight: 62.5 kg Body Mass Index (BMI) 22.2 Intake & Output: Intake and Output for Last 24 Hours 08/14/25 08/15/25 08/16/25 23:59 23:59 23:59 Intake Total 1100 / 1100 2350 / 2400 2099 / 2100 Balance 1100 / 1100 2350 / 2400 2099 / 2099 Lab / Micro Data 08/15/25 07:27 10/14/25 07:27 Micro: Microbiology 08/14/25 21:30 Urine, Catheterized Urine Culture - Preliminary Gram negative elise Physical Exam Const alert, no apparent distress and average body habitus General Appearance: cooperative, well kempt and well developed Orientation / Consciousness: awake, oriented to person and oriented to place HEENT normocephalic, head/scalp atraumatic and moist oral mucous membranes Eyes PERRL, EOMs intact bilaterally and conjunctivae normal Neck supple, no JVD, thyroid normal and no carotid bruits General: trachea midline Resp normal respiratory effort, no retractions, no use of accessory muscles and clearto auscultation bilaterally Auscultation: Negative for rales, rhonchi or wheezes Cardio regular rate, regular rhythm, S1 normal heart sound, S2 normal heart sound, no murmurs, no rub and no gallops GI normal to inspection, nondistended, normoactive bowel sounds, soft to palpation,non-tender and non-distended Extremity no clubbing, cyanosis or edema Skin no rashes or lesions noted General Skin Exam: no breakdown Neuro CN's II-XII intact bilaterally, no focal motor deficits and no sensory deficits noted Sensorium / Orientation: awake, alert, oriented to person and oriented to place Speech: speech normal Psych Psych Narrative: Patient has flat affect, she does respond appropriately to simple questions Assessment & Plan Assessment/Plan (1) Adult failure to thrive: PLAN: Plan 1. Adult failure to thrive-etiology unclear at this point, she may have undiagnosed dementia, PT and OT will continue to see the patient and she will need at least temporary placement in a fdc facility. #2 bacteriuria-there are low numbers of gram-negative bacteria in the urine, I have elected to stopher Rocephin and place her on Macrobid #3 hypertension-I suspect this is undiagnosed essential hypertension, I will place patient on losartan #4 probable dementia-again it does not appear that the patient has a primary care physician and this may be contributing to her lack of ability to care for self. Total clinical time spent by myself addressing the patient's medical issues, reviewing all of her data, and collaborating with patient's care team: 35 minutes Charges/Coding Visit Charges Inpatient E&M: 20400 Subs Hosp L2 08/16/25 1901 Cosigner Signature (if applicable): CC: ~ Signed [facility]10-15-2025 Evaluation note* Diagnosis Onset Date Resolution Status Admit Date UTI (urinary tract infection) resolv ed August 16, 2025 2:41pm Adult failure to thrive inactive O ctober 2024 2:41pm Alcohol use inactive August 16, 2025 2:41pm Generalized weakness inactive Octo carlie 2024 2:41pm [facility] Work Phone: 1(480) 194-692510-14-2025 Progress note Author Corey [facility] Note Date/Time August 15, 2025 3 :28pm [facility] Medical Records Department [address] [place] [address] Progress Note - Hospitalist 08/15/251424 MR#: [id number] Acct: [id number] Name: BANDAR TIWARI Rep #:[id number] : 1960 65 From: Corey Guillen DO PCP: Care Physician,No Primary Status :ADM DEDE Location: MS3 [id number] Hospitalist Note Patient was seen and examined today, she is alert but somewhat confused. I toldher that PT and OT were going to be seeing her for evaluation and she may have to go to a fdc facility for short-term inpatient physical therapy. Patient then asked me whether she had to stay in the hospital and I told her yes. Patient's potassium was slightly low this morning, I have ordered potassium replacement orally. Her BMP will be repeated tomorrow 08/15/251427 <Electronically signed by Corey Guillen DO> Cosigner Signature (if applicable): CC: ~ Signed [facility] Work Phone: 1(503) 710-753110-14-2025 Progress note [facility] Medical Records Department [address] [place] [address] Progress Note - Hospitalist 08/15/251424 MR#: [id number] Acct: [id number] Name: BANDAR TIWARI Rep #:[id number] : 1960 65 From: Corey Guillen DO PCP: Care Physician,No Primary Status :ADM DEDE Location: MS3 BY866-4 Hospitalist Note Patient was seen and examined today, she is alert but somewhat confused. I toldher that PT and OT were going to be seeing her for evaluation and she may have to go to a fdc facility for short-term inpatient physical therapy. Patient then asked me whether she had to stay in the hospital and I told her yes. Patient's potassium was slightly low this morning, I have ordered potassium replacement orally. Her BMP will be repeated tomorrow 08/15/25 1428 Cosigner Signature (if applicable): CC: ~ Signed [facility]10-14-2025 History and physical note Author Bharath Quiros [facility] Note Date/Time August 15, 2025 1 :26am [facility] Medical Records Department [address] [place] [address] History & Physical Exam 08/15/25 0018 MR#: [id number] Acct: [id number] Name: BANDAR TIWARI Rep #:[id number] : 1960 65 From: Bharath Quiros MD PCP: Care Physician,No Primary Status :ADM IN Location: [facility] [id number] HPI - General General Date of Admission: 08/15/25 Date of Service: 08/15/25 Chief Complaint: Generalized weakness, failure to thrive HPI Narrative BANDAR TIWARI, is a 65 F who presents to the emergency room with chief complaint of generalized weakness with failure to thrive at home. According to the her son the patient has slept approximately 60 hours of the last 72 hours athome. She is too weak to transfer without assistance by her son who does work 40 to 50 hours a week at another job and is not at home all the time. Patient does have a significant past medical history of anxiety, depression, alcohol abuse and she does not have routine medical care. Recently her son's noticed her having more trouble with memory and her fatigue and weakness has progressed markedly. Patient is also a smoker and does have some shortness of breath. Laboratory studies are unrevealing however she does have a urinary tract infection through her urinalysis. Patient will be admitted for observation to general medical floor case management referral obtained for help with discharge planning and possible placement. Patient will be given antibiotics for her urinary tract infection and physical therapy evaluation to help with her generalized strengthening and further planning for rehabilitation. Patient is full code at this time. [facility] Medical History Alcohol abuse Anxiety Depression Depression Home Medications ?Medication ?Instructions ?Recorded ?Last Taken ?Type citalopram 40 mg tablet 40 mg PO DAILY MOOD 08/14/25 08/07/25 History trazodone 50 mg tablet 50 - 100 mg PO QHS PRN insom joseph 08/14/25 08/07/25 History Allergy/AdvReac Type Severity Reaction Status Date / Time No Known Allergies Allergy Verified 08/14/25 15:26 Social History Smoking Status: Current every day smoker tobacco type: cigarettes ROS Constitutional Constitutional: Reports anorexia, malaise and weakness; Denies chills or fever(s) Eyes Eyes: Denies blurry vision ENT HEENT: Denies abnormal hearing Cardiovascular Cardiovascular: Denies chest pain Respiratory/Chest Respiratory/Chest: Reports cough and shortness of breath with exertion Gastrointestinal Gastrointestinal: Denies abdominal pain Genitourinary Genitourinary: Reports dysuria and urinary frequency Musculoskeletal Musculoskeletal: Denies back pain Integumentary Integumentary: Denies dry skin Neurologic Neurologic: Denies abnormal gait Psychiatric Psychiatric: Denies anxiety Vital Signs Vital Signs Vital Signs: 08/14/25 15:22 08/14/25 15:28 08/14/25 17:36 Temperature 97.6 F L Temperature Source Oral Pulse Rate 94 Respiratory Rate 18 Respiratory Effort Normal Non-Labored Respiratory Pattern Normal Blood Pressure 145/101 H 150/121 H Blood Pressure Mean 115 130 Blood Pressure Source Blood Pressure Position Blood Pressure Location Pulse Ox 100 100 Oxygen Delivery Method Room Air Room Air 08/14/25 20:41 08/14/25 21:45 08/14/25 22:00 Temperature Temperature Source Pulse Rate 77 70 Respiratory Rate 14 14 Respiratory Effort Respiratory Pattern Blood Pressure 157/102 H 159/113 H 159/128 H Blood Pressure Mean 120 128 138 Blood Pressure Source Blood Pressure Position Blood Pressure Location Pulse Ox 98 98 Oxygen Delivery Method Room Air Room Air 08/14/25 23:04 08/14/25 23:04 08/14/25 23:15 Temperature 99 F Temperature Source Pulse Rate 74 78 78 Respiratory Rate 20 H 20 H 18 Respiratory Effort Respiratory Pattern Blood Pressure 164/108 H 164/108 H 167/107 H Blood Pressure Mean 126 126 127 Blood Pressure Source Monitor Blood Pressure Position Semi-Fowlers Blood Pressure Location Left Arm Pulse Ox 100 100 100 Oxygen Delivery Method Room Air Room Air 08/14/25 23:22 08/14/25 23:36 Temperature 99 F Temperature Source Oral Pulse Rate 90 100 Respiratory Rate 22 H 16 Respiratory Effort Respiratory Pattern Normal Blood Pressure 167/107 H Blood Pressure Mean 127 Blood Pressure Source Blood Pressure Position Blood Pressure Location Pulse Ox 100 Oxygen Delivery Method Room Air Weight Weight: 137 lb 5.568 oz Body Mass Index (BMI) 22.1 Physical Exam Narrative Appears very fatigued Const alert and no apparent distress General Appearance: cooperative and well developed Orientation / Consciousness: confused HEENT normocephalic and head/scalp atraumatic Eyes PERRL and EOMs intact bilaterally Neck no lymphadenopathy Lymph Lymphatic: no lymphadenopathy noted Resp normal respiratory effort, normal air movement and clear to auscultation bilaterally Cardio regular rate, regular rhythm, S1 normal heart sound and S2 normal heart sound GI normal to inspection, nondistended, normoactive bowel sounds, soft to palpation,non-tender and non-distended Extremity normal capillary refill General Extremity: Negative for edema Skin General Skin Exam: no breakdown Neuro no focal motor deficits and no sensory deficits noted Psych cooperative Mood & Affect: flat affect Thought Content: No suicidality, No delusion(s) and No hallucination(s) Results Lab / Micro Data 08/14/25 15:30 08/14/25 15:30 Labs: Laboratory Results - last 24 hr 08/14/25 15:30: WBC 5.3, RBC 4.96, Hgb 13.9, Hct 43.0, MCV 86.7, MCH 28.0, MCHC 32.3, RDW Std Deviation 42.5, RDW Coeff of Adán 13.4, Plt Count 100 L, MPV 13.4 H, Immature Gran % (Auto) 0.200, Neut % (Auto) 56.3, Lymph % (Auto) 33.0, Morrison % (Auto) 7.0, Eos % (Auto) 2.7, Baso % (Auto) 0.8, Absolute Neuts (auto) 3.0, Absolute Lymphs (auto) 1.74, Nucleated RBC % 0, Sodium 142, Potassium 3.2 L, Chloride 104, Carbon Dioxide 23.3, Anion Gap 15, BUN 17, Creatinine 1.03, Estim Creat Clear Calc 51.66, Est GFR (MDRD) Non-Af 61, BUN/Creatinine Ratio 16.8, Glucose 142 H, Calcium 10.2, Total Bilirubin 1.43 H, AST 18, ALT 7, Alkaline Phosphatase 51, Total Protein 8.2, Albumin 4.1, Globulin 4.2, Albumin/Globulin Ratio 1.0, Lipase 29 08/14/25 17:36: TSH 1.290, Free T4 1.20, Free T3 pg/dL 2.3 08/14/25 21:30: Urine Color Yellow, Urine Clarity Turbid, Urine pH 5.0, Ur Specific Orem 1.010, Urine Protein 30 H, Urine Glucose (UA) Normal, Urine Ketones Negative, Urine Occult Blood 150 H, Urine Nitrite Positive H, Urine Bilirubin Negative, Urine Urobilinogen 8 H, Ur Leukocyte Esterase 500 H, Urine RBC 0-5 SEEN, Urine WBC 25- 50 SEEN, Ur Squamous Epith Cells 0-5 SEEN, Ur Renal Epithelial Cell 0-5 SEEN, Urine Bacteria RARE, Urine Mucus 0 SEEN Imaging Radiology Impression Abdomen/Pelvis CT 08/14/25 16:55 IMPRESSION: 1. No pulmonary arterial emboli identified. 2. Cardiomegaly. No pulmonary edema or pleural effusions. Scattered bilateral linear/discoid atelectasis versus scarring in the lungs. 3. Cholelithiasis, without evidence for acute cholecystitis. 4. Circumferential bladder wall thickening, correlate clinically for cystitis. Small amount of nonspecific air within the bladder lumen may be related to recent catheterization. 5. Prominent partially calcified fibroid at the dorsal uterine body. Reading Location: [facility] Chest CTA 08/14/25 16:55 IMPRESSION: 1. No pulmonary arterial emboli identified. 2. Cardiomegaly. No pulmonary edema or pleural effusions. Scattered bilateral linear/discoid atelectasis versus scarring in the lungs. 3. Cholelithiasis, without evidence for acute cholecystitis. 4. Circumferential bladder wall thickening, correlate clinically for cystitis. Small amount of nonspecific air within the bladder lumen may be related to recent catheterization. 5. Prominent partially calcified fibroid at the dorsal uterine body. Reading Location: [facility] Assessment & Plan Assessment/Plan (1) UTI (urinary tract infection): (2) Alcohol use: (3) Adult failure to thrive: (4) Generalized weakness: PLAN: Plan 1 generalized weakness with failure to thrive[facility] consult case management team to assist with possible planfor rehab. 2. Urinary tract infection?Rocephin 1 g IV every 24 hours, repeat CBC BMP in the a.m. will add IV hydration with normal saline at 125 cc/h as well 3. History of alcohol use will add thiamine and folate patient is not presentlyshowing signs of withdrawal and it is unclear based on history with her son thatteresa has been drinking recently 4. DVT prophylaxis?low molecular weight heparin 5. CODE STATUS full verified Charges/Coding Visit Charges OBSV E&M: 90284 Observ/hosp same date L2 08/15/25 0026 <Electronically signed by Bharath Quiros MD> Cosigner Signature (if applicable): CC: Dr. Bharath Quiros MD; No Primary Care Physician~ Signed [facility] Work Phone: 1(702) 630-831710-14-2025 Discharge summary Author Sander Wakefield [facility] Note Date/Time August 15, 2025 1 2:20am [facility] Medical Records Department [address] [place] [address] Emergency Department Summary 08/14/25 MR#: [id number] Acct: [id number] Name: BANDAR TIWARI Rep #:[id number] : 1960 65 From: Sander Wakefield DO PCP: Care Physician,No Primary Status :REG ER Location: ED HPI History of Present Illness Chief Complaint: General Illness Narrative Narrative: Patient is a 65-year-old female with past medical history anxiety, depression, alcohol abuse does not follow with a doctor in a regular basis who presents to the emergency department with a chief complaint of generalized weakness, decreased appetite, weight loss and not feeling well overall. According to the son at bedside who provided majority of history of present illness he states that he thought things would get better however they have not over the last month therefore he brought her here for further evaluation management. Patient also complains of some shortness of breath denies any history of blood clots denies any recent travel history. She states that she does smoke. [facility] Medical History Alcohol abuse Anxiety Depression Depression Home Medications ?Medication ?Instructions ?Recorded ?Last Taken ?Type citalopram 40 mg tablet 40 mg PO DAILY MOOD 08/14/25 08/07/25 History trazodone 50 mg tablet 50 - 100 mg PO QHS PRN insom joseph 08/14/25 08/07/25 History Allergy/AdvReac Type Severity Reaction Status Date / Time No Known Allergies Allergy Verified 08/14/25 15:26 Social History Smoking Status: Current every day smoker tobacco type: cigarettes ROS ROS ED ROS Narrative Constitutional: Denies any fevers or chills denies headache Eyes: Denies double vision Cardiovascular: Denies chest pain Respiratory: Complains of shortness of breath as noted above Abdomen: Complains of decreased appetite and weight loss as noted above : Denies urinary symptoms Neurological: Denies numbness, wheeze, tingling Musculoskeletal: Denies back pain Skin: Denies any rashes or lesions EXAM Physical Exam Narrative Exam Narrative: General: Patient was lying in bed rest comfortably did not appear to be in acutedistress Head: Atraumatic, normocephalic Eyes: PERRL bilaterally, EOMI bilaterally, no conjunctival injection noted mucous membranes dry Neck: Soft, supple, trachea midline Cardiovascular: Regular rate and rhythm Respiratory: Clear to auscultation bilaterally Abdomen: Soft, nondistended, diffuse tenderness to palpation no rebound guardingexam Extremities: +3/5 strength noted in the bilateral upper and lower extremities Neurological: Patient following commands she was at [facility] Skin: Warm, dry, intact no rashes or lesions noted dry skin noted Const Vital Signs: 08/14/25 15:22 08/14/25 15:28 08/14/25 17:36 Temperature 97.6 F L Temperature Source Oral Pulse Rate 94 Respiratory Rate 18 Respiratory Effort Normal Non-Labored Respiratory Pattern Normal Blood Pressure 145/101 H 150/121 H Blood Pressure Mean 115 130 Blood Pressure Source Blood Pressure Position Blood Pressure Location Pulse Ox 100 100 Oxygen Delivery Method Room Air Room Air 08/14/25 20:41 08/14/25 21:45 08/14/25 22:00 Temperature Temperature Source Pulse Rate 77 70 Respiratory Rate 14 14 Respiratory Effort Respiratory Pattern Blood Pressure 157/102 H 159/113 H 159/128 H Blood Pressure Mean 120 128 138 Blood Pressure Source Blood Pressure Position Blood Pressure Location Pulse Ox 98 98 Oxygen Delivery Method Room Air Room Air 08/14/25 23:04 08/14/25 23:04 Temperature Temperature Source Pulse Rate 74 78 Respiratory Rate 20 H 20 H Respiratory Effort Respiratory Pattern Blood Pressure 164/108 H 164/108 H Blood Pressure Mean 126 126 Blood Pressure Source Monitor Blood Pressure Position Semi-Fowlers Blood Pressure Location Left Arm Pulse Ox 100 100 Oxygen Delivery Method Room Air Room Air MDM MDM MDM Narrative Medical decision making narrative: Patient is a 65-year-old female who presents to the Emergency Department chief complaint of generalized weakness, weight loss, decreased appetite and abdominalpain as well as shortness of breath. On the differential diagnose includes but not limited to lung cancer, intra-abdominal mass, failure to thrive, hypothyroidism, dehydration. Once workup is obtained reviewed she will be reevaluated. Patient is a 65-year-old female patient CBC reviewed showed no evidence leukocytosis white blood count normal 5.3, he was 13.9, platelet count of 100. Patient sodium is 142, potassium 3.2 will give 40 mill equivalents of oral supplementation, creatinine is 1.03. Patient's AST and ALT normal at 18 and 7 respectively. Patient lipase normal at 29, thyroid TSH normal at 1.29. Patient's free T4 and T3 normal at 1.20 and 2.3 respectively. Patient urinalysis showed 500 leukocyte esterase 25-50 white cells with rare bacteria however she appears clinically to have a urinary tract infection therefore she was given Rocephin this was sent for culture. Patient's CTA chest was reviewed showed no PE. Cardiomegaly no pulmonary edema or effusions noted. Cholelithiasis without evidence of acute cholecystitis. Circumferential bladderwall thickening concern for cystitis correlate clinically. After discussion with the son at bedside he states that she is very weak and cannot get around is also having some changes in mental status is more confused and that he states that he thinks that she may have dementia but does not feel that she is safe at home by herself therefore we will discuss case with hospitalist for admission. Son also notified me that he was concern for increased work of breathing and went back in and with similar patient's lungs we will give a DuoNeb to see if this improves her feeling her shortness of breath. Discussed case with hospitalist Dr. Quiros who accept patient for admission. Patient notified as well as family at bedside they are agreeable this plan all question concerns answered. Lab Data Labs: Laboratory Results - last 24 hr 08/14/25 08/14/25 08/14/25 15:30 17:36 21:30 WBC 5.3 RBC 4.96 Hgb 13.9 Hct 43.0 MCV 86.7 MCH 28.0 MCHC 32.3 RDW Std Deviation 42.5 RDW Coeff of Adán 13.4 Plt Count 100 L MPV 13.4 H Immature Gran % (Auto) 0.200 Neut % (Auto) 56.3 Lymph % (Auto) 33.0 Morrison % (Auto) 7.0 Eos % (Auto) 2.7 Baso % (Auto) 0.8 Absolute Neuts (auto) 3.0 Absolute Lymphs (auto) 1.74 Nucleated RBC % 0 Sodium 142 Potassium 3.2 L Chloride 104 Carbon Dioxide 23.3 Anion Gap 15 BUN 17 Creatinine 1.03 Estim Creat Clear Calc 51.66 Est GFR (MDRD) Non-Af 61 BUN/Creatinine Ratio 16.8 Glucose 142 H Calcium 10.2 Total Bilirubin 1.43 H AST 18 ALT 7 Alkaline Phosphatase 51 Total Protein 8.2 Albumin 4.1 Globulin 4.2 Albumin/Globulin Ratio 1.0 Lipase 29 TSH 1.290 Free T4 1.20 Free T3 pg/dL 2.3 Urine Color Yellow Urine Clarity Turbid Urine pH 5.0 Ur Specific Orem 1.010 Urine Protein 30 H Urine Glucose (UA) Normal Urine Ketones Negative Urine Occult Blood 150 H Urine Nitrite Positive H Urine Bilirubin Negative Urine Urobilinogen 8 H Ur Leukocyte Esterase 500 H Urine RBC 0-5 SEEN Urine WBC 25-50 SEEN Ur Squamous Epith Cells 0-5 SEEN Ur Renal Epithelial Cell 0-5 SEEN Urine Bacteria RARE Urine Mucus 0 SEEN Radiography Diagnostic Testing: Clinical Impression(s) from Imaging Studies Abdomen/Pelvis CT 08/14/25 16:55 IMPRESSION: 1. No pulmonary arterial emboli identified. 2. Cardiomegaly. No pulmonary edema or pleural effusions. Scattered bilateral linear/discoid atelectasis versus scarring in the lungs. 3. Cholelithiasis, without evidence for acute cholecystitis. 4. Circumferential bladder wall thickening, correlate clinically for cystitis. Small amount of nonspecific air within the bladder lumen may be related to recent catheterization. 5. Prominent partially calcified fibroid at the dorsal uterine body. Reading Location: [facility] Chest CTA 08/14/25 16:55 IMPRESSION: 1. No pulmonary arterial emboli identified. 2. Cardiomegaly. No pulmonary edema or pleural effusions. Scattered bilateral linear/discoid atelectasis versus scarring in the lungs. 3. Cholelithiasis, without evidence for acute cholecystitis. 4. Circumferential bladder wall thickening, correlate clinically for cystitis. Small amount of nonspecific air within the bladder lumen may be related to recent catheterization. 5. Prominent partially calcified fibroid at the dorsal uterine body. Reading Location: [facility] Discharge Plan Dx/Rx/DC Orders Clinical Impression: Generalized weakness, Adult failure to thrive, Alcohol use, UTI (urinary tract infection) Disposition Disposition: Acute Care Hospital [facility] What to do if you have Problems For any increased pain, shortness of breath, bleeding, nausea or vomiting, chestpain, or any unexpected problems, contact your Primary Care Provider. Call [facility] ([phone]) or report to the closest Emergency Room. Call 911 if necessary. 08/14/252319 <Electronically signed by Sander Wakefield DO> Cosigner Signature (if applicable): CC: No Primary Care Physician ~ Signed [facility] Work Phone: 1(964) 511-746610-14-2025 History and physical note [facility] Medical Records Department [address] [place] [address] History & Physical Exam 08/15/25 0018 MR#: [id number] Acct: [id number] Name: BANDAR TIWARI Rep #:[id number] : 1960 65 From: Bharath Quiros MD PCP: Care Physician,No Primary Status :ADM IN Location: [facility] GU236-2 [facility] - General General Date of Admission: 08/15/25 Date of Service: 08/15/25 Chief Complaint: Generalized weakness, failure to thrive HPI Elbert TIWARI, is a 65 F who presents to the emergency room with chief complaint of generalized weakness with failure to thrive at home. According to the her son the patient has slept approximately 60 hours of the last 72 hours athome. She is too weak to transfer without assistance by her son who does work 40 to 50 hours a week at another job and is not at home all the time. Patient does have a significant past medical history of anxiety, depression, alcohol abuse and she does not have routine medical care. Recently her son's noticed her having more trouble with memory and her fatigue and weakness has progressed markedly. Patient is also a smoker and does have some shortness of breath. La boratory studies are unrevealing however she does have a urinary tract infection through her urinalysis. Patient will be admitted for observation to general medical floor case management referral obtained for help with discharge planning and possible placement. Patient will be given antibiotics forher urinary tract infection and physical therapy evaluation to help with her generalized strengthening and further planning for rehabilitation. Patient is full code at this time. [facility] Medical History Alcohol abuse Anxiety Depression Depression Home Medications ?Medication ?Instructions ?Recorded ?Last Taken ?Type citalopram 40 mg tablet 40 mg PO DAILY MOOD 08/14/25 08/07/25 History trazodone 50 mg tablet 50 - 100 mg PO QHS PRN insom joseph 08/14/25 08/07/25 History Allergy/AdvReac Type Severity Reaction Status Date / Time No Known Allergies Allergy Verified 08/14/25 15:26 Social History Smoking Status: Current every day smoker tobacco type: cigarettes ROS Constitutional Constitutional: Reports anorexia, malaise and weakness; Denies chills or fever(s) Eyes Eyes: Denies blurry vision ENT HEENT: Denies abnormal hearing Cardiovascular Cardiovascular: Denies chest pain Respiratory/Chest Respiratory/Chest: Reports cough and shortness of breath with exertion Gastrointestinal Gastrointestinal: Denies abdominal pain Genitourinary Genitourinary: Reports dysuria and urinary frequency Musculoskeletal Musculoskeletal: Denies back pain Integumentary Integumentary: Denies dry skin Neurologic Neurologic: Denies abnormal gait Psychiatric Psychiatric: Denies anxiety Vital Signs Vital Signs Vital Signs: 08/14/25 15:22 08/14/25 15:28 08/14/25 17:36 Temperature 97.6 F L Temperature Source Oral Pulse Rate 94 Respiratory Rate 18 Respiratory Effort Normal Non-Labored Respiratory Pattern Normal Blood Pressure 145/101 H 150/121 H Blood Pressure Mean 115 130 Blood Pressure Source Blood Pressure Position Blood Pressure Location Pulse Ox 100 100 Oxygen Delivery Method Room Air Room Air 08/14/25 20:41 08/14/25 21:45 08/14/25 22:00 Temperature Temperature Source Pulse Rate 77 70 Respiratory Rate 14 14 Respiratory Effort Respiratory Pattern Blood Pressure 157/102 H 159/113 H 159/128 H Blood Pressure Mean 120 128 138 Blood Pressure Source Blood Pressure Position Blood Pressure Location Pulse Ox 98 98 Oxygen Delivery Method Room Air Room Air 08/14/25 23:04 08/14/25 23:04 08/14/25 23:15 Temperature 99 F Temperature Source Pulse Rate 74 78 78 Respiratory Rate 20 H 20 H 18 Respiratory Effort Respiratory Pattern Blood Pressure 164/108 H 164/108 H 167/107 H Blood Pressure Mean 126 126 127 Blood Pressure Source Monitor Blood Pressure Position Semi-Fowlers Blood Pressure Location Left Arm Pulse Ox 100 100 100 Oxygen Delivery Method Room Air Room Air 08/14/25 23:22 08/14/25 23:36 Temperature 99 F Temperature Source Oral Pulse Rate 90 100 Respiratory Rate 22 H 16 Respiratory Effort Respiratory Pattern Normal Blood Pressure 167/107 H Blood Pressure Mean 127 Blood Pressure Source Blood Pressure Position Blood Pressure Location Pulse Ox 100 Oxygen Delivery Method Room Air Weight Weight: 137 lb 5.568 oz Body Mass Index (BMI) 22.1 Physical Exam Narrative Appears very fatigued Const alert and no apparent distress General Appearance: cooperative and well developed Orientation / Consciousness: confused HEENT normocephalic and head/scalp atraumatic Eyes PERRL and EOMs intact bilaterally Neck no lymphadenopathy Lymph Lymphatic: no lymphadenopathy noted Resp normal respiratory effort, normal air movement and clear to auscultation bilaterally Cardio regular rate, regular rhythm, S1 normal heart sound and S2 normal heart sound GI normal to inspection, nondistended, normoactive bowel sounds, soft to palpation,non-tender and non-distended Extremity normal capillary refill General Extremity: Negative for edema Skin General Skin Exam: no breakdown Neuro no focal motor deficits and no sensory deficits noted Psych cooperative Mood & Affect: flat affect Thought Content: No suicidality, No delusion(s) and No hallucination(s) Results Lab / Micro Data 08/14/25 15:30 08/14/25 15:30 Labs: Laboratory Results - last 24 hr 08/14/25 15:30: WBC 5.3, RBC 4.96, Hgb 13.9, Hct 43.0, MCV 86.7, MCH 28.0, MCHC 32.3, RDW Std Deviation 42.5, RDW Coeff of Adán 13.4, Plt Count 100 L, MPV 13.4 H, Immature Gran % (Auto) 0.200, Neut % (Auto) 56.3, Lymph % (Auto) 33.0, Morrison % (Auto) 7.0, Eos % (Auto) 2.7, Baso % (Auto) 0.8, Absolute Neuts (auto) 3.0, Absolute Lymphs (auto) 1.74, Nucleated RBC % 0, Sodium 142, Potassium 3.2 L, Chloride 104, Carbon Dioxide 23.3, Anion Gap 15, BUN 17, Creatinine 1.03, Estim Creat Clear Calc 51.66, Est GFR (MDRD) Non-Af 61, BUN/Creatinine Ratio 16.8, Glucose 142 H, Calcium 10.2, Total Bilirubin 1.43H, AST 18, ALT 7, Alkaline Phosphatase 51, Total Protein 8.2, Albumin 4.1, Globulin 4.2, Albumin/Globulin Ratio 1.0, Lipase 29 08/14/25 17:36: TSH 1.290, Free T4 1.20, Free T3 pg/dL 2.3 08/14/25 21:30: Urine Color Yellow, Urine Clarity Turbid, Urine pH 5.0, Ur Specific Orem 1.010, Urine Protein 30 H, Urine Glucose (UA) Normal, Urine Ketones Negative, Urine Occult Blood 150 H, Urine Nitrite Positive H, Urine Bilirubin Negative, Urine Urobilinogen 8 H, Ur Leukocyte Esterase 500 H, Urine RBC 0-5 SEEN, Urine WBC 25-50 SEEN, Ur Squamous Epith Cells 0-5 SEEN, Ur Renal Epithelial Cell 0-5 SEEN, Urine Bacteria RARE, Urine Mucus 0 SEEN Imaging Radiology Impression Abdomen/Pelvis CT 08/14/25 16:55 IMPRESSION: 1. No pulmonary arterial emboli identified. 2. Cardiomegaly. No pulmonary edema or pleural effusions. Scattered bilateral linear/discoid atelectasis versus scarring in the lungs. 3. Cholelithiasis, without evidence for acute cholecystitis. 4. Circumferential bladder wall thickening, correlate clinically for cystitis. Small amount of nonspecific air within the bladder lumen may be related to recent catheterization. 5. Prominent partially calcified fibroid at the dorsal uterine body. Reading Location: [facility] Chest CTA 08/14/25 16:55 IMPRESSION: 1. No pulmonary arterial emboli identified. 2. Cardiomegaly. No pulmonary edema or pleural effusions. Scattered bilateral linear/discoid atelectasis versus scarring in the lungs. 3. Cholelithiasis, without evidence for acute cholecystitis. 4. Circumferential bladder wall thickening, correlate clinically for cystitis. Small amount of nonspecific air within the bladder lumen may be related to recent catheterization. 5. Prominent partially calcified fibroid at the dorsal uterine body. Reading Location: [facility] Assessment & Plan Assessment/Plan (1) UTI (urinary tract infection): (2) Alcohol use: (3) Adult failure to thrive: (4) Generalized weakness: PLAN: Plan 1 generalized weakness with failure to thrive[facility] consult case management team to assist with possible planfor rehab. 2. Urinary tract infection?Rocephin 1 g IV every 24 hours, repeat CBC BMP in the a.m. will add IV hydration with normal saline at 125 cc/h as well 3. History of alcohol use will add thiamine and folate patient is not presentlyshowing signs of withdrawal and it is unclear based on history with her son thatteresa has been drinking recently 4. DVT prophylaxis?low molecular weight heparin 5. CODE STATUS full verified Charges/Coding Visit Charges OBSV E&M: 12222 Observ/hosp same date L2 08/15/25 0026 Cosigner Signature (if applicable): CC: Dr. Bharath Quiros MD; No Primary Care Physician~ Signed [facility]10-14-2025 History and physical note [facility] Medical Records Department [address] [place] [address] History & Physical Exam 08/15/25 0018 MR#: [id number] Acct: [id number] Name: BANDAR TIWARI Rep #:[id number] : 1960 65 From: Bharath Quiros MD PCP: Care Physician,No Primary Status :ADM IN Location: [place] [id number] - General General Date of Admission: 08/15/25 Date of Service: 08/15/25 Chief Complaint: Generalized weakness, failure to thrive HPI Narrative BANDAR TIWARI, is a 65 F who presents to the emergency room with chief complaint of generalized weakness with failure to thrive at home. According to the her son the patient has slept approximately 60 hours of the last 72 hours athome. She is too weak to transfer without assistance by her son who does work 40 to 50 hours a week at another job and is not at home all the time. Patient does have a significant past medical history of anxiety, depression, alcohol abuse and she does not have routine medical care. Recently her son's noticed her having more trouble with memory and her fatigue and weakness has progressed markedly. Patient is also a smoker and does have some shortness of breath. La boratory studies are unrevealing however she does have a urinary tract infection through her urinalysis. Patient will be admitted for observation to general medical floor case management referral obtained for help with discharge planning and possible placement. Patient will be given antibiotics forher urinary tract infection and physical therapy evaluation to help with her generalized strengthening and further planning for rehabilitation. Patient is full code at this time. [facility] Medical History Alcohol abuse Anxiety Depression Depression Home Medications ?Medication ?Instructions ?Recorded ?Last Taken ?Type citalopram 40 mg tablet 40 mg PO DAILY MOOD 08/14/25 08/07/25 History trazodone 50 mg tablet 50 - 100 mg PO QHS PRN insom joseph 08/14/25 08/07/25 History Allergy/AdvReac Type Severity Reaction Status Date / Time No Known Allergies Allergy Verified 08/14/25 15:26 Social History Smoking Status: Current every day smoker tobacco type: cigarettes ROS Constitutional Constitutional: Reports anorexia, malaise and weakness; Denies chills or fever(s) Eyes Eyes: Denies blurry vision ENT HEENT: Denies abnormal hearing Cardiovascular Cardiovascular: Denies chest pain Respiratory/Chest Respiratory/Chest: Reports cough and shortness of breath with exertion Gastrointestinal Gastrointestinal: Denies abdominal pain Genitourinary Genitourinary: Reports dysuria and urinary frequency Musculoskeletal Musculoskeletal: Denies back pain Integumentary Integumentary: Denies dry skin Neurologic Neurologic: Denies abnormal gait Psychiatric Psychiatric: Denies anxiety Vital Signs Vital Signs Vital Signs: 08/14/25 15:22 08/14/25 15:28 08/14/25 17:36 Temperature 97.6 F L Temperature Source Oral Pulse Rate 94 Respiratory Rate 18 Respiratory Effort Normal Non-Labored Respiratory Pattern Normal Blood Pressure 145/101 H 150/121 H Blood Pressure Mean 115 130 Blood Pressure Source Blood Pressure Position Blood Pressure Location Pulse Ox 100 100 Oxygen Delivery Method Room Air Room Air 08/14/25 20:41 08/14/25 21:45 08/14/25 22:00 Temperature Temperature Source Pulse Rate 77 70 Respiratory Rate 14 14 Respiratory Effort Respiratory Pattern Blood Pressure 157/102 H 159/113 H 159/128 H Blood Pressure Mean 120 128 138 Blood Pressure Source Blood Pressure Position Blood Pressure Location Pulse Ox 98 98 Oxygen Delivery Method Room Air Room Air 08/14/25 23:04 08/14/25 23:04 08/14/25 23:15 Temperature 99 F Temperature Source Pulse Rate 74 78 78 Respiratory Rate 20 H 20 H 18 Respiratory Effort Respiratory Pattern Blood Pressure 164/108 H 164/108 H 167/107 H Blood Pressure Mean 126 126 127 Blood Pressure Source Monitor Blood Pressure Position Semi-Fowlers Blood Pressure Location Left Arm Pulse Ox 100 100 100 Oxygen Delivery Method Room Air Room Air 08/14/25 23:22 08/14/25 23:36 Temperature 99 F Temperature Source Oral Pulse Rate 90 100 Respiratory Rate 22 H 16 Respiratory Effort Respiratory Pattern Normal Blood Pressure 167/107 H Blood Pressure Mean 127 Blood Pressure Source Blood Pressure Position Blood Pressure Location Pulse Ox 100 Oxygen Delivery Method Room Air Weight Weight: 137 lb 5.568 oz Body Mass Index (BMI) 22.1 Physical Exam Narrative Appears very fatigued Const alert and no apparent distress General Appearance: cooperative and well developed Orientation / Consciousness: confused HEENT normocephalic and head/scalp atraumatic Eyes PERRL and EOMs intact bilaterally Neck no lymphadenopathy Lymph Lymphatic: no lymphadenopathy noted Resp normal respiratory effort, normal air movement and clear to auscultation bilaterally Cardio regular rate, regular rhythm, S1 normal heart sound and S2 normal heart sound GI normal to inspection, nondistended, normoactive bowel sounds, soft to palpation,non-tender and non-distended Extremity normal capillary refill General Extremity: Negative for edema Skin General Skin Exam: no breakdown Neuro no focal motor deficits and no sensory deficits noted Psych cooperative Mood & Affect: flat affect Thought Content: No suicidality, No delusion(s) and No hallucination(s) Results Lab / Micro Data 08/14/25 15:30 08/14/25 15:30 Labs: Laboratory Results - last 24 hr 08/14/25 15:30: WBC 5.3, RBC 4.96, Hgb 13.9, Hct 43.0, MCV 86.7, MCH 28.0, MCHC 32.3, RDW Std Deviation 42.5, RDW Coeff of Adán 13.4, Plt Count 100 L, MPV 13.4 H, Immature Gran % (Auto) 0.200, Neut % (Auto) 56.3, Lymph % (Auto) 33.0, Morrison % (Auto) 7.0, Eos % (Auto) 2.7, Baso % (Auto) 0.8, Absolute Neuts (auto) 3.0, Absolute Lymphs (auto) 1.74, Nucleated RBC % 0, Sodium 142, Potassium 3.2 L, Chloride 104, Carbon Dioxide 23.3, Anion Gap 15, BUN 17, Creatinine 1.03, Estim Creat Clear Calc 51.66, Est GFR (MDRD) Non-Af 61, BUN/Creatinine Ratio 16.8, Glucose 142 H, Calcium 10.2, Total Bilirubin 1.43H, AST 18, ALT 7, Alkaline Phosphatase 51, Total Protein 8.2, Albumin 4.1, Globulin 4.2, Albumin/Globulin Ratio 1.0, Lipase 29 08/14/25 17:36: TSH 1.290, Free T4 1.20, Free T3 pg/dL 2.3 08/14/25 21:30: Urine Color Yellow, Urine Clarity Turbid, Urine pH 5.0, Ur Specific Orem 1.010, Urine Protein 30 H, Urine Glucose (UA) Normal, Urine Ketones Negative, Urine Occult Blood 150 H, Urine Nitrite Positive H, Urine Bilirubin Negative, Urine Urobilinogen 8 H, Ur Leukocyte Esterase 500 H, Urine RBC 0-5 SEEN, Urine WBC 25-50 SEEN, Ur Squamous Epith Cells 0-5 SEEN, Ur Renal Epithelial Cell 0-5 SEEN, Urine Bacteria RARE, Urine Mucus 0 SEEN Imaging Radiology Impression Abdomen/Pelvis CT 08/14/25 16:55 IMPRESSION: 1. No pulmonary arterial emboli identified. 2. Cardiomegaly. No pulmonary edema or pleural effusions. Scattered bilateral linear/discoid atelectasis versus scarring in the lungs. 3. Cholelithiasis, without evidence for acute cholecystitis. 4. Circumferential bladder wall thickening, correlate clinically for cystitis. Small amount of nonspecific air within the bladder lumen may be related to recent catheterization. 5. Prominent partially calcified fibroid at the dorsal uterine body. Reading Location: [facility] Chest CTA 08/14/25 16:55 IMPRESSION: 1. No pulmonary arterial emboli identified. 2. Cardiomegaly. No pulmonary edema or pleural effusions. Scattered bilateral linear/discoid atelectasis versus scarring in the lungs. 3. Cholelithiasis, without evidence for acute cholecystitis. 4. Circumferential bladder wall thickening, correlate clinically for cystitis. Small amount of nonspecific air within the bladder lumen may be related to recent catheterization. 5. Prominent partially calcified fibroid at the dorsal uterine body. Reading Location: [facility] Assessment & Plan Assessment/Plan (1) UTI (urinary tract infection): (2) Alcohol use: (3) Adult failure to thrive: (4) Generalized weakness: PLAN: Plan 1 generalized weakness with failure to thrive[facility], consult case management team to assist with possible planfor rehab. 2. Urinary tract infection?Rocephin 1 g IV every 24 hours, repeat CBC BMP in the a.m. will add IV hydration with normal saline at 125 cc/h as well 3. History of alcohol use will add thiamine and folate patient is not presentlyshowing signs of withdrawal and it is unclear based on history with her son thatteresa has been drinking recently 4. DVT prophylaxis?low molecular weight heparin 5. CODE STATUS full verified Charges/Coding Visit Charges OBSV E&M: 39515 Observ/hosp same date L2 08/15/25 0026 Cosigner Signature (if applicable): CC: Dr. Bharath Quiros MD; No Primary Care Physician~ Signed [facility]10-14-2025 Discharge summary [facility] Medical Records Department [address] [place] [address] Emergency Department Summary 08/14/25 MR#: [id number] Acct: [id number] Name: BANDAR TIWARI Rep #:[id number] : 1960 65 From: Sander Wakefield DO PCP: Care Physician,No Primary Status :REG ER Location: ED HPI History of Present Illness Chief Complaint: General Illness Narrative Narrative: Patient is a 65-year-old female with past medical history anxiety, depression, alcohol abuse does not follow with a doctor in a regular basis who presents to the emergency department with a chief complaint of generalized weakness, decreased appetite, weight loss and not feeling well overall. According to the son at bedside who provided majority of history of present illness he states that he thought things would get better however they have not over the last month therefore he brought her here for further evaluation management. Patient also complains of some shortness of breath denies any history of blood clots denies any recent travel history. She states that she does smoke. [facility] Medical History Alcohol abuse Anxiety Depression Depression Home Medications ?Medication ?Instructions ?Recorded ?Last Taken ?Type citalopram 40 mg tablet 40 mg PO DAILY MOOD 08/14/25 08/07/25 History trazodone 50 mg tablet 50 - 100 mg PO QHS PRN insom joseph 08/14/25 08/07/25 History Allergy/AdvReac Type Severity Reaction Status Date / Time No Known Allergies Allergy Verified 08/14/25 15:26 Social History Smoking Status: Current every day smoker tobacco type: cigarettes ROS ROS ED ROS Narrative Constitutional: Denies any fevers or chills denies headache Eyes: Denies double vision Cardiovascular: Denies chest pain Respiratory: Complains of shortness of breath as noted above Abdomen: Complains of decreased appetite and weight loss as noted above : Denies urinary symptoms Neurological: Denies numbness, wheeze, tingling Musculoskeletal: Denies back pain Skin: Denies any rashes or lesions EXAM Physical Exam Narrative Exam Narrative: General: Patient was lying in bed rest comfortably did not appear to be in acutedistress Head: Atraumatic, normocephalic Eyes: PERRL bilaterally, EOMI bilaterally, no conjunctival injection noted mucous membranes dry Neck: Soft, supple, trachea midline Cardiovascular: Regular rate and rhythm Respiratory: Clear to auscultation bilaterally Abdomen: Soft, nondistended, diffuse tenderness to palpation no rebound guardingexam Extremities: +3/5 strength noted in the bilateral upper and lower extremities Neurological: Patient following commands she was at [facility] Skin: Warm, dry, intact no rashes or lesions noted dry skin noted Const Vital Signs: 08/14/25 15:22 08/14/25 15:28 08/14/25 17:36 Temperature 97.6 F L Temperature Source Oral Pulse Rate 94 Respiratory Rate 18 Respiratory Effort Normal Non-Labored Respiratory Pattern Normal Blood Pressure 145/101 H 150/121 H Blood Pressure Mean 115 130 Blood Pressure Source Blood Pressure Position Blood Pressure Location Pulse Ox 100 100 Oxygen Delivery Method Room Air Room Air 08/14/25 20:41 08/14/25 21:45 08/14/25 22:00 Temperature Temperature Source Pulse Rate 77 70 Respiratory Rate 14 14 Respiratory Effort Respiratory Pattern Blood Pressure 157/102 H 159/113 H 159/128 H Blood Pressure Mean 120 128 138 Blood Pressure Source Blood Pressure Position Blood Pressure Location Pulse Ox 98 98 Oxygen Delivery Method Room Air Room Air 08/14/25 23:04 08/14/25 23:04 Temperature Temperature Source Pulse Rate 74 78 Respiratory Rate 20 H 20 H Respiratory Effort Respiratory Pattern Blood Pressure 164/108 H 164/108 H Blood Pressure Mean 126 126 Blood Pressure Source Monitor Blood Pressure Position Semi-Fowlers Blood Pressure Location Left Arm Pulse Ox 100 100 Oxygen Delivery Method Room Air Room Air MDM MDM MDM Narrative Medical decision making narrative: Patient is a 65-year-old female who presents to the Emergency Department chief complaint of generalized weakness, weight loss, decreased appetite and abdominalpain as well as shortness of breath. On the differential diagnose includes but not limited to lung cancer, intra-abdominal mass, failure to t hrive, hypothyroidism, dehydration. Once workup is obtained reviewed she will be reevaluated. Patient is a 65-year-old female patient CBC reviewed showed no evidence leukocytosis white blood count normal 5.3, he was 13.9, platelet count of 100. Patient sodium is 142, potassium 3.2 will give 40 mill equivalents of oral supplementation, creatinine is 1.03. Patient's AST and ALT normal at 18 and 7 respectively. Patient lipase normal at 29, thyroid TSH normal at 1.29. Patient's free T4 and R0tngkef at 1.20 and 2.3 respectively. Patient urinalysis showed 500 leukocyte esterase 25-50 white cells with rare bacteria however she appears clinically to have a urinary tract infection therefore she was given Rocephin this was sent for culture. Patient's CTA chest was reviewed showed no PE. Cardi omegaly no pulmonary edema or effusions noted. Cholelithiasis without evidence of acute cholecystitis. Circumferential bladderwall thickening concern for cystitis correlate clinically. After discussion with the son at bedside he states that she is very weak and cannot get around is also having some changes in mental status is more confused and that he states that he thinks that shemay have dementia but does not feel that she is safe at home by herself therefore we will discuss case with hospitalist for admission. Son also notified me that he was concern for increased work of breathing and went back in and with similar patient's lungs we will give a DuoNeb to see if this improves her feeling her shortness of breath. Discussed case with hospitalist Dr. Quiros who accept patient for admission. Patient notified as well as family at bedside they are agreeable this plan all question concerns answered. Lab Data Labs: Laboratory Results - last 24 hr 08/14/25 08/14/25 08/14/25 15:30 17:36 21:30 WBC 5.3 RBC 4.96 Hgb 13.9 Hct 43.0 MCV 86.7 MCH 28.0 MCHC 32.3 RDW Std Deviation 42.5 RDW Coeff of Adán 13.4 Plt Count 100 L MPV 13.4 H Immature Gran % (Auto) 0.200 Neut % (Auto) 56.3 Lymph % (Auto) 33.0 Morrison % (Auto) 7.0 Eos % (Auto) 2.7 Baso % (Auto) 0.8 Absolute Neuts (auto) 3.0 Absolute Lymphs (auto) 1.74 Nucleated RBC % 0 Sodium 142 Potassium 3.2 L Chloride 104 Carbon Dioxide 23.3 Anion Gap 15 BUN 17 Creatinine 1.03 Estim Creat Clear Calc 51.66 Est GFR (MDRD) Non-Af 61 BUN/Creatinine Ratio 16.8 Glucose 142 H Calcium 10.2 Total Bilirubin 1.43 H AST 18 ALT 7 Alkaline Phosphatase 51 Total Protein 8.2 Albumin 4.1 Globulin 4.2 Albumin/Globulin Ratio 1.0 Lipase 29 TSH 1.290 Free T4 1.20 Free T3 pg/dL 2.3 Urine Color Yellow Urine Clarity Turbid Urine pH 5.0 Ur Specific Orem 1.010 Urine Protein 30 H Urine Glucose (UA) Normal Urine Ketones Negative Urine Occult Blood 150 H Urine Nitrite Positive H Urine Bilirubin Negative Urine Urobilinogen 8 H Ur Leukocyte Esterase 500 H Urine RBC 0-5 SEEN Urine WBC 25-50 SEEN Ur Squamous Epith Cells 0-5 SEEN Ur Renal Epithelial Cell 0-5 SEEN Urine Bacteria RARE Urine Mucus 0 SEEN Radiography Diagnostic Testing: Clinical Impression(s) from Imaging Studies Abdomen/Pelvis CT 08/14/25 16:55 IMPRESSION: 1. No pulmonary arterial emboli identified. 2. Cardiomegaly. No pulmonary edema or pleural effusions. Scattered bilateral linear/discoid atelectasis versus scarring in the lungs. 3. Cholelithiasis, without evidence for acute cholecystitis. 4. Circumferential bladder wall thickening, correlate clinically for cystitis. Small amount of nonspecific air within the bladder lumen may be related to recent catheterization. 5. Prominent partially calcified fibroid at the dorsal uterine body. Reading Location: [id number] Chest CTA 08/14/25 16:55 IMPRESSION: 1. No pulmonary arterial emboli identified. 2. Cardiomegaly. No pulmonary edema or pleural effusions. Scattered bilateral linear/discoid atelectasis versus scarring in the lungs. 3. Cholelithiasis, without evidence for acute cholecystitis. 4. Circumferential bladder wall thickening, correlate clinically for cystitis. Small amount of nonspecific air within the bladder lumen may be related to recent catheterization. 5. Prominent partially calcified fibroid at the dorsal uterine body. Reading Location: [id number] Discharge Plan Dx/Rx/DC Orders Clinical Impression: Generalized weakness, Adult failure to thrive, Alcohol use, UTI (urinary tract infection) Disposition Disposition: Acute Care Hospital [facility] What to do if you have Problems For any increased pain, shortness of breath, bleeding, nausea or vomiting, chestpain, or any unexpected problems, contact your Primary Care Provider. Call [facility] ([phone]) or report tothe closest Emergency Room. Call 911 if necessary. 08/14/25 3980 Cosigner Signature (if applicable): CC: No Primary Care Physician ~ Signed [facility]10-14-2025 [facility] Medical Records Department [address] [place] [address] History Physical Exam 08/15/25 0018 MR#: [id number] Acct: [id number] Name: BANDAR TIWARI Rep #: [id number] : 1960 65 From: Bharath Quiros MD PCP: Care Physician,No Primary Status:ADM IN Location: [facility] [id number] [facility] General Date of Admission: 08/15/25 Date of Service: 08/15/25 Chief Complaint: Generalized weakness, failure to thrive HPI Elbert TIWARI, is a 65 F who presents to the emergency room with chief complaint of generalized weakness with failure to thrive at home. According to the her son the patient has slept approximately 60 hours of the last 72 hours at home. She is too weak to transfer without assistance by her son who does work 40 to 50 hours a week at another job and is not at home all the time. Patient does have a significant past medical history of anxiety, depression, alcohol abuse and she does not have routine medical care. Recently her son's noticed her having more trouble with memory and her fatigue and weakness has progressed markedly. Patient is also a smoker and does have some shortness of breath. Laboratory studies are unrevealing however she does have a urinary tract infection through her urinalysis. Patient will be admitted for observation to general medical floor case management referral obtained for help with discharge planning and possible placement. Patient will be given antibiotics for her urinary tract infection and physical therapy evaluation to help with her generalized strengthening and further planning for rehabilitation. Patient is full code at this time. [facility] Medical History Alcohol abuse Anxiety Depression Depression Home Medications ???Medication ???Instructions ???Recorded ???Last Taken ???Type citalopram 40 mg tablet 40 mg PO DAILY MOOD 08/14/2508/07 History trazodone 50 mg tablet 50 - 100 mg PO QHS PRN insomnia 08/07/25 History Allergy/AdvReac Type Severity Reaction Status Date / Time No Known Allergies Allergy Verified 08/14/25 15:26 Social History Smoking Status: Current every day smoker tobacco type: cigarettes ROS Constitutional Constitutional: Reports anorexia, malaise and weakness; Denies chills or fever(s) Eyes Eyes: Denies blurry vision ENT HEENT: Denies abnormal hearing Cardiovascular Cardiovascular: Denies chest pain Respiratory/Chest Respiratory/Chest: Reports cough and shortness of breath with exertion Gastrointestinal Gastrointestinal: Denies abdominal pain Genitourinary Genitourinary: Reports dysuria and urinary frequency Musculoskeletal Musculoskeletal: Denies back pain Integumentary Integumentary: Denies dry skin Neurologic Neurologic: Denies abnormal gait Psychiatric Psychiatric: Denies anxiety Vital Signs Vital Signs Vital Signs: 08/14/25 15:22 08/14/25 15:28 08/14/25 17:36 Temperature 97.6 F L Temperature Source Oral Pulse Rate 94 Respiratory Rate 18 Respiratory Effort Normal Non-Labored Respiratory Pattern Normal Blood Pressure 145/101 H 150/121 H Blood Pressure Mean 115 130 Blood Pressure Source Blood Pressure Position Blood Pressure Location Pulse Ox 100 100 Oxygen Delivery Method Room Air Room Air 08/14/25 20:41 08/14/25 21:45 08/14/25 22:00 Temperature Temperature Source Pulse Rate 77 70 Respiratory Rate 14 14 Respiratory Effort Respiratory Pattern Blood Pressure 157/102 H 159/113 H 159/128 H Blood Pressure Mean 120 128 138 Blood Pressure Source Blood Pressure Position Blood Pressure Location Pulse Ox 98 98 Oxygen Delivery Method Room Air Room Air 08/14/25 23:04 08/14/25 23:04 08/14/25 23:15 Temperature 99 F Temperature Source Pulse Rate 74 78 78 Respiratory Rate 20 H 20 H 18 Respiratory Effort Respiratory Pattern Blood Pressure 164/108 H 164/108 H 167/107 H Blood Pressure Mean 126 126 127 Blood Pressure Source Monitor Blood Pressure Position Semi-Fowlers Blood Pressure Location Left Arm Pulse Ox 100 100 100 Oxygen Delivery Method Room Air Room Air 08/14/25 23:22 08/14/25 23:36 Temperature 99 F Temperature Source Oral Pulse Rate 90 100 Respiratory Rate 22 H 16 Respiratory Effort Respiratory Pattern Normal Blood Pressure 167/107 H Blood Pressure Mean 127 Blood Pressure Source Blood Pressure Position Blood Pressure Location Pulse Ox 100 Oxygen Delivery Method Room Air Weight Weight: 137 lb 5.568 oz Body Mass Index (BMI) 22.1 Physical Exam Narrative Appears very fatigued Const aler (more content not included)...[facility]10-13-2025 Discharge summary [facility] Medical Records Department [address] [place] [address] Emergency Department Summary 08/14/25 MR#: [id number] Acct: [id number] Name: BANDAR TIWARI Rep #:[id number] : 1960 65 From: Sander Wakefield DO PCP: Care Physician,No Primary Status :REG ER Location: ED HPI History of Present Illness Chief Complaint: General Illness Narrative Narrative: Patient is a 65-year-old female with past medical history anxiety, depression, alcohol abuse does not follow with a doctor in a regular basis who presents to the emergency department with a chief complaint of generalized weakness, decreased appetite, weight loss and not feeling well overall. According to the son at bedside who provided majority of history of present illness he states that he thought things would get better however they have not over the last month therefore he brought her here for further evaluation management. Patient also complains of some shortness of breath denies any history of blood clots denies any recent travel history. She states that she does smoke. [facility] Medical History Alcohol abuse Anxiety Depression Depression Home Medications ?Medication ?Instructions ?Recorded ?Last Taken ?Type citalopram 40 mg tablet 40 mg PO DAILY MOOD 10/13/25 10/06/25 History trazodone 50 mg tablet 50 - 100 mg PO QHS PRN insom joseph 08/14/25 08/07/25 History Allergy/AdvReac Type Severity Reaction Status Date / Time No Known Allergies Allergy Verified 08/14/25 15:26 Social History Smoking Status: Current every day smoker tobacco type: cigarettes ROS ROS ED ROS Narrative Constitutional: Denies any fevers or chills denies headache Eyes: Denies double vision Cardiovascular: Denies chest pain Respiratory: Complains of shortness of breath as noted above Abdomen: Complains of decreased appetite and weight loss as noted above : Denies urinary symptoms Neurological: Denies numbness, wheeze, tingling Musculoskeletal: Denies back pain Skin: Denies any rashes or lesions EXAM Physical Exam Narrative Exam Narrative: General: Patient was lying in bed rest comfortably did not appear to be in acutedistress Head: Atraumatic, normocephalic Eyes: PERRL bilaterally, EOMI bilaterally, no conjunctival injection noted mucous membranes dry Neck: Soft, supple, trachea midline Cardiovascular: Regular rate and rhythm Respiratory: Clear to auscultation bilaterally Abdomen: Soft, nondistended, diffuse tenderness to palpation no rebound guardingexam Extremities: +3/5 strength noted in the bilateral upper and lower extremities Neurological: Patient following commands she was at [facility] Skin: Warm, dry, intact no rashes or lesions noted dry skin noted Const Vital Signs: 08/14/25 15:22 08/14/25 15:28 08/14/25 17:36 Temperature 97.6 F L Temperature Source Oral Pulse Rate 94 Respiratory Rate 18 Respiratory Effort Normal Non-Labored Respiratory Pattern Normal Blood Pressure 145/101 H 150/121 H Blood Pressure Mean 115 130 Blood Pressure Source Blood Pressure Position Blood Pressure Location Pulse Ox 100 100 Oxygen Delivery Method Room Air Room Air 08/14/25 20:41 08/14/25 21:45 08/14/25 22:00 Temperature Temperature Source Pulse Rate 77 70 Respiratory Rate 14 14 Respiratory Effort Respiratory Pattern Blood Pressure 157/102 H 159/113 H 159/128 H Blood Pressure Mean 120 128 138 Blood Pressure Source Blood Pressure Position Blood Pressure Location Pulse Ox 98 98 Oxygen Delivery Method Room Air Room Air 08/14/25 23:04 10/13/25 23:04 Temperature Temperature Source Pulse Rate 74 78 Respiratory Rate 20 H 20 H Respiratory Effort Respiratory Pattern Blood Pressure 164/108 H 164/108 H Blood Pressure Mean 126 126 Blood Pressure Source Monitor Blood Pressure Position Semi-Fowlers Blood Pressure Location Left Arm Pulse Ox 100 100 Oxygen Delivery Method Room Air Room Air MDM MDM MDM Narrative Medical decision making narrative: Patient is a 65-year-old female who presents to the Emergency Department chief complaint of generalized weakness, weight loss, decreased appetite and abdominalpain as well as shortness of breath. On the differential diagnose includes but not limited to lung cancer, intra-abdominal mass, failure to t hrive, hypothyroidism, dehydration. Once workup is obtained reviewed she will be reevaluated. Patient is a 65-year-old female patient CBC reviewed showed no evidence leukocytosis white blood count normal 5.3, he was 13.9, platelet count of 100. Patient sodium is 142, potassium 3.2 will give 40 mill equivalents of oral supplementation, creatinine is 1.03. Patient's AST and ALT normal at 18 and 7 respectively. Patient lipase normal at 29, thyroid TSH normal at 1.29. Patient's free T4 and H3kothrd at 1.20 and 2.3 respectively. Patient urinalysis showed 500 leukocyte esterase 25-50 white cells with rare bacteria however she appears clinically to have a urinary tract infection therefore she was given Rocephin this was sent for culture. Patient's CTA chest was reviewed showed no PE. Cardi omegaly no pulmonary edema or effusions noted. Cholelithiasis without evidence of acute cholecystitis. Circumferential bladderwall thickening concern for cystitis correlate clinically. After discussion with the son at bedside he states that she is very weak and cannot get around is also having some changes in mental status is more confused and that he states that he thinks that shemay have dementia but does not feel that she is safe at home by herself therefore we will discuss case with hospitalist for admission. Son also notified me that he was concern for increased work of breathing and went back in and with similar patient's lungs we will give a DuoNeb to see if this improves her feeling her shortness of breath. Discussed case with hospitalist Dr. Quiros who accept patient for admission. Patient notified as well as family at bedside they are agreeable this plan all question concerns answered. Lab Data Labs: Laboratory Results - last 24 hr 1008/14/25 08/14/25 15:30 17:36 21:30 WBC 5.3 RBC 4.96 Hgb 13.9 Hct 43.0 MCV 86.7 MCH 28.0 MCHC 32.3 RDW Std Deviation 42.5 RDW Coeff of Adán 13.4 Plt Count 100 L MPV 13.4 H Immature Gran % (Auto) 0.200 Neut % (Auto) 56.3 Lymph % (Auto) 33.0 Morrison % (Auto) 7.0 Eos % (Auto) 2.7 Baso % (Auto) 0.8 Absolute Neuts (auto) 3.0 Absolute Lymphs (auto) 1.74 Nucleated RBC % 0 Sodium 142 Potassium 3.2 L Chloride 104 Carbon Dioxide 23.3 Anion Gap 15 BUN 17 Creatinine 1.03 Estim Creat Clear Calc 51.66 Est GFR (MDRD) Non-Af 61 BUN/Creatinine Ratio 16.8 Glucose 142 H Calcium 10.2 Total Bilirubin 1.43 H AST 18 ALT 7 Alkaline Phosphatase 51 Total Protein 8.2 Albumin 4.1 Globulin 4.2 Albumin/Globulin Ratio 1.0 Lipase 29 TSH 1.290 Free T4 1.20 Free T3 pg/dL 2.3 Urine Color Yellow Urine Clarity Turbid Urine pH 5.0 Ur Specific [place]rem 1.010 Urine Protein 30 H Urine Glucose (UA) Normal Urine Ketones Negative Urine Occult Blood 150 H Urine Nitrite Positive H Urine Bilirubin Negative Urine Urobilinogen 8 H Ur Leukocyte Esterase 500 H Urine RBC 0-5 SEEN Urine WBC 25-50 SEEN Ur Squamous Epith Cells 0-5 SEEN Ur Renal Epithelial Cell 0-5 SEEN Urine Bacteria RARE Urine Mucus 0 SEEN Radiography Diagnostic Testing: Clinical Impression(s) from Imaging Studies Abdomen/Pelvis CT 08/14/25 16:55 IMPRESSION: 1. No pulmonary arterial emboli identified. 2. Cardiomegaly. No pulmonary edema or pleural effusions. Scattered bilateral linear/discoid atelectasis versus scarring in the lungs. 3. Cholelithiasis, without evidence for acute cholecystitis. 4. Circumferential bladder wall thickening, correlate clinically for cystitis. Small amount of nonspecific air within the bladder lumen may be related to recent catheterization. 5. Prominent partially calcified fibroid at the dorsal uterine body. Reading Location: [id number] Chest CTA 08/14/25 16:55 IMPRESSION: 1. No pulmonary arterial emboli identified. 2. Cardiomegaly. No pulmonary edema or pleural effusions. Scattered bilateral linear/discoid atelectasis versus scarring in the lungs. 3. Cholelithiasis, without evidence for acute cholecystitis. 4. Circumferential bladder wall thickening, correlate clinically for cystitis. Small amount of nonspecific air within the bladder lumen may be related to recent catheterization. 5. Prominent partially calcified fibroid at the dorsal uterine body. Reading Location: [facility] Discharge Plan Dx/Rx/DC Orders Clinical Impression: Generalized weakness, Adult failure to thrive, Alcohol use, UTI (urinary tract infection) Disposition Disposition: Acute Care Hospital [facility] What to do if you have Problems For any increased pain, shortness of breath, bleeding, nausea or vomiting, chestpain, or any unexpected problems, contact your Primary Care Provider. Call [facility] ([phone]) or report tothe closest Emergency Room. Call 911 if necessary. 08/14/25 2320 Cosigner Signature (if applicable): CC: No Primary Care Physician ~ Signed [facility]10-13-2025 Radiology Diagnostic study note [facility] Imaging Services [address] [place], [place] [address] CTA Chest W/WO Contrast MR#: [id number] Acct: [id number] Name: BANDAR TIWARI Rep #: [id number] : 1960 F 65 From: Varinder Padilla MD PCP: Care Physician,No Primary Status: REG ER Study:CTA Chest W/WO Contrast Date of Exam: 08/14/25 Exam# [id number] Ordering Dr: Derek Wakefield DO PROCEDURE: CTA CHEST W/WO CONTRAST; ABDOMEN/PELVIS W IV CONT ONLY 08/14/2025 REASON FOR EXAM: SOB; ABD PAIN, WEIGHT LOSS, NO APPETITE TECHNIQUE: Procedure Code: CTCTACHWW; CTABDPELIV Modality: CT Procedure: CTA CHEST W/WO CONTRAST; ABDOMEN/PELVIS W IV CONT ONLY Multiplanar Sagittal and Coronal images were obtained. 3D post processing was performed. CONTRAST: Isovue-300 VOLUME: 96 mL One or more dose reduction techniques were used (e.g., Automated exposure control, adjustment of the mA and/or kV according to patient size, use of iterative reconstruction technique). RADIATION DOSE SUMMARY: DLP: 973.87 mGycm COMPARISON: None available. FINDINGS: PULMONARY VESSELS: No filling defects suspicious for pulmonary arterial emboli identified. Pulmonary trunk is of normal caliber. No evidence of acute right heart strain. LUNGS/PLEURA: Bilateral scattered linear/discoid atelectasis versus scarring. No airspace consolidation or findings of pulmonary edema. No pneumothorax or pleural effusions. Central airways are patent. MEDIASTINUM: No suspicious lymph node enlargement or mass lesion. HEART: Four-chamber cardiomegaly. No pericardial effusion. Scant coronary artery calcifications. AORTA: Normal course and caliber. Mild atherosclerotic disease. HEPATOBILIARY: Unremarkable liver, spleen, and pancreas. No biliary ductal dilatation. Cholelithiasis, without evidence of acute cholecystitis. GENITOURINARY: Unremarkable kidneys. No hydronephrosis. Normal adrenal glands. Circumferential bladder wall thickening may reflect cystitis. Small amount of air within the bladder lumen is nonspecific, and may be related to recent catheterization. Prominent partially calcified uterine fibroid at the dorsal aspect of the uterine body. Unremarkable adnexae. GI TRACT: No evidence of obstruction or active inflammatory process. Normal appendix. Mild distal colonic diverticulosis without evidence for active diverticulitis/colitis. PERITONEUM/RETROPERITONEUM: No ascites or free air. No lymphadenopathy. BONES: No acute or aggressive osseous abnormality. Mild multilevel degenerativechanges of the spine. Prominent degenerative Schmorl's nodes involving the superior endplates of T12 and L1 noted. CT/CTA Chest W/WO Contrast IMPRESSION: 1. No pulmonary arterial emboli identified. 2. Cardiomegaly. No pulmonary edema or pleural effusions. Scattered bilateral linear/discoid atelectasis versus scarring in the lungs. 3. Cholelithiasis, without evidence for acute cholecystitis. 4. Circumferential bladder wall thickening, correlate clinically for cystitis. Small amount of nonspecific air within the bladder lumen may be related to recent catheterization. 5. Prominent partially calcified fibroid at the dorsal uterine body. Reading Location: [id number] CC: Dr. Sander Wakefield DO; No Primary Care Physician ~ Chiropractic Practice Manager: Signed [facility]10-13-2025 Radiology Diagnostic study note [facility] Imaging Services [address] [place] [address] Abdomen/Pelvis W IV Cont ONLY MR#: [id number] Acct: [id number] Name: BANDAR TIWARI Rep #: [id number] : 1960 F 65 From: Varinder Padilla MD PCP: Care Physician,No Primary Status: REG ER Study:Abdomen/Pelvis W IV Cont ONLY Date of E xam: 08/14/25 Exam# [id number] Ordering Dr: Derek Wakefield DO PROCEDURE: CTA CHEST W/WO CONTRAST; ABDOMEN/PELVIS W IV CONT ONLY 08/14/2025 REASON FOR EXAM: SOB; ABD PAIN, WEIGHT LOSS, NO APPETITE TECHNIQUE: Procedure Code: CTCTACHWW; CTABDPELIV Modality: CT Procedure: CTA CHEST W/WO CONTRAST; ABDOMEN/PELVIS W IV CONT ONLY Multiplanar Sagittal and Coronal images were obtained. 3D post processing was performed. CONTRAST: Isovue-300 VOLUME: 96 mL One or more dose reduction techniques were used (e.g., Automated exposure control, adjustment of the mA and/or kV according to patient size, use of iterative reconstruction technique). RADIATION DOSE SUMMARY: DLP: 973.87 mGycm COMPARISON: None available. FINDINGS: PULMONARY VESSELS: No filling defects suspicious for pulmonary arterial emboli identified. Pulmonary trunk is of normal caliber. No evidence of acute right heart strain. LUNGS/PLEURA: Bilateral scattered linear/discoid atelectasis versus scarring. No airspace consolidation or findings of pulmonary edema. No pneumothorax or pleural effusions. Central airways are patent. MEDIASTINUM: No suspicious lymph node enlargement or mass lesion. HEART: Four-chamber cardiomegaly. No pericardial effusion. Scant coronary artery calcifications. AORTA: Normal course and caliber. Mild atherosclerotic disease. HEPATOBILIARY: Unremarkable liver, spleen, and pancreas. No biliary ductal dilatation. Cholelithiasis, without evidence of acute cholecystitis. GENITOURINARY: Unremarkable kidneys. No hydronephrosis. Normal adrenal glands. Circumferential bladder wall thickening may reflect cystitis. Small amount of air within the bladder lumen is nonspecific, and may be related to recent catheterization. Prominent partially calcified uterine fibroid at the dorsal aspect of the uterine body. Unremarkable adnexae. GI TRACT: No evidence of obstruction or active inflammatory process. Normal appendix. Mild distal colonic diverticulosis without evidence for active diverticulitis/colitis. PERITONEUM/RETROPERITONEUM: No ascites or free air. No lymphadenopathy. BONES: No acute or aggressive osseous abnormality. Mild multilevel degenerativechanges of the spine. Prominent degenerative Schmorl's nodes involving the superior endplates of T12 and L1 noted. CT/Abdomen/Pelvis W IV Cont ONLY IMPRESSION: 1. No pulmonary arterial emboli identified. 2. Cardiomegaly. No pulmonary edema or pleural effusions. Scattered bilateral linear/discoid atelectasis versus scarring in the lungs. 3. Cholelithiasis, without evidence for acute cholecystitis. 4. Circumferential bladder wall thickening, correlate clinically for cystitis. Small amount of nonspecific air within the bladder lumen may be related to recent catheterization. 5. Prominent partially calcified fibroid at the dorsal uterine body. Reading Location: [facility] CC: Dr. Sander Wakefield DO; No Primary Care Physician ~ Chiropractic Practice Manager: Signed [facility]10-13-2025 Radiology Diagnostic study note [facility] Imaging Services [address] [place] [address] CTA Chest W/WO Contrast MR#: [id number] Acct: [id number] Name: BANDAR TIWARI Rep #: [id number] : 1960 F 65 From: Varinder Padilla MD PCP: Care Physician,No Primary Status: REG ER Study:CTA Chest W/WO Contrast Date of Exam: 08/14/25 Exam# [id number] Ordering Dr: Derek Wakefield DO PROCEDURE: CTA CHEST W/WO CONTRAST; ABDOMEN/PELVIS W IV CONT ONLY 08/14/2025 REASON FOR EXAM: SOB; ABD PAIN, WEIGHT LOSS, NO APPETITE TECHNIQUE: Procedure Code: CTCTACHWW; CTABDPELIV Modality: CT Procedure: CTA CHEST W/WO CONTRAST; ABDOMEN/PELVIS W IV CONT ONLY Multiplanar Sagittal and Coronal images were obtained. 3D post processing was performed. CONTRAST: Isovue-300 VOLUME: 96 mL One or more dose reduction techniques were used (e.g., Automated exposure control, adjustment of the mA and/or kV according to patient size, use of iterative reconstruction technique). RADIATION DOSE SUMMARY: DLP: 973.87 mGycm COMPARISON: None available. FINDINGS: PULMONARY VESSELS: No filling defects suspicious for pulmonary arterial emboli identified. Pulmonary trunk is of normal caliber. No evidence of acute right heart strain. LUNGS/PLEURA: Bilateral scattered linear/discoid atelectasis versus scarring. No airspace consolidation or findings of pulmonary edema. No pneumothorax or pleural effusions. Central airways are patent. MEDIASTINUM: No suspicious lymph node enlargement or mass lesion. HEART: Four-chamber cardiomegaly. No pericardial effusion. Scant coronary artery calcifications. AORTA: Normal course and caliber. Mild atherosclerotic disease. HEPATOBILIARY: Unremarkable liver, spleen, and pancreas. No biliary ductal dilatation. Cholelithiasis, without evidence of acute cholecystitis. GENITOURINARY: Unremarkable kidneys. No hydronephrosis. Normal adrenal glands. Circumferential bladder wall thickening may reflect cystitis. Small amount of air within the bladder lumen is nonspecific, and may be related to recent catheterization. Prominent partially calcified uterine fibroid at the dorsal aspect of the uterine body. Unremarkable adnexae. GI TRACT: No evidence of obstruction or active inflammatory process. Normal appendix. Mild distal colonic diverticulosis without evidence for active diverticulitis/colitis. PERITONEUM/RETROPERITONEUM: No ascites or free air. No lymphadenopathy. BONES: No acute or aggressive osseous abnormality. Mild multilevel degenerativechanges of the spine. Prominent degenerative Schmorl's nodes involving the superior endplates of T12 and L1 noted. CT/CTA Chest W/WO Contrast IMPRESSION: 1. No pulmonary arterial emboli identified. 2. Cardiomegaly. No pulmonary edema or pleural effusions. Scattered bilateral linear/discoid atelectasis versus scarring in the lungs. 3. Cholelithiasis, without evidence for acute cholecystitis. 4. Circumferential bladder wall thickening, correlate clinically for cystitis. Small amount of nonspecific air within the bladder lumen may be related to recent catheterization. 5. Prominent partially calcified fibroid at the dorsal uterine body. Reading Location: [facility] CC: Dr. Sander Wakefield, DO; No Primary Care Physician ~ Chiropractic Practice Manager: Signed [facility]10-13-2025 Radiology Diagnostic study note [facility] Imaging Services [address] [place] [address] Abdomen/Pelvis W IV Cont ONLY MR#: [id number] Acct: [id number] Name: BANDAR TIWARI Rep #: [id number] : 1960 F 65 From: [facility] juan a Padilla MD PCP: Care Physician,No Primary Status: REG ER Study:Abdomen/Pelvis W IV Cont ONLY Date of E xam: 08/14/25 Exam# [id number] Ordering Dr: Derek Wakefield DO PROCEDURE: CTA CHEST W/WO CONTRAST; ABDOMEN/PELVIS W IV CONT ONLY 08/14/2025 REASON FOR EXAM: SOB; ABD PAIN, WEIGHT LOSS, NO APPETITE TECHNIQUE: Procedure Code: CTCTACHWW; CTABDPELIV Modality: CT Procedure: CTA CHEST W/WO CONTRAST; ABDOMEN/PELVIS W IV CONT ONLY Multiplanar Sagittal and Coronal images were obtained. 3D post processing was performed. CONTRAST: Isovue-300 VOLUME: 96 mL One or more dose reduction techniques were used (e.g., Automated exposure control, adjustment of the mA and/or kV according to patient size, use of iterative reconstruction technique). RADIATION DOSE SUMMARY: DLP: 973.87 mGycm COMPARISON: None available. FINDINGS: PULMONARY VESSELS: No filling defects suspicious for pulmonary arterial emboli identified. Pulmonary trunk is of normal caliber. No evidence of acute right heart strain. LUNGS/PLEURA: Bilateral scattered linear/discoid atelectasis versus scarring. No airspace consolidation or findings of pulmonary edema. No pneumothorax or pleural effusions. Central airways are patent. MEDIASTINUM: No suspicious lymph node enlargement or mass lesion. HEART: Four-chamber cardiomegaly. No pericardial effusion. Scant coronary artery calcifications. AORTA: Normal course and caliber. Mild atherosclerotic disease. HEPATOBILIARY: Unremarkable liver, spleen, and pancreas. No biliary ductal dilatation. Cholelithiasis, without evidence of acute cholecystitis. GENITOURINARY: Unremarkable kidneys. No hydronephrosis. Normal adrenal glands. Circumferential bladder wall thickening may reflect cystitis. Small amount of air within the bladder lumen is nonspecific, and may be related to recent catheterization. Prominent partially calcified uterine fibroid at the dorsal aspect of the uterine body. Unremarkable adnexae. GI TRACT: No evidence of obstruction or active inflammatory process. Normal appendix. Mild distal colonic diverticulosis without evidence for active diverticulitis/colitis. PERITONEUM/RETROPERITONEUM: No ascites or free air. No lymphadenopathy. BONES: No acute or aggressive osseous abnormality. Mild multilevel degenerativechanges of the spine. Prominent degenerative Schmorl's nodes involving the superior endplates of T12 and L1 noted. CT/Abdomen/Pelvis W IV Cont ONLY IMPRESSION: 1. No pulmonary arterial emboli identified. 2. Cardiomegaly. No pulmonary edema or pleural effusions. Scattered bilateral linear/discoid atelectasis versus scarring in the lungs. 3. Cholelithiasis, without evidence for acute cholecystitis. 4. Circumferential bladder wall thickening, correlate clinically for cystitis. Small amount of nonspecific air within the bladder lumen may be related to recent catheterization. 5. Prominent partially calcified fibroid at the dorsal uterine body. Reading Location: [id number] CC: Dr. Sander Wakefield DO; No Primary Care Physician ~ Chiropractic Practice Manager: Signed [facility]10-13-2025 Discharge summary Author Sander Wakefield [facility] Note Date/Time August 14, 2025 1 1:20pm [facility] Medical Records Department [address] [place] [id number] Emergency Department Summary 08/14/25 MR#: [id number] Acct: [id number] Name: BANDAR TIWARI Rep #:[id number] : 1960 65 From: Sander Wakefield DO PCP: Care Physician,No Primary Status :REG ER Location: ED HPI History of Present Illness Chief Complaint: General Illness Narrative Narrative: Patient is a 65-year-old female with past medical history anxiety, depression, alcohol abuse does not follow with a doctor in a regular basis who presents to the emergency department with a chief complaint of generalized weakness, decreased appetite, weight loss and not feeling well overall. According to the son at bedside who provided majority of history of present illness he states that he thought things would get better however they have not over the last month therefore he brought her here for further evaluation management. Patient also complains of some shortness of breath denies any history of blood clots denies any recent travel history. She states that she does smoke. [facility] Medical History Alcohol abuse Anxiety Depression Depression Home Medications ?Medication ?Instructions ?Recorded ?Last Taken ?Type citalopram 40 mg tablet 40 mg PO DAILY MOOD 08/14/25 08/07/25 History trazodone 50 mg tablet 50 - 100 mg PO QHS PRN insom joseph 08/14/25 08/07/25 History Allergy/AdvReac Type Severity Reaction Status Date / Time No Known Allergies Allergy Verified 08/14/25 15:26 Social History Smoking Status: Current every day smoker tobacco type: cigarettes ROS ROS ED ROS Narrative Constitutional: Denies any fevers or chills denies headache Eyes: Denies double vision Cardiovascular: Denies chest pain Respiratory: Complains of shortness of breath as noted above Abdomen: Complains of decreased appetite and weight loss as noted above : Denies urinary symptoms Neurological: Denies numbness, wheeze, tingling Musculoskeletal: Denies back pain Skin: Denies any rashes or lesions EXAM Physical Exam Narrative Exam Narrative: General: Patient was lying in bed rest comfortably did not appear to be in acutedistress Head: Atraumatic, normocephalic Eyes: PERRL bilaterally, EOMI bilaterally, no conjunctival injection noted mucous membranes dry Neck: Soft, supple, trachea midline Cardiovascular: Regular rate and rhythm Respiratory: Clear to auscultation bilaterally Abdomen: Soft, nondistended, diffuse tenderness to palpation no rebound guardingexam Extremities: +3/5 strength noted in the bilateral upper and lower extremities Neurological: Patient following commands she was at [facility] Skin: Warm, dry, intact no rashes or lesions noted dry skin noted Const Vital Signs: 08/14/25 15:22 08/14/25 15:28 08/14/25 17:36 Temperature 97.6 F L Temperature Source Oral Pulse Rate 94 Respiratory Rate 18 Respiratory Effort Normal Non-Labored Respiratory Pattern Normal Blood Pressure 145/101 H 150/121 H Blood Pressure Mean 115 130 Blood Pressure Source Blood Pressure Position Blood Pressure Location Pulse Ox 100 100 Oxygen Delivery Method Room Air Room Air 08/14/25 20:41 08/14/25 21:45 08/14/25 22:00 Temperature Temperature Source Pulse Rate 77 70 Respiratory Rate 14 14 Respiratory Effort Respiratory Pattern Blood Pressure 157/102 H 159/113 H 159/128 H Blood Pressure Mean 120 128 138 Blood Pressure Source Blood Pressure Position Blood Pressure Location Pulse Ox 98 98 Oxygen Delivery Method Room Air Room Air 08/14/25 23:04 08/14/25 23:04 Temperature Temperature Source Pulse Rate 74 78 Respiratory Rate 20 H 20 H Respiratory Effort Respiratory Pattern Blood Pressure 164/108 H 164/108 H Blood Pressure Mean 126 126 Blood Pressure Source Monitor Blood Pressure Position Semi-Fowlers Blood Pressure Location Left Arm Pulse Ox 100 100 Oxygen Delivery Method Room Air Room Air MDM MDM MDM Narrative Medical decision making narrative: Patient is a 65-year-old female who presents to the Emergency Department chief complaint of generalized weakness, weight loss, decreased appetite and abdominalpain as well as shortness of breath. On the differential diagnose includes but not limited to lung cancer, intra-abdominal mass, failure to thrive, hypothyroidism, dehydration. Once workup is obtained reviewed she will be reevaluated. Patient is a 65-year-old female patient CBC reviewed showed no evidence leukocytosis white blood count normal 5.3, he was 13.9, platelet count of 100. Patient sodium is 142, potassium 3.2 will give 40 mill equivalents of oral supplementation, creatinine is 1.03. Patient's AST and ALT normal at 18 and 7 respectively. Patient lipase normal at 29, thyroid TSH normal at 1.29. Patient's free T4 and T3 normal at 1.20 and 2.3 respectively. Patient urinalysis showed 500 leukocyte esterase 25-50 white cells with rare bacteria however she appears clinically to have a urinary tract infection therefore she was given Rocephin this was sent for culture. Patient's CTA chest was reviewed showed no PE. Cardiomegaly no pulmonary edema or effusions noted. Cholelithiasis without evidence of acute cholecystitis. Circumferential bladderwall thickening concern for cystitis correlate clinically. After discussion with the son at bedside he states that she is very weak and cannot get around is also having some changes in mental status is more confused and that he states that he thinks that she may have dementia but does not feel that she is safe at home by herself therefore we will discuss case with hospitalist for admission. Son also notified me that he was concern for increased work of breathing and went back in and with similar patient's lungs we will give a DuoNeb to see if this improves her feeling her shortness of breath. Discussed case with hospitalist Dr. Quiros who accept patient for admission. Patient notified as well as family at bedside they are agreeable this plan all question concerns answered. Lab Data Labs: Laboratory Results - last 24 hr 08/14/25 08/14/25 08/14/25 15:30 17:36 21:30 WBC 5.3 RBC 4.96 Hgb 13.9 Hct 43.0 MCV 86.7 MCH 28.0 MCHC 32.3 RDW Std Deviation 42.5 RDW Coeff of Adán 13.4 Plt Count 100 L MPV 13.4 H Immature Gran % (Auto) 0.200 Neut % (Auto) 56.3 Lymph % (Auto) 33.0 Morrison % (Auto) 7.0 Eos % (Auto) 2.7 Baso % (Auto) 0.8 Absolute Neuts (auto) 3.0 Absolute Lymphs (auto) 1.74 Nucleated RBC % 0 Sodium 142 Potassium 3.2 L Chloride 104 Carbon Dioxide 23.3 Anion Gap 15 BUN 17 Creatinine 1.03 Estim Creat Clear Calc 51.66 Est GFR (MDRD) Non-Af 61 BUN/Creatinine Ratio 16.8 Glucose 142 H Calcium 10.2 Total Bilirubin 1.43 H AST 18 ALT 7 Alkaline Phosphatase 51 Total Protein 8.2 Albumin 4.1 Globulin 4.2 Albumin/Globulin Ratio 1.0 Lipase 29 TSH 1.290 Free T4 1.20 Free T3 pg/dL 2.3 Urine Color Yellow Urine Clarity Turbid Urine pH 5.0 Ur Specific [place]rem 1.010 Urine Protein 30 H Urine Glucose (UA) Normal Urine Ketones Negative Urine Occult Blood 150 H Urine Nitrite Positive H Urine Bilirubin Negative Urine Urobilinogen 8 H Ur Leukocyte Esterase 500 H Urine RBC 0-5 SEEN Urine WBC 25-50 SEEN Ur Squamous Epith Cells 0-5 SEEN Ur Renal Epithelial Cell 0-5 SEEN Urine Bacteria RARE Urine Mucus 0 SEEN Radiography Diagnostic Testing: Clinical Impression(s) from Imaging Studies Abdomen/Pelvis CT 08/14/25 16:55 IMPRESSION: 1. No pulmonary arterial emboli identified. 2. Cardiomegaly. No pulmonary edema or pleural effusions. Scattered bilateral linear/discoid atelectasis versus scarring in the lungs. 3. Cholelithiasis, without evidence for acute cholecystitis. 4. Circumferential bladder wall thickening, correlate clinically for cystitis. Small amount of nonspecific air within the bladder lumen may be related to recent catheterization. 5. Prominent partially calcified fibroid at the dorsal uterine body. Reading Location: [facility] Chest CTA 08/14/25 16:55 IMPRESSION: 1. No pulmonary arterial emboli identified. 2. Cardiomegaly. No pulmonary edema or pleural effusions. Scattered bilateral linear/discoid atelectasis versus scarring in the lungs. 3. Cholelithiasis, without evidence for acute cholecystitis. 4. Circumferential bladder wall thickening, correlate clinically for cystitis. Small amount of nonspecific air within the bladder lumen may be related to recent catheterization. 5. Prominent partially calcified fibroid at the dorsal uterine body. Reading Location: [facility] Discharge Plan Dx/Rx/DC Orders Clinical Impression: Generalized weakness, Adult failure to thrive, Alcohol use, UTI (urinary tract infection) Disposition Disposition: Acute Care Hospital [facility] What to do if you have Problems For any increased pain, shortness of breath, bleeding, nausea or vomiting, chestpain, or any unexpected problems, contact your Primary Care Provider. Call [facility] ([phone]) or report to the closest Emergency Room. Call 911 if necessary. 08/14/252319 <Electronically signed by Sander Wakefield DO> Cosigner Signature (if applicable): CC: No Primary Care Physician ~ Signed [facility] Work Phone: [phone] NoteHNO ID: [id number] Author: Aspen Erwin PA-C Service: ? Author Type: Physician Power Plant Operator Apprentice Type: Progress Notes Filed: 02/25/2023 3:29 PM Note Text: Patient presents with a rash on her face and upper body for a week. She was seen at [facility] on February 19 and placed on Bactrim, naproxen and Keflex. She has sloughing of the skin on her face with swelling and pain. On exam patient has significant swelling of the face with skin deterioration and breakdown. This extends to her neck and upper shoulder areas. Recommended she return to the emergency department for reevaluation. ER passport sent for report.[facility]04-26-2023 History of Present illness Narrative* Aspen Erwin PA-C - 02/25/2023 3:28 PM EDT Patient presents with a rash on her face and upper body for a week. She was seen at [facility] on February 19 and placed on Bactrim, naproxen and Keflex. She has sloughing of the skin onher face with swelling and pain. On exam patient has significant swelling of the face with skin deterioration and breakdown. This extends to her neck and upper shoulder areas. Recommended she return to the emergency department for reevaluation. ER passport sent for report. documented in this [facility]04-26-[address] Huerta [facility] February 25, 2023 3:23pm Note Date/Time February 25, 2023 3:2 2pm [facility] Medical Records Department [address] [place] [address] Emergency Department Summary 02/25/23 MR#: [id number] Acct: [id number] Name: BANDAR TIWARI Rep #:[id number] : 1960 62 From: Jesse Huerta MD PCP: Care Physician,No Primary Status :REG ER Location: ED HPI History of Present Illness Chief Complaint: Allergic Reaction Informant: patient Narrative Narrative: Patient presents with still having a rash all over her face. She states this started about a week ago. She was seen here she was given sulfa and cephalexin. She states its not better and it might even be a little bit worse. It really has not spread to other areas though. She has never had this before. She does recall using a generic perfume that she sprayed on herself about a week or so ago shortly before this started. She has not used that since. Other than that she cannot recall any chemicals foods exposures that are different. She is on the med for depression that sounds like an SSRI. But she states she has been onthe same meds for many years. It has not changed color dose or brand. Patient is not nauseated vomiting. She has never had fevers or chills. She is eating and drinking normally. Her only symptoms really are from the neck up andjust a little bit in the upper chest. The area seems to be cracking more and peeling but it is not spreading. [facility] Medical History Alcohol abuse Anxiety Depression Depression Home Medications cephalexin 500 mg capsule 500 mg PO Q6 #40 CAPSULES 02/19/23 [Rx Last Taken Unknown] naproxen 500 mg tablet (Naprosyn) 500 mg PO BID PRN pain #20 tabs 02/19/23 [Rx Last Taken Unknown] sulfamethoxazole 800 mg-trimethoprim 160 mg tablet (Bactrim DS) 1 tab PO BID #20tabs 02/19/23 [Rx Last Taken Unknown] Allergy/AdvReac Type Severity Reaction Status Date / Time No Known Allergies Allergy Verified 02/25/23 14:54 Social History Smoking Status: Current every day smoker tobacco type: cigarettes ROS ROS ED Constitutional Constitutional ED: Denies chills, fever(s), subjective or sweats Eyes Eyes: Denies change in vision or diplopia ENT ENT ED: Reports other Details: Patient with rash as in HPI ; Denies ear pain, rhinorrhea or sore throat Cardiovascular Cardiovascular: Denies palpitations Respiratory/Chest Respiratory/Chest: Denies cough or dyspnea Gastrointestinal Gastrointestinal: Denies nausea or vomiting Musculoskeletal Musculoskeletal: Denies arthralgias or myalgias Integumentary Reports rash; Denies abscess Neurologic Neurologic: Denies headache(s), paresthesias or weakness Hematologic/Lymphatic Hematologic/Lymphatic: Denies lymphadenopathy Allergic/Immunologic Allergic/Immunologic ED: Reports other Details: Denies any intraoral symptoms. ; Denies mouth swelling or tongue swelling EXAM Physical Exam Narrative Exam Narrative: Patient awake alert sitting in bed no acute distress. HEENT shows diffuse dry cracked skin throughout her face ears eyelids and neck. It really stops within an inch or so of the collar of her T-shirt. It does not extend further down the back or chest. Its not on her arms legs or abdomen. Itis not weeping. It is not warm. There are no vesicles. It does not extend intraorally. Eyes show no conjunctival injection. No involvement of the eyes. No tearing. The eyelids do have some dryness on them but this does not extend into the conjunctival area. Neck shows no swelling or lymphadenopathy. It does have involvement of the rashthough. Lungs are clear bilaterally. Heart is regular without murmur gallop or rub Abdomen soft nontender Extremities show no swelling. She does have a little bit of eczematous type involvement of both antecubital fossa's but evidently this is not new. This is very mild. She does not carry a diagnosis of eczema though. Const Vital Signs: 02/25/23 14:52 Temperature 97.7 F L Temperature Source Temporal Pulse Rate 92 Respiratory Rate 18 Blood Pressure 141/97 H Blood Pressure Mean 111 Pulse Ox 98 Oxygen Delivery Method Room Air MDM MDM MDM Narrative Medical decision making narrative: At this point, she is not having fevers chills or spreading from the area. She is eating and drinking. I do not think at this point this is likely infectious. Certainly with the cracked skin is that it is at risk though. But I think thisis likely allergic. We talked about starting meds for allergies and starting steroids. She would prefer a shot. I explained that it will take a day or so for this to take effect. She still needs to follow-up with dermatology or a primary physician. Her has called dermatology but cannot get in until June at 1 office and not until October of this year at the other. I will refer to a primary physician. We discussed returning if she has trouble swallowing fevers chills or any other concerning symptoms or spread. There is no indication for imaging as I see no indication of infection or abscess. I do not think there is indication for blood work. She has a localized rash without systemic symptoms. Discharge Plan Triage Chief Complaint: Allergic Reaction ED Provider: Jesse Huerta Dx/Rx/DC Orders Clinical Impression: Contact dermatitis and eczema Prescriptions: No Action naproxen [Naprosyn] 500 mg tablet 500 mg PO BID PRN (Reason: pain) Qty: 20 0RF sulfamethoxazole-trimethoprim [Bactrim DS] 800-160 mg tablet 1 tab PO BID Qty: 20 0RF cephalexin 500 mg capsule 500 mg PO Q6 Qty: 40 0RF Primary Care Provider: Care Physician,No Primary Referrals: Aditya Abarca MD [Med Staff - Bereavement Counselor] - 3-5 Days Care Physician,No Primary [Primary Care Provider] - Disposition Disposition: Home, Self Care What to do if you have Problems For any increased pain, shortness of breath, bleeding, nausea or vomiting, chestpain, or any unexpected problems, contact your Primary Care Provider. Call [facility] ([phone]) or report to the closest Emergency Room. Call 911 if necessary. 02/25/23 1523 <Electronically signed by Jesse Huerta MD> Cosigner Signature (if applicable): CC: No Primary Care Physician ~ Signed [facility] Work Phone: Consult note [facility] Medical Records Department [address] [place] [address] Consultation - Neurology 08/18/25 1108 MR#: [id number] Acct: [id number] Name: BANDAR TIWARI Rep #:[id number] : 1960 65 From: Mukul Winston PCP: Care Physician,No Primary Status :ADM IN Location: [facility] VF089-7 Assessment and Plan: Stroke Assessment/Plan BANDAR TIWARI, is a 65 F with etoh use disorder, smoker, ARMAND and MDD who presents with generalized weakness and failure to thrive on 08/15/25. She as nottaking care of herself and slept for the majority of 3 days so was brought to the ED. She was found to have a UTI and was treated, her cognition and ability to care for herself that they noted in the hospital led to them getting an MRI brain. Patient cannot provide much history. No family in the room to get collateral hx. MRI brain showed punctate ischemic strokes in BL hemispheres. They are small and should not cause any major symptoms. Stroke team was consulted on 08/18/25 for MRI brain findings. On my exam NIH for 8 for drift in all limbs. She can name, follow commands and has fluent speech, just not a good historian, more encephalopathic. Stroke cryptogenic at this time. 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 HPI Consult Data Date of Consult: 08/18/25 HPI Narrative HPI Narrative: BANDAR TIWARI, is a 65 F with etoh use disorder, smoker, ARMAND and MDD who presents with generalized weakness and failure to thrive on 08/15/25. She was found to have a UTI and was treated, her cognition and ability to care for herself that they noted in the hospital led to them getting an MRI brain. Patient cannot provide much history. No family in the room to get collateral hx.Per note over the past 3 days prior to admission was not walking, talking or taking care of herself so was brought to the ED. MRI brain showed punctate ischemic strokes in BL hemispheres. They are small and should not cause any major symptoms. Stroke team was consulted on 08/18/25 for MRI brain findings. Onmy exam NIH for 8 for drift in all limbs. She can name, follow commands and has fluent speech, just not a good historian, more encephalopathic. [facility] Medical History (Updated 08/15/25 @ 01:07 by Jolynn Keen) Smoker Migraines Alcohol abuse Anxiety Depression Home Medications ?Medication ?Instructions ?Recorded ?Last Taken ?Type citalopram 40 mg tablet 40 mg PO DAILY MOOD 08/14/25 08/07/25 History trazodone 50 mg tablet 50 - 100 mg PO QHS PRN insom joseph 08/14/25 08/07/25 History Allergy/AdvReac Type Severity Reaction Status Date / Time No Known Allergies Allergy Verified 08/14/25 15:26 Social History Smoking Status: Current every day smoker tobacco type: cigarettes Vital Signs Vital Signs Vital Signs: 08/17/25 14:30 08/17/25 15:21 08/17/25 20:00 Temperature 97 F L Temperature Source Oral Pulse Rate 94 Pulse Strength Normal (2+) Respiratory Rate 18 Respiratory Effort Short of Breath Respiratory Depth Normal Respiratory Pattern Normal Blood Pressure 129/97 H Blood Pressure Mean 107 Blood Pressure Source Monitor Blood Pressure Position Sitting Blood Pressure Location Right Arm Pulse Ox 95 Oxygen Delivery Method Room Air 08/17/25 20:00 08/17/25 20:07 08/18/25 04:20 Temperature 97.5 F L Temperature Source Axillary Pulse Rate 87 Pulse Strength Respiratory Rate 18 Respiratory Effort Normal Non-Labored Normal Non-Labored Respiratory Depth Normal Normal Respiratory Pattern Normal Normal Blood Pressure 125/96 H Blood Pressure Mean 105 Blood Pressure Source Monitor Blood Pressure Position Semi-Fowlers Blood Pressure Location Right Arm Pulse Ox 100 Oxygen Delivery Method Room Air Room Air Room Air 08/18/25 04:22 08/18/25 08:08 08/18/25 08:08 Temperature 96.6 F L Temperature Source Temporal Pulse Rate 98 Pulse Strength Normal (2+) Respiratory Rate 18 Respiratory Effort Normal Respiratory Depth Normal Respiratory Pattern Normal Blood Pressure 144/95 H Blood Pressure Mean 111 Blood Pressure Source Monitor Blood Pressure Position Semi-Fowlers Blood Pressure Location Right Arm Pulse Ox 100 Oxygen Delivery Method Room Air Room Air 08/18/25 08:08 08/18/25 08:08 Temperature 98.2 F 98.2 F Temperature Source Temporal Oral Pulse Rate 95 95 Pulse Strength Respiratory Rate 18 18 Respiratory Effort Respiratory Depth Respiratory Pattern Blood Pressure 136/97 H 136/97 H Blood Pressure Mean 110 110 Blood Pressure Source Monitor Monitor Blood Pressure Position Semi-Fowlers Semi-Fowlers Blood Pressure Location Right Arm Right Arm Pulse Ox 98 98 Oxygen Delivery Method Room Air Room Air Weight Weight: 62.5 kg Body Mass Index (BMI) 22.2 Physical Exam Narrative Physical Exam: - General: NAD, pleasant, cooperative, well nourished, well developed - Head/Eyes: Atraumatic, normocephalic, clear cornea, normal sclera/conjunctive - Neuro: ? Mental Status: AAOX3, not to situation & following simple commands. ? Speech: Clear and fluent with good repetition, comprehension, & naming. No aphasia or dysarthria ? CN II: Visual low are full to confrontation. ? CN III, IV, : EOMI, no gaze preference, no nystagmus, no ptosis ? CN V: Facial sensation is intact to light touch throughout. ? CN VII: Face is symmetric with normal eye closure and smile. ? Motor: Anti gravity in all limbs but drops them all to bed ? Sensation: Normal to light touch bilaterally. ? Coordination: Normal FTN, hts could not be tested. No abn movements seen. Lab / Micro Data 08/15/25 07:27 08/15/25 07:27 Labs: Laboratory Results - last 24 hr 08/17/25 22:05: Triglycerides 76, Cholesterol 96, LDL Cholesterol, Calc 52, VLDLCholesterol 15, HDLCholesterol 28 L, Cholesterol/HDL Ratio 3.38 Micro: Microbiology 08/14/25 21:30 Urine, Catheterized Urine Culture - Final Klebsiella pneumoniae sp pneum Imaging Radiology Impression Brain MRI 08/17/25 16:48 IMPRESSION: Punctate acute or subacute ischemic foci within the bilateral, [id number]-left centrum semiovale. Moderate global cerebral atrophy, compatible with age-related volume loss. Severe chronic microvascular ischemic white matter changes, likely reflecting longstanding small vessel disease. No evidence of acute intracranial hemorrhage, mass effect, or hydrocephalus. Critical results were communicated to Marlene Smith RN at 7 p.m.. Reading Location: [address] Active Medications Active Medications Active Medications: Current Medications Generic Name Dose Route Start Last Admin Trade Name Adamaq PRN Reason Stop Dose Admin Aspirin 81 mg 08/17/25 19:20 08/18/25 10:16 Aspirin 81 Mg Tab.Chew PO 81 mg BREAKFAST ROCIO Administration Atorvastatin Calcium 80 mg 08/17/25 22:00 08/17/25 22:37 Atorvastatin Calcium 80 Mg Tablet PO Not Given QHS ROCIO Calamine/Phenol 1 applic 08/15/25 10:00 08/18/25 08:34 Menthol/Lanolin/Calamine/Znox 113 Gm Tube TOPICAL 1 applic BID ROCIO Administration Protocol Citalopram Hydrobromide 40 mg 08/15/25 10:00 08/18/25 10:15 Citalopram 40 Mg Tablet PO 40 mg DAILY ROCIO Administration Enoxaparin Sodium 40 mg 08/15/25 10:00 08/18/25 08:35 Enoxaparin 40 Mg/0.4 Ml Syringe SC 40 mg DAILY ROCIO Administration Folic Acid 1 mg 08/15/25 08:00 08/18/25 10:18 Folic Acid 1 Mg Tablet PO 1 mg BREAKFAST ROCIO Administration Sodium Chloride 1,000 mls @ 125 mls/hr 08/15/25 00:44 08/18/25 08:34 IV 125 mls/hr .Q8H ROCIO Administration Sodium Chloride 250 mls @ 15 mls/hr 08/15/25 00:45 IV .[id number] PRN Additional IVPB Infusion Nitrofurantoin Macrocrystals 100 mg 08/16/25 22:00 08/18/25 10:14 Nitrofurantoin Macrocrystals 100 Mg Capsule PO 100 mg BID ROCIO Administration Ondansetron HCl 4 mg 08/15/25 00:44 08/16/25 03:59 Ondansetron 4 Mg/2 Ml Vial IV 4 mg Q8H PRN PRN Administration NAUSEA/VOMITING Sodium Chloride 10 - 40 ml 08/15/25 00:45 08/15/25 08:59 0.9% Saline Lock 10 Ml Syringe IV 10 ml UD PRN Administration SALINE FLUSH 08/18/25 1135 Cosigner Signature (if applicable): CC: No Primary Care Physician~ [facility] Mukul Soliman [facility] Note Date/Time August 18, 2025 1 1:35am [facility] Medical Records Department [address] [place] [id number] Consultation - Neurology 08/18/25 1108 MR#: [id number] Acct: [id number] Name: BANDAR TIWARI Rep #:[id number] : 1960 65 From: Mukul Winston PCP: Care Physician,No Primary Status :ADM IN Location: [facility] [id number] Assessment and Plan: Stroke Assessment/Plan BANDAR TIWARI, is a 65 F with etoh use disorder, smoker, ARMAND and MDD who presents with generalized weakness and failure to thrive on 08/15/25. She as nottaking care of herself and slept for the majority of 3 days so was brought to the ED. She was found to have a UTI and was treated, her cognition and ability to care for herself that they noted in the hospital led to them getting an MRI brain. Patient cannot provide much history. No family in the room to get collateral hx. MRI brain showed punctate ischemic strokes in BL hemispheres. They are small and should not cause any major symptoms. Stroke team was consulted on 08/18/25 for MRI brain findings. On my exam NIH for 8 for drift in all limbs. She can name, follow commands and has fluent speech, just not a good historian, more encephalopathic. Stroke cryptogenic at this time. 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 HPI Consult Data Date of Consult: 08/18/25 HPI Narrative HPI Narrative: BANDAR TIWARI, is a 65 F with etoh use disorder, smoker, ARMAND and MDD who presents with generalized weakness and failure to thrive on 08/15/25. She was found to have a UTI and was treated, her cognition and ability to care for herself that they noted in the hospital led to them getting an MRI brain. Patient cannot provide much history. No family in the room to get collateral hx.Per note over the past 3 days prior to admission was not walking, talking or taking care of herself so was brought to the ED. MRI brain showed punctate ischemic strokes in BL hemispheres. They are small and should not cause any major symptoms. Stroke team was consulted on 08/18/25 for MRI brain findings. Onmy exam NIH for 8 for drift in all limbs. She can name, follow commands and has fluent speech, just not a good historian, more encephalopathic. [facility] Medical History (Updated 08/15/25 @ 01:07 by Jolynn Keen) Smoker Migraines Alcohol abuse Anxiety Depression Home Medications ?Medication ?Instructions ?Recorded ?Last Taken ?Type citalopram 40 mg tablet 40 mg PO DAILY MOOD 08/14/25 08/07/25 History trazodone 50 mg tablet 50 - 100 mg PO QHS PRN insom joseph 08/14/25 08/07/25 History Allergy/AdvReac Type Severity Reaction Status Date / Time No Known Allergies Allergy Verified 08/14/25 15:26 Social History Smoking Status: Current every day smoker tobacco type: cigarettes Vital Signs Vital Signs Vital Signs: 08/17/25 14:30 08/17/25 15:21 08/17/25 20:00 Temperature 97 F L Temperature Source Oral Pulse Rate 94 Pulse Strength Normal (2+) Respiratory Rate 18 Respiratory Effort Short of Breath Respiratory Depth Normal Respiratory Pattern Normal Blood Pressure 129/97 H Blood Pressure Mean 107 Blood Pressure Source Monitor Blood Pressure Position Sitting Blood Pressure Location Right Arm Pulse Ox 95 Oxygen Delivery Method Room Air 08/17/25 20:00 08/17/25 20:07 08/18/25 04:20 Temperature 97.5 F L Temperature Source Axillary Pulse Rate 87 Pulse Strength Respiratory Rate 18 Respiratory Effort Normal Non-Labored Normal Non-Labored Respiratory Depth Normal Normal Respiratory Pattern Normal Normal Blood Pressure 125/96 H Blood Pressure Mean 105 Blood Pressure Source Monitor Blood Pressure Position Semi-Fowlers Blood Pressure Location Right Arm Pulse Ox 100 Oxygen Delivery Method Room Air Room Air Room Air 08/18/25 04:22 08/18/25 08:08 08/18/25 08:08 Temperature 96.6 F L Temperature Source Temporal Pulse Rate 98 Pulse Strength Normal (2+) Respiratory Rate 18 Respiratory Effort Normal Respiratory Depth Normal Respiratory Pattern Normal Blood Pressure 144/95 H Blood Pressure Mean 111 Blood Pressure Source Monitor Blood Pressure Position Semi-Fowlers Blood Pressure Location Right Arm Pulse Ox 100 Oxygen Delivery Method Room Air Room Air 08/18/25 08:08 08/18/25 08:08 Temperature 98.2 F 98.2 F Temperature Source Temporal Oral Pulse Rate 95 95 Pulse Strength Respiratory Rate 18 18 Respiratory Effort Respiratory Depth Respiratory Pattern Blood Pressure 136/97 H 136/97 H Blood Pressure Mean 110 110 Blood Pressure Source Monitor Monitor Blood Pressure Position Semi-Fowlers Semi-Fowlers Blood Pressure Location Right Arm Right Arm Pulse Ox 98 98 Oxygen Delivery Method Room Air Room Air Weight Weight: 62.5 kg Body Mass Index (BMI) 22.2 Physical Exam Narrative Physical Exam: - General: NAD, pleasant, cooperative, well nourished, well developed - Head/Eyes: Atraumatic, normocephalic, clear cornea, normal sclera/conjunctive - Neuro: ? Mental Status: AAOX3, not to situation & following simple commands. ? Speech: Clear and fluent with good repetition, comprehension, & naming. No aphasia or dysarthria ? CN II: Visual low are full to confrontation. ? CN III, IV, : EOMI, no gaze preference, no nystagmus, no ptosis ? CN V: Facial sensation is intact to light touch throughout. ? CN VII: Face is symmetric with normal eye closure and smile. ? Motor: Anti gravity in all limbs but drops them all to bed ? Sensation: Normal to light touch bilaterally. ? Coordination: Normal FTN, hts could not be tested. No abn movements seen. Lab / Micro Data 08/15/25 07:27 08/15/25 07:27 Labs: Laboratory Results - last 24 hr 08/17/25 22:05: Triglycerides 76, Cholesterol 96, LDL Cholesterol, Calc 52, VLDLCholesterol 15, HDL Cholesterol 28 L, Cholesterol/HDL Ratio 3.38 Micro: Microbiology 08/14/25 21:30 Urine, Catheterized Urine Culture - Final Klebsiella pneumoniae sp pneum Imaging Radiology Impression Brain MRI 08/17/25 16:48 IMPRESSION: Punctate acute or subacute ischemic foci within the bilateral, [id number]-oftn-left centrum semiovale. Moderate global cerebral atrophy, compatible with age-related volume loss. Severe chronic microvascular ischemic white matter changes, likely reflecting longstanding small vessel disease. No evidence of acute intracranial hemorrhage, mass effect, or hydrocephalus. Critical results were communicated to Marlene Smith RN at 7 p.m.. Reading Location: [address] Active Medications Active Medications Active Medications: Current Medications Generic Name Dose Route Start Last Admin Trade Name Adamaq PRN Reason Stop Dose Admin Aspirin 81 mg 08/17/25 19:20 08/18/25 10:16 Aspirin 81 Mg Tab.Chew PO 81 mg BREAKFAST ROCIO Administration Atorvastatin Calcium 80 mg 08/17/25 22:00 08/17/25 22:37 Atorvastatin Calcium 80 Mg Tablet PO Not Given QHS [facility] Calamine/Phenol 1 applic 08/15/25 10:00 08/18/25 08:34 Menthol/Lanolin/Calamine/Znox 113 Gm Tube TOPICAL 1 applic BID ROCIO Administration Protocol Citalopram Hydrobromide 40 mg 08/15/25 10:00 08/18/25 10:15 Citalopram 40 Mg Tablet PO 40 mg DAILY ROCIO Administration Enoxaparin Sodium 40 mg 08/15/25 10:00 08/18/25 08:35 Enoxaparin 40 Mg/0.4 Ml Syringe SC 40 mg DAILY ROCIO Administration Folic Acid 1 mg 08/15/25 08:00 08/18/25 10:18 Folic Acid 1 Mg Tablet PO 1 mg BREAKFAST ROCIO Administration Sodium Chloride 1,000 mls @ 125 mls/hr 08/15/25 00:44 08/18/25 08:34 IV 125 mls/hr .Q8H ROCIO Administration Sodium Chloride 250 mls @ 15 mls/hr 08/15/25 00:45 IV .[id number] PRN Additional IVPB Infusion Nitrofurantoin Macrocrystals 100 mg 08/16/25 22:00 08/18/25 10:14 Nitrofurantoin Macrocrystals 100 Mg Capsule PO 100 mg BID ROCIO Administration Ondansetron HCl 4 mg 08/15/25 00:44 08/16/25 03:59 Ondansetron 4 Mg/2 Ml Vial IV 4 mg Q8H PRN PRN Administration NAUSEA/VOMITING Sodium Chloride 10 - 40 ml 08/15/25 00:45 08/15/25 08:59 0.9% Saline Lock 10 Ml Syringe IV 10 ml UD PRN Administration SALINE FLUSH 08/18/25 1135 <Electronically signed by Mukul Soliman MD> Cosigner Signature (if applicable): CC: No Primary Care Physician~ Signed [facility] Work Phone: Discharge summary [facility] Medical Records Department [address] [place] [address] Transfer to [facility] MR#: [id number] Acct: [id number] Name: BANDAR TIWARI Rep #:[id number] : 1960 65 From: Simone lau DO PCP: Care Physician,No Primary Status :ADM IN Certification of patient admission REQUIRED AT TIME OF ADMISSION. I CERTIFY THAT POST-HOSPITAL ECF SERVICES ARE REQUIRED TO BE GIVEN ON AN IN-PATIENT BASIS BECAUSE OF THE ABOVE NAMED PATIENT'S NEED FOR SKILLED NURSING CARE ON A CONTINUING BASIS FOR THE CONDITION(S) FOR WHICH HE/SHE WAS RECEIVING IN-PATIENT HOSPITAL SERVICES PRIOR TO HIS/HER TRANSFER TO THE F. 08/21/25 1551 Diet Diet Order/Speech Therapy: INPATIENT Hospital Diet / Speech Therapy Order(s) 08/15/25 00:44 Diet: Regular - General Food consistency:: Pureed Liquid Consistency:: Regular/Thin Type of Dietary Supplement:: Ensure Plus High Protein Diet Comments: 240 ml CIB w/ B, 240ml chocolate Ensure PHP w/ L, Magic cup w/ D Speech Therapy Comments: Direct sup and feeding assistance Routine Orders/Code Status Code Status: Full Code DC O2, CPAP, BIPAP needs Home O2 Discharge instructions: No Wound(s) Right Buttock: Wound Type: Pressure Injury Therapies Weight Bearing: Full weight bearing Physical Therapy: Eval and Treat Occupational Therapy: Eval and Treat Problem/Diagnosis (1) Generalized weakness: Status: Acute Code(s): R53.1 - Weakness (2) Adult failure to thrive: Status: Acute Code(s): R62.7 - Adult failure to thrive Plan Patient is a 65-year-old female who [facility] ED on 08/[facility]/2025 with worsening weakness. Hospital course as noted below. Patientdischarged to SNF in stable condition on 08/21. 1. Adult failure to thrive ? PT/OT/case management followed. Patient with poor therapy scores during hospitalization. Suspected multifactorial with acute CVA and cognitive impairment versus dementia being large contributors tothis. Stable for discharge to SNF on 08/21. 2. 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 MRI brain on 08/17 showed punctate acute or subacute ischemic foci within the bilateral, right greater than left centrum semiovale. Severe chronic microvascular ischemic changes and moderate globalcerebral atrophy also noted. Nolateralizing deficits noted. Primary issues at this time are problems with balance and walking, and apparent difficulty speaking and understanding speech. PT/OT following as above and patient had poor therapy scores during her hospitalization. Patient also had difficulty with providing any history and it is unclear if this is due to the acute CVA versus some degree of underlying cognitive impairment. Discharged to SNF as above. Started on aspirin and high intensity statin on discharge. 3. New onset severe acute HFrEF ? Echo on 08/17 showed EF 10%, stage II diastolic dysfunction, severe global hypokinesis of the left interval, moderate enlarged LA, mildly enlarged RA, no significant valvular disease. Consistent with nonischemic cardiomyopathy. Unclear etiology but alcohol use disorder is a likely contributor. Initiated onguideline directed medical therapy and patient tolerated this well. Will discharge on Coreg, losartan, Lasix and Jardiance. 4. Suspect alcohol use disorder ? Reported history of heavier alcohol use in the past but per family her alcoholuse recently was not significant. CIWA protocol placed during hospitalization and patient with no evidence of withdrawal. 5. Bacteriuria ? UA with 500% esterase, positive nitrates, rare bacteria. Urine culture grew 25-50,000 Klebsiella.Treated initially with IV ceftriaxone then switched to Macrobid. Klebsiella showed intermediate resistance to Macrobid so this was discontinued and patient was observed. No need for further treatmentat this time. 6. Major depressive disorder ? Continue home citalopram. Total clinical time spent by myself addressing the patient's medical issues, reviewing all the data, and collaborating with patient's care team: 46 minutes. Allergies/Procedures Done in Hospital Allergies No Known Allergies Allergy (Verified 08/14/25 15:26) Procedures: EKG, Transthoracic Echo and - (CT abdomen pelvis, CTA chest, MRI brain, CTA head/neck, chest x-ray) Type of Care/Length of Stay Estimated LOS: Convalescent Care Less Than 30 days Type of Care Needed: Skilled Rehab Potential: Fair Prognosis: Fair Additional Orders/Day of Discharge H&P will serve as current which was dated: 08/15/25 Day of Discharge: 08/21/25 Dietary and Speech 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s Dietitian 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s/Changes: Continue Regular diet order Continue 240 ml bottle Ensure PHP (chocolate) daily at lunch Continue CIB w/ breakfast and magic cup w/ dinner for increased nutrition if consumed Consider appetite stimulant to help encourage increased po intake at meals If poor po intake/wt loss continue, may need to consider more aggressive nutrition support (ie supplemental TF) to help prevent further decline in pt nutritional status if in accordance w/ pt/family wishes. Discharge Plan Admission Admit Date/Time: 08/16/25 14:41 Primary Reason for Your Visit: Weakness Attending Provider: Simone Webster Primary Care Provider: Care Physician,No Primary Consulting Providers: Bharath Quiros; Gavin Garcia; Doreen Cobb; Olga Holman; Janis Mai; Bethanie Jain; Thomas Carballo; Barbra Klein; Dmitry Wood; Wang Lucas;Mukul Soliman; Marleni Barger; Eboni Acuña; Nigel Dunaway; Mariya Cormier; Chon Goodrich; Eliezer Hernandez; Jesse Tiwari; Deandre Anders; Mark Nelson; Camille Yun; Sandra Moy; Corey Guillen Discharge Orders/Prescriptions Prescriptions: New furosemide 40 mg Tablet 40 mg PO DAILY 30 Days Qty: 0 0RF carvedilol 12.5 mg Tablet 12.5 mg PO BIDCM 30 Days Qty: 0 0RF aspirin 81 mg Tablet,Chewable 81 mg PO BREAKFAST 30 Days Qty: 0 0RF folic acid 1 mg Tablet 1 mg PO BREAKFAST 30 Days Qty: 0 0RF losartan 100 mg Tablet 100 mg PO DAILY 30 Days Qty: 0 0RF Jardiance 10 mg Tablet 10 mg PO DAILY 30 Days Qty: 0 0RF Continued citalopram 40 mg tablet 40 mg PO DAILY trazodone 50 mg tablet 50 - 100 mg PO QHS PRN (Reason: insomnia) Referrals / Follow Up: Care Physician,No Primary [Primary Care Provider, Medical] Disposition Disposition (needs filled in before D/C Order can be placed): Intermediate Facility 08/21/25 4107 Cosigner Signature (if applicable): CC: Janis Mai; Mariya Cormier; Jesse Tiwari; Bethanie Jain MD; Olga Holman MD; Gavin Garcia MD; Dr. Doreen Cobb MD; Dr. Thomas Carballo MD; Dr. Leon MD; Dr. Wang Lucas MD; Dr. Dmitry Wood MD; Dr. Mukul Soliman MD; Dr. Marleni Barger DO; Dr. Corey Guillen DO; Dr. Nigel Dunaway DO; Dr. Eliezer Hernandez MD; Dr. Chon Goodrich MD; Dr. Bharath Quiros MD; Dr. Deandre Anders MD; Dr. Mark Nelson MD; Dr. Camille Yun MD; Eboni Acuña DO; [facility] Physician; Sandra Moy MD ~ [facility] Department [address] [place] [address] Discharge Summary 08/21/25 1532 MR#: [id number] Acct: [id number] Name: BANDAR TIWARI Rep #:[id number] : 1960 65 From: Simone lau DO PCP: Care Physician,No Primary Status :ADM IN Location: [facility] [id number] Providers Date of Admission: 08/16/25 Date of Discharge: 08/21/25 Primary Care Physician: No Primary Care Phys Consultations 08/17/25 19:14 Teleneurology [Consult: Tele-Neurology] Routine Consulting Provider: [facility] Reason for Consult: abnormal MRI EMERGENT Consult: No MD Notified: Yes Date Notified: 08/17/25 Time Notified: 23:26 Method of Notification: Answering Service Comments:: to do 08/18/25 am. Nursing Unit Staff Notify [facility] of Tele-Neurology Consult: Yes Reason For Visit: GENERAL WEAKNESS FAILURE TO THRIVE UTI Diagnosis Discharge Diagnosis (1) Generalized weakness: Status: Acute Code(s): R53.1 - Weakness (2) Adult failure to thrive: Status: Acute Code(s): R62.7 - Adult failure to thrive Medications at Discharge Home Medications citalopram 40 mg tablet 40 mg PO DAILY MOOD 08/14/25 trazodone 50 mg tablet 50 - 100 mg PO QHS PRN insomnia 08/14/25 aspirin 81 mg chewable tablet 81 mg PO BREAKFAST 30 days #0 tabs 08/21/25 carvedilol 12.5 mg tablet 12.5 mg PO BIDCM 30 days #0 tabs 08/21/25 empagliflozin 10 mg tablet (Jardiance) 10 mg PO DAILY 30 days #0 tabs 08/21/25 folic acid 1 mg tablet 1 mg PO BREAKFAST 30 days #0 tabs 08/21/25 furosemide 40 mg tablet 40 mg PO DAILY 30 days #0 tabs 08/21/25 losartan 100 mg tablet 100 mg PO DAILY 30 days #0 tabs 08/21/25 Hospital Course Operations None Procedures EKG, Transthoracic echo and - (CT abdomen pelvis, CTA chest, MRI brain, CTA head/neck, chest x-ray) Summary of Care Provided Minutes Spent on Discharge: 46 Hospital Course: Patient is a 65-year-old female who [facility] ED on 08/15/2025 with worsening weakness. Hospital course as noted below. Patientdischarged to SNF in stable condition on 08/21. 1. Adult failure to thrive ? PT/OT/case management followed. Patient with poor therapy scores during hospitalization. Suspected multifactorial with acute CVA and cognitive impairment versus dementia being large contributors tothis. Stable for discharge to SNF on 08/21. 2. 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 MRI brain on 08/17 showed punctate acute or subacute ischemic foci within the bilateral, right greater than left centrum semiovale. Severe chronic microvascular ischemic changes and moderate globalcerebral atrophy also noted. No lateralizing deficits noted. Primary issues at this time are problems with balance and walking, and apparent difficulty speaking and understanding speech. PT/OT following as above and patient had poor therapy scores during her hospitalization. Patient also had difficulty with providing any history and it is unclear if this is due to the acute CVA versus some degreeof underlying cognitive impairment. Discharged to SNF as above. Started on aspirin and high intensity statin on discharge. 3. New onset severe acute HFrEF ? Echo on 08/17 showed EF 10%, stage II diastolic dysfunction, severe global hypokinesis of the left interval, moderate enlarged LA, mildly enlarged RA, no significant valvular disease. Consistent with nonischemic cardiomyopathy. Unclear etiology but alcohol use disorder is a likely contributor. Initiated onguideline directed medical therapy and patient tolerated this well. Will discharge on Coreg, losartan, Lasix and Jardiance. 4. Suspect alcohol use disorder ? Reported history of heavier alcohol use in the past but per family her alcoholuse recently was not significant. CIWA protocol placed during hospitalization and patient with no evidence of withdrawal. 5. Bacteriuria ? UA with 500% esterase, positive nitrates, rare bacteria. Urine culture grew 25-50,000 Klebsiella.Treated initially with IV ceftriaxone then switched to Macrobid. Klebsiella showed intermediate resistance to Macrobid so this was discontinued and patient was observed. No need for further treatmentat this time. 6. Major depressive disorder ? Continue home citalopram. Total clinical time spent by myself addressing the patient's medical issues, reviewing all the data, and collaborating with patient's care team: 46 minutes. Physical Exam Narrative alert, no apparent distress and average body habitus General Appearance: cooperative, well kempt and well developed Orientation / Consciousness: awake, oriented to person and oriented to place HEENT normocephalic, head/scalp atraumatic and moist oral mucous membranes Eyes PERRL, EOMs intact bilaterally and conjunctivae normal Neck supple, no JVD, thyroid normal and no carotid bruits General: trachea midline Resp normal respiratory effort, no retractions, no use of accessory muscles and clearto auscultation bilaterally Auscultation: Negative for rales, rhonchi or wheezes Cardio regular rate, regular rhythm, S1 normal heart sound, S2 normal heart sound, no murmurs, no rub and no gallops GI normal to inspection, nondistended, normoactive bowel sounds, soft to palpation,non-tender and non-distended Extremity no clubbing, cyanosis or edema Skin no rashes or lesions noted General Skin Exam: no breakdown Neuro CN's II-XII intact bilaterally, no focal motor deficits and no sensory deficits noted Sensorium / Orientation: awake, alert, oriented to person and oriented to place Speech: speech normal Psych Psych Narrative: Patient has flat affect, she does respond appropriately to simple questions Medical Records Data Medical Nutrition Assessment Dietitian: Malnutrition Criteria Met Start: 08/15/25 13:56 Freq: Status: Active Protocol: Document 08/18/25 13:13 SLA (Rec: 08/18/25 13:13 SLA [id number]) Nutrition Malnutrition Evidence of No Malnutrition Exists Malnutrition (severe Acute Illness/Injury ): Malnutrition ( Severe pro/heather unspecified) Intake Problem Increased Nutrient Needs (specify) Etiology protein related to skin status Signs/Symptoms as evidenced by PI to R buttock Status Active Problem Clinical Problem Acute Disease or Injury Related Malnutrition Etiology related to recent FTT Signs/Symptoms 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 Dietitian Continue Regular diet order 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s/ Continue 240 ml bottle Ensure PHP (chocolate) dailyat Changes lunch Will order CIB w/ breakfast and magic cup w/ dinnerfor increased nutrition if consumed Consider appetite stimulant to help encourage increased po intake at meals Weight / BMI Weight Weight: 62.5 kg Body Mass Index (BMI) 22.2 ABG / Lab / Microbiology Data 08/15/25 07:27 08/20/25 09:21 Microbiology: Microbiology 08/14/25 21:30 Urine, Catheterized Urine Culture - Final Klebsiella pneumoniae sp pneum D/C Instructions DC O2, CPAP, BIPAP Needs Home O2 Discharge instructions: No Meaningful Use Info Meaningful Use Meaningful Use Diagnoses (Choose all that apply): Ischemic CVA CVA Therapy Assessed for PT,OT and/or ST?: Yes Ischemic Stroke Antithrombotic order at d/c?: Yes Dx of Atrial fib/flutter?: No Statins at discharge?: Yes If patient is 75 or younger, pt will be discharged on HIGH intensity statin.: Yes Primary Dx Acute Ischemic CVA?: Yes Discharge Plan Admission Admit Date/Time: 08/16/25 14:41 Primary Reason for Your Visit: Weakness Attending Provider: Simone Webster Primary Care Provider: Care Physician,No Primary Consulting Providers: Bharath Quiros; Gavin Garcia; Doreen Cobb; Olga Holman; Janis Mai; Bethanie Jain; Thomas Carballo; Barbra Klein; Dmitry Wood; Wang Lucas;Mukul Soliman; Marleni Barger; Eboni Acuña; Nigel Dunaway; Mariya Cormier; Chon Goodrich; Eliezer Hernandez; Jesse Tiwari; Deandre Anders; Mark Nelson; Camille Yun; Sandra Moy; Corey Guillen Discharge Orders/Prescriptions Prescriptions: New furosemide 40 mg Tablet 40 mg PO DAILY 30 Days Qty: 0 0RF carvedilol 12.5 mg Tablet 12.5 mg PO BIDCM 30 Days Qty: 0 0RF aspirin 81 mg Tablet,Chewable 81 mg PO BREAKFAST 30 Days Qty: 0 0RF folic acid 1 mg Tablet 1 mg PO BREAKFAST 30 Days Qty: 0 0RF losartan 100 mg Tablet 100 mg PO DAILY 30 Days Qty: 0 0RF Jardiance 10 mg Tablet 10 mg PO DAILY 30 Days Qty: 0 0RF Continued citalopram 40 mg tablet 40 mg PO DAILY trazodone 50 mg tablet 50 - 100 mg PO QHS PRN (Reason: insomnia) Referrals / Follow Up: Care Physician,No Primary [Primary Care Provider, Medical] Disposition Disposition (needs filled in before D/C Order can be placed): Intermediate Facility Charges/Coding Visit Charges Inpatient E&M: 04817 Disch Hosp >30min 08/21/25 1554 Cosigner Signature (if applicable): CC: Dr. Simone Webster DO; No Primary Care Physician~ [facility] Note Date/Time August 21, 2025 3 :51pm [facility] Medical Records Department [address] [place] [address] Transfer to [facility] MR#: [id number] Acct: [id number] Name: BANDAR TIWARI Rep #:[id number] : 1960 65 From: Simone lau DO PCP: Care Physician,No Primary Status :ADM IN Certification of patient admission REQUIRED AT TIME OF ADMISSION. I CERTIFY THAT POST-HOSPITAL ECF SERVICES ARE REQUIRED TO BE GIVEN ON AN IN-PATIENT BASIS BECAUSE OF THE ABOVE NAMED PATIENT'S NEED FOR SKILLED NURSING CARE ON A CONTINUING BASIS FOR THE CONDITION(S) FOR WHICH HE/SHE WAS RECEIVING IN-PATIENT HOSPITAL SERVICES PRIOR TO HIS/HER TRANSFER TO THE F. 08/21/25 1551<Electronically signed by Simoen Webster DO> Diet Diet Order/Speech Therapy: INPATIENT Hospital Diet / Speech Therapy Order(s) 08/15/25 00:44 Diet: Regular - General Food consistency:: Pureed Liquid Consistency:: Regular/Thin Type of Dietary Supplement:: Ensure Plus High Protein Diet Comments: 240 ml CIB w/ B, 240ml chocolate Ensure PHP w/ L, Magic cup w/ D Speech Therapy Comments: Direct sup and feeding assistance Routine Orders/Code Status Code Status: Full Code DC O2, CPAP, BIPAP needs Home O2 Discharge instructions: No Wound(s) Right Buttock: Wound Type: Pressure Injury Therapies Weight Bearing: Full weight bearing Physical Therapy: Eval and Treat Occupational Therapy: Eval and Treat Problem/Diagnosis (1) Generalized weakness: Status: Acute Code(s): R53.1 - Weakness (2) Adult failure to thrive: Status: Acute Code(s): R62.7 - Adult failure to thrive Plan Patient is a 65-year-old female who presented to [facility] ED on 08/15/2025 with worsening weakness. Hospital course as noted below. Patientdischarged to SNF in stable condition on 08/21. 1. Adult failure to thrive ? PT/OT/case management followed. Patient with poor therapy scores during hospitalization. Suspected multifactorial with acute CVA and cognitive impairment versus dementia being large contributors to this. Stable for discharge to SNF on 08/21. 2. 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 MRI brain on 08/17 showed punctate acute or subacute ischemic foci within the bilateral, right greater than left centrum semiovale. Severe chronic microvascular ischemic changes and moderate global cerebral atrophy also noted. Nolateralizing deficits noted. Primary issues at this time are problems with balance and walking, and apparent difficulty speaking and understanding speech. PT/OT following as above and patient had poor therapy scores during her hospitalization. Patient also had difficulty with providing any history and it is unclear if this is due to the acute CVA versus some degree of underlying cognitive impairment. Discharged to SNF as above. Started on aspirin and high intensity statin on discharge. 3. New onset severe acute HFrEF ? Echo on 08/17 showed EF 10%, stage II diastolic dysfunction, severe global hypokinesis of the left interval, moderate enlarged LA, mildly enlarged RA, no significant valvular disease. Consistent with nonischemic cardiomyopathy. Unclear etiology but alcohol use disorder is a likely contributor. Initiated onguideline directed medical therapy and patient tolerated this well. Will discharge on Coreg, losartan, Lasix and Jardiance. 4. Suspect alcohol use disorder ? Reported history of heavier alcohol use in the past but per family her alcoholuse recently was not significant. CIWA protocol placed during hospitalization and patient with no evidence of withdrawal. 5. Bacteriuria ? UA with 500% esterase, positive nitrates, rare bacteria. Urine culture grew 25-50,000 Klebsiella. Treated initially with IV ceftriaxone then switched to Macrobid. Klebsiella showed intermediate resistance to Macrobid so this was discontinued and patient was observed. No need for further treatment at this time. 6. Major depressive disorder ? Continue home citalopram. Total clinical time spent by myself addressing the patient's medical issues, reviewing all the data, and collaborating with patient's care team: 46 minutes. Allergies/Procedures Done in Hospital Allergies No Known Allergies Allergy (Verified 08/14/25 15:26) Procedures: EKG, Transthoracic Echo and - (CT abdomen pelvis, CTA chest, MRI brain, CTA head/neck, chest x-ray) Type of Care/Length of Stay Estimated LOS: Convalescent Care Less Than 30 days Type of Care Needed: Skilled Rehab Potential: Fair Prognosis: Fair Additional Orders/Day of Discharge H&P will serve as current which was dated: 08/15/25 Day of Discharge: 08/21/25 Dietary and Speech 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s Dietitian 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s/Changes: Continue Regular diet order Continue 240 ml bottle Ensure PHP (chocolate) daily at lunch Continue CIB w/ breakfast and magic cup w/ dinner for increased nutrition if consumed Consider appetite stimulant to help encourage increased po intake at meals If poor po intake/wt loss continue, may need to consider more aggressive nutrition support (ie supplemental TF) to help prevent further decline in pt nutritional status if in accordance w/ pt/family wishes. Discharge Plan Admission Admit Date/Time: 08/16/25 14:41 Primary Reason for Your Visit: Weakness Attending Provider: Simone Webster Primary Care Provider: Care Physician,No Primary Consulting Providers: Bharath Quiros; Gavin Garcia; Doreen Cobb; Olga Holman; Janis Mai; Bethanie Jain; Thomas Carballo; Barbra Klein; Dmitry Wood; Wang Lucas;Mukul Soliman; Marleni Barger; Eboni Acuña; Nigel Dunaway; Mariya Cormier; Chon Goodrich; Eliezer Hernandez; Jesse Tiwari; Deandre Anders; Mark Nelson; Camille Yun; Sandra Moy; Corey Guillen Discharge Orders/Prescriptions Prescriptions: New furosemide 40 mg Tablet 40 mg PO DAILY 30 Days Qty: 0 0RF carvedilol 12.5 mg Tablet 12.5 mg PO BIDCM 30 Days Qty: 0 0RF aspirin 81 mg Tablet,Chewable 81 mg PO BREAKFAST 30 Days Qty: 0 0RF folic acid 1 mg Tablet 1 mg PO BREAKFAST 30 Days Qty: 0 0RF losartan 100 mg Tablet 100 mg PO DAILY 30 Days Qty: 0 0RF Jardiance 10 mg Tablet 10 mg PO DAILY 30 Days Qty: 0 0RF Continued citalopram 40 mg tablet 40 mg PO DAILY trazodone 50 mg tablet 50 - 100 mg PO QHS PRN (Reason: insomnia) Referrals / Follow Up: Care Physician,No Primary [Primary Care Provider, Medical] Disposition Disposition (needs filled in before D/C Order can be placed): Intermediate Facility 08/21/25 1551 <Electronically signed by Simone Webster DO> Cosigner Signature (if applicable): CC: Janis Mai; Mariya Cormier; Jesse Tiwari; Bethanie Jain MD; Olga Holman MD; Gavin Garcia MD; Dr. Doreen Cobb MD; Dr. Thomas Carballo MD; Dr. Leon MD; Dr. Wang Lucas MD; Dr. Dmitry Wood MD; Dr. Mukul Soliman MD; Dr. Marleni Barger DO; Dr. Corey Guillen DO; Dr. Nigel Dunaway DO; Dr. Eliezer Hernandez MD; Dr. Chon Goodrich MD; Dr. Bharath Quiros MD; Dr. Deandre Anders MD; Dr. Mark Nelson MD; Dr. Camille Yun MD; Eboin Acuña DO; [facility] Physician; Sandra Moy MD ~ [facility] Work Phone: Discharge summary Author Simone [facility] Note Date/Time August 21, 2025 3 :54pm [facility] Medical Records Department [address] [place] [id number] Discharge Summary 08/21/25 1532 MR#: [id number] Acct: [id number] Name: TIWARIBANDAR Rep #:[id number] : 1960 65 From: Simone lau DO PCP: Care Physician,No Primary Status :ADM IN Location: [facility] [id number] Providers Date of Admission: 08/16/25 Date of Discharge: 08/21/25 Primary Care Physician: No Primary Care Phys Consultations 08/17/25 19:14 Teleneurology [Consult: Tele-Neurology] Routine Consulting Provider: [facility] Reason for Consult: abnormal MRI EMERGENT Consult: No MD Notified: Yes Date Notified: 08/17/25 Time Notified: 23:26 Method of Notification: Answering Service Comments:: to do 08/18/25 am. Nursing Unit Staff Notify [facility] of Tele-Neurology Consult: Yes Reason For Visit: GENERAL WEAKNESS FAILURE TO THRIVE UTI Diagnosis Discharge Diagnosis (1) Generalized weakness: Status: Acute Code(s): R53.1 - Weakness (2) Adult failure to thrive: Status: Acute Code(s): R62.7 - Adult failure to thrive Medications at Discharge Home Medications citalopram 40 mg tablet 40 mg PO DAILY MOOD 08/14/25 trazodone 50 mg tablet 50 - 100 mg PO QHS PRN insomnia 08/14/25 aspirin 81 mg chewable tablet 81 mg PO BREAKFAST 30 days #0 tabs 08/21/25 carvedilol 12.5 mg tablet 12.5 mg PO BIDCM 30 days #0 tabs 08/21/25 empagliflozin 10 mg tablet (Jardiance) 10 mg PO DAILY 30 days #0 tabs 08/21/25 folic acid 1 mg tablet 1 mg PO BREAKFAST 30 days #0 tabs 08/21/25 furosemide 40 mg tablet 40 mg PO DAILY 30 days #0 tabs 08/21/25 losartan 100 mg tablet 100 mg PO DAILY 30 days #0 tabs 08/21/25 Hospital Course Operations None Procedures EKG, Transthoracic echo and - (CT abdomen pelvis, CTA chest, MRI brain, CTA head/neck, chest x-ray) Summary of Care Provided Minutes Spent on Discharge: 46 Hospital Course: Patient is a 65-year-old female who [facility] on 08/[facility]/2025 with worsening weakness. Hospital course as noted below. Patientdischarged to SNF in stable condition on 08/21. 1. Adult failure to thrive ? PT/OT/case management followed. Patient with poor therapy scores during hospitalization. Suspected multifactorial with acute CVA and cognitive impairment versus dementia being large contributors to this. Stable for discharge to SNF on 08/21. 2. 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 MRI brain on 08/17 showed punctate acute or subacute ischemic foci within the bilateral, right greater than left centrum semiovale. Severe chronic microvascular ischemic changes and moderate global cerebral atrophy also noted. No lateralizing deficits noted. Primary issues at this time are problems with balance and walking, and apparent difficulty speaking and understanding speech. PT/OT following as above and patient had poor therapy scores during her hospitalization. Patient also had difficulty with providing any history and it is unclear if this is due to the acute CVA versus some degree of underlying cognitive impairment. Discharged to SNF as above. Started on aspirin and high intensity statin on discharge. 3. New onset severe acute HFrEF ? Echo on 08/17 showed EF 10%, stage II diastolic dysfunction, severe global hypokinesis of the left interval, moderate enlarged LA, mildly enlarged RA, no significant valvular disease. Consistent with nonischemic cardiomyopathy. Unclear etiology but alcohol use disorder is a likely contributor. Initiated onguideline directed medical therapy and patient tolerated this well. Will discharge on Coreg, losartan, Lasix and Jardiance. 4. Suspect alcohol use disorder ? Reported history of heavier alcohol use in the past but per family her alcoholuse recently was not significant. CIWA protocol placed during hospitalization and patient with no evidence of withdrawal. 5. Bacteriuria ? UA with 500% esterase, positive nitrates, rare bacteria. Urine culture grew 25-50,000 Klebsiella. Treated initially with IV ceftriaxone then switched to Macrobid. Klebsiella showed intermediate resistance to Macrobid so this was discontinued and patient was observed. No need for further treatment at this time. 6. Major depressive disorder ? Continue home citalopram. Total clinical time spent by myself addressing the patient's medical issues, reviewing all the data, and collaborating with patient's care team: 46 minutes. Physical Exam Narrative alert, no apparent distress and average body habitus General Appearance: cooperative, well kempt and well developed Orientation / Consciousness: awake, oriented to person and oriented to place HEENT normocephalic, head/scalp atraumatic and moist oral mucous membranes Eyes PERRL, EOMs intact bilaterally and conjunctivae normal Neck supple, no JVD, thyroid normal and no carotid bruits General: trachea midline Resp normal respiratory effort, no retractions, no use of accessory muscles and clearto auscultation bilaterally Auscultation: Negative for rales, rhonchi or wheezes Cardio regular rate, regular rhythm, S1 normal heart sound, S2 normal heart sound, no murmurs, no rub and no gallops GI normal to inspection, nondistended, normoactive bowel sounds, soft to palpation,non-tender and non-distended Extremity no clubbing, cyanosis or edema Skin no rashes or lesions noted General Skin Exam: no breakdown Neuro CN's II-XII intact bilaterally, no focal motor deficits and no sensory deficits noted Sensorium / Orientation: awake, alert, oriented to person and oriented to place Speech: speech normal Psych Psych Narrative: Patient has flat affect, she does respond appropriately to simple questions Medical Records Data Medical Nutrition Assessment Dietitian: Malnutrition Criteria Met Start: 08/15/25 13:56 Freq: Status: Active Protocol: Document 08/18/25 13:13 SLA (Rec: 08/18/25 13:13 SLA [id number]) Nutrition Malnutrition Evidence of No Malnutrition Exists Malnutrition (severe Acute Illness/Injury ): Malnutrition ( Severe pro/heather unspecified) Intake Problem Increased Nutrient Needs (specify) Etiology protein related to skin status Signs/Symptoms as evidenced by PI to R buttock Status Active Problem Clinical Problem Acute Disease or Injury Related Malnutrition Etiology related to recent FTT Signs/Symptoms 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 Dietitian Continue Regular diet order 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s/ Continue 240 ml bottle Ensure PHP (chocolate) dailyat Changes lunch Will order CIB w/ breakfast and magic cup w/ dinnerfor increased nutrition if consumed Consider appetite stimulant to help encourage increased po intake at meals Weight / BMI Weight Weight: 62.5 kg Body Mass Index (BMI) 22.2 ABG / Lab / Microbiology Data 08/15/25 07:27 08/20/25 09:21 Microbiology: Microbiology 08/14/25 21:30 Urine, Catheterized Urine Culture - Final Klebsiella pneumoniae sp pneum D/C Instructions DC O2, CPAP, BIPAP Needs Home O2 Discharge instructions: No Meaningful Use Info Meaningful Use Meaningful Use Diagnoses (Choose all that apply): Ischemic CVA CVA Therapy Assessed for PT,OT and/or ST?: Yes Ischemic Stroke Antithrombotic order at d/c?: Yes Dx of Atrial fib/flutter?: No Statins at discharge?: Yes If patient is 75 or younger, pt will be discharged on HIGH intensity statin.: Yes Primary Dx Acute Ischemic CVA?: Yes Discharge Plan Admission Admit Date/Time: 08/16/25 14:41 Primary Reason for Your Visit: Weakness Attending Provider: Simone Webster Primary Care Provider: Care Physician,No Primary Consulting Providers: Bharath Quiros; Gavin Garcia; Doreen Cobb; Olga Holman; Janis Mai; Bethanie Jain; Thomas Carballo; Barbra Klein; Dmitry Wood; Wang Lucas;Mukul Soliman; Marleni Barger; Eboni Acuña; Nigel Dunaway; Mariya Cormier; Chon Goodrich; Eliezer Hernandez; Jesse Tiwari; eDandre Anders; Mark Nelson; Camille Yun; Sandra Moy; Corey Guillen Discharge Orders/Prescriptions Prescriptions: New furosemide 40 mg Tablet 40 mg PO DAILY 30 Days Qty: 0 0RF carvedilol 12.5 mg Tablet 12.5 mg PO BIDCM 30 Days Qty: 0 0RF aspirin 81 mg Tablet,Chewable 81 mg PO BREAKFAST 30 Days Qty: 0 0RF folic acid 1 mg Tablet 1 mg PO BREAKFAST 30 Days Qty: 0 0RF losartan 100 mg Tablet 100 mg PO DAILY 30 Days Qty: 0 0RF Jardiance 10 mg Tablet 10 mg PO DAILY 30 Days Qty: 0 0RF Continued citalopram 40 mg tablet 40 mg PO DAILY trazodone 50 mg tablet 50 - 100 mg PO QHS PRN (Reason: insomnia) Referrals / Follow Up: Care Physician,No Primary [Primary Care Provider, Medical] Disposition Disposition (needs filled in before D/C Order can be placed): Intermediate Facility Charges/Coding Visit Charges Inpatient E&M: 88709 Disch Hosp >30min 08/21/25 1554 <Electronically signed by Simone Webster DO> Cosigner Signature (if applicable): CC: Dr. Simone Webster, ; No Primary Care Physician~ Signed [facility] Work Phone: Evaluation noteNo assessment information available [facility] Work Phone: Evaluation note* Diagnosis Skin sloughing (HCC)- Primary Unspecified local infection of skin and subcutaneous tissue documented [facility] this [facility] Diagnosis Onset Date Resolution Status Admit Date UTI (urinary tract infection) resol ed August 16, 2025 2:41pm Adult failure to thrive inactive O ctober 2024 2:41pm Alcohol use inactive August 16, 2025 2:41pm Generalized weakness inactive Octo carlie 2024 2:41pm [facility] Work Phone: History and physical note Author Bharath Quiros [facility] Note Date/Time August 15, 2025 1 2:26am [facility] Medical Records Department [address] [place] [address] History & Physical Exam 08/15/25 0018 MR#: [id number] Acct: [id number] Name: BANDAR TIWARI Rep #:[id number] : 1960 65 From: Bharath Quiros MD PCP: Care Physician,No Primary Status :ADM IN Location: [place] [address] HPI - General General Date of Admission: 08/15/25 Date of Service: 08/15/25 Chief Complaint: Generalized weakness, failure to thrive HPI Narrative BANDAR TIWARI, is a 65 F who presents to the emergency room with chief complaint of generalized weakness with failure to thrive at home. According to the her son the patient has slept approximately 60 hours of the last 72 hours athome. She is too weak to transfer without assistance by her son who does work 40 to 50 hours a week at another job and is not at home all the time. Patient does have a significant past medical history of anxiety, depression, alcohol abuse and she does not have routine medical care. Recently her son's noticed her having more trouble with memory and her fatigue and weakness has progressed markedly. Patient is also a smoker and does have some shortness of breath. Laboratory studies are unrevealing however she does have a urinary tract infection through her urinalysis. Patient will be admitted for observation to general medical floor case management referral obtained for help with discharge planning and possible placement. Patient will be given antibiotics for her urinary tract infection and physical therapy evaluation to help with her generalized strengthening and further planning for rehabilitation. Patient is full code at this time. [facility] Medical History Alcohol abuse Anxiety Depression Depression Home Medications ?Medication ?Instructions ?Recorded ?Last Taken ?Type citalopram 40 mg tablet 40 mg PO DAILY MOOD 08/14/25 08/07/25 History trazodone 50 mg tablet 50 - 100 mg PO QHS PRN insom joseph 08/14/25 08/07/25 History Allergy/AdvReac Type Severity Reaction Status Date / Time No Known Allergies Allergy Verified 08/14/25 15:26 Social History Smoking Status: Current every day smoker tobacco type: cigarettes ROS Constitutional Constitutional: Reports anorexia, malaise and weakness; Denies chills or fever(s) Eyes Eyes: Denies blurry vision ENT HEENT: Denies abnormal hearing Cardiovascular Cardiovascular: Denies chest pain Respiratory/Chest Respiratory/Chest: Reports cough and shortness of breath with exertion Gastrointestinal Gastrointestinal: Denies abdominal pain Genitourinary Genitourinary: Reports dysuria and urinary frequency Musculoskeletal Musculoskeletal: Denies back pain Integumentary Integumentary: Denies dry skin Neurologic Neurologic: Denies abnormal gait Psychiatric Psychiatric: Denies anxiety Vital Signs Vital Signs Vital Signs: 08/14/25 15:22 08/14/25 15:28 08/14/25 17:36 Temperature 97.6 F L Temperature Source Oral Pulse Rate 94 Respiratory Rate 18 Respiratory Effort Normal Non-Labored Respiratory Pattern Normal Blood Pressure 145/101 H 150/121 H Blood Pressure Mean 115 130 Blood Pressure Source Blood Pressure Position Blood Pressure Location Pulse Ox 100 100 Oxygen Delivery Method Room Air Room Air 08/14/25 20:41 08/14/25 21:45 08/14/25 22:00 Temperature Temperature Source Pulse Rate 77 70 Respiratory Rate 14 14 Respiratory Effort Respiratory Pattern Blood Pressure 157/102 H 159/113 H 159/128 H Blood Pressure Mean 120 128 138 Blood Pressure Source Blood Pressure Position Blood Pressure Location Pulse Ox 98 98 Oxygen Delivery Method Room Air Room Air 08/14/25 23:04 08/14/25 23:04 08/14/25 23:15 Temperature 99 F Temperature Source Pulse Rate 74 78 78 Respiratory Rate 20 H 20 H 18 Respiratory Effort Respiratory Pattern Blood Pressure 164/108 H 164/108 H 167/107 H Blood Pressure Mean 126 126 127 Blood Pressure Source Monitor Blood Pressure Position Semi-Fowlers Blood Pressure Location Left Arm Pulse Ox 100 100 100 Oxygen Delivery Method Room Air Room Air 08/14/25 23:22 08/14/25 23:36 Temperature 99 F Temperature Source Oral Pulse Rate 90 100 Respiratory Rate 22 H 16 Respiratory Effort Respiratory Pattern Normal Blood Pressure 167/107 H Blood Pressure Mean 127 Blood Pressure Source Blood Pressure Position Blood Pressure Location Pulse Ox 100 Oxygen Delivery Method Room Air Weight Weight: 137 lb 5.568 oz Body Mass Index (BMI) 22.1 Physical Exam Narrative Appears very fatigued Const alert and no apparent distress General Appearance: cooperative and well developed Orientation / Consciousness: confused HEENT normocephalic and head/scalp atraumatic Eyes PERRL and EOMs intact bilaterally Neck no lymphadenopathy Lymph Lymphatic: no lymphadenopathy noted Resp normal respiratory effort, normal air movement and clear to auscultation bilaterally Cardio regular rate, regular rhythm, S1 normal heart sound and S2 normal heart sound GI normal to inspection, nondistended, normoactive bowel sounds, soft to palpation,non-tender and non-distended Extremity normal capillary refill General Extremity: Negative for edema Skin General Skin Exam: no breakdown Neuro no focal motor deficits and no sensory deficits noted Psych cooperative Mood & Affect: flat affect Thought Content: No suicidality, No delusion(s) and No hallucination(s) Results Lab / Micro Data 08/14/25 15:30 08/14/25 15:30 Labs: Laboratory Results - last 24 hr 08/14/25 15:30: WBC 5.3, RBC 4.96, Hgb 13.9, Hct 43.0, MCV 86.7, MCH 28.0, MCHC 32.3, RDW Std Deviation 42.5, RDW Coeff of Adán 13.4, Plt Count 100 L, MPV 13.4 H, Immature Gran % (Auto) 0.200, Neut % (Auto) 56.3, Lymph % (Auto) 33.0, Morrison % (Auto) 7.0, Eos % (Auto) 2.7, Baso % (Auto) 0.8, Absolute Neuts (auto) 3.0, Absolute Lymphs (auto) 1.74, Nucleated RBC % 0, Sodium 142, Potassium 3.2 L, Chloride 104, Carbon Dioxide 23.3, Anion Gap 15, BUN 17, Creatinine 1.03, Estim Creat Clear Calc 51.66, Est GFR (MDRD) Non-Af 61, BUN/Creatinine Ratio 16.8, Glucose 142 H, Calcium 10.2, Total Bilirubin 1.43 H, AST 18, ALT 7, Alkaline Phosphatase 51, Total Protein 8.2, Albumin 4.1, Globulin 4.2, Albumin/Globulin Ratio 1.0, Lipase 29 08/14/25 17:36: TSH 1.290, Free T4 1.20, Free T3 pg/dL 2.3 08/14/25 21:30: Urine Color Yellow, Urine Clarity Turbid, Urine pH 5.0, Ur Specific [place] 1.010, Urine Protein 30 H, Urine Glucose (UA) Normal, Urine Ketones Negative, Urine Occult Blood 150 H, Urine Nitrite Positive H, Urine Bilirubin Negative, Urine Urobilinogen 8 H, Ur Leukocyte Esterase 500 H, Urine RBC 0-5 SEEN, Urine WBC 25- 50 SEEN, Ur Squamous Epith Cells 0-5 SEEN, Ur Renal Epithelial Cell 0-5 SEEN, Urine Bacteria RARE, Urine Mucus 0 SEEN Imaging Radiology Impression Abdomen/Pelvis CT 08/14/25 16:55 IMPRESSION: 1. No pulmonary arterial emboli identified. 2. Cardiomegaly. No pulmonary edema or pleural effusions. Scattered bilateral linear/discoid atelectasis versus scarring in the lungs. 3. Cholelithiasis, without evidence for acute cholecystitis. 4. Circumferential bladder wall thickening, correlate clinically for cystitis. Small amount of nonspecific air within the bladder lumen may be related to recent catheterization. 5. Prominent partially calcified fibroid at the dorsal uterine body. Reading Location: [facility] Chest CTA 08/14/25 16:55 IMPRESSION: 1. No pulmonary arterial emboli identified. 2. Cardiomegaly. No pulmonary edema or pleural effusions. Scattered bilateral linear/discoid atelectasis versus scarring in the lungs. 3. Cholelithiasis, without evidence for acute cholecystitis. 4. Circumferential bladder wall thickening, correlate clinically for cystitis. Small amount of nonspecific air within the bladder lumen may be related to recent catheterization. 5. Prominent partially calcified fibroid at the dorsal uterine body. Reading Location: [facility] Assessment & Plan Assessment/Plan (1) UTI (urinary tract infection): (2) Alcohol use: (3) Adult failure to thrive: (4) Generalized weakness: PLAN: Plan 1 generalized weakness with failure to thrive?admit patient to general medicalfloor for observation, consult case management team to assist with possible planfor rehab. 2. Urinary tract infection?Rocephin 1 g IV every 24 hours, repeat CBC BMP in the a.m. will add IV hydration with normal saline at 125 cc/h as well 3. History of alcohol use will add thiamine and folate patient is not presentlyshowing signs of withdrawal and it is unclear based on history with her son dulce has been drinking recently 4. DVT prophylaxis?low molecular weight heparin 5. CODE STATUS full verified Charges/Coding Visit Charges OBSV E&M: 54061 Observ/hosp same date L2 08/15/25 0026 <Electronically signed by Bharath Quiros MD> Cosigner Signature (if applicable): CC: Dr. Bharath Quiros MD; No Primary Care Physician~ Signed [facility] Work Phone: Hospital course Narrative No data available for this section [facility] Discharge instructionsAdditional Instructions [facility]: [facility] Medical Records Department [address] [place] [address] Progress Note - Hospitalist 08/15/251424 MR#: [id number] Acct: [id number] Name: BANDAR TIWARI Rep #:[id number] : 1960 65 From: Corey Guillen DO PCP: Care Physician,No Primary Status :ADM DEDE Location: [place] [address] Hospitalist Note Patient was seen and examined today, she is alert but somewhat confused. I toldher that PT and OT were going to be seeing her for evaluation and she may have to go to a fdc facility for short-term inpatient physical therapy. Patient then asked me whether she had to stay in the hospital and I told her yes. Patient's potassium was slightly low this morning, I have ordered potassium replacement orally. Her BMP will be repeated tomorrow 08/15/25 1428 Cosigner Signature (if applicable): CC: ~ [facility] [address] [place] [address] Progress Note - Hospitalist 08/16/25 185 MR#: [id number] Acct: [id number] Name: BANDAR TIWARI Rep #:[id number] : 1960 65 From: Corey Guillen DO PCP: Care Physician,No Primary Status :ADM IN Location: MS3 [id number] Reason for Visit Chief Complaint: Generalized weakness, failure to thrive Subjective Subjective Patient was seen and examined today, she does not appear to be in any distress. Family has not decided as of this morning which fpc they want the patient to be discharged to. Patient's bloodpressure has been trending a little high today, it appears she does not have a primary care physician. She may have undiagnosed hypertension. I have elected to add losartan to her medications. Objective Data Objective Data Vital Signs: Vital Signs Temp Pulse Resp BP Pulse Ox O2 Del Method O2 Flow Rate 97.9 F 104 H 18 143/95 H 100 Room Air 2 08/16/25 15:00 08/16/25 15:00 08/16/25 15:00 08/16/25 15:00 08/16/25 15:00 08/16/25 15:00 08/15/25 01:10 Oxygen Flow Rate (L/min) 2 Oxygen Delivery Method Room Air Weight: 62.5 kg Body Mass Index (BMI) 22.2 Intake & Output: Intake and Output for Last 24 Hours 08/14/25 08/15/25 08/16/25 23:59 23:59 23:59 Intake Total 1100 / 1100 2350 / 2400 2099 / 2099 Balance 1100 / 1100 2350 / 2400 2099 Lab / Micro Data 08/15/25 07:27 08/15/25 07:27 Micro: Microbiology 08/14/25 21:30 Urine, Catheterized Urine Culture - Preliminary Gram negative elise Physical Exam Const alert, no apparent distress and average body habitus General Appearance: cooperative, well kempt and well developed Orientation / Consciousness: awake, oriented to person and oriented to place HEENT normocephalic, head/scalp atraumatic and moist oral mucous membranes Eyes PERRL, EOMs intact bilaterally and conjunctivae normal Neck supple, no JVD, thyroid normal and no carotid bruits General: trachea midline Resp normal respiratory effort, no retractions, no use of accessory muscles and clearto auscultation bilaterally Auscultation: Negative for rales, rhonchi or wheezes Cardio regular rate, regular rhythm, S1 normal heart sound, S2 normal heart sound, no murmurs, no rub and no gallops GI normal to inspection, nondistended, normoactive bowel sounds, soft to palpation,non-tender and non-distended Extremity no clubbing, cyanosis or edema Skin no rashes or lesions noted General Skin Exam: no breakdown Neuro CN's II-XII intact bilaterally, no focal motor deficits and no sensory deficits noted Sensorium / Orientation: awake, alert, oriented to person and oriented to place Speech: speech normal Psych Psych Narrative: Patient has flat affect, she does respond appropriately to simple questions Assessment & Plan Assessment/Plan (1) Adult failure to thrive: PLAN: Plan 1. Adult failure to thrive-etiology unclear at this point, she may have undiagnosed dementia, PT and OT will continue to see the patient and she will need at least temporary placement in a fdc facility. #2 bacteriuria-there are low numbers of gram-negative bacteria in the urine, I have elected to stopher Rocephin and place her on Macrobid #3 hypertension-I suspect this is undiagnosed essential hypertension, I will place patient on losartan #4 probable dementia-again it does not appear that the patient has a primary care physician and this may be contributing to her lack of ability to care for self. Total clinical time spent by myself addressing the patient's medical issues, reviewing all of her data, and collaborating with patient's care team: 35 minutes Charges/Coding Visit Charges Inpatient E&M: 08716 Subs Hosp L2 08/16/25 1902 Cosigner Signature (if applicable): CC: ~ [facility] [address] [place] [address] Progress Note - Hospitalist 08/17/25 181 MR#: [id number] Acct: [id number] Name: BANDAR TIWARI Rep #:[id number] : 1960 65 From: Corey Guillen DO PCP: Care Physician,No Primary Status :ADM IN Location: MS3 [id number] Reason for Visit Chief Complaint: Generalized weakness, failure to thrive Subjective Subjective Patient was seen and examined today, she does not appear in any distress. She does not readily carry on a conversation with this examiner. Her son was in theroom visiting her today and I got some additional medical information, it appears that the patient is disabled-probably secondary to a psychiatric illness(chronic depression), she is on antidepressants and is being seen at the counseling center. I have elected to get imaging studies of the brain-an MRI ofthe brain without contrast-to rule out any possibility of multiple strokes causing a dementia. Patient's son verified that the patient drinks approximately sixpack of beer daily but there are some days that she does not drink at all. Objective Data Objective Data Vital Signs: Vital Signs Temp Pulse Resp BP Pulse Ox O2 Del Method O2 Flow Rate 97 F L 94 18 129/97 H 95 Room Air 2 08/17/25 14:30 08/17/25 14:30 08/17/25 14:30 08/17/25 14:30 08/17/25 14:30 08/17/25 14:30 08/15/25 01:10 Oxygen Flow Rate (L/min) 2 Oxygen Delivery Method Room Air Weight: 62.5 kg Body Mass Index (BMI) 22.2 Intake & Output: Intake and Output for Last 24 Hours 08/15/25 08/16/25 08/17/25 23:59 23:59 23:59 Intake Total 2350 / 2400 3100 / 3100 2639.59 / 2639.59 Balance 2350 / 2400 3100 / 3100 2639.59 / 2639.59 Lab / Micro Data 08/15/25 07:27 08/15/25 07:27 Micro: Microbiology 08/14/25 21:30 Urine, Catheterized Urine Culture - Preliminary Klebsiella pneumoniae sp pneum Gram negative elise Physical Exam Narrative alert, no apparent distress and average body habitus General Appearance: cooperative, well kempt and well developed Orientation / Consciousness: awake, oriented to person and oriented to place HEENT normocephalic, head/scalp atraumatic and moist oral mucous membranes Eyes PERRL, EOMs intact bilaterally and conjunctivae normal Neck supple, no JVD, thyroid normal and no carotid bruits General: trachea midline Resp normal respiratory effort, no retractions, no use of accessory muscles and clearto auscultation bilaterally Auscultation: Negative for rales, rhonchi or wheezes Cardio regular rate, regular rhythm, S1 normal heart sound, S2 normal heart sound, no murmurs, no rub and no gallops GI normal to inspection, nondistended, normoactive bowel sounds, soft to palpation,non-tender and non-distended Extremity no clubbing, cyanosis or edema Skin no rashes or lesions noted General Skin Exam: no breakdown Neuro CN's II-XII intact bilaterally, no focal motor deficits and no sensory deficits noted Sensorium / Orientation: awake, alert, oriented to person and oriented to place Speech: speech normal Psych Psych Narrative: Patient has flat affect, she does respond appropriately to simple questions Assessment & Plan Assessment/Plan (1) Adult failure to thrive: PLAN: Plan 1. Adult failure to thrive-etiology unclear at this point, she may have undiagnosed dementia, PT and OT will continue to see the patient and she will need at least temporary placement in a fdc facility. #2 bacteriuria-there are low numbers of gram-negative bacteria in the urine, I have elected to stopher Rocephin and place her on Macrobid #3 hypertension-I suspect this is undiagnosed essential hypertension, I will place patient on losartan #4 probable dementia-again it does not appear that the patient has a primary care physician and this may be contributing to her lack of ability to care for self. I have elected to get an MRI of the brain to rule out any multiple strokediagnosis. Total clinical time spent by myself addressing the patient's medical issues, reviewing all of her data, and collaborating with patient's care team: 35 minutes Charges/Coding Visit Charges Inpatient E&M: 52441 Subs Hosp L2 08/19/251938 Cosigner Signature (if applicable): CC: ~ [facility] [address] [place] [address] Progress Note - Hospitalist 08/18/251909 MR#: [id number] Acct: [id number] Name: BANDAR TIWARI Rep #:[id number] : 1960 65 From: Corey Guillen DO PCP: Care Physician,No Primary Status :ADM IN Location: MS3 [id number] Reason for Visit Chief Complaint: Generalized weakness, failure to thrive Subjective Subjective Patient was seen and examined today, MRI yesterday showed bilateral ischemic strokes which were small. She was seen by teleneurology today and recommendations were relayed to me through her medical record. An echocardiogram was performed which showed no evidence of thrombus, however, the patient has a severe cardiomyopathy with an ejection fraction of 10%-this is global in nature and cardiology does not feel this is due to coronary artery disease, they felt it was possibly due to alcohol or untreated hypertension. Had a long discussion with the patient's son today about her medical condition,he reiterated that she is a full code. I explained to him that she is at risk for sudden due to her severe cardiomyopathy. Objective Data Objective Data Vital Signs: Vital Signs Temp Pulse Resp BP Pulse Ox O2 Del Method O2 Flow Rate 98.6 F 97 18 127/90 H 98 Room Air 2 08/18/25 15:57 08/18/25 15:57 08/18/25 15:57 08/18/25 15:57 08/18/25 15:57 08/18/25 15:57 08/15/25 01:10 Oxygen Flow Rate (L/min) 2 Oxygen Delivery Method Room Air Weight: 62.5 kg Body Mass Index (BMI) 22.2 Intake & Output: Intake and Output for Last 24 Hours 08/16/25 08/17/25 08/18/25 23:59 23:59 23:59 Intake Total 3100 / 3100 2954.17 / 2954.17 2137.5 / 2137.5 Output Total 700 / 700 Balance 3100 / 3100 2954.17 / 2954.17 1437.5 / 1437.5 Medical Nutrition Assessment Dietitian: Malnutrition Criteria Met Start: 08/15/25 13:56 Freq: Status: Active Protocol: Document 08/18/25 13:13 JUANJO (Rec: 08/18/25 13:13 JUANJO [email or web address]) Nutrition Malnutrition Evidence of No Malnutrition Exists Malnutrition (severe Acute Illness/Injury ): Malnutrition ( Severe pro/heather unspecified) Intake Problem Increased Nutrient Needs (specify) Etiology protein related to skin status Signs/Symptoms as evidenced by PI to R buttock Status Active Problem Clinical Problem Acute Disease or Injury Related Malnutrition Etiology related to recent FTT Signs/Symptoms 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 Dietitian Continue Regular diet order 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s/ Continue 240 ml bottle Ensure PHP (chocolate) dailyat Changes lunch Will order CIB w/ breakfast and magic cup w/ dinnerfor increased nutrition if consumed Consider appetite stimulant to help encourage increased po intake at meals Lab / Micro Data 08/15/25 07:27 08/15/25 07:27 Labs: Laboratory Results - last 24 hr 08/17/25 22:05: Triglycerides 76, Cholesterol 96, LDL Cholesterol, Calc 52, VLDLCholesterol 15, HDLCholesterol 28 L, Cholesterol/HDL Ratio 3.38 Micro: Microbiology 08/14/25 21:30 Urine, Catheterized Urine Culture - Final Klebsiella pneumoniae sp pneum Radiography Diagnostic Testing: Radiology Impression Echocardiogram 08/17/25 19:14 Interpretation Summary The left ventricular ejection fraction is 10 %. Normal LV size. There is severe global hypokinesis of the left ventricle. The left atrium is moderately enlarged. The right atrium is mildly enlarged. Mild-Moderate (1-2+) eccentric mitral valve insufficiency. Mild-Moderate (1-2+) tricuspid valve insufficiency. Bubble contrast study is negative for PFO/ASD. Stage 2 diastolic dysfunction. Ordering Physician: Corey Guillen Performed By: Juan Miguel Holland RDCS Physical Exam Narrative alert, no apparent distress and average body habitus General Appearance: cooperative, well kempt and well developed Orientation / Consciousness: awake, oriented to person and oriented to place HEENT normocephalic, head/scalp atraumatic and moist oral mucous membranes Eyes PERRL, EOMs intact bilaterally and conjunctivae normal Neck supple, no JVD, thyroid normal and no carotid bruits General: trachea midline Resp normal respiratory effort, no retractions, no use of accessory muscles and clearto auscultation bilaterally Auscultation: Negative for rales, rhonchi or wheezes Cardio regular rate, regular rhythm, S1 normal heart sound, S2 normal heart sound, no murmurs, no rub and no gallops GI normal to inspection, nondistended, normoactive bowel sounds, soft to palpation,non-tender and non-distended Extremity no clubbing, cyanosis or edema Skin no rashes or lesions noted General Skin Exam: no breakdown Neuro CN's II-XII intact bilaterally, no focal motor deficits and no sensory deficits noted Sensorium / Orientation: awake, alert, oriented to person and oriented to place Speech: speech normal Psych Psych Narrative: Patient has flat affect, she does respond appropriately to simple questions Assessment & Plan Assessment/Plan (1) Adult failure to thrive: PLAN: Plan 1. Adult failure to thrive-etiology unclear at this point, she may have undiagnosed dementia, PT and OT will continue to see the patient and she will need at least temporary placement in a fdc facility. #2 bacteriuria-there are low numbers of gram-negative bacteria in the urine, I have elected to stopher Rocephin and place her on Macrobid #3 hypertension-I suspect this is undiagnosed essential hypertension, patient terrell losartan #4 probable dementia-again it does not appear that the patient has a primary care physician and this may be contributing to her lack of ability to care for self. I have elected to get an MRI of the brain to rule out any multiple strokediagnosis. #5 acute stroke in the bilateral cerebral hemispheres-patient will remain on an aspirin and a statin, CTA of the head and neck will be ordered today #6 severe cardiomyopathy with reduced ejection fraction of 10%-etiology is not clear, patient will be placed on a beta-ben, and ARB, a dose of Lasix, and Jardiance Total clinical time spent by myself addressing the patient's medical issues, reviewing all of her data, and collaborating with patient's care team: 35 minutes Charges/Coding Visit Charges Inpatient E&M: 61984 Subs Hosp L2 08/19/251940 Cosigner Signature (if applicable): CC: ~ [facility] [address] [address] Progress Note - Hospitalist 08/19/251941 MR#: [id number] Acct: [id number] Name: BANDAR TIWARI Rep #:[id number] : 1960 65 From: Corey Guillen DO PCP: Care Physician,No Primary Status :ADM IN Location: [place] [address] Reason for Visit Chief Complaint: Generalized weakness, failure to thrive Subjective Subjective Patient was seen and examined today, CTA of the head and neck does not show any occlusive vascular disease. Objective Data Objective Data Vital Signs: Vital Signs Temp Pulse Resp BP Pulse Ox O2 Del Method O2 Flow Rate 97.8 F 78 15 119/85 H 100 Nasal Cannula 2 08/19/25 10:14 08/19/25 10:14 08/19/25 10:14 08/19/25 10:14 08/19/25 10:14 08/19/25 16:00 08/19/25 16:00 Oxygen Flow Rate (L/min) 2 Oxygen Delivery Method Nasal Cannula Weight: 62.5 kg Body Mass Index (BMI) 22.2 Intake & Output: Intake and Output for Last 24 Hours 08/17/25 08/18/25 08/19/25 23:59 23:59 23:59 Intake Total 2954.17 / 2954.17 2137.5 / 2137.5 0 / 0 Output Total 700 / 900 400 / 400 Balance 2954.17 / 2954.17 1437.5 / 1237.5 -400 / -400 Medical Nutrition Assessment Dietitian: Malnutrition Criteria Met Start: 08/15/25 13:56 Freq: Status: Active Protocol: Document 08/18/25 13:13 SLA (Rec: 08/18/25 13:13 SLA [email or web address]) Nutrition Malnutrition Evidence of No Malnutrition Exists Malnutrition (severe Acute Illness/Injury ): Malnutrition ( Severe pro/heather unspecified) Intake Problem Increased Nutrient Needs (specify) Etiology protein related to skin status Signs/Symptoms as evidenced by PI to R buttock Status Active Problem Clinical Problem Acute Disease or Injury Related Malnutrition Etiology related to recent FTT Signs/Symptoms 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 No large vessel arterial occlusion or hemodynamically significant stenosis. 2. Mild focal stenosis left STOCK RECEIVER P1-P2 segment junction. 3. Mild atherosclerotic plaque at the carotid bifurcations. 4. No acute intracranial hemorrhage, mass-effect or territorial infarct. Moderate volume loss and chronic small-vessel ischemic changes. The scattered punctate foci of acute likely embolic infarcts in the cerebral white matter on MRI are not well appreciated on CT. Reading Location: [facility] Physical Exam Narrative alert, no apparent distress and average body habitus General Appearance: cooperative, well kempt and well developed Orientation / Consciousness: awake, oriented to person and oriented to place HEENT normocephalic, head/scalp atraumatic and moist oral mucous membranes Eyes PERRL, EOMs intact bilaterally and conjunctivae normal Neck supple, no JVD, thyroid normal and no carotid bruits General: trachea midline Resp normal respiratory effort, no retractions, no use of accessory muscles and clearto auscultation bilaterally Auscultation: Negative for rales, rhonchi or wheezes Cardio regular rate, regular rhythm, S1 normal heart sound, S2 normal heart sound, no murmurs, no rub and no gallops GI normal to inspection, nondistended, normoactive bowel sounds, soft to palpation,non-tender and non-distended Extremity no clubbing, cyanosis or edema Skin no rashes or lesions noted General Skin Exam: no breakdown Neuro CN's II-XII intact bilaterally, no focal motor deficits and no sensory deficits noted Sensorium / Orientation: awake, alert, oriented to person and oriented to place Speech: speech normal Psych Psych Narrative: Patient has flat affect, she does respond appropriately to simple questions Assessment & Plan Assessment/Plan (1) Adult failure to thrive: PLAN: Plan 1. Adult failure to thrive-etiology unclear at this point, she may have undiagnosed dementia, PT and OT will continue to see the patient and she will need at least temporary placement in a fdc facility. #2 bacteriuria-there are low numbers of gram-negative bacteria in the urine, I have elected to stopher Rocephin and place her on Macrobid #3 hypertension-I suspect this is undiagnosed essential hypertension, patient terrell losartan #4 probable dementia-again it does not appear that the patient has a primary care physician and this may be contributing to her lack of ability to care for self. #5 acute stroke in the bilateral cerebral hemispheres-patient will remain on an aspirin and a statin, CTA of the head and neck will be ordered today #6 severe cardiomyopathy with reduced ejection fraction of 10%-etiology is not clear, patient will be placed on a beta-ben, and ARB, a dose of Lasix, and Jardiance #7 major depressive [id number] will remain on her current psychiatric medication, I talked with her counseling center yesterday and they told me her major diagnosis is major depressive disorder as well as alcohol dependence #8 suspected alcohol use disorder-patient shows no evidence of DTs at this time Total clinical time spent by myself addressing the patient's medical issues, reviewing all of her data, and collaborating with patient's care team: 35 minutes Charges/Coding Visit Charges Inpatient E&M: 26197 Subs Hosp L2 08/19/251943 Cosigner Signature (if applicable): CC: ~ [facility] [address] [place] [address] Progress Note - Hospitalist 08/20/25 1711 MR#: [id number] Acct: [id number] Name: BANDAR TIWARI Rep #:[id number] : 1960 65 From: Corey Guillen DO PCP: Care Physician,No Primary Status :ADM IN [id number] Reason for Visit Chief Complaint: Generalized weakness, failure to thrive Subjective Subjective Patient was seen and examined today, her blood pressure has improved, she is nowon room air, I talked to the son who was in the room at the time of my examination. I will review her medications and adjust them upward if possible for her cardiomyopathy. Objective Data Objective Data Vital Signs: Vital Signs Temp Pulse Resp BP Pulse Ox O2 Del Method O2 Flow Rate 97.3 F L 69 16 133/87 H 97 Room Air 2 08/20/25 09:20 08/20/25 09:20 08/20/25 09:20 08/20/25 09:20 08/20/25 09:20 08/20/25 09:20 08/20/25 07:35 Oxygen Flow Rate (L/min) 2 Oxygen Delivery Method Room Air Weight: 62.5 kg Body Mass Index (BMI) 22.2 Intake & Output: Intake and Output for Last 24 Hours 08/18/25 08/19/25 08/20/25 23:59 23:59 23:59 Intake Total 2137.5 / 2137.5 0 / 0 Output Total 700 / 900 400 / 500 100 / 100 Balance 1437.5 / 1237.5 -400 / -500 -100 / -100 Medical Nutrition Assessment Dietitian: Malnutrition Criteria Met Start: 08/15/25 13:56 Freq: Status: Active Protocol: Document 08/18/25 13:13 SLA (Rec: 08/18/25 13:13 SLA .08.26.7) Nutrition Malnutrition Evidence of No Malnutrition Exists Malnutrition (severe Acute Illness/Injury ): Malnutrition ( Severe pro/heather unspecified) Intake Problem Increased Nutrient Needs (specify) Etiology protein related to skin status Signs/Symptoms as evidenced by PI to R buttock Status Active Problem Clinical Problem Acute Disease or Injury Related Malnutrition Etiology related to recent FTT Signs/Symptoms 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 Dietitian Continue Regular diet order 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s/ Continue 240 ml bottle Ensure PHP (chocolate) dailyat Changes lunch Will order CIB w/ breakfast and magic cup w/ dinnerfor increased nutrition if consumed Consider appetite stimulant to help encourage increased po intake at meals Lab / Micro Data 08/15/25 07:27 08/20/25 09:21 Labs: Laboratory Results - last 24 hr 08/20/25 09:21: Sodium 140, Potassium 4.1, Chloride 110 H, Carbon Dioxide 17.6 L, Anion Gap 13, BUN27 H, Creatinine 1.19, Estim Creat Clear Calc 44.71 L, Est GFR (MDRD) Non-Af 51 L, BUN/Creatinine Ratio 22.8 H, Glucose 86, Calcium 9.5 Micro: Microbiology 08/14/25 21:30 Urine, Catheterized Urine Culture - Final Klebsiella pneumoniae sp pneum Radiography Diagnostic Testing: Radiology Impression Chest X-Ray 08/20/25 09:00 IMPRESSION: Cardiomegaly. Otherwise, no acute process in the chest. Reading Location: [id number] Physical Exam Narrative alert, no apparent distress and average body habitus General Appearance: cooperative, well kempt and well developed Orientation / Consciousness: awake, oriented to person and oriented to place HEENT normocephalic, head/scalp atraumatic and moist oral mucous membranes Eyes PERRL, EOMs intact bilaterally and conjunctivae normal Neck supple, no JVD, thyroid normal and no carotid bruits General: trachea midline Resp normal respiratory effort, no retractions, no use of accessory muscles and clearto auscultation bilaterally Auscultation: Negative for rales, rhonchi or wheezes Cardio regular rate, regular rhythm, S1 normal heart sound, S2 normal heart sound, no murmurs, no rub and no gallops GI normal to inspection, nondistended, normoactive bowel sounds, soft to palpation,non-tender and non-distended Extremity no clubbing, cyanosis or edema Skin no rashes or lesions noted General Skin Exam: no breakdown Neuro CN's II-XII intact bilaterally, no focal motor deficits and no sensory deficits noted Sensorium / Orientation: awake, alert, oriented to person and oriented to place Speech: speech normal Psych Psych Narrative: Patient has flat affect, she does respond appropriately to simple questions Assessment & Plan Assessment/Plan (1) Generalized weakness: (2) Adult failure to thrive: PLAN: Plan 1. Adult failure to thrive-etiology unclear at this point, she may have undiagnosed dementia, PT and OT will continue to see the patient and she will need at least temporary placement in a fdc facility. #2 bacteriuria-there are low numbers of gram-negative bacteria in the urine, patient's urine culture grew out 25,000-50,000 colonies of Klebsiella pneumoniaewhich is intermediate to Macrobid. I will stop the patient's Macrobid and observe the patient #3 hypertension-I suspect this is undiagnosed essential hypertension, patient terrell losartan #4 probable dementia/cognitive impairment-again it does not appear that the patient has a primary care physician and this may be contributing to her lack ofability to care for self. #5 acute stroke in the bilateral cerebral hemispheres-patient will remain on an aspirin and a statin, CTA of the head and neck did not show any significant arterial occlusions. #6 severe cardiomyopathy with reduced ejection fraction of 10%-etiology is not clear, I will increase the patient's carvedilol, she remains on Jardiance, losartan, and Lasix. #7 major depressive [id number] will remain on her current psychiatric medication, I talked with her counseling center yesterday and they told me her major diagnosis is major depressive disorder as well as alcohol dependence #8 suspected alcohol use disorder-patient shows no evidence of DTs at this time Total clinical time spent by myself addressing the patient's medical issues, reviewing all of her data, and collaborating with patient's care team: 35 minutes Charges/Coding Visit Charges Inpatient E&M: 21404 Subs Hosp L2 08/20/25 1715 Cosigner Signature (if applicable): CC: ~ Signed ADDENDUM by Dr. Corey Guillen DO on 08/20/25 at 1731 Addendum 9. Acute severe protein and caloric malnutrition related to recent failure to thrive, energy intakeless than 50% of weight loss of 6% x 1 week-continue regular diet, CIB with breakfast and Magic cupwith dinner for increased nutrition. Nutritional services will continue to follow the patient 08/20/251730 Cosigner Signature (if applicable): cc: ~* [facility] Note Date/Time August 15, 2025 2 :28pm [facility] Medical Records Department [address] [place] [address] Progress Note - Hospitalist 08/15/25 1425 MR#: [id number] Acct: [id number] Name: BANDAR TIWARI Rep #:[id number] : 1960 65 From: Corey Guillen DO PCP: Care Physician,No Primary Status :ADM DEDE Location: [place]3 [id number] Hospitalist Note Patient was seen and examined today, she is alert but somewhat confused. I toldher that PT and OT were going to be seeing her for evaluation and she may have to go to a fdc facility for short-term inpatient physical therapy. Patient then asked me whether she had to stay in the hospital and I told her yes. Patient's potassium was slightly low this morning, I have ordered potassium replacement orally. Her BMP will be repeated tomorrow 08/15/251427 <Electronically signed by Corey Guillen DO> Cosigner Signature (if applicable): CC: ~ Signed [facility] Work Phone: Progress note Author Corey [facility]adison [facility] Note Date/Time August 16, 2025 7 :02pm [facility] Medical Records Department [address] [address] Progress Note - Hospitalist 08/16/251856 MR#: [id number] Acct: [id number] Name: BANDAR TIWARI Rep #:[id number] : 1960 65 From: Corey Guillen DO PCP: Care Physician,No Primary Status :ADM IN [id number] Reason for Visit Chief Complaint: Generalized weakness, failure to thrive Subjective Subjective Patient was seen and examined today, she does not appear to be in any distress. Family has not decided as of this morning which fpc they want the patient to be discharged to. Patient's blood pressure has been trending a little high today, it appears she does not have a primary care physician. She may have undiagnosed hypertension. I have elected to add losartan to her medications. Objective Data Objective Data Vital Signs: Vital Signs Temp Pulse Resp BP Pulse Ox O2 Del Method O2 Flow Rate 97.9 F 104 H 18 143/95 H 100 Room Air 2 08/16/25 15:00 08/16/25 15:00 08/16/25 15:00 08/16/25 15:00 08/16/25 15:00 08/16/25 15:00 08/15/25 01:10 Oxygen Flow Rate (L/min) 2 Oxygen Delivery Method Room Air Weight: 62.5 kg Body Mass Index (BMI) 22.2 Intake & Output: Intake and Output for Last 24 Hours 08/14/25 08/15/25 08/16/25 23:59 23:59 23:59 Intake Total 1100 / 1100 2350 / 2400 2099 Balance 1100 / 1100 2350 / 2400 2099 Lab / Micro Data 08/15/25 07:27 08/15/25 07:27 Micro: Microbiology 08/14/25 21:30 Urine, Catheterized Urine Culture - Preliminary Gram negative elise Physical Exam Const alert, no apparent distress and average body habitus General Appearance: cooperative, well kempt and well developed Orientation / Consciousness: awake, oriented to person and oriented to place HEENT normocephalic, head/scalp atraumatic and moist oral mucous membranes Eyes PERRL, EOMs intact bilaterally and conjunctivae normal Neck supple, no JVD, thyroid normal and no carotid bruits General: trachea midline Resp normal respiratory effort, no retractions, no use of accessory muscles and clearto auscultation bilaterally Auscultation: Negative for rales, rhonchi or wheezes Cardio regular rate, regular rhythm, S1 normal heart sound, S2 normal heart sound, no murmurs, no rub and no gallops GI normal to inspection, nondistended, normoactive bowel sounds, soft to palpation,non-tender and non-distended Extremity no clubbing, cyanosis or edema Skin no rashes or lesions noted General Skin Exam: no breakdown Neuro CN's II-XII intact bilaterally, no focal motor deficits and no sensory deficits noted Sensorium / Orientation: awake, alert, oriented to person and oriented to place Speech: speech normal Psych Psych Narrative: Patient has flat affect, she does respond appropriately to simple questions Assessment & Plan Assessment/Plan (1) Adult failure to thrive: PLAN: Plan 1. Adult failure to thrive-etiology unclear at this point, she may have undiagnosed dementia, PT and OT will continue to see the patient and she will need at least temporary placement in a fdc facility. #2 bacteriuria-there are low numbers of gram-negative bacteria in the urine, I have elected to stop her Rocephin and place her on Macrobid #3 hypertension-I suspect this is undiagnosed essential hypertension, I will place patient on losartan #4 probable dementia-again it does not appear that the patient has a primary care physician and this may be contributing to her lack of ability to care for self. Total clinical time spent by myself addressing the patient's medical issues, reviewing all of her data, and collaborating with patient's care team: 35 minutes Charges/Coding Visit Charges Inpatient E&M: 14129 Subs Hosp L2 08/16/251901 <Electronically signed by Corey Guillen DO> Cosigner Signature (if applicable): CC: ~ Signed [facility] Work Phone: Progress note Author Corey Guillen [facility] Note Date/Time August 19, 2025 7 :39pm [facility] Medical Records Department [address] [address] Progress Note - Hospitalist 08/17/251817 MR#: [id number] Acct: [id number] Name: BANDAR TIWARI Rep #:[id number] : 1960 65 From: Corey Guillen DO PCP: Care Physician,No Primary Status :ADM IN Location: IN3 EW204-4 Reason for Visit Chief Complaint: Generalized weakness, failure to thrive Subjective Subjective Patient was seen and examined today, she does not appear in any distress. She does not readily carry on a conversation with this examiner. Her son was in theroom visiting her today and I got some additional medical information, it appears that the patient is disabled-probably secondary to a psychiatric illness(chronic depression), she is on antidepressants and is being seen at the counseling center. I have elected to get imaging studies of the brain-an MRI ofthe brain without contrast-to rule out any possibility of multiple strokes causing a dementia. Patient's son verified that the patient drinks approximately sixpack of beer daily but there are some days that she does not drink at all. Objective Data Objective Data Vital Signs: Vital Signs Temp Pulse Resp BP Pulse Ox O2 Del Method O2 Flow Rate 97 F L 94 18 129/97 H 95 Room Air 2 08/17/25 14:30 08/17/25 14:30 08/17/25 14:30 08/17/25 14:30 08/17/25 14:30 08/17/25 14:30 08/15/25 01:10 Oxygen Flow Rate (L/min) 2 Oxygen Delivery Method Room Air Weight: 62.5 kg Body Mass Index (BMI) 22.2 Intake & Output: Intake and Output for Last 24 Hours 08/15/25 08/16/25 08/17/25 23:59 23:59 23:59 Intake Total 2350 / 2400 3100 / 3100 2639.59 / 2639.59 Balance 2350 / 2400 3100 / 3100 2639.59 / 2639.59 Lab / Micro Data 08/15/25 07:27 08/15/25 07:27 Micro: Microbiology 08/14/25 21:30 Urine, Catheterized Urine Culture - Preliminary Klebsiella pneumoniae sp pneum Gram negative elise Physical Exam Narrative alert, no apparent distress and average body habitus General Appearance: cooperative, well kempt and well developed Orientation / Consciousness: awake, oriented to person and oriented to place HEENT normocephalic, head/scalp atraumatic and moist oral mucous membranes Eyes PERRL, EOMs intact bilaterally and conjunctivae normal Neck supple, no JVD, thyroid normal and no carotid bruits General: trachea midline Resp normal respiratory effort, no retractions, no use of accessory muscles and clearto auscultation bilaterally Auscultation: Negative for rales, rhonchi or wheezes Cardio regular rate, regular rhythm, S1 normal heart sound, S2 normal heart sound, no murmurs, no rub and no gallops GI normal to inspection, nondistended, normoactive bowel sounds, soft to palpation,non-tender and non-distended Extremity no clubbing, cyanosis or edema Skin no rashes or lesions noted General Skin Exam: no breakdown Neuro CN's II-XII intact bilaterally, no focal motor deficits and no sensory deficits noted Sensorium / Orientation: awake, alert, oriented to person and oriented to place Speech: speech normal Psych Psych Narrative: Patient has flat affect, she does respond appropriately to simple questions Assessment & Plan Assessment/Plan (1) Adult failure to thrive: PLAN: Plan 1. Adult failure to thrive-etiology unclear at this point, she may have undiagnosed dementia, PT and OT will continue to see the patient and she will need at least temporary placement in a fdc facility. #2 bacteriuria-there are low numbers of gram-negative bacteria in the urine, I have elected to stop her Rocephin and place her on Macrobid #3 hypertension-I suspect this is undiagnosed essential hypertension, I will place patient on losartan #4 probable dementia-again it does not appear that the patient has a primary care physician and this may be contributing to her lack of ability to care for self. I have elected to get an MRI of the brain to rule out any multiple strokediagnosis. Total clinical time spent by myself addressing the patient's medical issues, reviewing all of her data, and collaborating with patient's care team: 35 minutes Charges/Coding Visit Charges Inpatient E&M: 59745 Subs Hosp L2 08/19/251938 <Electronically signed by Corey Guillen DO> Cosigner Signature (if applicable): CC: ~ Signed [facility] Work Phone: Progress note Author Corey Guillen [facility] Note Date/Time August 19, 2025 7 :41pm [facility] Medical Records Department [address] [place] [address] Progress Note - Hospitalist 08/18/251909 MR#: [id number] Acct: [id number] Name: BANDAR TIWARI Rep #:[id number] : 1960 65 From: Corey Guillen DO PCP: Care Physician,No Primary Status :ADM IN [facility] Reason for Visit Chief Complaint: Generalized weakness, failure to thrive Subjective Subjective Patient was seen and examined today, MRI yesterday showed bilateral ischemic strokes which were small. She was seen by teleneurology today and recommendations were relayed to me through her medical record. An echocardiogram was performed which showed no evidence of thrombus, however, the patient has a severe cardiomyopathy with an ejection fraction of 10%-this is global in nature and cardiology does not feel this is due to coronary artery disease, they felt it was possibly due to alcohol or untreated hypertension. Had a long discussion with the patient's son today about her medical condition, he reiterated that she is a full code. I explained to him that she is at risk for sudden due to her severe cardiomyopathy. Objective Data Objective Data Vital Signs: Vital Signs Temp Pulse Resp BP Pulse Ox O2 Del Method O2 Flow Rate 98.6 F 97 18 127/90 H 98 Room Air 2 08/18/25 15:57 08/18/25 15:57 08/18/25 15:57 08/18/25 15:57 08/18/25 15:57 08/18/25 15:57 08/15/25 01:10 Oxygen Flow Rate (L/min) 2 Oxygen Delivery Method Room Air Weight: 62.5 kg Body Mass Index (BMI) 22.2 Intake & Output: Intake and Output for Last 24 Hours 08/16/25 08/17/25 08/18/25 23:59 23:59 23:59 Intake Total 3100 / 3100 2954.17 / 2954.17 2137.5 / 2137.5 Output Total 700 / 700 Balance 3100 / 3100 2954.17 / 2954.17 1437.5 / 1437.5 Medical Nutrition Assessment Dietitian: Malnutrition Criteria Met Start: 08/15/25 13:56 Freq: Status: Active Protocol: Document 08/18/25 13:13 SLA (Rec: 08/18/25 13:13 SLA [email or web address]) Nutrition Malnutrition Evidence of No Malnutrition Exists Malnutrition (severe Acute Illness/Injury ): Malnutrition ( Severe pro/heather unspecified) Intake Problem Increased Nutrient Needs (specify) Etiology protein related to skin status Signs/Symptoms as evidenced by PI to R buttock Status Active Problem Clinical Problem Acute Disease or Injury Related Malnutrition Etiology related to recent FTT Signs/Symptoms 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 Dietitian Continue Regular diet order 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s/ Continue 240 ml bottle Ensure PHP (chocolate) dailyat Changes lunch Will order CIB w/ breakfast and magic cup w/ dinnerfor increased nutrition if consumed Consider appetite stimulant to help encourage increased po intake at meals Lab / Micro Data 08/15/25 07:27 08/15/25 07:27 Labs: Laboratory Results - last 24 hr 08/17/25 22:05: Triglycerides 76, Cholesterol 96, LDL Cholesterol, Calc 52, VLDLCholesterol 15, HDL Cholesterol 28 L, Cholesterol/HDL Ratio 3.38 Micro: Microbiology 08/14/25 21:30 Urine, Catheterized Urine Culture - Final Klebsiella pneumoniae sp pneum Radiography Diagnostic Testing: Radiology Impression Echocardiogram 08/17/25 19:14 Interpretation Summary The left ventricular ejection fraction is 10 %. Normal LV size. There is severe global hypokinesis of the left ventricle. The left atrium is moderately enlarged. The right atrium is mildly enlarged. Mild-Moderate (1-2+) eccentric mitral valve insufficiency. Mild-Moderate (1-2+) tricuspid valve insufficiency. Bubble contrast study is negative for PFO/ASD. Stage 2 diastolic dysfunction. Ordering Physician: Corey Guillen Performed By: Juan Miguel Holland RDCS Physical Exam Narrative alert, no apparent distress and average body habitus General Appearance: cooperative, well kempt and well developed Orientation / Consciousness: awake, oriented to person and oriented to place HEENT normocephalic, head/scalp atraumatic and moist oral mucous membranes Eyes PERRL, EOMs intact bilaterally and conjunctivae normal Neck supple, no JVD, thyroid normal and no carotid bruits General: trachea midline Resp normal respiratory effort, no retractions, no use of accessory muscles and clearto auscultation bilaterally Auscultation: Negative for rales, rhonchi or wheezes Cardio regular rate, regular rhythm, S1 normal heart sound, S2 normal heart sound, no murmurs, no rub and no gallops GI normal to inspection, nondistended, normoactive bowel sounds, soft to palpation,non-tender and non-distended Extremity no clubbing, cyanosis or edema Skin no rashes or lesions noted General Skin Exam: no breakdown Neuro CN's II-XII intact bilaterally, no focal motor deficits and no sensory deficits noted Sensorium / Orientation: awake, alert, oriented to person and oriented to place Speech: speech normal Psych Psych Narrative: Patient has flat affect, she does respond appropriately to simple questions Assessment & Plan Assessment/Plan (1) Adult failure to thrive: PLAN: Plan 1. Adult failure to thrive-etiology unclear at this point, she may have undiagnosed dementia, PT and OT will continue to see the patient and she will need at least temporary placement in a fdc facility. #2 bacteriuria-there are low numbers of gram-negative bacteria in the urine, I have elected to stop her Rocephin and place her on Macrobid #3 hypertension-I suspect this is undiagnosed essential hypertension, patient terrell losartan #4 probable dementia-again it does not appear that the patient has a primary care physician and this may be contributing to her lack of ability to care for self. I have elected to get an MRI of the brain to rule out any multiple strokediagnosis. #5 acute stroke in the bilateral cerebral hemispheres-patient will remain on an aspirin and a statin, CTA of the head and neck will be ordered today #6 severe cardiomyopathy with reduced ejection fraction of 10%-etiology is not clear, patient will be placed on a beta-ben, and ARB, a dose of Lasix, and Jardiance Total clinical time spent by myself addressing the patient's medical issues, reviewing all of her data, and collaborating with patient's care team: 35 minutes Charges/Coding Visit Charges Inpatient E&M: 90830 Subs Hosp L2 08/19/251940 <Electronically signed by Corey Guillen DO> Cosigner Signature (if applicable): CC: ~ Signed [facility] Work Phone: Progress note Author Corey Eugenemadison [facility] Note Date/Time August 19, 2025 7 :44pm [facility] Medical Records Department [address] [place] [address] Progress Note - Hospitalist 08/19/251941 MR#: [id number] Acct: [id number] Name: BANDAR TIWARI Rep #:[id number] : 1960 65 From: Corey Guillen DO PCP: Care Physician,No Primary Status :ADM IN Location: [place] [address] Reason for Visit Chief Complaint: Generalized weakness, failure to thrive Subjective Subjective Patient was seen and examined today, CTA of the head and neck does not show any occlusive vascular disease. Objective Data Objective Data Vital Signs: Vital Signs Temp Pulse Resp BP Pulse Ox O2 Del Method O2 Flow Rate 97.8 F 78 15 119/85 H 100 Nasal Cannula 2 08/19/25 10:14 08/19/25 10:14 08/19/25 10:14 08/19/25 10:14 08/19/25 10:14 08/19/25 16:00 08/19/25 16:00 Oxygen Flow Rate (L/min) 2 Oxygen Delivery Method Nasal Cannula Weight: 62.5 kg Body Mass Index (BMI) 22.2 Intake & Output: Intake and Output for Last 24 Hours 08/17/25 08/18/25 08/19/25 23:59 23:59 23:59 Intake Total 2954.17 / 2954.17 2137.5 / 2137.5 0 / 0 Output Total 700 / 900 400 / 400 Balance 2954.17 / 2954.17 1437.5 / 1237.5 -400 / -400 Medical Nutrition Assessment Dietitian: Malnutrition Criteria Met Start: 08/15/25 13:56 Freq: Status: Active Protocol: Document 08/18/25 13:13 SLA (Rec: 08/18/25 13:13 SLA [email or web address]) Nutrition Malnutrition Evidence of No Malnutrition Exists Malnutrition (severe Acute Illness/Injury ): Malnutrition ( Severe pro/heather unspecified) Intake Problem Increased Nutrient Needs (specify) Etiology protein related to skin status Signs/Symptoms as evidenced by PI to R buttock Status Active Problem Clinical Problem Acute Disease or Injury Related Malnutrition Etiology related to recent FTT Signs/Symptoms 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 No large vessel arterial occlusion or hemodynamically significant stenosis. 2. Mild focal stenosis left STOCK RECEIVER P1-P2 segment junction. 3. Mild atherosclerotic plaque at the carotid bifurcations. 4. No acute intracranial hemorrhage, mass-effect or territorial infarct. Moderate volume loss and chronic small-vessel ischemic changes. The scattered punctate foci of acute likely embolic infarcts in the cerebral white matter on MRI are not well appreciated on CT. Reading Location: [facility] Physical Exam Narrative alert, no apparent distress and average body habitus General Appearance: cooperative, well kempt and well developed Orientation / Consciousness: awake, oriented to person and oriented to place HEENT normocephalic, head/scalp atraumatic and moist oral mucous membranes Eyes PERRL, EOMs intact bilaterally and conjunctivae normal Neck supple, no JVD, thyroid normal and no carotid bruits General: trachea midline Resp normal respiratory effort, no retractions, no use of accessory muscles and clearto auscultation bilaterally Auscultation: Negative for rales, rhonchi or wheezes Cardio regular rate, regular rhythm, S1 normal heart sound, S2 normal heart sound, no murmurs, no rub and no gallops GI normal to inspection, nondistended, normoactive bowel sounds, soft to palpation,non-tender and non-distended Extremity no clubbing, cyanosis or edema Skin no rashes or lesions noted General Skin Exam: no breakdown Neuro CN's II-XII intact bilaterally, no focal motor deficits and no sensory deficits noted Sensorium / Orientation: awake, alert, oriented to person and oriented to place Speech: speech normal Psych Psych Narrative: Patient has flat affect, she does respond appropriately to simple questions Assessment & Plan Assessment/Plan (1) Adult failure to thrive: PLAN: Plan 1. Adult failure to thrive-etiology unclear at this point, she may have undiagnosed dementia, PT and OT will continue to see the patient and she will need at least temporary placement in a fdc facility. #2 bacteriuria-there are low numbers of gram-negative bacteria in the urine, I have elected to stop her Rocephin and place her on Macrobid #3 hypertension-I suspect this is undiagnosed essential hypertension, patient terrell losartan #4 probable dementia-again it does not appear that the patient has a primary care physician and this may be contributing to her lack of ability to care for self. #5 acute stroke in the bilateral cerebral hemispheres-patient will remain on an aspirin and a statin, CTA of the head and neck will be ordered today #6 severe cardiomyopathy with reduced ejection fraction of 10%-etiology is not clear, patient will be placed on a beta-ben, and ARB, a dose of Lasix, and Jardiance #7 major depressive [id number]-kexfjzu will remain on her current psychiatric medication, I talked with her counseling center yesterday and they told me her major diagnosis is major depressive disorder as well as alcohol dependence #8 suspected alcohol use disorder-patient shows no evidence of DTs at this time Total clinical time spent by myself addressing the patient's medical issues, reviewing all of her data, and collaborating with patient's care team: 35 minutes Charges/Coding Visit Charges Inpatient E&M: 06247 Subs Hosp L2 08/19/251943 <Electronically signed by Corey Guillen DO> Cosigner Signature (if applicable): CC: ~ Signed [facility] Work Phone: Progress note Author Corey Guillen [facility] Note Date/Time August 20, 2025 5 :31pm [facility] Medical Records Department [address] [place] [address] Progress Note - Hospitalist 08/20/25 171 MR#: [id number] Acct: [id number] Name: BANDAR TIWARI Rep #:[id number] : 1960 65 From: Corey Guillen DO PCP: Care Physician,No Primary Status :ADM IN Location: [place] [id number] Reason for Visit Chief Complaint: Generalized weakness, failure to thrive Subjective Subjective Patient was seen and examined today, her blood pressure has improved, she is nowon room air, I talked to the son who was in the room at the time of my examination. I will review her medications and adjust them upward if possible for her cardiomyopathy. Objective Data Objective Data Vital Signs: Vital Signs Temp Pulse Resp BP Pulse Ox O2 Del Method O2 Flow Rate 97.3 F L 69 16 133/87 H 97 Room Air 2 08/20/25 09:20 08/20/25 09:20 08/20/25 09:20 08/20/25 09:20 08/20/25 09:20 08/20/25 09:20 08/20/25 07:35 Oxygen Flow Rate (L/min) 2 Oxygen Delivery Method Room Air Weight: 62.5 kg Body Mass Index (BMI) 22.2 Intake & Output: Intake and Output for Last 24 Hours 08/18/25 08/19/25 08/20/25 23:59 23:59 23:59 Intake Total 2137.5 / 2137.5 0 / 0 Output Total 700 / 900 400 / 500 100 / 100 Balance 1437.5 / 1237.5 -400 / -500 -100 / -100 Medical Nutrition Assessment Dietitian: Malnutrition Criteria Met Start: 08/15/25 13:56 Freq: Status: Active Protocol: Document 08/18/25 13:13 SLA (Rec: 08/18/25 13:13 SLA [id number]) Nutrition Malnutrition Evidence of No Malnutrition Exists Malnutrition (severe Acute Illness/Injury ): Malnutrition ( Severe pro/heather unspecified) Intake Problem Increased Nutrient Needs (specify) Etiology protein related to skin status Signs/Symptoms as evidenced by PI to R buttock Status Active Problem Clinical Problem Acute Disease or Injury Related Malnutrition Etiology related to recent FTT Signs/Symptoms 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 Dietitian Continue Regular diet order 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s/ Continue 240 ml bottle Ensure PHP (chocolate) dailyat Changes lunch Will order CIB w/ breakfast and magic cup w/ dinnerfor increased nutrition if consumed Consider appetite stimulant to help encourage increased po intake at meals Lab / Micro Data 08/15/25 07:27 08/20/25 09:21 Labs: Laboratory Results - last 24 hr 08/20/25 09:21: Sodium 140, Potassium 4.1, Chloride 110 H, Carbon Dioxide 17.6 L, Anion Gap 13, BUN 27 H, Creatinine 1.19, Estim Creat Clear Calc 44.71 L, Est GFR (MDRD) Non-Af 51 L, BUN/Creatinine Ratio 22.8 H, Glucose 86, Calcium 9.5 Micro: Microbiology 08/14/25 21:30 Urine, Catheterized Urine Culture - Final Klebsiella pneumoniae sp pneum Radiography Diagnostic Testing: Radiology Impression Chest X-Ray 08/20/25 09:00 IMPRESSION: Cardiomegaly. Otherwise, no acute process in the chest. Reading Location: [id number] Physical Exam Narrative alert, no apparent distress and average body habitus General Appearance: cooperative, well kempt and well developed Orientation / Consciousness: awake, oriented to person and oriented to place HEENT normocephalic, head/scalp atraumatic and moist oral mucous membranes Eyes PERRL, EOMs intact bilaterally and conjunctivae normal Neck supple, no JVD, thyroid normal and no carotid bruits General: trachea midline Resp normal respiratory effort, no retractions, no use of accessory muscles and clearto auscultation bilaterally Auscultation: Negative for rales, rhonchi or wheezes Cardio regular rate, regular rhythm, S1 normal heart sound, S2 normal heart sound, no murmurs, no rub and no gallops GI normal to inspection, nondistended, normoactive bowel sounds, soft to palpation,non-tender and non-distended Extremity no clubbing, cyanosis or edema Skin no rashes or lesions noted General Skin Exam: no breakdown Neuro CN's II-XII intact bilaterally, no focal motor deficits and no sensory deficits noted Sensorium / Orientation: awake, alert, oriented to person and oriented to place Speech: speech normal Psych Psych Narrative: Patient has flat affect, she does respond appropriately to simple questions Assessment & Plan Assessment/Plan (1) Generalized weakness: (2) Adult failure to thrive: PLAN: Plan 1. Adult failure to thrive-etiology unclear at this point, she may have undiagnosed dementia, PT and OT will continue to see the patient and she will need at least temporary placement in a fdc facility. #2 bacteriuria-there are low numbers of gram-negative bacteria in the urine, patient's urine culture grew out 25,000-50,000 colonies of Klebsiella pneumoniaewhich is intermediate to Macrobid. I will stop the patient's Macrobid and observe the patient #3 hypertension-I suspect this is undiagnosed essential hypertension, patient terrell losartan #4 probable dementia/cognitive impairment-again it does not appear that the patient has a primary care physician and this may be contributing to her lack ofability to care for self. #5 acute stroke in the bilateral cerebral hemispheres-patient will remain on an aspirin and a statin, CTA of the head and neck did not show any significant arterial occlusions. #6 severe cardiomyopathy with reduced ejection fraction of 10%-etiology is not clear, I will increase the patient's carvedilol, she remains on Jardiance, losartan, and Lasix. #7 major depressive cepxmdxo-xtdxsdh-ycdkzsd will remain on her current psychiatric medication, I talked with her counseling center yesterday and they told me her major diagnosis is major depressive disorder as well as alcohol dependence #8 suspected alcohol use disorder-patient shows no evidence of DTs at this time Total clinical time spent by myself addressing the patient's medical issues, reviewing all of her data, and collaborating with patient's care team: 35 minutes Charges/Coding Visit Charges Inpatient E&M: 54912 Subs Hosp L2 08/20/251714 <Electronically signed by Corey Guillen DO> Cosigner Signature (if applicable): CC: ~ Signed ADDENDUM by Dr. Corey Guillen DO on 08/20/25 at 1731 Addendum 9. Acute severe protein and caloric malnutrition related to recent failure to thrive, energy intake less than 50% of weight loss of 6% x 1 week-continue regular diet, CIB with breakfast and Magic cup with dinner for increased nutrition. Nutritional services will continue to follow the patient 08/20/251730<Electronically signed by Corey Guillen DO> Cosigner Signature (if applicable): cc: ~* Signed [facility] Work Phone: Reason for referral (narrative)No reason for referral information availableWDetwiler [facility] Work Phone: Chief Complaint and Reason for Visit Chief Complaint CELLULITIS Chief Complaint CELLULITIS RASH Chief Complaint Admit Date FAILURE TO THRIVE August 15, 2025 1 2:25am GENERAL WEAKNESS FAILURE TO THRIVE UTI O ctober 2024 2:41pm GENERAL WEAKNESS FAILURE TO THRIVE UTI O ctober 2024 6:57pm GENERAL WEAKNESS FAILURE TO THRIVE UTI O ctober 2024 6:18pm GENERAL WEAKNESS FAILURE TO THRIVE UTI O ctober 2024 7:10pm GENERAL WEAKNESS FAILURE TO THRIVE UTI O ctober 2024 7:42pm GENERAL WEAKNESS FAILURE TO THRIVE UTI O ctober 2024 5:11pm GENERAL WEAKNESS FAILURE TO THRIVE UTI O ctober 2024 3:32pm Reason for Visit Admit Date UTI (urinary tract infection) August 162024 2:41pm Adult failure to thrive August 16 2:41pm Alcohol use August 16, 2025 2 :41pm Generalized weakness August 16, 2025 2:41pm Advance Directives No Advanced Directives Records Found Advance Directive Response Recorded Date/ Time Living Will No February 19, 2023 2:07pm Power of Sound Art Instructor No February 19 2:07pm Advance Directive Response Recorded Date/ Time Living Will No February 25, 2023 3:14pm Power of Sound Art Instructor No February 25 3:14pm Advance Directive Response Recorded Date/ Time Do you have a Healthcare Power of Sound Art Instructor? No August 15, 2025 1:00am Advance Directive Response Recorded Date/ Time Do you have a Healthcare Power of Sound Art Instructor? No August 15, 2025 12:00am Summary Purpose Family History No Family History Records Found No data available for this section No Family History Records FoundNo Family History Records Found Additional Source Comments Care Teams (unrecognized sec tion and content) Team Status: Active Member Role Status Dates No Primary Care Physician Family Provider Active No Primary Care Physician Primary Care Provider Active Team Status: Inactive Member Role Status Dates No Primary Care Physician Primary Care Provider Active Dr. Sakina Tilley MD Referring Provider, Emergency Provider Active Team Status: Inactive Member Role Status Dates No Primary Care Physician Primary Care Provider Active Dr. Sakina Tilley MD Attending Provid er, Referring Provider, Emergency Provider Active Team Status: Inactive Member Role Status Dates No Primary Care Physician Primary Care Provider Active Dr. Jesse Huerta MD Emergency Provider Active Team Status: Active Member Role/Relationship Status Dates No Primary Care Physician Primary care physician Activ e Team Status: Active Member Role/Relationship Status Dates No Primary Care Physician Primary care physician Activ e Start: August 15, 2025 Dr. Sander Wakefield , DO Emergency Departme nt Physician Active Start: August 15, 2025 Dr. Bharath Quiros MD Admitting physician Active Start: August 15, 2025 Dr. Bharath Quiros MD Attending physician Active Start: August 15, 2025 Dr. Bharath Quiros MD Nurse Practitioner Active Start: August 15, 2025 Team Status: Inactive Member Role/Relationship Status Dates No Primary Care Physician Primary care physician Activ e Start: August 16, 2025 End: August 21, 2025 Dr. Sander Wakefield , DO Emergency Departme nt Physician Active Start: August 16, 2025 End: August 21, 2025 Dr. Bharath Quiros MD Admitting physician Active Start: August 16, 2025 End: August 21, 2025 Dr. Bharath Quiros MD Nurse Practitioner Active Start: August 16, 2025 End: August 21, 2025 Gavin Garcia MD Nurse Practitioner Active Start : August 16, 2025 End: August 21, 2025 Dr. Doreen Cobb MD Nurse Practitioner Active St art: August 16, 2025 End: August 21, 2025 Olga Holman MD Nurse Practitioner Active S tart: August 16, 2025 End: August 21, 2025 Dr. Janis Mai , Nurse Practitioner Active Start: August 16, 2025 End: August 21, 2025 Dr. Bethanie Jain MD Nurse Practitioner Active St art: August 16, 2025 End: August 21, 2025 Dr. Thomas Carballo MD Nurse Practitioner Active Start: August 16, 2025 End: August 21, 2025 Dr. Barbra Klein MD Nurse Practitioner Active S tart: August 16, 2025 End: August 21, 2025 Dr. Dmitry Wood MD Nurse Practitioner Active St art: August 16, 2025 End: August 21, 2025 Dr. Wang Lucas MD Nurse Practitioner Active S tart: August 16, 2025 End: August 21, 2025 Dr. Mukul Soliman MD Nurse Practitioner Active Start: August 16, 2025 End: August 21, 2025 Dr. Marleni Barger , Nurse Practitioner Active Start: August 16, 2025 End: August 21, 2025 Eboni Acuña MD Nurse Practitioner Active S tart: August 16, 2025 End: August 21, 2025 Dr. Nigel Dunaway MD Nurse Practitioner Active Start: August 16, 2025 End: August 21, 2025 Dr. Mariya Cormier MD Nurse Practitioner Active S tart: August 16, 2025 End: August 21, 2025 Dr. Chon Goodrich MD Nurse Practitioner Active Start: August 16, 2025 End: August 21, 2025 Dr. Eliezer Hernandez MD Nurse Practitioner Active Start: August 16, 2025 End: August 21, 2025 Dr. Jesse Tiwari MD Nurse Practitioner Active Start: August 16, 2025 End: August 21, 2025 Dr. Deandre Anders MD Nurse Practitioner Active Start: August 16, 2025 End: August 21, 2025 Dr. Mark Nelson MD Nurse Practitioner Active Start: August 16, 2025 End: August 21, 2025 Dr. Camille Yun MD Nurse Practitioner Active St art: August 16, 2025 End: August 21, 2025 Sandra Moy MD Nurse Practitioner Active St art: August 16, 2025 End: August 21, 2025 Dr. Corey Guillen , Nurse Practitioner Active Start: August 16, 2025 End: August 21, 2025 Dr. Simone Webster , Attending physician Active Start: August 16, 2025 End: August 21, 2025 Team Status: Active Member Role/Relationship Status Dates No Primary Care Physician Primary care physician Activ e Start: August 16, 2025 Dr. Sander Wakefield , DO Emergency Departme nt Physician Active Start: August 16, 2025 Dr. Bharath Quiros MD Admitting physician Active Start: August 16, 2025 Dr. Bharath Quiros MD Nurse Practitioner Active Start: August 16, 2025 Dr. Corey Guillen DO Attending physician Active Start: August 16, 2025 Dr. Corey Guillen DO Nurse Practitioner Active Start: August 16, 2025 Team Status: Active Member Role/Relationship Status Dates No Primary Care Physician Primary care physician Activ e Start: August 17, 2025 Dr. Sander Wakefield , DO Emergency Departme nt Physician Active Start: August 17, 2025 Dr. Bharath Qurios MD Admitting physician Active Start: August 17, 2025 Dr. Bharath uQiros MD Nurse Practitioner Active Start: August 17, 2025 Dr. Corey Guillen DO Attending physician Active Start: August 17, 2025 Dr. Corey Guillen DO Nurse Practitioner Active Start: August 17, 2025 Gavin Garcia MD Nurse Practitioner Active Start : August 17, 2025 Dr. Doreen Cobb MD Nurse Practitioner Active St art: August 17, 2025 Olga Holman MD Nurse Practitioner Active S tart: August 17, 2025 Dr. Janis Mai , Nurse Practitioner Active Start: August 17, 2025 Dr. Bethanie Jain MD Nurse Practitioner Active St art: August 17, 2025 Dr. Thomas Carballo MD Nurse Practitioner Active Start: August 17, 2025 Dr. Barbra Klein MD Nurse Practitioner Active S tart: August 17, 2025 Dr. Dmitry Wood MD Nurse Practitioner Active St art: August 17, 2025 Dr. Wang Lucas MD Nurse Practitioner Active S tart: August 17, 2025 Dr. Mukul Soliman MD Nurse Practitioner Active Start: August 17, 2025 Dr. Marleni Barger , Nurse Practitioner Active Start: August 17, 2025 Eboni Acuña MD Nurse Practitioner Active S tart: August 17, 2025 Dr. Nigel Dunaway MD Nurse Practitioner Active Start: August 17, 2025 Dr. Mariya Cormier MD Nurse Practitioner Active S tart: August 17, 2025 Dr. Chon Goodrich MD Nurse Practitioner Active Start: August 17, 2025 Dr. Eliezer Hernandez MD Nurse Practitioner Active Start: August 17, 2025 Dr. Jesse Tiwari MD Nurse Practitioner Active Start: August 17, 2025 Dr. Deandre Anders MD Nurse Practitioner Active Start: August 17, 2025 Dr. Mark Nelson MD Nurse Practitioner Active Start: August 17, 2025 Dr. Camille Yun MD Nurse Practitioner Active St art: August 17, 2025 Sandra Moy MD Nurse Practitioner Active St art: August 17, 2025 Team Status: Active Member Role/Relationship Status Dates No Primary Care Physician Primary care physician Activ e Start: August 18, 2025 Dr. Iván Rees MD Attending physician Active Start: August 18, 2025 Team Status: Active Member Role/Relationship Status Dates No Primary Care Physician Primary care physician Activ e Start: August 18, 2025 Dr. Sander Wakefield , Emergency Departme nt Physician Active Start: August 18, 2025 Dr. Bharath Quiros MD Admitting physician Active Start: August 18, 2025 Dr. Bharath Quiros MD Nurse Practitioner Active Start: August 18, 2025 Dr. Corey Guillen DO Attending physician Active Start: August 18, 2025 Dr. Corey Guillen DO Nurse Practitioner Active Start: August 18, 2025 Gavin Garcia MD Nurse Practitioner Active Start : August 18, 2025 Dr. Doreen Cobb MD Nurse Practitioner Active St art: August 18, 2025 Olga Holman MD Nurse Practitioner Active S tart: August 18, 2025 Dr. Janis Mai DO Nurse Practitioner Active Start: August 18, 2025 Dr. Bethanie Jain MD Nurse Practitioner Active St art: August 18, 2025 Dr. Thomas Carballo MD Nurse Practitioner Active Start: August 18, 2025 Dr. Barbra Klein MD Nurse Practitioner Active S tart: August 18, 2025 Dr. Dmitry Wood MD Nurse Practitioner Active St art: August 18, 2025 Dr. Wang Lucas MD Nurse Practitioner Active S tart: August 18, 2025 Dr. uMkul Soliman MD Nurse Practitioner Active Start: August 18, 2025 Dr. Marleni Barger DO Nurse Practitioner Active Start: August 18, 2025 Eboni Acuña MD Nurse Practitioner Active S tart: August 18, 2025 Dr. Nigel Dunaway MD Nurse Practitioner Active Start: August 18, 2025 Dr. Mariya Cormier MD Nurse Practitioner Active S tart: August 18, 2025 Dr. Chon Goodrich MD Nurse Practitioner Active Start: August 18, 2025 Dr. Eliezer Hernandez MD Nurse Practitioner Active Start: August 18, 2025 Dr. Jesse Tiwari MD Nurse Practitioner Active Start: August 18, 2025 Dr. Deandre Anders MD Nurse Practitioner Active Start: August 18, 2025 Dr. Mark Nelson MD Nurse Practitioner Active Start: August 18, 2025 Dr. Camille Yun MD Nurse Practitioner Active St art: August 18, 2025 Sandra Moy MD Nurse Practitioner Active St art: August 18, 2025 Team Status: Active Member Role/Relationship Status Dates No Primary Care Physician Primary care physician Activ e Start: August 19, 2025 Dr. Sander Wakefield DO Emergency Departme nt Physician Active Start: August 19, 2025 Dr. Bharath Quiros MD Admitting physician Active Start: August 19, 2025 Dr. Bharath Quiros MD Nurse Practitioner Active Start: August 19, 2025 Dr. Corey Guillen DO Attending physician Active Start: August 19, 2025 Dr. Corey Guillen DO Nurse Practitioner Active Start: August 19, 2025 Gavin Garcia MD Nurse Practitioner Active Start : August 19, 2025 Dr. Doreen Cobb MD Nurse Practitioner Active St art: August 19, 2025 Olga Holman MD Nurse Practitioner Active S tart: August 19, 2025 Dr. Janis Mai DO Nurse Practitioner Active Start: August 19, 2025 Dr. Bethanie Jain MD Nurse Practitioner Active St art: August 19, 2025 Dr. Thomas Carballo MD Nurse Practitioner Active Start: August 19, 2025 Dr. Barbra Klein MD Nurse Practitioner Active S tart: August 19, 2025 Dr. Dmitry Wood MD Nurse Practitioner Active St art: August 19, 2025 Dr. Wang Lucas MD Nurse Practitioner Active S tart: August 19, 2025 Dr. Mukul Soliman MD Nurse Practitioner Active Start: August 19, 2025 Dr. Marleni Barger , Nurse Practitioner Active Start: August 19, 2025 Eboni Acuña MD Nurse Practitioner Active S tart: August 19, 2025 Dr. Nigel Dunaway MD Nurse Practitioner Active Start: August 19, 2025 Dr. Mariya Cormier MD Nurse Practitioner Active S tart: August 19, 2025 Dr. Chon Goodrich MD Nurse Practitioner Active Start: August 19, 2025 Dr. Eliezer Hernandez MD Nurse Practitioner Active Start: August 19, 2025 Dr. Jesse Tiwari MD Nurse Practitioner Active Start: August 19, 2025 Dr. Deandre Anders MD Nurse Practitioner Active Start: August 19, 2025 Dr. Mark Nelson MD Nurse Practitioner Active Start: August 19, 2025 Dr. Camille Yun MD Nurse Practitioner Active St art: August 19, 2025 Sandra Moy MD Nurse Practitioner Active St art: August 19, 2025 Team Status: Active Member Role/Relationship Status Dates No Primary Care Physician Primary care physician Activ e Start: August 20, 2025 Dr. Sander Wakefield , Emergency Departme nt Physician Active Start: August 20, 2025 Dr. Bharath Quiros MD Admitting physician Active Start: August 20, 2025 Dr. Bharath Quiros MD Nurse Practitioner Active Start: August 20, 2025 Dr. Corey Guillen , Attending physician Active Start: August 20, 2025 Dr. Corey Tereletsky , DO Nurse Practitioner Active Start: August 20, 2025 Gavin Garcia MD Nurse Practitioner Active Start : August 20, 2025 Dr. Doreen Cobb MD Nurse Practitioner Active St art: August 20, 2025 Olga Holman MD Nurse Practitioner Active S tart: August 20, 2025 Dr. Janis Mai , Nurse Practitioner Active Start: August 20, 2025 Dr. Bethanie Jain MD Nurse Practitioner Active St art: August 20, 2025 Dr. Thomas Carballo MD Nurse Practitioner Active Start: August 20, 2025 Dr. Barbra Klein MD Nurse Practitioner Active S tart: August 20, 2025 Dr. Dmitry Wood MD Nurse Practitioner Active St art: August 20, 2025 Dr. Wang Lucas MD Nurse Practitioner Active S tart: August 20, 2025 Dr. Mukul Soliman MD Nurse Practitioner Active Start: August 20, 2025 Dr. Marleni Barger , Nurse Practitioner Active Start: August 20, 2025 Eboni Acuña MD Nurse Practitioner Active S tart: August 20, 2025 Dr. Nigel Dunaway MD Nurse Practitioner Active Start: August 20, 2025 Dr. Mariya Cormier MD Nurse Practitioner Active S tart: August 20, 2025 Dr. Chon Goodrich MD Nurse Practitioner Active Start: August 20, 2025 Dr. Eliezer Hernandez MD Nurse Practitioner Active Start: August 20, 2025 Dr. Jesse Tiwari MD Nurse Practitioner Active Start: August 20, 2025 Dr. Deandre Anders MD Nurse Practitioner Active Start: August 20, 2025 Dr. Mark Nelson MD Nurse Practitioner Active Start: August 20, 2025 Dr. Camille Yun MD Nurse Practitioner Active St art: August 20, 2025 Sandra Moy MD Nurse Practitioner Active St art: August 20, 2025 Team Status: Active Member Role/Relationship Status Dates No Primary Care Physician Primary care physician Activ e Start: August 21, 2025 Dr. Sander Wakefield DO Emergency Departme nt Physician Active Start: August 21, 2025 Dr. Bharath Quiros MD Admitting physician Active Start: August 21, 2025 Dr. Bharath Quiros MD Nurse Practitioner Active Start: August 21, 2025 Gavin Garcia MD Nurse Practitioner Active Start : August 21, 2025 Dr. Doreen Cobb MD Nurse Practitioner Active St art: August 21, 2025 Olga Holman MD Nurse Practitioner Active S tart: August 21, 2025 Dr. Janis Mai DO Nurse Practitioner Active Start: August 21, 2025 Dr. Bethanie Jain MD Nurse Practitioner Active St art: August 21, 2025 Dr. Thomas Carballo MD Nurse Practitioner Active Start: August 21, 2025 Dr. Barbra Klein MD Nurse Practitioner Active S tart: August 21, 2025 Dr. Dmitry Wood MD Nurse Practitioner Active St art: August 21, 2025 Dr. Wang Lucas MD Nurse Practitioner Active S tart: August 21, 2025 Dr. Mukul Soliman MD Nurse Practitioner Active Start: August 21, 2025 Dr. Marleni Barger , Nurse Practitioner Active Start: August 21, 2025 Eboni Acuña MD Nurse Practitioner Active S tart: August 21, 2025 Dr. Nigel Dunaway MD Nurse Practitioner Active Start: August 21, 2025 Dr. Mariya Cormier MD Nurse Practitioner Active S tart: August 21, 2025 Dr. Chon Goodrich MD Nurse Practitioner Active Start: August 21, 2025 Dr. Eliezer Hernandez MD Nurse Practitioner Active Start: August 21, 2025 Dr. Jesse Tiwari MD Nurse Practitioner Active Start: August 21, 2025 Dr. Deandre Anders MD Nurse Practitioner Active Start: August 21, 2025 Dr. Mark Nelson MD Nurse Practitioner Active Start: August 21, 2025 Dr. Camille Yun MD Nurse Practitioner Active St art: August 21, 2025 Sandra Moy MD Nurse Practitioner Active St art: August 21, 2025 Dr. Corey Guillen , Nurse Practitioner Active Start: August 21, 2025 Dr. Smione Webster , Attending physician Active Start: August 21, 2025 Dr. Simone Webster , Nurse Practitioner Active Start: August 21, 2025 Goals (unrecognized section and content) Goals may be documented in a n alternate sectionGoals may be documented in an alternate section No data available for this section Source Comments (unrecognize d section and content) In the event this informatio n is protected by the Federal Confidentiality of Alcohol and Drug Abuse Patient Records regulations: The Federal rules restrict any use of the information to criminally investigate or prosecute any alcohol or drug abuse patient.[facility] Reason for Visit (unrecogniz ed section and content) Reason Comments Rash Rash on face and upp er body x 1 week INFORMATION SOURCE (unrecogn ized section and content) DATE CREATED AUTHOR 02/27/2023 [facility] DATE CREATED AUTHOR AUTHOR'S ORGANIZ ATION 09/02/2025 [facility] DATE CREATED AUTHOR AUTHOR'S ORGANIZ ATION 09/12/2025 [facility] FOR RECORDS PERTAINING TO PATIENTS WHO ARE OR HAVE BEEN ENROLLED IN A CHEMICAL DEPENDENCY/SUBSTANCEABUSE PROGRAM, SOME INFORMATION MAY BE OMITTED. This clinical summary was aggregated from multiple sources. Caution should be exercised in using it in the provision of clinical care. This summary normalizes information from multiple sources, and as a consequence, information in this document may materially change the coding, format and clinical context of patient data. In addition, data may be omitted in some cases. CLINICAL DECISIONS SHOULD BE BASED ON THE PRIMARY CLINICAL RECORDS. [employer] provides no warranty or guarantee of the accuracy or completeness of information in this document.
[2025-10-27 10:15] VITALS: BP 117/52; PULSE 68; RESP 14; TEMP 36.6; O2SAT 99; BMI 24.2
[2025-10-27 10:29] VITALS: BP 117/52; PULSE 68
[2025-10-27] MEDS: Nitroglycerin SL (ED/IMG/CATH) 0.4 MG TABLET SL (10:29)
[2025-10-27 10:42] VITALS: BP 87/47; PULSE 72; RESP 16; O2SAT 98
--- NOTE | 2025-10-27 10:42 | RAD.NOTE ---
Metoprolol IV was being drawn up as vital signs were being taken due to HR being in 80s as pt is laying on CT table. As VS were taken pulse noted to be in low 70s and BP low, unable to give Metoprolol and not necessary. CT techs in agreement, able to do scan without.
[2025-10-27 10:48] VITALS: BP 111/47; PULSE 68; RESP 14; O2SAT 98
== END | disposition home or self-care (01) ==
LOC: CT 09:48
PROVIDERS: PCP Family Medicine; Referring Provider Internal Medicine Cardiovascular Disease; Visit Provider Internal Medicine Cardiovascular Disease
DX: I11.0 Hypertensive heart disease with heart failure (principal); I50.22 Chronic systolic (congestive) heart failure; I42.9 Cardiomyopathy, unspecified; I34.0 Nonrheumatic mitral (valve) insufficiency; I07.1 Rheumatic tricuspid insufficiency; E78.5 Hyperlipidemia, unspecified; F10.11 Alcohol abuse, in remission
CPT/HCPCS: 75574; 76380